=== PATIENT | male | born 1930 | race Caucasian/White ===

== ENCOUNTER 2016-09-24 11:53 | Inpatient (IN) | payer OTHER ==
--- NOTE | 2016-09-24 15:18 | PDOC ---
History of Present Illness - General History Source: Patient, Family, Old Records Exam Limitations: No Limitations - History of Present Illness Initial Comments: 09/24/16 15:47 The patient is a 86 year old male presenting with his family, with a significant past medical history of CHF, AFIB s/p cardiac stents (on coumadin), HTN, who presents to the emergency department with facial injuries, right pinky injury and right knee injury after a trip and fall earlier today. The patient was walking with his and aide on route to the hospital to check his INR levels, when he tripped over concrete. The fall was witnessed and he denies any headache or loss of consciousness. The patient is currently on Coumadin. His facial injuries include a nose abrasion and active bleeding from his mouth. He reports that mild pain from his right pinky. There is a laceration on the pinky with active bleeding. He also reports mild pain from his right knee, without radiation or modifying factors. He is able to bend his knee without any complications. The patient denies chest pain, shortness of breath, headache and dizziness. Denies fever, chills, nausea, vomit, diarrhea and constipation. Denies dysuria, frequency, urgency and hematuria. Allergies: None Past surgical history: Cardiac stents Social history: No alcohol, tobacco or drug use reported PMD - Dr. Brian Mooney - Inga Duarte - [phone] Won't be available from 6:15pm to 8:00pm most nights due to dinner time at intermediate. <Sergio Cavazos - Last Filed: 09/24/16 18:38> <Francisco Galvan - Last Filed: 09/26/16 10:18> - General Chief Complaint: Injury Stated Complaint: FALL/ LACERATED NOSE, MOUTH Time Seen by Provider: 09/24/16 15:17 Past History <Sergio Cavazos - Last Filed: 09/24/16 18:38> - Past Medical History Cardiac Disorders: Yes (A FIB) HTN: Yes - Surgical History Cardiac Surgery: Yes (STENTS) - Psycho/Social/Smoking Cessation Hx Suicidal Ideation: No Smoking History: Never smoked Have you smoked in the past 12 months: No Information on smoking cessation initiated: No Hx Alcohol Use: No Drug/Substance Use Hx: No Substance Use Type: None <Francisco Galvan - Last Filed: 09/26/16 10:18> - Past Medical History Allergies/Adverse Reactions: Allergies Allergy/AdvReac Type Severity Reaction Status Date / Time No Known Allergies Allergy Verified 09/24/16 12:05 Home Medications: Ambulatory Orders Atorvastatin Ca [Lipitor] 10 mg PO HS 09/24/16 Clopidogrel Bisulfate [Plavix -] 75 mg PO DAILY 09/24/16 Digoxin 125 mcg PO HS 09/24/16 Donepezil HCl [Aricept] 10 mg PO DAILY 09/24/16 Losartan Potassium 50 mg PO DAILY 09/24/16 Metoprolol Succinate [Toprol Xl] 50 mg PO BID 09/24/16 Sertraline HCl [Zoloft] 50 mg PO DAILY 09/24/16 Tamsulosin HCl [Flomax] 0.4 mg PO DAILY 09/24/16 Warfarin Na [Coumadin] 5 mg PO DAILY 09/24/16 Review of Systems - Review of Systems Able to Perform ROS?: Yes Comments:: 09/24/16 15:47 CONSTITUTIONAL: No reported: Fever, Chills, Diaphoresis, Generalized Weakness, Malaise, Loss of Appetite HEENT: Reported: Nose abrasion and upper lip abrasion with active blood oozing. No reported: Rhinorrhea, Nasal Congestion, Throat Pain, Throat Swelling, Difficulty Swallowing, Mouth Swelling, Ear Pain, Eye Pain, Visual Changes CARDIOVASCULAR: No reported: Chest Pain, Syncope, Palpitations, Irregular Heart Rate, Lightheadedness, Peripheral Edema RESPIRATORY: No reported: Cough, Shortness of Breath, SOB with Exertion, Orthopnea, Wheezing , Stridor, Hemoptysis GASTROINTESTINAL: No reported: Abdominal pain, Abdominal Distension, Nausea, Vomiting, Diarrhea, Constipation, Melena, Hematochezia GENITOURINARY: No reported: Dysuria, Frequency, Urgency, Hesitancy, Flank Pain, Genital Pain MUSCULOSKELETAL: No reported: Myalgia, Arthralgia, Joint Swelling, Back pain, Neck Pain EXTREMITIES: Reported: Right knee abrasions and left knee abrasion, right pinky laceration with active blood oozing. SKIN: No reported: Rash, Itching, Pallor HEMEATOLOGIC/IMMUNOLOGIC: No reported: Easy Bleeding, Easy Bruising, Lymphadenopathy, Frequent infections ENDOCRINE: No reported: Unexplained Weight Gain, Unexplained Weight Loss, Heat Intolerance , Cold Intolerance NEUROLOGIC: No reported: Headache, Focal Weakness, Paresthesias, Vertigo, Lightheadedness, Unsteady Gait, Seizure, Mental Status Changes, Incontinence PSYCHIATRIC: No reported: Anxiety, Depression <Sergio Cavazos - Last Filed: 09/24/16 18:38> *Physical Exam - Vital Signs Last Vital Signs Temp Pulse Resp BP Pulse Ox 98 F 72 18 121/91 98 09/24/16 12:00 09/24/16 12:00 09/24/16 12:00 09/24/16 12:00 09/24/16 12:00 - Physical Exam Comments: 09/24/16 15:48 GENERAL: The patient is awake, alert, and fully oriented, Nontoxic - in no acute distress. HEAD: Normocephalic, abrasion on bridge of nose, no creiptus, dried blood from nares w/o active bleeding, no focal scalp tenderness EYES: extraocular movements intact, sclera anicteric, conjunctiva clear. pupils 3mma nd reactie symmetrically. ENT: Normal voice, Moist mucous membranes,nongaping 1cm laceration on upper lip w/o active bleeding, no loose teeth,no tenderness in jaw. NECK: Normal range of motion, supple LUNGS: Breath sounds equal, clear to auscultation bilaterally. No wheezes, no rhonchi, no rales. HEART: Regular rate and rhythm, without murmur, rub or gallop. ABDOMEN: Soft, nontender, normoactive bowel sounds. No guarding, no rebound.No CVA tenderness EXTREMITIES: laceration on R pinky tip with oozing of blood, defomrity (chornic per patient) of R pinky, abrasions and mild tenderness on R proximal tibia, normal ROM of hip/knee/ankles w/o pain. BACK: No focal midline or parapsinal tenderness on back NEUROLOGICAL: No facial assymetry, Normal speech, moving all 4 extremities spontaneously and symmetrically. PSYCH: Normal mood, normal affect. SKIN: Warm, Dry, normal turgor, <Sergio Cavazos - Last Filed: 09/24/16 18:38> - Vital Signs Last Vital Signs Temp Pulse Resp BP Pulse Ox 98 F 72 18 121/91 98 09/24/16 12:00 09/24/16 12:00 09/24/16 12:00 09/24/16 12:00 09/24/16 12:00 - Physical Exam Comments: NEURO exam on presentation: Mental status: The patient is oriented x2 Cranial nerves: Cranial nerves II through XII are intact Motor: The upper extremities are 5 over 5 in all muscle groups. The lower extremities are 5 over 5 in all muscle groups. Negative pronator drift Sensation: Sensation is intact to light touch throughout. Gait: deferred <Francisco Galvan - Last Filed: 09/26/16 10:18> Procedures - Consent Consent obtained: Verbal - Laceration/Wound Repair Right 5th digit Wound Length: to 2.5 cm Wound Explored: clean Wound's Depth, Shape: superficial Irrigated w/ Saline: Yes Anesthesia: 1% Lidocaine Amount of Anesthetic (ccs): 1 Wound Debrided: minimal Wound Repaired With: Sutures Suture Size/Type: 4:0 Number of Sutures: 1 Sterile Dressing Applied: Yes <Francisco aGlvan - Last Filed: 09/26/16 10:18> Heart Score/ECG Review - ECG Impressions Comment:: 09/24/16 17:50 Twelve-lead EKG was performed and reviewed by me. Irregularly irregular Rate of 123 A. fib with RVR <Francisco Galvan - Last Filed: 09/26/16 10:18> ED Treatment Course - LABORATORY CBC & Chemistry Diagram: 09/24/16 16:28 09/24/16 16:28 <Sergio Cavazos - Last Filed: 09/24/16 18:38> - LABORATORY CBC & Chemistry Diagram: 09/26/16 05:20 09/26/16 05:20 <Francisco Galvan - Last Filed: 09/26/16 10:18> Medical Decision Making - Medical Decision Making 09/24/16 18:14 Dr. Brian Mooney was consulted regarding the patient at 5:58pm [phone] Dr. Sloan Dash was called regarding the patient at 5:55pm Dr. Dash was consulted regarding the patient at 6:14pm [phone] Dr. Ospina was consulted regarding the patient at 6:38pm. He agrees to admit the patient to the ICU. [phone] <Sergio Cavazos - Last Filed: 09/24/16 18:38> - Medical Decision Making 09/24/16 15:44 86y M hx of afib on coumadin presents s/p mechanical fall, witnessed by aide and . +multiple injuries/lacerations ncluding abrasion to nose/bridge, abrasion to upper lip w/o active bleeding, pain/chronic deformity of R pinky with laceration, abrasion to R knee proximal tib fib will obtain xrays to r/o fx ct head/facial bones to r/o bleed/fx uptdate tetanus will ck labs/inr A portion of this note was documented by scribe services under my direction. I have reviewed the details of the note, within reason, and agree with the documentation with the following case summary and management plan written by me 09/24/16 16:[address] shows multiple subdural hematomas INR stil pending - will start FFP/vitamin K depending on INR will admit to ICU for further monitoring. ct facial bones shows +nasal bone fracture 09/24/16 17:48 INR at 3.36 will give pt ffp and vitamin K will admit to ICU pts mental status unchanged 09/24/16 17:[address] moonye agreed with admission to icu will notify dr. turner and dr. dash Case discussed in detail with admitting physician including history, physical exam and ancillary studies. Admitting physician has assumed care for the patient, will follow all pending diagnostics and will complete the evaluation and treatment. 09/24/16 18:16 mental status unchanged case dw dr. dash agree with management, and reversal would give 1g keppra for seizure prophylaxis and 500bid CRITICAL CARE DOCUMENTATION: I spent ~35 minutes of Critical Care time, excluding separately billable procedures, involving high complexity decision making to assess, manipulate and support vital system function(s) to treat single or multiple vital organ system failure and/or to prevent further life threatening deterioration of the patient' s condition. <Francisco Galvan - Last Filed: 09/26/16 10:18> *DC/Admit/Observation/Transfer - Attestations Scribe Attestion: 09/24/16 15:48 Documentation prepared by Sergio Cavazos, acting as director medical for Francisco Galvan MD <Sergio Cavazos - Last Filed: 09/24/16 18:38> - Discharge Dispostion Admit: Yes <Francisco Galvan - Last Filed: 09/26/16 10:18> Diagnosis at time of Disposition: Subdural hematoma, Abrasions of multiple sites, Elevated INR Accidental fall Qualifiers: Encounter type: sequela Qualified Code(s): W19.XXXS - Unspecified fall, sequela Nasal bone fracture Qualifiers: Encounter type: initial encounter Fracture type: closed Qualified Code(s): S02.2XXA - Fracture of nasal bones, initial encounter for closed fracture Atrial fibrillation Qualifiers: Atrial fibrillation type: persistent Qualified Code(s): I48.1 - Persistent atrial fibrillation - Discharge Dispostion Condition at time of disposition: Critical - Referrals
[2016-09-24] MEDS ORDERED: DIPHTH,PERTUSS(ACELL),TET VAC 0.5 ML VIAL IM ONE (15:38)
[2016-09-24] MEDS ORDERED: ONDANSETRON 4 MG/2 ML VIAL IVPB ONE (15:48)
[2016-09-24] MEDS ORDERED: ONDANSETRON 4 MG/2 ML VIAL ONE (15:48)
[2016-09-24] MEDS ORDERED: ACETAMINOPHEN 325 MG TABLET (FP) ONE (15:49)
[2016-09-24] MEDS ORDERED: ACETAMINOPHEN 325 MG TABLET (FP) PO ONE (15:49)
[2016-09-24 16:45] LABS: BASOPHIL 0.3 % (0-2.0); EOSINOPHIL 0.2 % (0-4.5); MCH 30.1 pg (25.7-33.7); MCHC 32.5 g/dl (32.0-35.9); MEAN CELL VOLUME 92.5 fl (80-96); MEAN PLT VOLUME 10.6 fl (7.5-11.1); NEUTROPHILS 81.6 % (42.8-82.8); PLATELET COUNT 107 K/MM3 (134-434); RDW 14.1 % (11.9-15.9); WHITE BLOOD COUNT 10.4 K/mm3 (4.0-10.0)
[2016-09-24 16:59] LABS: INR 3.38 (0.82-1.09); PROTHROMBIN TIME (PATIENT) 38.1 SEC (9.98-11.88)
[2016-09-24 17:17] LABS: ALBUMIN 3.6 g/dl (3.4-5.0); ANION GAP 13 (8-16); CALCIUM 8.3 mg/dL (8.5-10.1); CO2 25 mmol/L (21-32); COCKROFT - GAULT 82.92; CREATININE 0.8 mg/dL (0.7-1.3); GLUCOSE,RANDOM 103 mg/dL (74-106); SGOT/AST 15 U/L (15-37); SGPT/ALT 19 U/L (12-78)
[2016-09-24 17:19] LABS: ALK PHOS 82 U/L (45-117); BILIRUBIN,TOTAL 1.3 mg/dL (0.2-1.0); TOT PROT 7.2 g/dl (6.4-8.2)
[2016-09-24] MEDS ORDERED: PHYTONADIONE 10 MG/1 ML AMP SQ ONE (17:46)
[2016-09-24] MEDS ORDERED: SODIUM CHLORIDE 500 ML IV STA (17:49)
[2016-09-24] MEDS ORDERED: levETIRAcetam 500 MG/5 ML INJECTION VIAL IVPB ONE (18:16)
[2016-09-24] MEDS ORDERED: PHYTONADIONE 10 MG/1 ML AMP ONE (18:17)
[2016-09-24] MEDS ORDERED: LABETALOL HCL 5 MG/1 ML (200MG/40ML VIAL) IVPB ONE (18:34)
[2016-09-24] MEDS ORDERED: LABETALOL HCL 5 MG/1 ML (100MG/20 ML VIAL) IVPUSH ONE (18:34)
[2016-09-24] MEDS: LABETALOL HCL 5 MG/1 ML (100MG/20 ML VIAL) IVPUSH ONE ×2 (20:20→20:43)
[2016-09-24] MEDS ORDERED: ENALAPRILAT DIHYDRATE 2.5 MG/2 ML VIAL IVPB ONE ×2 (20:35→20:43)
--- NOTE | 2016-09-24 20:57 | HP ---
Admitting History and Physical - Primary Care Physician PCP: Brian Mooney - Admission Chief Complaint: Fall. SDH. Supratherapeutic INR History of Present Illness: Pt. tripped ( on concrete), fell with face down, while walking with his ( towards laboratory, to have INR checked). Pt. came to ER were was found to have facial trauma, supratherapeutic INR, left SDH. Pt with Hx/o A Fib (on AC), CAD with cardiac stent, CHF, HTN. Information per ER attending and pt.'s ( I called her at home); pt.'s states that pt. took his AM meds. 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 Julio Cesar Fox). History Source: Family Member Limitations to Obtaining History: Dementia - Past Medical History Cardiovascular: Yes: CAD (with cardiac stent), CHF, HTN, Hyperlipdemia - Smoking History Smoking history: Never smoked Have you smoked in the past 12 months: No - Alcohol/Substance Use Hx Alcohol Use: No - Social History History of Recent Travel: No Home Medications - Allergies Allergies/Adverse Reactions: Allergies Allergy/AdvReac Type Severity Reaction Status Date / Time No Known Allergies Allergy Verified 09/24/16 12:05 - Home Medications Home Medications: Ambulatory Orders Atorvastatin Ca [Lipitor] 10 mg PO HS 09/24/16 Clopidogrel Bisulfate [Plavix -] 75 mg PO DAILY 09/24/16 Digoxin 125 mcg PO HS 09/24/16 Donepezil HCl [Aricept] 10 mg PO DAILY 09/24/16 Losartan Potassium 50 mg PO DAILY 09/24/16 Metoprolol Succinate [Toprol Xl] 50 mg PO BID 09/24/16 Sertraline HCl [Zoloft] 50 mg PO DAILY 09/24/16 Tamsulosin HCl [Flomax] 0.4 mg PO DAILY 09/24/16 Warfarin Na [Coumadin] 5 mg PO DAILY 09/24/16 Family Disease History - Family Disease History Family History: Unable to Obtain Review of Systems Findings/Remarks: limited - Review of Systems Constitutional: denies: Chills, Fever Eyes: denies: Blurred Vision, Double Vision HENT: reports: Other (no facial pain). denies: Difficult Swallowing, Ear Discharge, Ear Pain, Nasal Congestion, Throat Pain Neck: denies: Pain on Movement, Tenderness Cardiovascular: denies: Chest Pain, Edema, Palpitations Respiratory: denies: Cough, SOB, Wheezing Gastrointestinal: denies: Abdominal Pain, Diarrhea, Nausea Genitourinary: denies: Burning, Discharge Musculoskeletal: denies: Back Pain, Joint Pain Integumentary: denies: Bruising Neurological: denies: Change in LOC, Confusion, Numbness Psychiatric: denies: Anxiety, Depression Physical Examination Vital Signs: Vital Signs Temperature 98 F 09/24/16 12:00 Pulse Rate 145 H 09/24/16 18:57 Respiratory Rate 22 09/24/16 18:57 Blood Pressure 173/103 09/24/16 18:57 O2 Sat by Pulse Oximetry (%) 95 09/24/16 18:57 Constitutional: Yes: Mild Distress (removing NC- O2 sat going down to mid 80's) Eyes: Yes: Conjunctiva Clear. No: EOM Intact (right side neglect) HENT: Yes: Epistaxis, Other (mid upper lip laceration and bleeding). No: Atraumatic Neck: Yes: Trachea Midline. No: Lymphadenopathy Cardiovascular: Yes: Tachycardia, S1, S2 Respiratory: Yes: Regular, Other (coarse at bases) Gastrointestinal: Yes: Normal Bowel Sounds, Soft. No: Tenderness Musculoskeletal: Yes: Back Pain, Other (knees abrassions. Right 5-th finger suture) Extremities: No: Cold, Cool, Cyanosis Edema: No Integumentary: Yes: Bruising Neurological: Yes: Alert, Oriented (person) Psychiatric: Yes: Agitated (trying to get out the bed; removing the NC) Imaging - Results Chest X-ray: Report Reviewed X-ray: Report Reviewed Cat Scan: Report Reviewed Problem List - Problems (1) Subdural hematoma Code(s): I62.00 - NONTRAUMATIC SUBDURAL HEMORRHAGE, UNSPECIFIED (2) Supratherapeutic INR Code(s): R79.1 - ABNORMAL COAGULATION PROFILE (3) Atrial fibrillation Assessment/Plan: with RVR. Code(s): I48.91 - UNSPECIFIED ATRIAL FIBRILLATION Qualifiers: Atrial fibrillation type: persistent Qualified Code(s): I48.1 - Persistent atrial fibrillation (4) Accidental fall Code(s): W19.XXXA - UNSPECIFIED FALL, INITIAL ENCOUNTER Qualifiers: Encounter type: sequela Qualified Code(s): W19.XXXS - Unspecified fall, sequela (5) Nasal bone fracture Code(s): S02.2XXA - FRACTURE OF NASAL BONES, INIT ENCNTR FOR CLOSED FRACTURE Qualifiers: Encounter type: initial encounter Fracture type: closed Qualified Code(s): S02.2XXA - Fracture of nasal bones, initial encounter for closed fracture (6) Uncontrolled hypertension Code(s): I10 - ESSENTIAL (PRIMARY) HYPERTENSION (7) Abrasions of multiple sites Code(s): T14.8 - OTHER INJURY OF UNSPECIFIED BODY REGION (8) Dementia Assessment/Plan: mild to moderate at baseline. Code(s): F03.90 - UNSPECIFIED DEMENTIA WITHOUT BEHAVIORAL DISTURBANCE Assessment/Plan Neuro Sx consult- case was d/w Dr. Ernst; Pt. is not a surgical candidate. Neuro Consult. Cardio consult. CCM consult Admit to ICU s/p vit K ( 5 mg SQ), and to receive FFP. To monitor INR in AM. Serial CE Pt with upper lip laceration, bleeding- to avoid PO Pt received 10 mg IVP Labetalol(X 2), 2.5 mg IVP enalapril with minimal improvement of blood pressure. To start Cardizem IV drip and titrate for BP and HR control. Pt. with mild agitation, removing NC continuosly- O2 sat dropping to mid 80's; to apply hand restrains. Pt. is trying to get out of bed frequently, bed and head position set to prevent it but favors aspiration; to apply vest and reposition HOB to 35-45 degrees to prevent aspiration. 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 AM labs. Critical time spent in managing pt's condition: over 85 minutes
[2016-09-24] MEDS ORDERED: DIGOXIN 0.5 MG/2 ML AMPUL ONE (21:22)
[2016-09-24] MEDS: DIGOXIN 0.5 MG/2 ML AMPUL IVPB SCH ×2 (21:41→21:42)
[2016-09-24] MEDS: DILTIAZEM INJECTION 125 MG in DEXTROSE 5%-WATER - 100 ML IVPB SCH (21:58)
--- NOTE | 2016-09-24 23:23 | CONSULT ---
Consult Consult Specialty:: Pulmonary Critical Care Reason for Consultation:: Subdural hematoma s/p Witnessed Fall - History of Present Illness Chief Complaint: Subdural Hematoma s/p Witnessed Fall History of Present Illness: This is an 86 year old male with a past medical history significant for CHF, AFIB on coumadin, cardiac stents on Plavix,and HTN and dementia who presented to the ED today accompanied by his family and skilled nursing professional s/p witnessed mechanical fall. The patient was walking with his and aide en route to the hospital to check his INR, when he tripped and fell over concrete. He denies any headache or loss of consciousness. His facial injuries include a nose abrasion and active bleeding from his mouth. He reports that mild pain from his right pinky. There is a laceration on the pinky with active bleeding. He also reports mild pain from his right knee, without radiation or modifying factors. He is able to bend his knee without any complications. Given mechanism of injury and age of patient, pt had a CT scan of the head which revealed acute subdural hemorrhage within the posterior fossa along the left tentorium, as well as within the left temporal and parietal regions with no mass effect. Facial CT revealed a slightly displaced fracture of the left nasal bone, with no other fracture or acute abnormality appreciated. Neurosurgery was consulted and pt deemed not a surgical candidate. INR was >3 and treated with vitamin K and FFP. Pt also noted to be tachycardic and hypertensive and subsequently placed on cardizem drip for rate control. Given acute subdural hematoma, elevated INR and fall in an elderly pt decision made to transfer pt to ICU for further neuro monitoring and medical care. - Past Medical History Cardio/Vascular: Yes: CAD (with cardiac stent), CHF, HTN, Hyperlipdemia - Alcohol/Substance Use Hx Alcohol Use: No - Smoking History Smoking history: Never smoked Have you smoked in the past 12 months: No - Social History History of Recent Travel: No Home Medications - Allergies Allergies/Adverse Reactions: Allergies Allergy/AdvReac Type Severity Reaction Status Date / Time No Known Allergies Allergy Verified 09/24/16 12:05 - Home Medications Home Medications: Ambulatory Orders Atorvastatin Ca [Lipitor] 10 mg PO HS 09/24/16 Clopidogrel Bisulfate [Plavix -] 75 mg PO DAILY 09/24/16 Digoxin 125 mcg PO HS 09/24/16 Donepezil HCl [Aricept] 10 mg PO DAILY 09/24/16 Losartan Potassium 50 mg PO DAILY 09/24/16 Metoprolol Succinate [Toprol Xl] 50 mg PO BID 09/24/16 Sertraline HCl [Zoloft] 50 mg PO DAILY 09/24/16 Tamsulosin HCl [Flomax] 0.4 mg PO DAILY 09/24/16 Warfarin Na [Coumadin] 5 mg PO DAILY 09/24/16 Physical Exam Vital Signs: Vital Signs Temperature 97.9 F 09/24/16 21:51 Pulse Rate 145 H 09/24/16 18:57 Respiratory Rate 22 09/24/16 18:57 Blood Pressure 173/103 09/24/16 18:57 O2 Sat by Pulse Oximetry (%) 95 09/24/16 18:57 Constitutional: Yes: Well Nourished, No Distress, Calm Eyes: Yes: Conjunctiva Clear, PERRL HENT: Yes: Atraumatic, Normocephalic Neck: Yes: Supple, Trachea Midline Cardiovascular: Yes: Tachycardia, Pulse Irregular, S1, S2 Respiratory: Yes: On Venti-Mask, Rhonchi, Wheezes Gastrointestinal: Yes: Normal Bowel Sounds, Soft ...Rectal Exam: Yes: Deferred Renal/: Yes: Incontinence Edema: No Peripheral Pulses WNL: Yes (decreased to RLE, 2+ to remaining pulses) Integumentary: Yes: Skin Tear (B/L knees), Onychomycosis Neurological: Yes: Confusion, Pre-Existing Deficit, Other (AAOx1, name only, following commands, BEYER's equally, MS 5/5 throughout) Labs: CBCD WBC 10.4 K/mm3 (4.0-10.0) H D 09/24/16 16:28 RBC 4.38 M/mm3 (4.00-5.60) 09/24/16 16:28 Hgb 13.2 GM/dL (11.7-16.9) 09/24/16 16:28 Hct 40.6 % (35.4-49) 09/24/16 16:28 MCV 92.5 fl (80-96) 09/24/16 16:28 MCHC 32.5 g/dl (32.0-35.9) 09/24/16 16:28 RDW 14.1 % (11.9-15.9) 09/24/16 16:28 Plt Count 107 K/MM3 (134-434) L 09/24/16 16:28 MPV 10.6 fl (7.5-11.1) 09/24/16 16:28 CMP Sodium 141 mmol/L (136-145) 09/24/16 16:28 Potassium 4.2 mmol/L (3.5-5.1) 09/24/16 16:28 Chloride 103 mmol/L (98-107) 09/24/16 16:28 Carbon Dioxide 25 mmol/L (21-32) 09/24/16 16:28 Anion Gap 13 (8-16) 09/24/16 16:28 BUN 21 mg/dL (7-18) H 09/24/16 16:28 Creatinine 0.8 mg/dL (0.7-1.3) 09/24/16 16:28 Creat Clearance w eGFR > 60 (>60) 09/24/16 16:28 Calcium 8.3 mg/dL (8.5-10.1) L 09/24/16 16:28 Total Bilirubin 1.3 mg/dL (0.2-1.0) H D 09/24/16 16:28 AST 15 U/L (15-37) 09/24/16 16:28 ALT 19 U/L (12-78) 09/24/16 16:28 Alkaline Phosphatase 82 U/L (45-117) 09/24/16 16:28 Total Protein 7.2 g/dl (6.4-8.2) 09/24/16 16:28 Albumin 3.6 g/dl (3.4-5.0) 09/24/16 16:28 Imaging - Results Cat Scan: Report Reviewed Problem List - Problems (1) Abrasions of multiple sites Code(s): T14.8 - OTHER INJURY OF UNSPECIFIED BODY REGION (2) Atrial fibrillation Code(s): I48.91 - UNSPECIFIED ATRIAL FIBRILLATION Qualifiers: Atrial fibrillation type: persistent Qualified Code(s): I48.1 - Persistent atrial fibrillation (3) Dementia Code(s): F03.90 - UNSPECIFIED DEMENTIA WITHOUT BEHAVIORAL DISTURBANCE (4) Elevated INR Code(s): R79.1 - ABNORMAL COAGULATION PROFILE (5) Nasal bone fracture Code(s): S02.2XXA - FRACTURE OF NASAL BONES, INIT ENCNTR FOR CLOSED FRACTURE Qualifiers: Encounter type: initial encounter Fracture type: closed Qualified Code(s): S02.2XXA - Fracture of nasal bones, initial encounter for closed fracture (6) Subdural hematoma Code(s): I62.00 - NONTRAUMATIC SUBDURAL HEMORRHAGE, UNSPECIFIED (7) Altered mental status Code(s): R41.82 - ALTERED MENTAL STATUS, UNSPECIFIED Qualifiers: Altered mental status type: disorientation Qualified Code(s): R41.0 - Disorientation, unspecified Assessment/Plan A: This is an 86 year old male with a past medical history significant for CHF, AFIB on coumadin, cardiac stents on Plavix,and HTN and dementia who presented to the ED today s/p witnessed fall after tripping on sidewalk with subsequent work-up revealing acute subdural hematoma but not a surgical candidate. Pt admitted to ICU for further medical care. P: -Neuro checks q2hrs -Restraints prn -Reorient patient as needed for confusion -f/u with Neurology in AM -cont keppra 500mg IV q12hrs for seizure prophylaxis -consider repeat head CT in 24 hours -Cardizem gtt for rate control with goal HR<100 -dig level in am -Repeat coags once FFP given -Chest pt with coughing and deep breathing exercises -haldol prn given hx of dementia -face tent with 40% FIO2 as pt with broken left nasal bone and mouth breathing -Wean FIO2 as needed for goal SPO2 >94% -SCD's for dvt prophylaxis Thank you for this interesting consult. Pt is critically ill. CCT 45 mins not including procedures.
[2016-09-24 23:29] VITALS: BMI 28.0
[2016-09-25 00:50] LABS: MCH 30.3 pg (25.7-33.7); MCHC 32.8 g/dl (32.0-35.9); MEAN CELL VOLUME 92.6 fl (80-96); MEAN PLT VOLUME 11.4 fl (7.5-11.1); PLATELET COUNT 110 K/MM3 (134-434); RDW 13.9 % (11.9-15.9); WHITE BLOOD COUNT 10.4 K/mm3 (4.0-10.0)
[2016-09-25 01:03] LABS: INR 2.1 (0.82-1.09); PROTHROMBIN TIME (PATIENT) 23.5 SEC (9.98-11.88)
[2016-09-25 01:15] LABS: TROPONIN I 0.02 ng/ml (0.00-0.05)
[2016-09-25] MEDS ORDERED: hydrALAZINE HCL 20 MG/ML VIAL IVPUSH ONE (06:17)
[2016-09-25 06:48] LABS: ALLENS TEST POSITIVE; ART PUNCT SITE LEFT RADIAL; ARTERIAL BLOOD GAS BASE EXCESS 0.5 meq/l (-2-2); ARTERIAL BLOOD GAS HCO3 25.5 meq/L (22-26); ARTERIAL BLOOD GAS pH 7.37 (7.35-7.45); LPM/O2% 50%; PT. ON O2? YES; TYPE OF O2 FACE TENT
[2016-09-25 06:49] LABS: ARTERIAL BLOOD GAS PO2 63.5 mmHg (68-100)
[2016-09-25 06:52] LABS: ALBUMIN 4.1 g/dl (3.4-5.0); ALK PHOS 88 U/L (45-117); ANION GAP 10 (8-16); BILIRUBIN,TOTAL 2.4 mg/dL (0.2-1.0); CALCIUM 8.4 mg/dL (8.5-10.1); CO2 28 mmol/L (21-32); COCKROFT - GAULT 92.33; CREATININE 0.7 mg/dL (0.7-1.3); GLUCOSE,RANDOM 194 mg/dL (74-106); SGOT/AST 17 U/L (15-37); SGPT/ALT 21 U/L (12-78); TOT PROT 7.9 g/dl (6.4-8.2)
[2016-09-25] MEDS: ALBUTEROL SO4 2.5/IPRATROPIUM 0.5 INH SOL 3 ML VIAL.NEB. NEB SCH ×3 (06:52→18:00)
[2016-09-25 06:55] LABS: INR 2.06 (0.82-1.09)
--- NOTE | 2016-09-25 07:24 | PN ---
Physical Exam: SUBJECTIVE: Patient seen and examined sitting in bed with face tent. occasional termors in upper and lower extremities lasting few seconds at a time. OBJECTIVE: Vital Signs Period Temp Pulse Resp BP Sys/Obrien Pulse Ox Last 24 Hr 97.1 F-98 F 89-145 18-27 144-176/56-121 95-98 GENERAL: The patient is lethargic, easily arousable to verbal and noxious stimuli, difficult to maintain alertness. HEAD: Normal with no signs of trauma. EYES: pinpoint pupils sluggish to light, extraocular movements intact, sclera anicteric, conjunctiva clear. No ptosis. ENT: Ears normal, nares with dried blood, ecchymosis and abrasion over nose; covered with CDI guaze, oropharynx with dried blood and thick light brown secretions. swelling of upper lip. no active bleeding. NECK: Trachea midline, thick neck LUNGS: Breath sounds scattered rhonchi and diffuse coarse breath sounds b/l HEART: afib, S1, S2 without murmur, rub or gallop. ABDOMEN: Soft, nontender, nondistended, normoactive bowel sounds, no guarding, no rebound. EXTREMITIES: 2+ pulses, warm, well-perfused, no edema. abrasion below right knee, swelling on medial left knee. NEUROLOGICAL: hyprerefleix at brachoradialis and knee jerk b/l. resting tremors. lethargic. responds to verbal stimuli, able to say hello but not squeeze hand or commands Laboratory Results - last 24 hr 09/25/16 09/25/16 09/25/16 00:30 00:30 00:30 WBC 10.4 H RBC 3.92 L Hgb 11.9 Hct 36.3 MCV 92.6 MCHC 32.8 RDW 13.9 Plt Count 110 L MPV 11.4 H INR 2.10 H D Puncture Site ABG pH ABG pCO2 at Pt Temp ABG pO2 at Pt Temp ABG HCO3 ABG O2 Sat (Measured) ABG O2 Content ABG Base Excess Prosper Test O2 Delivery Device Oxygen Flow Rate PEEP Sodium Potassium Chloride Carbon Dioxide Anion Gap BUN Creatinine Creat Clearance w eGFR Random Glucose Calcium Total Bilirubin AST ALT Alkaline Phosphatase Creatine Kinase 77 Troponin I 0.02 Total Protein Albumin 09/25/16 09/25/16 09/25/16 05:15 05:15 06:36 WBC RBC Hgb Hct MCV MCHC RDW Plt Count MPV INR 2.06 H Puncture Site Left radial ABG pH 7.37 ABG pCO2 at Pt Temp 45.3 H ABG pO2 at Pt Temp 63.5 L ABG HCO3 25.5 ABG O2 Sat (Measured) 91.0 ABG O2 Content 15.4 ABG Base Excess 0.5 Prosper Test Positive O2 Delivery Device Face tent Oxygen Flow Rate 50% PEEP 0.0 Sodium 136 Potassium 3.4 L Chloride 98 Carbon Dioxide 28 Anion Gap 10 BUN 18 Creatinine 0.7 Creat Clearance w eGFR > 60 Random Glucose 194 H D Calcium 8.4 L Total Bilirubin 2.4 H D AST 17 ALT 21 Alkaline Phosphatase 88 Creatine Kinase Troponin I Total Protein 7.9 Albumin 4.1 Active Medications Generic Name Dose Route Start Last Admin Trade Name Freq PRN Reason Stop Dose Admin Albuterol/Ipratropium 1 amp 09/25/16 07:00 09/25/16 06:52 Duoneb - NEB 1 amp QIDR [facility] Administration Bacitracin 1 applic 09/24/16 23:15 09/25/16 00:00 Bacitracin - TP 1 applic BID CESAR Administration Digoxin 0.125 mg 09/24/16 21:30 09/24/16 21:42 Lanoxin Injection - IVPB Not Given HS CESAR Diltiazem HCl 125 mg/ Dextrose 125 mls @ 5 mls/hr 09/24/16 21:45 09/25/16 06:41 IVPB 7.5 mg/hr TITR [facility] Titration Protocol 5 MG/HR ASSESSMENT/PLAN: 86 yr old man with dementia, afib on plavix and warfarin, HTN, CAD s/p stents, CHF, parkinson's disorder presents s/p mechanical fall found to have subarachnoid and subdural hemorrhage. Neurologic Repeat Head CT shows progression of hemorrhage, plan to repeat head in the morning sedated with propofol and fentanyl consult: Dr. Ventura Pulmonary Pt intubated today to protect airway possible infiltrate developing in right lung, likely caused by aspiration Hemotalogical reverse antiplatet and anticoagulation due to active bleed - transfuse ffp and monodonor platelets - Vitamin K administered - repeat coags consult: Dr. Melgar Cardiovascular - rate controlled afib maintain SBP <130, low to prevent worsening of hemorrhage - labetalol 10mg [id number] for 3 doses, if sustained SBP consider nicardipine drip - amiodarone dc'ed this morning due to episodes of bradycardia - hold warfarin and plavix consult: Dr. Pierce Infectious disease Cxy with pathchy infiltrates in right lung, suspicious for aspiration pna tx with levaquin fever this evening to 100.7 - blood cx sent to r/o systemic bactermia - IVPB tylenol 1gm q6h for fevers Gastrointestinal - OG tube in place for medications - prophylaxis with zantac daily DVT scd's given acute bleed Diet: NPO Visit type - Emergency Visit Emergency Visit: No - New Patient This patient is new to me today: Yes Date on this admission: 09/25/16 - Critical Care Critical Care patient: Yes Total Critical Care Time (in minutes): 35 Critical Care Statement: The care of this patient involved high complexity decision making to prevent further life threatening deterioration of the patient 's condition and/or to evalute & treat vital organ system(s) failure or risk of failure.
--- NOTE | 2016-09-25 08:12 | PN ---
Progress Note (short form) - Note Progress Note: NEUROSURGERY CONSULT DICTATED Chart reviewed CT reviewed Care d/w Dr Galvan (ED) yesterday Reportedly less awakeful and purposeful with movement this am; did not receive sedation H/o AFIB, CHF, cardiac stents (on coumadin), HTN, who presents to [facility] emergency department yesterday with facial injuries, right hand/t knee injury after a mechanical trip and fall. Pt denies any headache or loss of consciousness. He reports mild pain from his pinky and right knee. PE: 97.1, 171/87 HEENT- nasal blood; FM on; Neck-supple; Cor- Irreg; Lungs- occ rhonchi, decreased BS in general; Abs- obese, benign; Ext- R knee abrasion Drowsy, arousable, does not follow command "hello" with prompting repeatedly CN- pupils 3-2.5 sluggish B; grossly intact; Motor- at least antigravity strength B UE/LE 3; + spontaneous movement; Sensation- difficult to assess; DTR - hyperreflexic B LE > UE; toes downgoing B INR 3.[address]: cerebral atrophy, L hemipsheric acute on chronic SDH with minimal mass effect; no shift L hemispheric SDH- no neurosurgical intervention indicated nor recommended Keppra x1 week for sz prophylaxis Coumadin partially reversed per ED with FFP and vit K Ideally should be off AC for one month before restarting; unfortunately increased thromboembolic risks now that he is off plavix and coumadin Head CT this AM to ascertains stability of SDH
[2016-09-25] MEDS ORDERED: KCL 10 MEQ IVPB 100 ML IVPB SCH (08:15)
--- NOTE | 2016-09-25 09:21 | PN ---
Progress Note, Physician History of Present Illness: Pt. was seen and examined in ICU. Lethargic ( opens his eyes for couple of seconds, doesn't follows commands), no sedative was given. Pt. had second Head CT done. - Current Medication List Current Medications: Active Medications Albuterol/Ipratropium (Duoneb -) 1 amp NEB QIDR [facility] Last Admin: 09/25/16 06:52 Dose: 1 amp Bacitracin (Bacitracin -) 1 applic TP BID [facility] Last Admin: 09/25/16 00:00 Dose: 1 applic Digoxin (Lanoxin Injection -) 0.125 mg IVPB HS [facility] Last Admin: 09/24/16 21:42 Dose: Not Given Diltiazem HCl 125 mg/ Dextrose 125 mls @ 5 mls/hr IVPB TITR [facility]; 5 MG/HR PRN Reason: Protocol Last Titration: 09/25/16 06:41 Dose: 7.5 mg/hr Levetiracetam (Keppra Injection -) 500 mg IVPB BID [facility] - Objective Vital Signs: Vital Signs Temperature 97.1 F L 09/25/16 06:00 Pulse Rate 88 09/25/16 08:00 Respiratory Rate 28 H 09/25/16 08:00 Blood Pressure 132/62 09/25/16 08:00 O2 Sat by Pulse Oximetry (%) 96 09/25/16 08:00 Constitutional: Yes: No Distress, Calm Cardiovascular: Yes: Regular Rate and Rhythm, S1, S2 Respiratory: Yes: Regular, Rales (bilaterally, in lower lung sauer) Gastrointestinal: Yes: Normal Bowel Sounds, Soft Edema: No Neurological: Yes: Lethargy Labs: CBC, BMP 09/25/16 00:30 09/25/16 05:15 INR, PTT INR 2.06 (0.82-1.09) H 09/25/16 05:15 Problem List - Problems (1) Subdural hematoma Code(s): I62.00 - NONTRAUMATIC SUBDURAL HEMORRHAGE, UNSPECIFIED (2) Supratherapeutic INR Code(s): R79.1 - ABNORMAL COAGULATION PROFILE (3) Atrial fibrillation Assessment/Plan: with RVR- controlled with IV cardizem Code(s): I48.91 - UNSPECIFIED ATRIAL FIBRILLATION Qualifiers: Atrial fibrillation type: persistent Qualified Code(s): I48.1 - Persistent atrial fibrillation (4) Accidental fall Code(s): W19.XXXA - UNSPECIFIED FALL, INITIAL ENCOUNTER Qualifiers: Encounter type: sequela Qualified Code(s): W19.XXXS - Unspecified fall, sequela (5) Nasal bone fracture Code(s): S02.2XXA - FRACTURE OF NASAL BONES, INIT ENCNTR FOR CLOSED FRACTURE Qualifiers: Encounter type: initial encounter Fracture type: closed Qualified Code(s): S02.2XXA - Fracture of nasal bones, initial encounter for closed fracture (6) Uncontrolled hypertension Code(s): I10 - ESSENTIAL (PRIMARY) HYPERTENSION (7) Abrasions of multiple sites Code(s): T14.8 - OTHER INJURY OF UNSPECIFIED BODY REGION (8) Dementia Assessment/Plan: mild to moderate at baseline. Code(s): F03.90 - UNSPECIFIED DEMENTIA WITHOUT BEHAVIORAL DISTURBANCE (9) Leukocytosis Assessment/Plan: Send UA, UCX Could be reactive Code(s): D72.829 - ELEVATED WHITE BLOOD CELL COUNT, UNSPECIFIED (10) Hypokalemia Assessment/Plan: replete K, check Mg Code(s): E87.6 - HYPOKALEMIA (11) Thrombocytopenia Assessment/Plan: stable might need transfusion Code(s): D69.6 - THROMBOCYTOPENIA, UNSPECIFIED Assessment/Plan Neuro Sx consult appreciated- case was d/w Dr. Ernst; Pt. is not a surgical candidate. Neuro Consult appreciated, Dr. Ventura at bedside, second head CT scan was reviewed ( increase in SDH, possible SAH present); to reverse AC, start IV steroids, repeat Head CT scan in early afternoon. Cardio consult. CCM consult Admitted to ICU. Hematology consult. s/p vit K ( 5 mg SQ), and to receive FFP. vit K (5 mg SQ) and and FFP ordered again. NPO except med- if tolerates HOB to 35-45 degrees to prevent aspiration. ENT consult. Case was discussed with pt's ER nurse. AM labs. Case was d/w pt.'s ; she is aware of worsening bleeding, risks, treatments, poor prognosis; all questions were answered. She wants pt full code, intubate as needed. Time spent in managing pt's condition: over 75 minutes
--- NOTE | 2016-09-25 09:33 | CONS ---
DATE OF CONSULTATION: 09/25/2016 CHIEF COMPLAINT: Left hemispheric subdural hematoma. REQUESTING PHYSICIAN: Dr. Galvan and Dr. Brian Mooney HISTORY OF PRESENT ILLNESS: The patient is an 86-year-old male with history of chronic atrial fibrillation on anticoagulation, coronary artery disease status post stent, CHF, hypertension, who suffered a mechanical fall yesterday while walking to have his blood checked. He fell on the concrete sidewalk by report. He denies loss of consciousness. The history was obtained previously from a family member. The patient does have a history of dementia by report. There were no witnessed seizure activities. The patient was found to be intermittently hypertensive, however, as well as appearing to have sustained some superficial soft tissue injury to the nose, right hand, and right knee. There were no other new complaints. PAST MEDICAL HISTORY: Significant for a coronary artery disease, stent placement, CHF, hypertension, hypercholesterolemia, dementia. MEDICATIONS: Included Lipitor, Plavix, Digoxin, Aricept, losartan, metoprolol, Coumadin, Flomax, and Zoloft. ALLERGIES: There are no known drug allergies. FAMILY HISTORY: Noncontributory. SOCIAL HISTORY: He is retired. He does not smoke or drink. He lives at home with the family. REVIEW OF SYSTEMS: Otherwise negative for other major cardiovascular, pulmonary , gastrointestinal, genitourinary, endocrinologic, neurologic, or psychologic problems except for the above. PHYSICAL EXAMINATION: Vital signs: Temperature is 97.1, blood pressure is 173/87 with pulse rate of 89, O2 saturation is 98% on face mask 50%. HEENT: Examination shows him to have some blood in the nares bilaterally. There is no clear airway obstruction. Neck: Supple with no carotid bruit. Coronary: Examination demonstrates an irregular rhythm. Lungs: Decreased breath sounds bilaterally. There are occasional bilateral rhonchi. Abdomen: Obese, but benign. Extremities: No obvious signs of fracture. There is osteoarthritis throughout. There is some abrasion over the right knee as well as some soft tissue injury as noted. Neurologic: He is drowsy, but arousable. He repeats hello without prompting, but does not say much of anything else. Cranial nerve examination shows pupils reactive from 3 to 2.5 mm bilaterally, but sluggish. Cranial nerve examination is otherwise intact. Motor examination shows at least antigravity strength of bilateral upper and lower extremities. Sensory examination is difficult to assess. Deep tendon reflexes are hyporeflexic throughout. His toes are downgoing. Gait could not be tested for safety reasons. LABORATORY EXAMINATION: Shows white blood cell count to be 10,400, hemoglobin is 11.9, hematocrit is 36.3, platelet count is 110,000. INR was 3.38, which after vitamin K and FFP was 2.06 this morning. Serum sodium is 136, potassium 3.4, BUN 18, creatinine 0.7, GFR is greater than 60, random glucose 194, calcium 8.4. Chest x-ray was just done. Head CT done yesterday approximately 3:30 p.m. showed a bilateral cerebral atrophy. There is left hemispheric subdural fluid collection acute on chronic. This also extends into the left tentorium. There is no significant mass effect or midline shift. There is no fracture. IMPRESSION: 1. Acute on chronic left hemispheric subdural fluid collection with no significant mass effect or shift, status post mechanical fall. 2. History of hypertension, atrial fibrillation on chronic anticoagulation, coronary artery disease status post stent placement, and congestive heart failure. 3. Rule out primary pneumonic process versus exacerbation of heart failure. 4. Dementia. RECOMMENDATIONS: The patient presents with traumatic fall yesterday. He had reported suffered a nasal fracture in addition to left-sided hemispheric subdural hematoma. His anticoagulation was reversed in the emergency room by a combination of vitamin K and FFP by report. INR this morning was 2.06. A repeat head CT scan without contrast is recommended this morning to evaluate the size of subdural hematoma. Given his history of treatment with antiplatelet agent as well as Coumadin, he is at increased risk for hemorrhagic adverse events in general. Unfortunately, now that he is off his anticoagulation for his atrial fibrillation, he is more likely to develop thromboembolic event such as stroke. Keppra at loading dose was given, and he should be maintained 250 mg from 500 mg b.i.d. maintenance doses for at least a week for seizure prophylaxis. The patients treatment was discussed with the medical treatment team in the intensive care unit. WASHINGTON LONGO M.D. [id number] MTDD
--- NOTE | 2016-09-25 09:51 | CONSULT ---
Consult - text type - Consultation Consultation Note: NEUROLOGY CONSULTATION is greatly appreciated: Case reviewed and discussed with Dr. Mooney and resident staff. This 86yo RH man lives with his . PMH sig for HTN, Chol, ASHD, S/P Stents, A Fib and dementia. On atorvastatin, clopidegrel, digoxin, losartan, metoprolol, sertraline, tamsulosin and coumadin. Tripped and fell yesterday with facial and knee trauma. + nasal fracture, pinky dislocation. WBC= 10 K. INR was 3.38 on admission. INR= 2.[address] of head (reviewed): Diffuse atrophy. Small Left convexity subdural hematoma ( acute), small left tentorial and infratemporal subarachnoid blood. EXAM: Nasal packing. Neck ROM OK without tenderness. Left knee swollen. ecchymotic. NEURO: Lethargic but arousable. Denies headache but is confused. + Glabella, snout. [id number], Full roving EOM's. Full sauer to threat. No facial asymmetry. Moving all fours well. Right foot rests slightly everted. Course, rhythmic, rest tremors. + cogwheel. Right Babinski. Withdraws all fours to pinch. Repeat CT of head (930 hrs), reviewed: Increased Left convexity subdural with loss of gyral, sulcal pattern and small midline (L>R) shift. Increased blood (SDH vs SAH) along tentorium. IMP: Head trauma with Left convexity SDH and traumatic SAH OMS/ Parkinson's disease. SUGGEST: Recall Dr. Ernst Re: new CT findings. Give decadron 4 mg IVPB q 6 hrs. First dose stat. Agree with levetiracetam 500 mg q12 hrs. Heme consultation. Continue correction of anticoagulation status with vit K, FFP, etc. Repeat INR. Repeat CT of head this afternoon. Thank you very much, Adarsh Ventura MD
[2016-09-25] MEDS ORDERED: PHYTONADIONE 10 MG/1 ML AMP SQ ONE (10:02)
[2016-09-25] MEDS: levETIRAcetam 500 MG/5 ML INJECTION VIAL IVPB SCH ×2 (10:04→21:36)
[2016-09-25] MEDS: DEXAMETHASONE SOD PHOSPHATE 4 MG/1 ML VIAL IVPUSH SCH ×3 (10:05→21:31)
--- NOTE | 2016-09-25 10:06 | EKG ---
Test Reason : Blood Pressure : / mmHG Vent. Rate : 123 BPM Atrial Rate : 122 BPM P-R Int : 000 ms QRS Dur : 090 ms QT Int : 282 ms P-R-T Axes : 000 088 020 degrees QTc Int : 403 ms ATRIAL FIBRILLATION WITH RAPID VENTRICULAR RESPONSE ANTERIOR INFARCT (CITED ON OR BEFORE 21-SEP-2015) ABNORMAL ECG WHEN COMPARED WITH ECG OF 21-SEP-2015 11:18, QUESTIONABLE CHANGE IN QRS AXIS T WAVE AMPLITUDE HAS INCREASED IN LATERAL LEADS Confirmed by TERRENCE JIMENEZ, IAM ([id number]) on 09/25/2016 10:05:49 AM Referred By: Confirmed By:IAM OCAMPO MD
[2016-09-25] MEDS ORDERED: DESMOPRESSIN ACETATE 4 MCG/ML AMP IVPB ONE (10:47)
[2016-09-25] MEDS ORDERED: PROPOFOL 200 MG/20 ML VIAL IVPUSH ONE (11:16)
[2016-09-25] MEDS ORDERED: FENTANYL INJECTION 500 MCG in DEXTROSE 5%-WATER - 90 ML IJ SCH (11:30)
[2016-09-25] MEDS ORDERED: LIDOCAINE 0.4%/D5W IVPB 250ML BAG IVPB ONE (11:34)
[2016-09-25] MEDS ORDERED: LIDOCAINE HCL 2% 100 MG/5 ML DISP.SYRIN ONE (11:35)
--- NOTE | 2016-09-25 11:48 | PN ---
Progress Note (short form) - Note Progress Note: NEUROSURGERY Repeat CT reviewed Care d/w Fideliajones Reportedly less awakeful and purposeful with movement this am; did not receive sedation PE: AF, 130/63 HEENT- nasal blood; FM on; Neck-supple; Cor- Irreg; Lungs- occ rhonchi, decreased BS in general; Abs- obese, benign; Ext- R knee abrasion Drowsy, not following command CN- pupils 3-2.5mm sluggish B; Motor- at least 2-3 B UE/LE but less than earlier ; ; Sensation- difficult to assess; DTR- hyperreflexic B LE > UE; toes downgoing INR 3.38 to 2.06: being transfused FFP and platelet Head CT: cerebral atrophy, L hemispheric acute on chronic SDH with minimal mass effect; no shift F/U CT: Acute L hemispheric SDH with mass effect and mild shift, more tentorial SDH and subtemporal SDH L hemispheric SDH- neurosurgical intervention not recommended Keppra x1 week for sz prophylaxis Surgery can only reasonably address the more lateral portion of SDH Risks are significantly higher in this elderly patients previously on coumadin and plaxiv - bleeding, re-hemorrhage, infection, stroke, sz, coma, Pt has significant medical co-morbidities, which in combination with his age and anesthetic risks, will likely prevent a decent outcome Pros and cons discussed Prognosis is poor regardless which way one proceeds Concensus with /Dr Mooney is not to aggressively pursue surgical intervention at this time
--- NOTE | 2016-09-25 11:57 | PROC ---
Intubation - Intubation Reason for Intubation: Respiratory Failure, Airway Protection Time of Intubation: 11:55 Intubation Method: orotracheal Blade used: Glidescope (4 blade) Tube Size (cm): 8.0 Tube position @ lip (cm): 23 Tube position confirmed by: Direct visualization, CO2 detector, Breath sounds Breath Sounds after Intubation: equal Post Intubation Xray: Yes
[2016-09-25] MEDS ORDERED: PROPOFOL 100 ML ONE ×2 (12:10→19:49)
[2016-09-25] MEDS: PROPOFOL 100 ML IVPB SCH (12:19)
--- NOTE | 2016-09-25 12:43 | PN ---
Teaching Attending Note Name of Resident: Jesse Hamm ATTENDING PHYSICIAN STATEMENT I saw and evaluated the patient. I reviewed the resident's note and discussed the case with the resident. I agree with the resident's findings and plan as documented. SUBJECTIVE: Pt seen and examined in the ICU. Intubated earlier for airway protection and respiratory failure. Thick yellow secretions in ETT after intubation. CT head this AM with worsening subdural and intracranial bleed. OBJECTIVE: Last Vital Signs Temp Pulse Resp BP Pulse Ox 97.4 F L 52 L 20 130/63 100 09/25/16 10:00 09/25/16 12:38 09/25/16 12:38 09/25/16 10:00 09/25/16 12:38 Intake & Output 09/22/16 09/23/16 09/24/16 09/25/16 23:59 23:59 23:59 23:59 Intake Total 60 Output Total 50 300 Balance -50 -240 Weight 190 lb Gen: lethargic, tachypneic prior to intubation Heart: RRR Lung: bilateral rhonchi Abd: soft, nontender Ext: no edema CBC, BMP 09/25/16 00:30 09/25/16 05:15 Active Medications Albuterol/Ipratropium (Duoneb -) 1 amp NEB QIDR [facility] Last Admin: 09/25/16 06:52 Dose: 1 amp Bacitracin (Bacitracin -) 1 applic TP BID [facility] Last Admin: 09/25/16 00:00 Dose: 1 applic Dexamethasone Sodium Phosphate (Decadron Injection -) 4 mg IVPUSH Q6H-IV [facility] Last Admin: 09/25/16 10:05 Dose: 4 mg Digoxin (Lanoxin Injection -) 0.125 mg IVPB HS [facility] Last Admin: 09/24/16 21:42 Dose: Not Given Diltiazem HCl 125 mg/ Dextrose 125 mls @ 5 mls/hr IVPB TITR [facility]; 5 MG/HR PRN Reason: Protocol Last Titration: 09/25/16 06:41 Dose: 7.5 mg/hr Potassium Chloride (Potassium Chloride 10 Meq Premix Ivpb -) 100 mls @ 100 mls/ hr IVPB Q60M [facility] Stop: 09/25/16 12:59 Propofol (Diprivan -) 100 mls @ 2.585 mls/hr IVPB TITR [facility]; 5 MCG/KG/MIN PRN Reason: Protocol Last Admin: 09/25/16 12:19 Dose: 2.585 mls/hr Fentanyl 500 mcg/ Sodium (Chloride) 110 mls @ 5.5 mls/hr IJ TITR [facility] PRN Reason: 25 MCG/HR Levetiracetam (Keppra Injection -) 500 mg IVPB BID [facility] Last Admin: 09/25/16 10:04 Dose: 500 mg Lidocaine HCl/Dextrose (Lidocaine 0.4%/D5w Ivpb) 100 mg IVPB ONCE ONE Stop: 09/25/16 11:35 ASSESSMENT AND PLAN: Acute Hypoxic Respiratory Failure s/p Fall Traumatic Subdural Hematoma/Subarachnoid Hemorrhage Atrial Fibrillation on anticoagulation Dysfunctional Platelets from Plavix HTN Dementia Likely Aspiration Pneumonia - transfuse FFP, platelets - repeat CT head - monitor coags - neuro/neurosurgery input appreciated - empiric antiepileptics, steroids - hold rate controlling agents as pt bradycardic which may be from increased ICP - replete lytes - hyperventilation with mechanical ventilation - DVT/GI prophylaxis - poor overall prognosis - will need to discuss goals of care and advanced directives with family - ICU monitoring critical care time spent in reviewing chart, evaluating patient and formulating plan 45 min
[2016-09-25] MEDS ORDERED: LIDOCAINE HCL 2% 100 MG/5 ML DISP.SYRIN IVPUSH ONE (12:44)
[2016-09-25] MEDS: KCL 10 MEQ IVPB 100 ML IVPB SCH ×2 (12:59→14:00)
[2016-09-25] MEDS: FENTANYL INJECTION 500 MCG in SODIUM CHLORIDE 100 ML IJ SCH (13:01)
[2016-09-25] MEDS: BACITRACIN 30 GM TUBE TOPICAL OINTMENT TP SCH ×3 (13:02→21:31)
--- NOTE | 2016-09-25 13:31 | CONSULT ---
Consult - text type - Consultation Consultation Note: Pt. tripped ( on concrete), fell with face down, while walking with his ( towards laboratory, to have INR checked). Pt. came to ER were was found to have facial trauma, supratherapeutic INR, left SDH. Pt with Hx/o A Fib (on AC), CAD with cardiac stent, CHF, HTN. History Source: Family Member Limitations to Obtaining History: Dementia - Past Medical History Cardiovascular: Yes: CAD (with cardiac stent), CHF, HTN, Hyperlipdemia - Smoking History Smoking history: Never smoked - Allergies Allergies/Adverse Reactions: Allergies Allergy/AdvReac Type Severity Reaction Status Date / Time No Known Allergies Allergy Verified 09/24/16 12:05 - Home Medications Home Medications: Ambulatory Orders Atorvastatin Ca [Lipitor] 10 mg PO HS 09/24/16 Clopidogrel Bisulfate [Plavix -] 75 mg PO DAILY 09/24/16 Digoxin 125 mcg PO HS 09/24/16 Donepezil HCl [Aricept] 10 mg PO DAILY 09/24/16 Losartan Potassium 50 mg PO DAILY 09/24/16 Metoprolol Succinate [Toprol Xl] 50 mg PO BID 09/24/16 Sertraline HCl [Zoloft] 50 mg PO DAILY 09/24/16 Tamsulosin HCl [Flomax] 0.4 mg PO DAILY 09/24/16 Warfarin Na [Coumadin] 5 mg PO DAILY 09/24/16 Family Disease History - Family Disease History Family History: Unable to Obtain Physical Examination Vital Signs: Last Vital Signs Temp Pulse Resp BP Pulse Ox 99.6 F 88 20 141/78 100 09/25/16 14:00 09/25/16 14:00 09/25/16 15:07 09/25/16 14:00 09/25/16 12:38 Intubates/sedated Cor: RSR, No murmurs, No gallops Lungs: CTA ( ant.) Abd: Soft, Normal bowel sounds, Ext:No significant edema Abnormal Lab Results 09/24/16 09/24/16 09/25/16 15:50 16:28 00:30 WBC 10.4 H RBC 3.92 L Plt Count 110 L MPV 11.4 H INR 3.38 H ABG pCO2 at Pt Temp ABG pO2 at Pt Temp ABG HCO3 ABG O2 Content ABG Base Excess Potassium BUN 21 H Random Glucose Calcium 8.3 L Total Bilirubin 1.3 H D 09/25/16 09/25/16 09/25/16 00:30 05:15 05:15 WBC RBC Plt Count MPV INR 2.10 H D 2.06 H ABG pCO2 at Pt Temp ABG pO2 at Pt Temp ABG HCO3 ABG O2 Content ABG Base Excess Potassium 3.4 L BUN Random Glucose 194 H D Calcium 8.4 L Total Bilirubin 2.4 H D 09/25/16 09/25/16 09/25/16 06:36 14:00 15:45 WBC RBC Plt Count MPV INR 1.53 H ABG pCO2 at Pt Temp 45.3 H ABG pO2 at Pt Temp 63.5 L ABG HCO3 27.3 H ABG O2 Content 14.1 L ABG Base Excess 3.5 H Potassium BUN Random Glucose Calcium Total Bilirubin Problem List - Problems (1) Subdural hematoma Code(s): I62.00 - NONTRAUMATIC SUBDURAL HEMORRHAGE, UNSPECIFIED (2) Supratherapeutic INR Code(s): R79.1 - ABNORMAL COAGULATION PROFILE (3) Atrial fibrillation Assessment/Plan: with RVR. Code(s): I48.91 - UNSPECIFIED ATRIAL FIBRILLATION Qualifiers: Atrial fibrillation type: persistent Qualified Code(s): I48.1 - Persistent atrial fibrillation (4) Accidental fall Code(s): W19.XXXA - UNSPECIFIED FALL, INITIAL ENCOUNTER Qualifiers: Encounter type: sequela Qualified Code(s): W19.XXXS - Unspecified fall, sequela (5) Nasal bone fracture Code(s): S02.2XXA - FRACTURE OF NASAL BONES, INIT ENCNTR FOR CLOSED FRACTURE Qualifiers: Encounter type: initial encounter Fracture type: closed Qualified Code(s): S02.2XXA - Fracture of nasal bones, initial encounter for closed fracture (6) Uncontrolled hypertension Code(s): I10 - ESSENTIAL (PRIMARY) HYPERTENSION (7) Abrasions of multiple sites Code(s): T14.8 - OTHER INJURY OF UNSPECIFIED BODY REGION (8) Dementia Assessment/Plan: mild to moderate at baseline. Code(s): F03.90 - UNSPECIFIED DEMENTIA WITHOUT BEHAVIORAL DISTURBANCE Assessment/Plan 86 y/o patient with h/o Afib, CAd, s/p stents,CHF, HTN, hyperlipidemia, dementia , s/p fall with subdural hematoma, on plavix/coumadin B/L subdural hematonma Lt.< rt. with midline shift s/p 5 units FFP s/p vit. k 5mg Sc x 2 doses transfusing 2 units monodonor platelets will repeatPT/IN/CBC repeat head CT may needs further platelet transfusion based on clinical course
--- NOTE | 2016-09-25 15:20 | CON.CARD ---
Consult Consult Specialty:: cardiology Referred by:: Jesica Reason for Consultation:: afib - History of Present Illness Chief Complaint: s/p fall with subdural bleed History of Present Illness: This is an 86 year old male with a pmhx of htn, afib on coumadin, CAD s/p stents at [facility] in 2010, hld, and chronic systolic CHF with LVEF 30% in 2014 who presented to ER after a mechanical fall. As per the patients , patient was walking to check his INR when tripped over cement flower bed and fell face first onto the concrete. Denied any chest pain, dyspnea, or palpitations. No loss of consciousness. Suffered facial injuries and bleeding so went to ER. CT scan of the head demonstrated an acute subdural hemorrhage and left nasal bone displaced fracture. Neurosurgery evaluated paitnet and deemed not a surgical candidate. INR was in the 3s and s/p vitamin K and FFP. Initially started on diltiazem drip for htn and tachycardia and subsequently stopped for bradycardia. Patient was admitted to ICU and subsequently intubated for airway protection. - History Source History Provided By: Family Member, Medical Record Limitations to Obtaining History: Intubated - Past Medical History Cardio/Vascular: Yes: CAD (with cardiac stent), CHF, HTN, Hyperlipdemia - Alcohol/Substance Use Hx Alcohol Use: No - Smoking History Smoking history: Never smoked Have you smoked in the past 12 months: No - Social History History of Recent Travel: No Home Medications - Allergies Allergies/Adverse Reactions: Allergies Allergy/AdvReac Type Severity Reaction Status Date / Time No Known Allergies Allergy Verified 09/24/16 12:05 - Home Medications Home Medications: Ambulatory Orders Atorvastatin Ca [Lipitor] 10 mg PO HS 09/24/16 Clopidogrel Bisulfate [Plavix -] 75 mg PO DAILY 09/24/16 Digoxin 125 mcg PO HS 09/24/16 Donepezil HCl [Aricept] 10 mg PO DAILY 09/24/16 Losartan Potassium 50 mg PO DAILY 09/24/16 Metoprolol Succinate [Toprol Xl] 50 mg PO BID 09/24/16 Sertraline HCl [Zoloft] 50 mg PO DAILY 09/24/16 Tamsulosin HCl [Flomax] 0.4 mg PO DAILY 09/24/16 Warfarin Na [Coumadin] 5 mg PO DAILY 09/24/16 Vital Signs: Vital Signs Temperature 97.4 F L 09/25/16 10:00 Pulse Rate 52 L 09/25/16 12:38 Respiratory Rate 20 09/25/16 15:07 Blood Pressure 130/63 09/25/16 10:00 O2 Sat by Pulse Oximetry (%) 100 09/25/16 12:38 Neck: Yes: Supple Respiratory: Yes: Mechanically Ventilated Gastrointestinal: Yes: Normal Bowel Sounds, Soft Cardiovascular: Yes: Pulse Irregular JVD: No Heart Sounds: Yes: S1, S2 Edema: No - Other Data Labs, Other Data: CBC, BMP 09/25/16 00:30 09/25/16 05:15 INR, PTT INR 2.06 (0.82-1.09) H 09/25/16 05:15 Troponin, BNP 09/25/16 00:30 Troponin I 0.02 Troponin, BNP 09/25/16 00:30 Troponin I 0.02 Imaging - Results Chest X-ray: Report Reviewed EKG: Image Reviewed Problem List - Problems (1) Atrial fibrillation Code(s): I48.91 - UNSPECIFIED ATRIAL FIBRILLATION Qualifiers: Atrial fibrillation type: persistent Qualified Code(s): I48.1 - Persistent atrial fibrillation (2) Subdural hematoma Code(s): I62.00 - NONTRAUMATIC SUBDURAL HEMORRHAGE, UNSPECIFIED Assessment/Plan This is an 86 year old male with a pmhx of htn, afib on coumadin, CAD s/p stents at [facility] in 2010, hld, and chronic systolic CHF with LVEF 30% in 2014 who presented to ER after a mechanical fall. As per the patients , patient was walking to check his INR when tripped over cement flower bed and fell face first onto the concrete. Denied any chest pain, dyspnea, or palpitations. No loss of consciousness. Suffered facial injuries and bleeding so went to ER. CT scan of the head demonstrated an acute subdural hemorrhage and left nasal bone displaced fracture. Neurosurgery evaluated paitne t and deemed not a surgical candidate. INR was in the 3s and s/p vitamin K and FFP. Initially started on diltiazem drip for htn and tachycardia and subsequently stopped for bradycardia. Patient was admitted to ICU and subsequently intubated for airway protection. -Coumadin and antiplatelets on hold insetting of acute subdural hemorrhage. Coumain reversed with vitamin K -HR well controlled at azucena time 70s-80s on monitor on no av bogdan blocking agents. Developed bradycardia on diltiazem drip possible due to increased intracranial pressure. Would continue to hold and can restart at later time if needed. -Management of subdural hemorrhage as per ICU team and neurosurgical team.
[2016-09-25 15:34] LABS: INR 1.53 (0.82-1.09)
[2016-09-25 15:44] LABS: ARTERIAL BLD GAS O2 SATURATION 97.4 % (90-98.9); ARTERIAL BLOOD GAS BASE EXCESS 3.5 meq/l (-2-2); ARTERIAL BLOOD GAS HCO3 27.3 meq/L (22-26); ARTERIAL BLOOD GAS PO2 85.4 mmHg (68-100); ARTERIAL BLOOD GAS pH 7.45 (7.35-7.45)
[2016-09-25 15:47] LABS: ALLENS TEST POSITIVE; ART PUNCT SITE LEFT RADIAL; LPM/O2% 60%; MECH. VENT. ESPRIT; PT. ON O2? YES; TYPE OF O2 OT; VENT RATE 20; VT/PRESS 450
[2016-09-25] MEDS: LEVOFLOXACIN 500 MG IVPB 100 ML IVPB SCH (16:03)
[2016-09-25] MEDS ORDERED: ACETAMINOPHEN 1000 MG/100 ML VIAL (NON FORMULARY) IVPB PRN (18:55)
[2016-09-25] MEDS ORDERED: LABETALOL HCL 5 MG/1 ML (100MG/20 ML VIAL) IVPUSH PRN (19:24)
[2016-09-25 19:46] LABS: EOSINOPHIL 0.1 % (0-4.5); MCH 30.5 pg (25.7-33.7); MCHC 33.5 g/dl (32.0-35.9); MEAN CELL VOLUME 91.2 fl (80-96); MEAN PLT VOLUME 10.4 fl (7.5-11.1); NEUTROPHILS 92.7 % (42.8-82.8); PLATELET COUNT 150 K/MM3 (134-434); RDW 14.2 % (11.9-15.9); WHITE BLOOD COUNT 14.6 K/mm3 (4.0-10.0)
[2016-09-25 19:58] LABS: INR 1.59 (0.82-1.09); PROTHROMBIN TIME (PATIENT) 17.7 SEC (9.98-11.88)
[2016-09-25] MEDS ORDERED: MIDAZOLAM 100 MG in SODIUM CHLORIDE 100 ML IVPB SCH (20:45)
[2016-09-25] MEDS: CHLORHEXIDINE GLUCONATE 0.12% 15ML CUP MM SCH (21:22)
[2016-09-25] MEDS: DIGOXIN 0.5 MG/2 ML AMPUL IVPB SCH (21:23)
[2016-09-25] MEDS: CHLORHEXIDINE GLUCONATE 4% CLEANSER FOR DECOLONIZATION TP SCH (21:28)
[2016-09-25] MEDS: MUPIROCIN 2% TOPICAL OINTMENT FOR DECOLONIZATION NS SCH (21:28)
[2016-09-25] MEDS ORDERED: LABETALOL HCL 5 MG/1 ML (100MG/20 ML VIAL) IVPUSH ONE (21:34)
[2016-09-25] MEDS: DILTIAZEM INJECTION 125 MG in DEXTROSE 5%-WATER - 100 ML IVPB SCH (22:10)
[2016-09-25] MEDS: NICARDIPINE 25 MG in DEXTROSE 5%-WATER - 240 ML IVPB SCH (22:56)
[2016-09-26] MEDS: DEXAMETHASONE SOD PHOSPHATE 4 MG/1 ML VIAL IVPUSH SCH ×4 (03:49→21:00)
[2016-09-26] MEDS: ALBUTEROL SO4 2.5/IPRATROPIUM 0.5 INH SOL 3 ML VIAL.NEB. NEB SCH ×4 (06:00→17:45)
[2016-09-26 06:13] LABS: MCH 30.1 pg (25.7-33.7); MCHC 33.1 g/dl (32.0-35.9); MEAN CELL VOLUME 90.8 fl (80-96); MEAN PLT VOLUME 9.6 fl (7.5-11.1); PLATELET COUNT 169 K/MM3 (134-434); WHITE BLOOD COUNT 14.9 K/mm3 (4.0-10.0)
[2016-09-26 06:28] LABS: INR 1.54 (0.82-1.09); PROTHROMBIN TIME (PATIENT) 17.1 SEC (9.98-11.88)
[2016-09-26 06:43] LABS: ALBUMIN 3.5 g/dl (3.4-5.0); ANION GAP 13 (8-16); CALCIUM 8.6 mg/dL (8.5-10.1); CO2 28 mmol/L (21-32); GLUCOSE,RANDOM 150 mg/dL (74-106)
[2016-09-26 06:48] LABS: ALK PHOS 84 U/L (45-117); BILIRUBIN,TOTAL 2.9 mg/dL (0.2-1.0); COCKROFT - GAULT 88.18; CREATININE 0.8 mg/dL (0.7-1.3); SGOT/AST 21 U/L (15-37); SGPT/ALT 23 U/L (12-78); TOT PROT 7.3 g/dl (6.4-8.2)
--- NOTE | 2016-09-26 09:10 | PN ---
Progress Note (short form) - Note Progress Note: NEUROSURGERY Intubated and somewhat sedated PE: Tmax 99.6, AF, VS In Afib HEENT- nasal blood; FM on; Neck-supple; Cor- Irreg; Lungs- occ rhonchi, decreased BS in general; Abs- obese, benign; Ext- R knee abrasion Drowsy, not following command CN- pupils 2mm sluggish B; Motor- at least 3 B UE/LE; mostly withdrawing to pain ; Sensation- difficult to assess; DTR- hyperreflexic B LE > UE WBC 14.9; Hgb 9.7; INR 1.54; platelet 169k (after transfusions) F/U CT: Acute L hemispheric SDH with mass effect and mild midline shift, more tentorial SDH and subtemporal SDH L hemispheric SDH, mostly medial tentorial and subtemporal, with mild mass effet and shift - neurosurgical intervention not recommended UNfotunately increased thromboembolic risks now that plavix and coumadin both had to be held Keppra x1 week for sz prophylaxis Medical/expectant management Prognosis is poor
--- NOTE | 2016-09-26 09:11 | PN ---
Physical Exam: SUBJECTIVE: Patient seen and examined overnight events: pt's blood pressure was elevated requiring labetalol pushes with subsequent cardene drip initiated. pt intubated and sedated. discussed with son at bedside the need for intubation, intiation of tube feeds and progression of hemorrhage. OBJECTIVE: Vital Signs Period Temp Pulse Resp BP Sys/Obrien Pulse Ox Last 24 Hr 97.4 F-100.9 F 50-120 19-26 130-182/63-97 100-100 EYES: pinpoint pupils sluggish to light, sclera anicteric, conjunctiva clear. No ptosis. ENT: Ears normal, nares with dried blood, ecchymosis and abrasion over nose; covered with CDI guaze, oropharynx with dried blood and thick light brown secretions. swelling of upper lip. no active bleeding. NECK: Trachea midline, thick neck LUNGS: Breath sounds scattered rhonchi and diffuse coarse breath sounds b/l HEART: afib, S1, S2 without murmur, rub or gallop. ABDOMEN: Soft, nondistended, normoactive bowel sounds EXTREMITIES: 2+ pulses, warm, well-perfused, no edema. abrasion below right knee with dried blood, no discharge, swelling on medial left knee. Laboratory Results - last 24 hr 09/25/16 09/25/16 09/25/16 11:43 14:00 15:45 WBC RBC Hgb Hct MCV MCHC RDW Plt Count MPV Neutrophils % Lymphocytes % Monocytes % Eosinophils % Basophils % Plt Clumps, Citrate INR 1.53 H PTT (Actin FS) Puncture Site Left radial ABG pH 7.45 ABG pCO2 at Pt Temp 40.0 ABG pO2 at Pt Temp 85.4 D ABG HCO3 27.3 H ABG O2 Sat (Measured) 97.4 ABG O2 Content 14.1 L ABG Base Excess 3.5 H Prosper Test Positive O2 Delivery Device Ot Oxygen Flow Rate 60% Vent Mode Ac Vent Rate 20 Mechanical Rate Esprit PEEP 5.0 Pressure Support Vent 450 Sodium Potassium Chloride Carbon Dioxide Anion Gap BUN Creatinine Creat Clearance w eGFR Random Glucose Calcium Magnesium Total Bilirubin AST ALT Alkaline Phosphatase Total Protein Albumin Blood Type A POSITIVE Antibody Screen Negative 09/25/16 09/25/16 09/26/16 18:55 18:55 05:20 WBC 14.6 H D 14.9 H RBC 3.42 L 3.22 L Hgb 10.4 L D 9.7 L Hct 31.1 L 29.2 L MCV 91.2 90.8 MCHC 33.5 33.1 RDW 14.2 14.0 Plt Count 150 D 169 MPV 10.4 9.6 Neutrophils % 92.7 H Lymphocytes % 2.5 L D Monocytes % 4.7 Eosinophils % 0.1 Basophils % 0.0 Plt Clumps, Citrate INR 1.59 H PTT (Actin FS) 30.0 Puncture Site ABG pH ABG pCO2 at Pt Temp ABG pO2 at Pt Temp ABG HCO3 ABG O2 Sat (Measured) ABG O2 Content ABG Base Excess Prosper Test O2 Delivery Device Oxygen Flow Rate Vent Mode Vent Rate Mechanical Rate PEEP Pressure Support Vent Sodium Potassium Chloride Carbon Dioxide Anion Gap BUN Creatinine Creat Clearance w eGFR Random Glucose Calcium Magnesium Total Bilirubin AST ALT Alkaline Phosphatase Total Protein Albumin Blood Type Antibody Screen 09/26/16 09/26/16 09/26/16 05:20 05:20 05:20 WBC RBC Hgb Hct MCV MCHC RDW Plt Count MPV Neutrophils % Lymphocytes % Monocytes % Eosinophils % Basophils % Plt Clumps, Citrate INR 1.54 H PTT (Actin FS) Puncture Site ABG pH ABG pCO2 at Pt Temp ABG pO2 at Pt Temp ABG HCO3 ABG O2 Sat (Measured) ABG O2 Content ABG Base Excess Prosper Test O2 Delivery Device Oxygen Flow Rate Vent Mode Vent Rate Mechanical Rate PEEP Pressure Support Vent Sodium 141 Potassium 3.5 Chloride 100 Carbon Dioxide 28 Anion Gap 13 BUN 18 Creatinine 0.8 Creat Clearance w eGFR > 60 Random Glucose 150 H D Calcium 8.6 Magnesium 2.2 Total Bilirubin 2.9 H D AST 21 D ALT 23 Alkaline Phosphatase 84 Total Protein 7.3 Albumin 3.5 Blood Type Antibody Screen 09/26/16 05:20 WBC RBC Hgb Hct MCV MCHC RDW Plt Count MPV Neutrophils % Lymphocytes % Monocytes % Eosinophils % Basophils % Plt Clumps, Citrate 112.0 L INR PTT (Actin FS) Puncture Site ABG pH ABG pCO2 at Pt Temp ABG pO2 at Pt Temp ABG HCO3 ABG O2 Sat (Measured) ABG O2 Content ABG Base Excess Prosper Test O2 Delivery Device Oxygen Flow Rate Vent Mode Vent Rate Mechanical Rate PEEP Pressure Support Vent Sodium Potassium Chloride Carbon Dioxide Anion Gap BUN Creatinine Creat Clearance w eGFR Random Glucose Calcium Magnesium Total Bilirubin AST ALT Alkaline Phosphatase Total Protein Albumin Blood Type Antibody Screen Active Medications Generic Name Dose Route Start Last Admin Trade Name Freq PRN Reason Stop Dose Admin Acetaminophen 1,000 mg 09/25/16 18:55 Ofirmev Injection - IVPB 09/26/16 12:56 Q6H PRN FEVER OR PAIN Albuterol/Ipratropium 1 amp 09/25/16 07:00 09/26/16 06:00 Duoneb - NEB 1 amp QIDR DAKOTA Administration Bacitracin 1 applic 09/24/16 23:15 09/25/16 21:31 Bacitracin - TP 1 applic BID DAKOTA Administration Chlorhexidine Gluconate 1 applic 09/25/16 22:00 09/25/16 21:28 Hibiclens For Decolonization - TP 1 applic HS DAKOTA Administration Chlorhexidine Gluconate 15 ml 09/25/16 22:00 09/25/16 21:22 Peridex - MM 15 ml BID DAKOTA Administration Dexamethasone Sodium Phosphate 4 mg 09/25/16 09:45 09/26/16 03:49 Decadron Injection - IVPUSH 4 mg Q6H-IV DAK[place] Administration Digoxin 0.125 mg 09/24/16 21:30 09/25/16 21:23 Lanoxin Injection - IVPB 0.125 mg HS DAKOTA Administration Diltiazem HCl 125 mg/ Dextrose 125 mls @ 5 mls/hr 09/24/16 21:45 09/25/16 22:10 IVPB Not Given TITR DAKOTA Protocol 5 MG/HR Propofol 100 mls @ 2.585 mls/hr 09/25/16 11:30 09/25/16 14:05 Diprivan - IVPB 20 mcg/kg/min TITR DAKOTA Titration Protocol 5 MCG/KG/MIN Fentanyl 500 mcg/ Sodium 110 mls @ 5.5 mls/hr 09/25/16 12:17 09/25/16 14:00 Chloride IJ 35 mcg/hr TITR DAKOTA Titration 25 MCG/HR Levofloxacin 100 mls @ 100 mls/hr 09/25/16 13:01 09/25/16 16:03 Levaquin 500 Mg Premixed Ivpb - IVPB 100 mls/hr DAILY DAK[place] Administration Nicardipine HCl 25 mg/ 250 mls @ 25 mls/hr 09/25/16 22:30 09/25/16 22:56 Dextrose IVPB 25 mls/hr TITR DAKOTA Administration Protocol 2.5 MG/HR Levetiracetam 500 mg 09/25/16 10:00 09/25/16 21:36 Keppra Injection - IVPB 500 mg BID [place] Administration Mupirocin 1 applic 09/25/16 22:00 09/25/16 21:28 Bactroban Ointment (For Decolonization) - NS 09/30/16 21:59 1 applic BID [facility] Administration ASSESSMENT/PLAN: 86 yr old man with dementia, afib on plavix and warfarin, HTN, CAD s/p stents, CHF, parkinson's disorder presents s/p mechanical fall found to have subarachnoid and subdural hemorrhage. - evaluated by ENT for left nasal fracture; no surgical intervention at this time. apply bacitracin ointment to dorsal abrasion Neurologic Repeat Head CT shows midline shift, stable hemorrhage keppra 500mg BID IVPB for seizure prophylaxis decadron 4mg IVPush q6h-IV dakota sedated with propofol and fentanyl with sedation holiday this afternoon as per son, patient's baseline is oriented x3 with good recall of old memories, typically has unsteady gait requiring 1 person assist(he refused to use a walker /cane) with several near falls. consult: Dr. Ventura Pulmonary duonebs QIDR [facility] 1 amp levaquin daily 500mg IVPB (start 09/25) - day 2 Hemotalogical reverse antiplatet and anticoagulation due to active bleed - transfuse ffp and monodonor platelets - s/p 9 FFP and 5 units of platelets - Vitamin K administered - repeat coags consult: Dr. Melgar Cardiovascular - afib, tachycardic today with HTN - metoprolol tartrate 50mg BID NGT added for rate control, labetalol 10mg pushes as needed and consider cardene drip for persistent HTN SBP>160 and tachycardia >120bpm - digoxin .125 mg po HS - hold warfarin and plavix consult: Dr. Pierce Infectious disease leucocytosis improving , cause is possibly reactive or possible infectious process in lungs. continue to trend Cxy with pathchy infiltrates in right lung, suspicious for aspiration pna tx with levaquin - blood cx sent to r/o systemic bactermia - IVPB tylenol 1gm q6h for fevers Gastrointestinal - OG tube in place for medications - prophylaxis with zantac daily - Jevity feeds volume based for ideal body weight: 1,200ml flomax 0.4mg po daily NGT [place] cath in place to monitor urine output Renal poor urine output, dose of lasix 40mg IV to prevent fluid overload DVT scd's given acute bleed Diet: Jevity via NGT Visit type - Emergency Visit Emergency Visit: No - New Patient This patient is new to me today: No - Critical Care Critical Care patient: Yes Total Critical Care Time (in minutes): 40 Critical Care Statement: The care of this patient involved high complexity decision making to prevent further life threatening deterioration of the patient 's condition and/or to evalute & treat vital organ system(s) failure or risk of failure.
[2016-09-26] MEDS: LEVOFLOXACIN 500 MG IVPB 100 ML IVPB SCH (09:21)
[2016-09-26] MEDS: levETIRAcetam 500 MG/5 ML INJECTION VIAL IVPB SCH ×2 (09:21→22:06)
[2016-09-26] MEDS: CHLORHEXIDINE GLUCONATE 0.12% 15ML CUP MM SCH ×2 (09:21→22:07)
[2016-09-26] MEDS: MUPIROCIN 2% TOPICAL OINTMENT FOR DECOLONIZATION NS SCH ×2 (09:22→22:05)
[2016-09-26] MEDS: BACITRACIN 30 GM TUBE TOPICAL OINTMENT TP SCH ×2 (09:23→22:05)
--- NOTE | 2016-09-26 10:08 | PN ---
Progress Note, Physician History of Present Illness: Pt. was seen and examined in ICU. Pt is intubated, sedated. - Current Medication List Current Medications: Active Medications Acetaminophen (Ofirmev Injection -) 1,000 mg IVPB Q6H PRN PRN Reason: FEVER OR PAIN Stop: 09/26/16 12:56 Albuterol/Ipratropium (Duoneb -) 1 amp NEB QIDR CESAR Last Admin: 09/26/16 06:00 Dose: 1 amp Bacitracin (Bacitracin -) 1 applic TP BID CESAR Last Admin: 09/26/16 09:23 Dose: 1 applic Chlorhexidine Gluconate (Hibiclens For Decolonization -) 1 applic TP HS [facility] Last Admin: 09/25/16 21:28 Dose: 1 applic Chlorhexidine Gluconate (Peridex -) 15 ml MM BID [facility] Last Admin: 09/26/16 09:21 Dose: 15 ml Dexamethasone Sodium Phosphate (Decadron Injection -) 4 mg IVPUSH Q6H-IV CESAR Last Admin: 09/26/16 09:21 Dose: 4 mg Digoxin (Lanoxin Injection -) 0.125 mg IVPB HS [facility] Last Admin: 09/25/16 21:23 Dose: 0.125 mg Diltiazem HCl 125 mg/ Dextrose 125 mls @ 5 mls/hr IVPB TITR CESAR; 5 MG/HR PRN Reason: Protocol Last Admin: 09/25/16 22:10 Dose: Not Given Propofol (Diprivan -) 100 mls @ 2.585 mls/hr IVPB TITR CESAR; 5 MCG/KG/MIN PRN Reason: Protocol Last Titration: 09/25/16 14:05 Dose: 20 mcg/kg/min Fentanyl 500 mcg/ Sodium (Chloride) 110 mls @ 5.5 mls/hr IJ TITR CESAR PRN Reason: 25 MCG/HR Last Titration: 09/25/16 14:00 Dose: 35 mcg/hr Levofloxacin (Levaquin 500 Mg Premixed Ivpb -) 100 mls @ 100 mls/hr IVPB DAILY [facility] Last Admin: 09/26/16 09:21 Dose: 100 mls/hr Nicardipine HCl 25 mg/ (Dextrose) 250 mls @ 25 mls/hr IVPB TITR CESAR; 2.5 MG/HR PRN Reason: Protocol Last Admin: 09/25/16 22:56 Dose: 25 mls/hr Levetiracetam (Keppra Injection -) 500 mg IVPB BID [facility] Last Admin: 09/26/16 09:21 Dose: 500 mg Mupirocin (Bactroban Ointment (For Decolonization) -) 1 applic NS BID [facility] Stop: 09/30/16 21:59 Last Admin: 09/26/16 09:22 Dose: 1 applic - Objective Vital Signs: Vital Signs Temperature 97.5 F L 09/26/16 06:00 Pulse Rate 112 H 09/26/16 08:00 Respiratory Rate 20 09/26/16 08:00 Blood Pressure 163/87 09/26/16 08:00 O2 Sat by Pulse Oximetry (%) 100 09/25/16 21:12 Constitutional: Yes: No Distress, Calm Cardiovascular: Yes: Tachycardia, S1, S2 Respiratory: Yes: Regular, Rales Gastrointestinal: Yes: Normal Bowel Sounds, Soft Edema: No Labs: CBC, BMP 09/26/16 05:20 09/26/16 05:20 INR, PTT INR 1.54 (0.82-1.09) H 09/26/16 05:20 - ....Imaging Chest X-ray: Report Reviewed Cat Scan: Report Reviewed Problem List - Problems (1) Subdural hematoma Assessment/Plan: progression during the first 24 hours, now stable Code(s): I62.00 - NONTRAUMATIC SUBDURAL HEMORRHAGE, UNSPECIFIED (2) Supratherapeutic INR Code(s): R79.1 - ABNORMAL COAGULATION PROFILE (3) Atrial fibrillation Assessment/Plan: with RVR. Code(s): I48.91 - UNSPECIFIED ATRIAL FIBRILLATION Qualifiers: Atrial fibrillation type: persistent Qualified Code(s): I48.1 - Persistent atrial fibrillation (4) Accidental fall Code(s): W19.XXXA - UNSPECIFIED FALL, INITIAL ENCOUNTER Qualifiers: Encounter type: sequela Qualified Code(s): W19.XXXS - Unspecified fall, sequela (5) Nasal bone fracture Code(s): S02.2XXA - FRACTURE OF NASAL BONES, INIT ENCNTR FOR CLOSED FRACTURE Qualifiers: Encounter type: initial encounter Fracture type: closed Qualified Code(s): S02.2XXA - Fracture of nasal bones, initial encounter for closed fracture (6) Uncontrolled hypertension Code(s): I10 - ESSENTIAL (PRIMARY) HYPERTENSION (7) Abrasions of multiple sites Code(s): T14.8 - OTHER INJURY OF UNSPECIFIED BODY REGION (8) Dementia Assessment/Plan: mild to moderate at baseline. Code(s): F03.90 - UNSPECIFIED DEMENTIA WITHOUT BEHAVIORAL DISTURBANCE (9) Leukocytosis Assessment/Plan: secondary to PNA Code(s): D72.829 - ELEVATED WHITE BLOOD CELL COUNT, UNSPECIFIED (10) Hypokalemia Assessment/Plan: Corrected; to monitor electrolytes Code(s): E87.6 - HYPOKALEMIA (11) Thrombocytopenia Assessment/Plan: s/p Plts [place] Code(s): D69.6 - THROMBOCYTOPENIA, UNSPECIFIED (12) Pneumonia Code(s): J18.9 - PNEUMONIA, UNSPECIFIED ORGANISM (13) Respiratory failure Assessment/Plan: s/p intubation Code(s): J96.90 - RESPIRATORY FAILURE, UNSP, UNSP W HYPOXIA OR HYPERCAPNIA Assessment/Plan Neuro Sx consult appreciated- case was d/w Dr. Ernst; Pt. is not a surgical candidate. Neuro Consult appreciated. Cardio consult appreciated. CCM consult appreciated. Heme consult appreciated- case was d/w Dr. Melgar Admitted to ICU. s/p vit K, s/p FFP, s/p Platelets Tx. To monitor INR. Pt. is off Cardizem drip, his BP and HR are high; to start BB, digoxin via TF; to monitor BP and HR Case was discussed with pt's ER nurse. AM labs. Time spent in managing pt's condition: over 40 minutes
[2016-09-26] MEDS ORDERED: METOPROLOL SUCCINATE 50 MG TAB.SR.24H (FP) PO SCH (11:00)
[2016-09-26] MEDS: TAMSULOSIN HCL 0.4 MG CAP.ER.24H (FP) PO SCH (11:46)
[2016-09-26 11:51] LABS: ARTERIAL BLOOD GAS BASE EXCESS 5.3 meq/l (-2-2); ARTERIAL BLOOD GAS HCO3 29.3 meq/L (22-26); ARTERIAL BLOOD GAS pH 7.45 (7.35-7.45)
[2016-09-26 11:59] LABS: ALLENS TEST POSITIVE; ART PUNCT SITE RIGHT RADIAL; LPM/O2% 60%; MECH. VENT. ESPRIT; PT. ON O2? YES; TYPE OF O2 MEC.VENT
[2016-09-26 12:00] LABS: ARTERIAL BLOOD GAS PO2 61.7 mmHg (68-100); VENT RATE 20; VT/PRESS 450
--- NOTE | 2016-09-26 12:39 | CON.ENT ---
Consult Consult Specialty:: ENT Referred by:: Dr Mooney Reason for Consultation:: Facial trauma with nasal bone fracture - History of Present Illness Chief Complaint: Nasal trauma History of Present Illness: Pt fell and hit head/face while walking, suffered minimally displaced left nasal bone fracture as well as a SDH. Pt on anticoag for Afib - History Source History Provided By: Medical Record Limitations to Obtaining History: Intubated - Past Medical History Cardio/Vascular: Yes: CAD (with cardiac stent), CHF, HTN, Hyperlipdemia - Alcohol/Substance Use Hx Alcohol Use: No - Smoking History Smoking history: Never smoked Have you smoked in the past 12 months: No - Social History History of Recent Travel: No Home Medications - Allergies Allergies/Adverse Reactions: Allergies Allergy/AdvReac Type Severity Reaction Status Date / Time No Known Allergies Allergy Verified 09/24/16 12:05 - Home Medications Home Medications: Ambulatory Orders Atorvastatin Ca [Lipitor] 10 mg PO HS 09/24/16 Clopidogrel Bisulfate [Plavix -] 75 mg PO DAILY 09/24/16 Digoxin 125 mcg PO HS 09/24/16 Donepezil HCl [Aricept] 10 mg PO DAILY 09/24/16 Losartan Potassium 50 mg PO DAILY 09/24/16 Metoprolol Succinate [Toprol Xl] 50 mg PO BID 09/24/16 Sertraline HCl [Zoloft] 50 mg PO DAILY 09/24/16 Tamsulosin HCl [Flomax] 0.4 mg PO DAILY 09/24/16 Warfarin Na [Coumadin] 5 mg PO DAILY 09/24/16 Review of Systems - Review of Systems HENT: reports: Other (Facial trauma) Physical Exam-ENT Vital Signs: Vital Signs Temperature 98.4 F 09/26/16 10:00 Pulse Rate 110 H 09/26/16 11:55 Respiratory Rate 20 09/26/16 12:23 Blood Pressure 146/79 09/26/16 11:55 O2 Sat by Pulse Oximetry (%) 100 09/25/16 21:12 Constitutional: Yes: Other (Sedated and intubated) Face: Yes: Other (facial edema) Nose: Yes: Other (Dorsal ecchymosis and edema with small abrasion, no gross displacment of bones noted) Nasal Passage: Yes: Other (crusting anteriorly, no septal hematoma) Oral/Pharynx: Yes: Other (intubated) Outer Ear: Yes: WNL Ear Canal: Yes: Cerumen Neck: Yes: Supple Imaging - Results Cat Scan: Report Reviewed, Image Reviewed (left nasal fx, minimal displacement) Problem List - Problems (1) Nasal bone fracture Assessment/Plan: Minimally displaced left nasal fracture s/p fall- no septal hematoma. No intevention at this time. Apply bacitracin ointment to dorsal abrasion Code(s): S02.2XXA - FRACTURE OF NASAL BONES, INIT ENCNTR FOR CLOSED FRACTURE Qualifiers: Encounter type: initial encounter Fracture type: closed Qualified Code(s): S02.2XXA - Fracture of nasal bones, initial encounter for closed fracture
[2016-09-26] MEDS ORDERED: FUROSEMIDE 40 MG/4 ML INJECTABLE VIAL IVPB ONE (13:00)
[2016-09-26] MEDS ORDERED: RANITIDINE HCL 150 MG/10 ML UNIT-DOSE CUP PO ONE (13:00)
[2016-09-26] MEDS: FENTANYL INJECTION 500 MCG in SODIUM CHLORIDE 100 ML IJ SCH (13:12)
[2016-09-26] MEDS ORDERED: PHYTONADIONE 10 MG/1 ML AMP SQ ONE (13:30)
--- NOTE | 2016-09-26 13:45 | PN ---
Progress Note, Physician Chief Complaint: Intubated and sedated Tele: Afib around 100-110s History of Present Illness: This is an 86 year old male with a pmhx of htn, afib on coumadin, CAD s/p stents at [facility] in 2010, hld, and chronic systolic CHF with LVEF 30% in 2014 who presented to ER after a mechanical fall. As per the patients , patient was walking to check his INR when tripped over cement flower bed and fell face first onto the concrete. Denied any chest pain, dyspnea, or palpitations. No loss of consciousness. Suffered facial injuries and bleeding so went to ER. CT scan of the head demonstrated an acute subdural hemorrhage and left nasal bone displaced fracture. Neurosurgery evaluated liudmila t and deemed not a surgical candidate. INR was in the 3s and s/p vitamin K and FFP. Initially started on diltiazem drip for htn and tachycardia and subsequently stopped for bradycardia. Patient was admitted to ICU and subsequently intubated for airway protection. - Current Medication List Current Medications: Active Medications Albuterol/Ipratropium (Duoneb -) 1 amp NEB QIDR [facility] Last Admin: 09/26/16 06:00 Dose: 1 amp Atorvastatin Calcium (Lipitor -) 10 mg PO HS [facility] Bacitracin (Bacitracin -) 1 applic TP BID [facility] Last Admin: 09/26/16 09:23 Dose: 1 applic Chlorhexidine Gluconate (Hibiclens For Decolonization -) 1 applic TP HS [facility] Last Admin: 09/25/16 21:28 Dose: 1 applic Chlorhexidine Gluconate (Peridex -) 15 ml MM BID [facility] Last Admin: 09/26/16 09:21 Dose: 15 ml Dexamethasone Sodium Phosphate (Decadron Injection -) 4 mg IVPUSH Q6H-IV [facility] [place] Last Admin: 09/26/16 09:21 Dose: 4 mg Digoxin (Lanoxin Injection -) 0.125 mg IVPB HS [facility] [place] Last Admin: 09/25/16 21:23 Dose: 0.125 mg Digoxin (Lanoxin -) 0.125 mg PO HS [facility] [place] Diltiazem HCl 125 mg/ Dextrose 125 mls @ 5 mls/hr IVPB TITR CESAR; 5 MG/HR PRN Reason: Protocol Last Admin: 09/25/16 22:10 Dose: Not Given Propofol (Diprivan -) 100 mls @ 2.585 mls/hr IVPB TITR CESAR; 5 MCG/KG/MIN PRN Reason: Protocol Last Titration: 09/25/16 14:05 Dose: 20 mcg/kg/min Fentanyl 500 mcg/ Sodium (Chloride) 110 mls @ 5.5 mls/hr IJ TITR CESAR PRN Reason: 25 MCG/HR Last Admin: 09/26/16 13:12 Dose: 7.7 mls/hr Levofloxacin (Levaquin 500 Mg Premixed Ivpb -) 100 mls @ 100 mls/hr IVPB DAILY [facility] [place] Last Admin: 09/26/16 09:21 Dose: 100 mls/hr Nicardipine HCl 25 mg/ (Dextrose) 250 mls @ 25 mls/hr IVPB TITR CESAR; 2.5 MG/HR PRN Reason: Protocol Last Admin: 09/25/16 22:56 Dose: 25 mls/hr Levetiracetam (Keppra Injection -) 500 mg IVPB BID [facility] [place] Last Admin: 09/26/16 09:21 Dose: 500 mg Metoprolol Succinate (Toprol Xl -) 50 mg PO BID [facility] [place] Last Admin: 09/26/16 11:46 Dose: 50 mg Mupirocin (Bactroban Ointment (For Decolonization) -) 1 applic NS BID [facility] [place] Stop: 09/30/16 21:59 Last Admin: 09/26/16 09:22 Dose: 1 applic Tamsulosin HCl (Flomax -) 0.4 mg PO DAILY@0830 [facility] Last Admin: 09/26/16 11:46 Dose: 0.4 mg - Objective Vital Signs: Vital Signs Temperature 98.4 F 09/26/16 10:00 Pulse Rate 110 H 09/26/16 11:55 Respiratory Rate 20 09/26/16 12:23 Blood Pressure 146/79 09/26/16 11:55 O2 Sat by Pulse Oximetry (%) 100 09/25/16 21:12 Cardiovascular: Yes: Tachycardia, Pulse Irregular, S1, S2 Respiratory: Yes: Mechanically Ventilated Gastrointestinal: Yes: Normal Bowel Sounds, Soft Edema: No Labs: CBC, BMP 09/26/16 05:20 09/26/16 05:20 INR, PTT INR 1.54 (0.82-1.09) H 09/26/16 05:20 Problem List - Problems (1) Atrial fibrillation Code(s): I48.91 - UNSPECIFIED ATRIAL FIBRILLATION Qualifiers: Atrial fibrillation type: persistent Qualified Code(s): I48.1 - Persistent atrial fibrillation (2) Subdural hematoma Code(s): I62.00 - NONTRAUMATIC SUBDURAL HEMORRHAGE, UNSPECIFIED Assessment/Plan This is an 86 year old male with a pmhx of htn, afib on coumadin, CAD s/p stents at [facility] in 2010, hld, and chronic systolic CHF with LVEF 30% in 2015 who presented to ER after a mechanical fall found [address] subdural hemorrhage on coumadin and intubated for airway protection. -Coumadin and antiplatelets on hold insetting of acute subdural hemorrhage. -HR's 100-110s with elevated bp's. Can start beta mirza metoprolol for better HR control unless neuro prefers blood pressure at this level (mildly elevated). -Management of subdural hemorrhage as per ICU team and neurosurgical team.
[2016-09-26] MEDS: PROPOFOL 100 ML IVPB SCH ×2 (14:12→22:08)
--- NOTE | 2016-09-26 14:39 | PN ---
Teaching Attending Note Name of Resident: Jesse Hamm ATTENDING PHYSICIAN STATEMENT I saw and evaluated the patient. I reviewed the resident's note and discussed the case with the resident. I agree with the resident's findings and plan as documented. SUBJECTIVE: Pt seen and examined in the ICU. Remains intubated, sedated. Repeat CT head today. OBJECTIVE: Last Vital Signs Temp Pulse Resp BP Pulse Ox 98.4 F 110 H 20 146/79 97 09/26/16 10:00 09/26/16 11:55 09/26/16 12:23 09/26/16 11:55 09/26/16 10:30 Intake & Output 09/23/16 09/24/16 09/25/16 09/26/16 23:59 23:59 23:59 23:59 Intake Total 1990 1366 Output Total 50 300 500 Balance -50 1691 866 Weight 190 lb 207 lb 6 oz Gen: intubated, sedated Heart: tachycardic, irregular Lung: scattered rhonchi Abd: soft, nontender Ext: no edema CBC, BMP 09/26/16 05:20 09/26/16 05:20 Active Medications Albuterol/Ipratropium (Duoneb -) 1 amp NEB QIDR [facility] Last Admin: 09/26/16 06:00 Dose: 1 amp Atorvastatin Calcium (Lipitor -) 10 mg PO HS [facility] Bacitracin (Bacitracin -) 1 applic TP BID [facility] Last Admin: 09/26/16 09:23 Dose: 1 applic Chlorhexidine Gluconate (Hibiclens For Decolonization -) 1 applic TP HS [facility] Last Admin: 09/25/16 21:28 Dose: 1 applic Chlorhexidine Gluconate (Peridex -) 15 ml MM BID [facility] Last Admin: 09/26/16 09:21 Dose: 15 ml Dexamethasone Sodium Phosphate (Decadron Injection -) 4 mg IVPUSH Q6H-IV [facility] Last Admin: 09/26/16 14:11 Dose: 4 mg Digoxin (Lanoxin Injection -) 0.125 mg IVPB HS [facility] Last Admin: 09/25/16 21:23 Dose: 0.125 mg Digoxin (Lanoxin -) 0.125 mg PO HS [facility] Diltiazem HCl 125 mg/ Dextrose 125 mls @ 5 mls/hr IVPB TITR CESAR; 5 MG/HR PRN Reason: Protocol Last Admin: 09/25/16 22:10 Dose: Not Given Propofol (Diprivan -) 100 mls @ 2.585 mls/hr IVPB TITR CESAR; 5 MCG/KG/MIN PRN Reason: Protocol Last Admin: 09/26/16 14:12 Dose: 10.342 mls/hr Fentanyl 500 mcg/ Sodium (Chloride) 110 mls @ 5.5 mls/hr IJ TITR CESAR PRN Reason: 25 MCG/HR Last Admin: 09/26/16 13:12 Dose: 7.7 mls/hr Levofloxacin (Levaquin 500 Mg Premixed Ivpb -) 100 mls @ 100 mls/hr IVPB DAILY [facility] Last Admin: 09/26/16 09:21 Dose: 100 mls/hr Nicardipine HCl 25 mg/ (Dextrose) 250 mls @ 25 mls/hr IVPB TITR CESAR; 2.5 MG/HR PRN Reason: Protocol Last Admin: 09/25/16 22:56 Dose: 25 mls/hr Levetiracetam (Keppra Injection -) 500 mg IVPB BID [facility] Last Admin: 09/26/16 09:21 Dose: 500 mg Metoprolol Succinate (Toprol Xl -) 50 mg PO BID [facility] Last Admin: 09/26/16 11:46 Dose: 50 mg Mupirocin (Bactroban Ointment (For Decolonization) -) 1 applic NS BID [facility] Stop: 09/30/16 21:59 Last Admin: 09/26/16 09:22 Dose: 1 applic Tamsulosin HCl (Flomax -) 0.4 mg PO DAILY@0830 [facility] Last Admin: 09/26/16 11:46 Dose: 0.4 mg ASSESSMENT AND PLAN: Acute Hypoxic Respiratory Failure s/p Fall Traumatic Subdural Hematoma/Subarachnoid Hemorrhage Atrial Fibrillation on anticoagulation Dysfunctional Platelets from Plavix HTN Dementia Likely Aspiration Pneumonia - transfuse FFP, platelets - repeat CT head today - monitor coags - neuro/neurosurgery input appreciated - empiric antiepileptics, steroids - lasix today - replete lytes - continue antibiotics - f/u cultures - hyperventilation with mechanical ventilation - DVT/GI prophylaxis - poor overall prognosis - will need to discuss goals of care and advanced directives with family - ICU monitoring critical care time spent in reviewing chart, evaluating patient and formulating plan 38 min
[2016-09-26] MEDS ORDERED: LABETALOL HCL 5 MG/1 ML (100MG/20 ML VIAL) IVPUSH ONE (16:15)
[2016-09-26 20:05] LABS: BASOPHIL 0.1 % (0-2.0); MCH 30.7 pg (25.7-33.7); MCHC 33.5 g/dl (32.0-35.9); MEAN CELL VOLUME 91.6 fl (80-96); MEAN PLT VOLUME 9.3 fl (7.5-11.1); PLATELET COUNT 196 K/MM3 (134-434); WHITE BLOOD COUNT 13.9 K/mm3 (4.0-10.0)
[2016-09-26 20:36] LABS: INR 1.45 (0.82-1.09); PROTHROMBIN TIME (PATIENT) 16.1 SEC (9.98-11.88)
[2016-09-26] MEDS ORDERED: PROPOFOL 100 ML ONE (21:25)
[2016-09-26] MEDS ORDERED: dilTIAZem HCL 125 MG/25 ML - 5 ML VIAL ONE (21:59)
[2016-09-26] MEDS ORDERED: METOPROLOL TARTRATE 50 MG TABLET (FP) NGT SCH (22:00)
[2016-09-26] MEDS: ATORVASTATIN CA 10 MG TABLET (FP) PO SCH (22:06)
[2016-09-26] MEDS: CHLORHEXIDINE GLUCONATE 4% CLEANSER FOR DECOLONIZATION TP SCH (22:06)
[2016-09-26] MEDS: DIGOXIN 0.125 MG TABLET (FP) PO SCH (22:06)
[2016-09-26] MEDS: NICARDIPINE 25 MG in DEXTROSE 5%-WATER - 240 ML IVPB SCH (22:30)
--- NOTE | 2016-09-26 22:40 | PN ---
Progress Note (short form) - Note Progress Note: Parient seen and examined vitals/labs/meds reviewed head CT stable received total of 8 u FFP/4 u platelets will give additional 1 unit ffp/1 u monodonor plts additional vit. K 5mg repeat labs in pm
[2016-09-27] MEDS: ALBUTEROL SO4 2.5/IPRATROPIUM 0.5 INH SOL 3 ML VIAL.NEB. NEB SCH ×5 (00:01→23:05)
[2016-09-27] MEDS: DILTIAZEM INJECTION 125 MG in DEXTROSE 5%-WATER - 100 ML IVPB SCH ×2 (00:37→21:45)
[2016-09-27] MEDS: DEXAMETHASONE SOD PHOSPHATE 4 MG/1 ML VIAL IVPUSH SCH ×4 (03:41→21:45)
[2016-09-27 06:14] LABS: BASOPHIL 0.1 % (0-2.0); MCH 30.6 pg (25.7-33.7); MCHC 33.6 g/dl (32.0-35.9); MEAN PLT VOLUME 9.5 fl (7.5-11.1); NEUTROPHILS 92.2 % (42.8-82.8); PLATELET COUNT 190 K/MM3 (134-434); RDW 13.7 % (11.9-15.9); WHITE BLOOD COUNT 12.9 K/mm3 (4.0-10.0)
[2016-09-27 06:31] LABS: INR 1.5 (0.82-1.09); PROTHROMBIN TIME (PATIENT) 16.6 SEC (9.98-11.88)
[2016-09-27 06:59] LABS: ALBUMIN 3.1 g/dl (3.4-5.0); ANION GAP 11 (8-16); CALCIUM 8.3 mg/dL (8.5-10.1); CO2 31 mmol/L (21-32); GLUCOSE,RANDOM 184 mg/dL (74-106); MAGNESIUM 2.2 mg/dL (1.8-2.4)
[2016-09-27 07:03] LABS: ALK PHOS 81 U/L (45-117); BILIRUBIN,TOTAL 2.5 mg/dL (0.2-1.0); COCKROFT - GAULT 89.51; CREATININE 0.8 mg/dL (0.7-1.3); PHOSPHOROUS 1.5 mg/dL (2.5-4.9); SGOT/AST 29 U/L (15-37); SGPT/ALT 32 U/L (12-78); TOT PROT 6.8 g/dl (6.4-8.2)
[2016-09-27 07:46] LABS: ARTERIAL BLD GAS O2 SATURATION 99.6 % (90-98.9); ARTERIAL BLOOD GAS HCO3 30.7 meq/L (22-26)
[2016-09-27 07:47] LABS: ALLENS TEST POSITIVE; ART PUNCT SITE RIGHT RADIAL; LPM/O2% 60%; MECH. VENT. ESPRIT; PT. ON O2? YES; TYPE OF O2 MEC.BVENT; VENT RATE 20; VT/PRESS 450
[2016-09-27 07:48] LABS: ARTERIAL BLOOD GAS pH 7.55 (7.35-7.45)
--- NOTE | 2016-09-27 08:37 | PN ---
Progress Note, Physician Chief Complaint: intubated and sedated Tele: afib with VR 110-130 History of Present Illness: This is an 86 year old male with a pmhx of htn, afib on coumadin, CAD s/p stents at [facility] in 2010, hld, and chronic systolic CHF with LVEF 30% in 2014 who presented to ER after a mechanical fall found to have subdural hemorrhage on coumadin and intubated for airway protection. - Current Medication List Current Medications: Active Medications Albuterol/Ipratropium (Duoneb -) 1 amp NEB QIDR [facility] Last Admin: 09/27/16 05:49 Dose: 1 amp Atorvastatin Calcium (Lipitor -) 10 mg PO HS [facility] Last Admin: 09/26/16 22:06 Dose: 10 mg Bacitracin (Bacitracin -) 1 applic TP BID [facility] Last Admin: 09/26/16 22:05 Dose: 1 applic Chlorhexidine Gluconate (Hibiclens For Decolonization -) 1 applic TP HS [facility] Last Admin: 09/26/16 22:06 Dose: 1 applic Chlorhexidine Gluconate (Peridex -) 15 ml MM BID [facility] Last Admin: 09/26/16 22:07 Dose: 15 ml Dexamethasone Sodium Phosphate (Decadron Injection -) 4 mg IVPUSH Q6H-IV [facility] Last Admin: 09/27/16 03:41 Dose: 4 mg Digoxin (Lanoxin -) 0.125 mg PO HS [facility] Last Admin: 09/26/16 22:06 Dose: 0.125 mg Diltiazem HCl 125 mg/ Dextrose 125 mls @ 5 mls/hr IVPB TITR CESAR; 5 MG/HR PRN Reason: Protocol Last Admin: 09/27/16 00:37 Dose: Not Given Propofol (Diprivan -) 100 mls @ 2.585 mls/hr IVPB TITR CESAR; 5 MCG/KG/MIN PRN Reason: Protocol Last Admin: 09/26/16 22:08 Dose: 5.171 mls/hr Fentanyl 500 mcg/ Sodium (Chloride) 110 mls @ 5.5 mls/hr IJ TITR CESAR PRN Reason: 25 MCG/HR Last Admin: 09/26/16 13:12 Dose: 7.7 mls/hr Levofloxacin (Levaquin 500 Mg Premixed Ivpb -) 100 mls @ 100 mls/hr IVPB DAILY [facility] Last Admin: 09/26/16 09:21 Dose: 100 mls/hr Nicardipine HCl 25 mg/ (Dextrose) 250 mls @ 25 mls/hr IVPB TITR CESAR; 2.5 MG/HR PRN Reason: Protocol Last Admin: 09/26/16 22:30 Dose: 12.5 mls/hr Potassium Chloride (Potassium Chloride 10 Meq Premix Ivpb -) 100 mls @ 100 mls/ hr IVPB Q60M [facility] Stop: 09/27/16 10:59 Levetiracetam (Keppra Injection -) 500 mg IVPB BID [facility] Last Admin: 09/26/16 22:06 Dose: 500 mg Metoprolol Tartrate (Lopressor -) 50 mg NGT BID [facility] Last Admin: 09/26/16 22:07 Dose: 50 mg Mupirocin (Bactroban Ointment (For Decolonization) -) 1 applic NS BID [facility] Stop: 09/30/16 21:59 Last Admin: 09/26/16 22:05 Dose: 1 applic Potassium Chloride (Potassium Chloride Oral Liquid) 40 meq PO ONCE ONE Stop: 09/27/16 09:01 Ranitidine HCl (Zantac Oral Solution -) 150 mg PO DAILY [facility] Tamsulosin HCl (Flomax -) 0.4 mg PO DAILY@0830 [facility] Last Admin: 09/26/16 11:46 Dose: 0.4 mg - Objective Vital Signs: Vital Signs Temperature 99.8 F H 09/27/16 06:00 Pulse Rate 114 H 09/27/16 06:00 Respiratory Rate 22 09/27/16 06:13 Blood Pressure 138/68 09/27/16 06:00 O2 Sat by Pulse Oximetry (%) 97 09/26/16 20:00 Neck: Yes: WNL Cardiovascular: Yes: Tachycardia, Pulse Irregular, S1, S2 Respiratory: Yes: Mechanically Ventilated Gastrointestinal: Yes: Normal Bowel Sounds, Soft Edema: No Labs: CBC, BMP 09/27/16 05:20 09/27/16 05:20 INR, PTT INR 1.50 (0.82-1.09) H 09/27/16 05:20 Problem List - Problems (1) Atrial fibrillation Code(s): I48.91 - UNSPECIFIED ATRIAL FIBRILLATION Qualifiers: Atrial fibrillation type: persistent Qualified Code(s): I48.1 - Persistent atrial fibrillation (2) Subdural hematoma Code(s): I62.00 - NONTRAUMATIC SUBDURAL HEMORRHAGE, UNSPECIFIED Assessment/Plan This is an 86 year old male with a pmhx of htn, afib on coumadin, CAD s/p stents at [facility] in 2010, hld, and chronic systolic CHF with LVEF 30% in 2015 who presented to ER after a mechanical fall found [address] subdural hemorrhage on coumadin and intubated for airway protection. -Coumadin and antiplatelets on hold insetting of acute subdural hemorrhage. -HR's 110s-130 with elevated bp's. On metoprolol 50mg q12. Can uptitrate to 75mg q12 as long as blood pressure does not drop. No chf on exam -Management of subdural hemorrhage as per ICU team and neurosurgical team.
[2016-09-27] MEDS: POTASSIUM CHLORIDE ORAL LIQUID 20 MEQ/15 ML PO ONE ×2 (08:38→09:49)
[2016-09-27] MEDS: KCL 10 MEQ IVPB 100 ML IVPB SCH ×3 (08:38→11:20)
--- NOTE | 2016-09-27 09:03 | PN ---
Progress Note, Physician History of Present Illness: Pt. was seen and examined in ICU. Pt is intubated, sedated. - Current Medication List Current Medications: Active Medications Albuterol/Ipratropium (Duoneb -) 1 amp NEB QIDR [facility] Last Admin: 09/27/16 05:49 Dose: 1 amp Atorvastatin Calcium (Lipitor -) 10 mg PO HS [facility] Last Admin: 09/26/16 22:06 Dose: 10 mg Bacitracin (Bacitracin -) 1 applic TP BID [facility] Last Admin: 09/26/16 22:05 Dose: 1 applic Chlorhexidine Gluconate (Hibiclens For Decolonization -) 1 applic TP HS [facility] Last Admin: 09/26/16 22:06 Dose: 1 applic Chlorhexidine Gluconate (Peridex -) 15 ml MM BID [facility] Last Admin: 09/26/16 22:07 Dose: 15 ml Dexamethasone Sodium Phosphate (Decadron Injection -) 4 mg IVPUSH Q6H-IV [facility] Last Admin: 09/27/16 08:38 Dose: 4 mg Digoxin (Lanoxin -) 0.[address] [facility] Last Admin: 09/26/16 22:06 Dose: 0.125 mg Diltiazem HCl 125 mg/ Dextrose 125 mls @ 5 mls/hr IVPB TITR CESAR; 5 MG/HR PRN Reason: Protocol Last Admin: 09/27/16 00:37 Dose: Not Given Propofol (Diprivan -) 100 mls @ 2.585 mls/hr IVPB TITR CESAR; 5 MCG/KG/MIN PRN Reason: Protocol Last Admin: 09/26/16 22:08 Dose: 5.171 mls/hr Fentanyl 500 mcg/ Sodium (Chloride) 110 mls @ 5.5 mls/hr IJ TITR CESAR PRN Reason: 25 MCG/HR Last Admin: 09/26/16 13:12 Dose: 7.7 mls/hr Levofloxacin (Levaquin 500 Mg Premixed Ivpb -) 100 mls @ 100 mls/hr IVPB DAILY [facility] Last Admin: 09/26/16 09:21 Dose: 100 mls/hr Nicardipine HCl 25 mg/ (Dextrose) 250 mls @ 25 mls/hr IVPB TITR CESAR; 2.5 MG/HR PRN Reason: Protocol Last Admin: 09/26/16 22:30 Dose: 12.5 mls/hr Potassium Chloride (Potassium Chloride 10 Meq Premix Ivpb -) 100 mls @ 100 mls/ hr IVPB Q60M [facility] Stop: 09/27/16 10:59 Last Admin: 09/27/16 08:38 Dose: 100 mls/hr Levetiracetam (Keppra Injection -) 500 mg IVPB BID [facility] Last Admin: 09/26/16 22:06 Dose: 500 mg Metoprolol Tartrate (Lopressor -) 75 mg NGT BID [facility] Mupirocin (Bactroban Ointment (For Decolonization) -) 1 applic NS BID [facility] Stop: 09/30/16 21:59 Last Admin: 09/26/16 22:05 Dose: 1 applic Ranitidine HCl (Zantac Oral Solution -) 150 mg PO DAILY [facility] Tamsulosin HCl (Flomax -) 0.4 mg PO DAILY@0830 [facility] Last Admin: 09/26/16 11:46 Dose: 0.4 mg - Objective Vital Signs: Vital Signs Temperature 99.8 F H 09/27/16 06:00 Pulse Rate 114 H 09/27/16 06:00 Respiratory Rate 22 09/27/16 06:13 Blood Pressure 138/68 09/27/16 06:00 O2 Sat by Pulse Oximetry (%) 97 09/26/16 20:00 Constitutional: Yes: No Distress, Calm Cardiovascular: Yes: Tachycardia, Pulse Irregular, S1, S2 Respiratory: Yes: Regular, Other (coarse BS) Gastrointestinal: Yes: Normal Bowel Sounds, Soft. No: Tenderness Edema: No Neurological: Yes: Other (sedated) Labs: CBC, BMP 09/27/16 05:20 09/27/16 05:20 INR, PTT INR 1.50 (0.82-1.09) H 09/27/16 05:20 - ....Imaging Chest X-ray: Image Reviewed Problem List - Problems (1) Subdural hematoma Assessment/Plan: Progression during the first 24 hours, now stable To f/u with head CT scan Code(s): I62.00 - NONTRAUMATIC SUBDURAL HEMORRHAGE, UNSPECIFIED (2) Supratherapeutic INR Code(s): R79.1 - ABNORMAL COAGULATION PROFILE (3) Atrial fibrillation Assessment/Plan: with RVR. Code(s): I48.91 - UNSPECIFIED ATRIAL FIBRILLATION Qualifiers: Atrial fibrillation type: persistent Qualified Code(s): I48.1 - Persistent atrial fibrillation (4) Accidental fall Code(s): W19.XXXA - UNSPECIFIED FALL, INITIAL ENCOUNTER Qualifiers: Encounter type: sequela Qualified Code(s): W19.XXXS - Unspecified fall, sequela (5) Nasal bone fracture Code(s): S02.2XXA - FRACTURE OF NASAL BONES, INIT ENCNTR FOR CLOSED FRACTURE Qualifiers: Encounter type: initial encounter Fracture type: closed Qualified Code(s): S02.2XXA - Fracture of nasal bones, initial encounter for closed fracture (6) Uncontrolled hypertension Code(s): I10 - ESSENTIAL (PRIMARY) HYPERTENSION (7) Abrasions of multiple sites Code(s): T14.8 - OTHER INJURY OF UNSPECIFIED BODY REGION (8) Dementia Assessment/Plan: mild to moderate at baseline. Code(s): F03.90 - UNSPECIFIED DEMENTIA WITHOUT BEHAVIORAL DISTURBANCE (9) Leukocytosis Assessment/Plan: secondary to PNA Code(s): D72.829 - ELEVATED WHITE BLOOD CELL COUNT, UNSPECIFIED (10) Hypokalemia Assessment/Plan: To replete; to monitor electrolytes Code(s): E87.6 - HYPOKALEMIA (11) Thrombocytopenia Assessment/Plan: s/p Plts [place] Code(s): D69.6 - THROMBOCYTOPENIA, UNSPECIFIED (12) Pneumonia Code(s): J18.9 - PNEUMONIA, UNSPECIFIED ORGANISM (13) Respiratory failure Assessment/Plan: s/p intubation Code(s): J96.90 - RESPIRATORY FAILURE, UNSP, UNSP W HYPOXIA OR HYPERCAPNIA (14) Hypophosphatemia Assessment/Plan: to replete Code(s): E83.39 - OTHER DISORDERS OF PHOSPHORUS METABOLISM Assessment/Plan Neuro Sx consult appreciated- case was d/w Dr. Ernst; Pt. is not a surgical candidate. Neuro Consult appreciated. Cardio consult appreciated. CCM consult appreciated. Heme consult appreciated Admitted to ICU. Pt. is on IV abtx. s/p vit K, s/p FFP, s/p Platelets Tx. To monitor INR. Pt. BP and HR are high; to increase BB; cont. digoxin via TF; to monitor BP and HR Case was discussed with pt's ER nurse, ICU team. BMP and Mg this afternoon. AM labs. Time spent in managing pt's condition: over 45 minutes Prognosis: reserved
[2016-09-27] MEDS: RANITIDINE HCL 150 MG/10 ML UNIT-DOSE CUP PO SCH (09:49)
[2016-09-27] MEDS: CHLORHEXIDINE GLUCONATE 0.12% 15ML CUP MM SCH ×2 (09:49→21:47)
[2016-09-27] MEDS: TAMSULOSIN HCL 0.4 MG CAP.ER.24H (FP) PO SCH (09:50)
[2016-09-27] MEDS: LEVOFLOXACIN 500 MG IVPB 100 ML IVPB SCH (09:50)
[2016-09-27] MEDS: levETIRAcetam 500 MG/5 ML INJECTION VIAL IVPB SCH ×2 (09:50→21:46)
[2016-09-27] MEDS: METOPROLOL TARTRATE 50 MG TABLET (FP) NGT SCH ×3 (09:53→21:47)
[2016-09-27] MEDS ORDERED: POTASSIUM PHOSPHATE 40 MM in DEXTROSE 5%-WATER - 500 ML IVPB ONE (10:30)
[2016-09-27] MEDS: BACITRACIN 30 GM TUBE TOPICAL OINTMENT TP SCH ×2 (11:21→21:45)
[2016-09-27] MEDS: MUPIROCIN 2% TOPICAL OINTMENT FOR DECOLONIZATION NS SCH ×2 (11:21→21:46)
[2016-09-27] MEDS ORDERED: PHYTONADIONE 10 MG/1 ML AMP SQ ONE ×2 (12:24→13:30)
--- NOTE | 2016-09-27 12:27 | PN ---
Teaching Attending Note Name of Resident: Jesse Hamm ATTENDING PHYSICIAN STATEMENT I saw and evaluated the patient. I reviewed the resident's note and discussed the case with the resident. I agree with the resident's findings and plan as documented. SUBJECTIVE: Patient seen and examined in the ICU. Remains intubated, poorly responsive. AC Mode of vent. No pressors. For repeat CT head today. OBJECTIVE: Intake & Output 09/24/16 09/25/16 09/26/16 09/27/16 23:59 23:59 23:59 23:59 Intake Total 1990 2362 1022.4 Output Total 50 300 500 300 Balance -50 1691 1862 722.4 Weight 190 lb 207 lb 6 oz 210 lb 8 oz Last Vital Signs Temp Pulse Resp BP Pulse Ox 99.7 F H 127 H 22 159/86 97 09/27/16 10:00 09/27/16 10:00 09/27/16 11:24 09/27/16 10:00 09/27/16 10:00 Active Medications Albuterol/Ipratropium (Duoneb -) 1 amp NEB QIDR [facility] Last Admin: 09/27/16 05:49 Dose: 1 amp Atorvastatin Calcium (Lipitor -) 10 mg PO [facility] Last Admin: 09/26/16 22:06 Dose: 10 mg Bacitracin (Bacitracin -) 1 applic TP BID [facility] Last Admin: 09/27/16 11:21 Dose: 1 applic Chlorhexidine Gluconate (Hibiclens For Decolonization -) 1 applic TP [facility] Last Admin: 09/26/16 22:06 Dose: 1 applic Chlorhexidine Gluconate (Peridex -) 15 ml MM BID [facility] Last Admin: 09/27/16 09:49 Dose: 15 ml Dexamethasone Sodium Phosphate (Decadron Injection -) 4 mg IVPUSH Q6H-IV [facility] Last Admin: 09/27/16 08:38 Dose: 4 mg Digoxin (Lanoxin -) 0.125 mg PO [facility] Last Admin: 09/26/16 22:06 Dose: 0.125 mg Diltiazem HCl 125 mg/ Dextrose 125 mls @ 5 mls/hr IVPB TITR [facility]; 5 MG/HR PRN Reason: Protocol Last Admin: 09/27/16 00:37 Dose: Not Given Propofol (Diprivan -) 100 mls @ 2.585 mls/hr IVPB TITR [facility]; 5 MCG/KG/MIN PRN Reason: Protocol Last Admin: 09/26/16 22:08 Dose: 5.171 mls/hr Fentanyl 500 mcg/ Sodium (Chloride) 110 mls @ 5.5 mls/hr IJ TITR [facility] PRN Reason: 25 MCG/HR Last Admin: 09/26/16 13:12 Dose: 7.7 mls/hr Levofloxacin (Levaquin 500 Mg Premixed Ivpb -) 100 mls @ 100 mls/hr IVPB DAILY [facility] Last Admin: 09/27/16 09:50 Dose: 100 mls/hr Nicardipine HCl 25 mg/ (Dextrose) 250 mls @ 25 mls/hr IVPB TITR [facility]; 2.5 MG/HR PRN Reason: Protocol Last Admin: 09/26/16 22:30 Dose: 12.5 mls/hr Potassium Phosphate 40 mm/ (Dextrose) 513.3333 mls @ 64.16 mls/hr IVPB ONCE ONE PRN Reason: 40 MM/8 HR Stop: 09/27/16 18:30 Last Admin: 09/27/16 11:19 Dose: 64.16 mls/hr Levetiracetam (Keppra Injection -) 500 mg IVPB BID [facility] Last Admin: 09/27/16 09:50 Dose: 500 mg Metoprolol Tartrate (Lopressor -) 75 mg NGT BID [facility] Last Admin: 09/27/16 11:20 Dose: Not Given Mupirocin (Bactroban Ointment (For Decolonization) -) 1 applic NS BID [facility] Stop: 09/30/16 21:59 Last Admin: 09/27/16 11:21 Dose: 1 applic Phytonadione (Aqua Mephyton Injection -) 5 mg SQ ONCE ONE Stop: 09/27/16 12:25 Ranitidine HCl (Zantac Oral Solution -) 150 mg PO DAILY [facility] Last Admin: 09/27/16 09:49 Dose: 150 mg Tamsulosin HCl (Flomax -) 0.4 mg PO DAILY@0830 [facility] Last Admin: 09/27/16 09:50 Dose: 0.4 mg Gen: intubated, poorly responsive Heart: tachycardic, irregular Lung: scattered rhonchi Abd: soft, nontender Ext: no edema Laboratory Results - last 24 hr 09/26/16 09/26/16 09/27/16 19:00 19:00 05:20 WBC 13.9 H 12.9 H RBC 3.38 L 3.45 L Hgb 10.4 L 10.6 L Hct 30.9 L 31.4 L MCV 91.6 91.0 MCHC 33.5 33.6 RDW 14.0 13.7 Plt Count 196 190 MPV 9.3 9.5 Neutrophils % 93.0 H 92.2 H Lymphocytes % 1.6 L D 2.7 L D Monocytes % 5.3 5.0 Eosinophils % 0.0 D 0.0 Basophils % 0.1 D 0.1 INR 1.45 H Puncture Site ABG pH ABG pCO2 at Pt Temp ABG pO2 at Pt Temp ABG HCO3 ABG O2 Sat (Measured) ABG O2 Content ABG Base Excess Prosper Test O2 Delivery Device Oxygen Flow Rate Vent Mode Vent Rate Mechanical Rate PEEP Pressure Support Vent Sodium Potassium Chloride Carbon Dioxide Anion Gap BUN Creatinine Creat Clearance w eGFR Random Glucose Calcium Phosphorus Magnesium Total Bilirubin AST ALT Alkaline Phosphatase Total Protein Albumin 09/27/16 09/27/16 09/27/16 05:20 05:20 07:30 WBC RBC Hgb Hct MCV MCHC RDW Plt Count MPV Neutrophils % Lymphocytes % Monocytes % Eosinophils % Basophils % INR 1.50 H Puncture Site Right radial ABG pH 7.55 H ABG pCO2 at Pt Temp 34.8 L ABG pO2 at Pt Temp 126.0 H D ABG HCO3 30.7 H ABG O2 Sat (Measured) 99.6 H* ABG O2 Content 14.1 L ABG Base Excess 8.0 H Prosper Test Positive O2 Delivery Device Mec.bvent Oxygen Flow Rate 60% Vent Mode A/c Vent Rate 20 Mechanical Rate Esprit PEEP 5.0 Pressure Support Vent 450 Sodium 138 Potassium 2.9 L* Chloride 96 L Carbon Dioxide 31 Anion Gap 11 BUN 27 H D Creatinine 0.8 Creat Clearance w eGFR > 60 Random Glucose 184 H D Calcium 8.3 L Phosphorus 1.5 L Magnesium 2.2 Total Bilirubin 2.5 H AST 29 D ALT 32 D Alkaline Phosphatase 81 Total Protein 6.8 Albumin 3.1 L ASSESSMENT AND PLAN: Acute Hypoxic Respiratory Failure s/p Fall Traumatic Subdural Hematoma/Subarachnoid Hemorrhage Atrial Fibrillation on anticoagulation Dysfunctional Platelets from Plavix HTN Dementia Likely Aspiration Pneumonia - Vitamin K - repeat CT head today - monitor coags - neuro/neurosurgery has evaluated the patient - empiric antiepileptics, steroids - replete lytes - D/C ABX - DVT/GI prophylaxis - poor overall prognosis - will need to discuss goals of care and advanced directives with family Dr Mena critical care time spent in reviewing chart, evaluating patient and formulating plan 40 min
[2016-09-27] MEDS: FENTANYL INJECTION 500 MCG in SODIUM CHLORIDE 100 ML IJ SCH ×2 (12:50→21:49)
[2016-09-27 14:21] LABS: CALCIUM 8.7 mg/dL (8.5-10.1); COCKROFT - GAULT 102.3; CREATININE 0.7 mg/dL (0.7-1.3); MAGNESIUM 2.4 mg/dL (1.8-2.4)
--- NOTE | 2016-09-27 15:01 | PN ---
Progress Note (short form) - Note Progress Note: Parient seen and examined Intubated/sedated Last Vital Signs Temp Pulse Resp BP Pulse Ox 99.7 F H 129 H 20 148/89 97 09/27/16 14:00 09/27/16 14:00 09/27/16 14:30 09/27/16 14:00 09/27/16 10:00 Cor: RSR, No murmurs, No gallops Lungs: Clear to P&A Abd: Soft, Normal bowel sounds, No organomegaly Ext:No significant edema Abnormal Lab Results 09/26/16 09/26/16 09/27/16 19:00 19:00 05:20 WBC 13.9 H 12.9 H RBC 3.38 L 3.45 L Hgb 10.4 L 10.6 L Hct 30.9 L 31.4 L Neutrophils % 93.0 H 92.2 H Lymphocytes % 1.6 L D 2.7 L D INR 1.45 H ABG pH ABG pCO2 at Pt Temp ABG pO2 at Pt Temp ABG HCO3 ABG O2 Sat (Measured) ABG O2 Content ABG Base Excess Potassium Chloride BUN Random Glucose Calcium Phosphorus Total Bilirubin Albumin 09/27/16 09/27/16 09/27/16 05:20 05:20 07:30 WBC RBC Hgb Hct Neutrophils % Lymphocytes % INR 1.50 H ABG pH 7.55 H ABG pCO2 at Pt Temp 34.8 L ABG pO2 at Pt Temp 126.0 H D ABG HCO3 30.7 H ABG O2 Sat (Measured) 99.6 H* ABG O2 Content 14.1 L ABG Base Excess 8.0 H Potassium 2.9 L* Chloride 96 L BUN 27 H D Random Glucose 184 H D Calcium 8.3 L Phosphorus 1.5 L Total Bilirubin 2.5 H Albumin 3.1 L 09/27/16 13:50 WBC RBC Hgb Hct Neutrophils % Lymphocytes % INR ABG pH ABG pCO2 at Pt Temp ABG pO2 at Pt Temp ABG HCO3 ABG O2 Sat (Measured) ABG O2 Content ABG Base Excess Potassium Chloride 96 L BUN 34 H D Random Glucose 194 H Calcium Phosphorus Total Bilirubin Albumin Home Medication List Medication Instructions Recorded Confirmed Type Atorvastatin Ca [Lipitor] 10 mg PO HS 09/24/16 09/24/16 History Clopidogrel Bisulfate [Plavix -] 75 mg PO DAILY 09/24/16 09/24/16 History Digoxin 125 mcg PO HS 09/24/16 09/24/16 History Donepezil HCl [Aricept] 10 mg PO DAILY 09/24/16 09/24/16 History Losartan Potassium 50 mg PO DAILY 09/24/16 09/24/16 History Metoprolol Succinate [Toprol Xl] 50 mg PO BID 09/24/16 09/24/16 History Sertraline HCl [Zoloft] 50 mg PO DAILY 09/24/16 09/24/16 History Tamsulosin HCl [Flomax] 0.4 mg PO DAILY 09/24/16 09/24/16 History Warfarin Na [Coumadin] 5 mg PO DAILY 09/24/16 09/24/16 History Active Medications Generic Name Dose Route Start Last Admin Trade Name Freq PRN Reason Stop Dose Admin Albuterol/Ipratropium 1 amp 09/25/16 07:00 09/27/16 11:15 Duoneb - NEB 1 amp QIDR [facility] Administration Atorvastatin Calcium 10 mg 09/26/16 22:00 09/26/16 22:06 Lipitor - PO 10 mg HS [facility] Administration Bacitracin 1 applic 09/24/16 23:15 09/27/16 11:21 Bacitracin - TP 1 applic BID [facility] Administration Chlorhexidine Gluconate 1 applic 09/25/16 22:00 09/26/16 22:06 Hibiclens For Decolonization - TP 1 applic HS [facility] Administration Chlorhexidine Gluconate 15 ml 09/25/16 22:00 09/27/16 09:49 Peridex - MM 15 ml BID [facility] Administration Dexamethasone Sodium Phosphate 4 mg 09/25/16 09:45 09/27/16 08:38 Decadron Injection - IVPUSH 4 mg Q6H-IV [facility] Administration Digoxin 0.125 mg 09/26/16 22:00 09/26/16 22:06 Lanoxin - PO 0.125 mg HS [facility] Administration Diltiazem HCl 125 mg/ Dextrose 125 mls @ 5 mls/hr 09/24/16 21:45 09/27/16 00:37 IVPB Not Given TITR [facility] Protocol 5 MG/HR Propofol 100 mls @ 2.585 mls/hr 09/25/16 11:30 09/26/16 22:08 Diprivan - IVPB 5.171 mls/hr TITR [facility] Administration Protocol 5 MCG/KG/MIN Fentanyl 500 mcg/ Sodium 110 mls @ 5.5 mls/hr 09/25/16 12:17 09/27/16 12:50 Chloride IJ 7.7 mls/hr TITR [facility] Administration 25 MCG/HR Nicardipine HCl 25 mg/ 250 mls @ 25 mls/hr 09/25/16 22:30 09/26/16 22:30 Dextrose IVPB 12.5 mls/hr TITR [facility] Administration Protocol 2.5 MG/HR Potassium Phosphate 40 mm/ 513.3333 mls @ 64.16 mls/hr 09/27/16 10:30 09/27/16 11:19 Dextrose IVPB 09/27/16 18:30 64.16 mls/hr ONCE ONE Administration 40 MM/8 HR Levetiracetam 500 mg 09/25/16 10:00 09/27/16 09:50 Keppra Injection - IVPB 500 mg BID [facility] Administration Metoprolol Tartrate 75 mg 09/27/16 09:00 09/27/16 11:20 Lopressor - NGT Not Given BID [facility] Mupirocin 1 applic 09/25/16 22:00 09/27/16 11:21 Bactroban Ointment (For Decolonization) - NS 09/30/16 21:59 1 applic BID [facility] Administration Ranitidine HCl 150 mg 09/27/16 10:00 09/27/16 09:49 Zantac Oral Solution - PO 150 mg DAILY [facility] Administration Tamsulosin HCl 0.4 mg 09/26/16 11:00 09/27/16 09:50 Flomax - PO 0.4 mg DAILY@0830 [facility] Administration A/P 86 y/o patient with dementia, b/l acute subdural hematoma head CT stable SDH with minimally increased SAH s/p FFP/platelets INR --1.5 --suspect ongoing coagulopathy fron infection/drug interactions transfuse 2 units FFP Last irvin of plavix --09/24 continue supportive care guarded prognosis
--- NOTE | 2016-09-27 15:45 | PN ---
Physical Exam: SUBJECTIVE: Patient seen and examined. intubated, nonresponsive to verbal or noxious stimuli OBJECTIVE: Vital Signs Period Temp Pulse Resp BP Sys/Obrien Pulse Ox Last 24 Hr 98.9 F-99.8 F 114-130 18-22 138-166/56-100 95-97 EYES: pinpoint pupils sluggish to light, sclera anicteric, conjunctiva clear. No ptosis. ENT: Ears normal, ecchymosis and abrasion over nose; covered with CDI guaze, oropharynx with ET and OG tube NECK: Trachea midline, thick neck LUNGS: Breath sounds scattered rhonchi and diffuse coarse breath sounds b/l with anterior auscultation HEART: afib, S1, S2 without murmur, rub or gallop. ABDOMEN: Soft, nondistended, normoactive bowel sounds EXTREMITIES: 2+ pulses, warm, well-perfused, no edema. abrasion below right knee with dried blood, no discharge, swelling on medial left knee with yellow discoloration Laboratory Results - last 24 hr 09/26/16 09/26/16 09/27/16 19:00 19:00 05:20 WBC 13.9 H 12.9 H RBC 3.38 L 3.45 L Hgb 10.4 L 10.6 L Hct 30.9 L 31.4 L MCV 91.6 91.0 MCHC 33.5 33.6 RDW 14.0 13.7 Plt Count 196 190 MPV 9.3 9.5 Neutrophils % 93.0 H 92.2 H Lymphocytes % 1.6 L D 2.7 L D Monocytes % 5.3 5.0 Eosinophils % 0.0 D 0.0 Basophils % 0.1 D 0.1 INR 1.45 H Puncture Site ABG pH ABG pCO2 at Pt Temp ABG pO2 at Pt Temp ABG HCO3 ABG O2 Sat (Measured) ABG O2 Content ABG Base Excess Prosper Test O2 Delivery Device Oxygen Flow Rate Vent Mode Vent Rate Mechanical Rate PEEP Pressure Support Vent Sodium Potassium Chloride Carbon Dioxide Anion Gap BUN Creatinine Creat Clearance w eGFR Random Glucose Calcium Phosphorus Magnesium Total Bilirubin AST ALT Alkaline Phosphatase Total Protein Albumin 09/27/16 09/27/16 09/27/16 05:20 05:20 07:30 WBC RBC Hgb Hct MCV MCHC RDW Plt Count MPV Neutrophils % Lymphocytes % Monocytes % Eosinophils % Basophils % INR 1.50 H Puncture Site Right radial ABG pH 7.55 H ABG pCO2 at Pt Temp 34.8 L ABG pO2 at Pt Temp 126.0 H D ABG HCO3 30.7 H ABG O2 Sat (Measured) 99.6 H* ABG O2 Content 14.1 L ABG Base Excess 8.0 H Prosper Test Positive O2 Delivery Device Mec.bvent Oxygen Flow Rate 60% Vent Mode A/c Vent Rate 20 Mechanical Rate Esprit PEEP 5.0 Pressure Support Vent 450 Sodium 138 Potassium 2.9 L* Chloride 96 L Carbon Dioxide 31 Anion Gap 11 BUN 27 H D Creatinine 0.8 Creat Clearance w eGFR > 60 Random Glucose 184 H D Calcium 8.3 L Phosphorus 1.5 L Magnesium 2.2 Total Bilirubin 2.5 H AST 29 D ALT 32 D Alkaline Phosphatase 81 Total Protein 6.8 Albumin 3.1 L 09/27/16 13:50 WBC RBC Hgb Hct MCV MCHC RDW Plt Count MPV Neutrophils % Lymphocytes % Monocytes % Eosinophils % Basophils % INR Puncture Site ABG pH ABG pCO2 at Pt Temp ABG pO2 at Pt Temp ABG HCO3 ABG O2 Sat (Measured) ABG O2 Content ABG Base Excess Prosper Test O2 Delivery Device Oxygen Flow Rate Vent Mode Vent Rate Mechanical Rate PEEP Pressure Support Vent Sodium 139 Potassium 3.5 D Chloride 96 L Carbon Dioxide 31 Anion Gap 12 BUN 34 H D Creatinine 0.7 Creat Clearance w eGFR Random Glucose 194 H Calcium 8.7 Phosphorus Magnesium 2.4 Total Bilirubin AST ALT Alkaline Phosphatase Total Protein Albumin Active Medications Generic Name Dose Route Start Last Admin Trade Name Freq PRN Reason Stop Dose Admin Albuterol/Ipratropium 1 amp 09/25/16 07:00 09/27/16 11:15 Duoneb - NEB 1 amp QIDR [place] Administration Atorvastatin Calcium 10 mg 09/26/16 22:00 09/26/16 22:06 Lipitor - PO 10 mg HS [place] Administration Bacitracin 1 applic 09/24/16 23:15 09/27/16 11:21 Bacitracin - TP 1 applic BID [place] Administration Chlorhexidine Gluconate 1 applic 09/25/16 22:00 09/26/16 22:06 Hibiclens For Decolonization - TP 1 applic HS [place] Administration Chlorhexidine Gluconate 15 ml 09/25/16 22:00 09/27/16 09:49 Peridex - MM 15 ml BID [place] Administration Dexamethasone Sodium Phosphate 4 mg 09/25/16 09:45 09/27/16 15:43 Decadron Injection - IVPUSH 4 mg Q6H-IV [place] Administration Digoxin 0.125 mg 09/26/16 22:00 09/26/16 22:06 Lanoxin - PO 0.125 mg HS [place] Administration Diltiazem HCl 125 mg/ Dextrose 125 mls @ 5 mls/hr 09/24/16 21:45 09/27/16 00:37 IVPB Not Given TITR [place] Protocol 5 MG/HR Propofol 100 mls @ 2.585 mls/hr 09/25/16 11:30 09/26/16 22:08 Diprivan - IVPB 5.171 mls/hr TITR [place] Administration Protocol 5 MCG/KG/MIN Fentanyl 500 mcg/ Sodium 110 mls @ 5.5 mls/hr 09/25/16 12:17 09/27/16 12:50 Chloride IJ 7.7 mls/hr TITR [place] Administration 25 MCG/HR Nicardipine HCl 25 mg/ 250 mls @ 25 mls/hr 09/25/16 22:30 09/26/16 22:30 Dextrose IVPB 12.5 mls/hr TITR [place] Administration Protocol 2.5 MG/HR Potassium Phosphate 40 mm/ 513.3333 mls @ 64.16 mls/hr 09/27/16 10:30 09/27/16 11:19 Dextrose IVPB 09/27/16 18:30 64.16 mls/hr ONCE ONE Administration 40 MM/8 HR Levetiracetam 500 mg 09/25/16 10:00 09/27/16 09:50 Keppra Injection - IVPB 500 mg BID [place] Administration Metoprolol Tartrate 75 mg 09/27/16 09:00 09/27/16 11:20 Lopressor - NGT Not Given BID [place] Mupirocin 1 applic 09/25/16 22:00 09/27/16 11:21 Bactroban Ointment (For Decolonization) - NS 09/30/16 21:59 1 applic BID [place] Administration Ranitidine HCl 150 mg 09/27/16 10:00 09/27/16 09:49 Zantac Oral Solution - PO 150 mg DAILY [place] Administration Tamsulosin HCl 0.4 mg 09/26/16 11:00 09/27/16 09:50 Flomax - PO 0.4 mg DAILY@0830 [facility] Administration ASSESSMENT/PLAN: 86 yr old man with dementia, afib on plavix and warfarin, HTN, CAD s/p stents, CHF, parkinson's disorder presents s/p mechanical fall found to have subarachnoid and subdural hemorrhage. Neurologic Repeat Head CT shows midline shift 7mm to the right, with minimally increased bleeding keppra 500mg BID IVPB for seizure prophylaxis decadron 4mg IVPush q6h-IV [place] sedated with propofol and fentanyl with sedation holiday as per son, patient's baseline is oriented x3 with good recall of old memories, typically has unsteady gait requiring 1 person assist(he refused to use a walker /cane) with several near falls. consult: Dr. Ventura Pulmonary duonebs QIDR [facility] 1 amp levaquin daily 500mg IVPB (start 09/25) - dc'd today completed 3 days., cxry consistent with pulmonary edema, no progression of infiltrates. concern there may also be interaction between residual warfarin and levaquin that may be preventing correction of INR mechanically ventilated, Fio2 60% Hemotalogical reverse antiplatet and anticoagulation due to active bleed - transfuse ffp and monodonor platelets additional 2 ffp today due to minimal right posterior frontal and parietal subarachnoid hemorrhage that has minially increased since the prior exam. - repeat coags consult: Dr. Melgar Cardiovascular - afib, tachycardic with HTN - metoprolol tartrate 75mg BID NGT for rate control - consider labetalol 10mg pushes as needed and consider cardene drip for persistent HTN SBP>160 and tachycardia >120bpm - digoxin .125 mg po HS - hold warfarin and plavix in setting of acute he consult: Dr. Pierce Infectious disease leucocytosis improving , cause is possibly reactive or possible infectious process in lungs. continue to trend Cxy with pathchy infiltrates in right lung, suspicious for aspiration pna tx with levaquin - blood cx sent to r/o systemic bactermia - IVPB tylenol 1gm q6h for fevers Gastrointestinal - OG tube in place for medications and feeds - prophylaxis with zantac daily - Jevity feeds volume based for ideal body weight: 1,200ml flomax 0.4mg po daily NGT [place] cath in place to monitor urine output Renal improved urine output replete electrolytes goal K>4, Mag >2 DVT scd's given acute bleed Diet: Jevity via NGT Visit type - Emergency Visit Emergency Visit: No - New Patient This patient is new to me today: No - Critical Care Critical Care patient: Yes Total Critical Care Time (in minutes): 39 Critical Care Statement: The care of this patient involved high complexity decision making to prevent further life threatening deterioration of the patient 's condition and/or to evalute & treat vital organ system(s) failure or risk of failure.
--- NOTE | 2016-09-27 17:41 | PN ---
Progress Note (short form) - Note Progress Note: NEUROSURGERY Intubated and somewhat sedated PE: Tmax 99.6, AF, 140/80 HEENT- NC/AT; Neck-supple; Cor- Irreg; Lungs- some congestion, decreased BS; Abd - obese, benign; Ext- no sign of DVT Not following command CN- pupils 3mm sluggish B; Motor- minimally withdrawing to pain; Sensation- difficult to assess; DTR- hyperreflexic B LE > UE F/U CT 5-19: Acute L hemispheric SDH with mass effect and mild midline shift, mostly tentorial SDH and subtemporal SDH, some SAH, minimal IVH posteriorly Unfortunately increased thromboembolic risks now that plavix and coumadin both had to be held Keppra x1 week for sz prophylaxis Medical/expectant management Prognosis is poor
[2016-09-27] MEDS ORDERED: ACETAMINOPHEN 1000 MG/100 ML VIAL (NON FORMULARY) IVPB PRN (19:57)
[2016-09-27] MEDS: PROPOFOL 100 ML IVPB SCH (21:44)
[2016-09-27] MEDS: DIGOXIN 0.125 MG TABLET (FP) PO SCH (21:46)
[2016-09-27] MEDS: CHLORHEXIDINE GLUCONATE 4% CLEANSER FOR DECOLONIZATION TP SCH (21:46)
[2016-09-27] MEDS: NICARDIPINE 25 MG in DEXTROSE 5%-WATER - 240 ML IVPB SCH (21:47)
[2016-09-27] MEDS: ATORVASTATIN CA 10 MG TABLET (FP) PO SCH (21:47)
[2016-09-28] MEDS: DEXAMETHASONE SOD PHOSPHATE 4 MG/1 ML VIAL IVPUSH SCH ×4 (03:00→20:13)
[2016-09-28] MEDS ORDERED: METOPROLOL TARTRATE 5 MG/5 ML VIAL IVPUSH ONE (05:52)
[2016-09-28] MEDS ORDERED: METOPROLOL TARTRATE 5 MG/5 ML VIAL ONE (06:06)
[2016-09-28 06:15] LABS: BASOPHIL 0.1 % (0-2.0); MCH 31.2 pg (25.7-33.7); MCHC 34.3 g/dl (32.0-35.9); MEAN CELL VOLUME 90.9 fl (80-96); MEAN PLT VOLUME 9.3 fl (7.5-11.1); NEUTROPHILS 91.9 % (42.8-82.8); PLATELET COUNT 255 K/MM3 (134-434); RDW 13.9 % (11.9-15.9); WHITE BLOOD COUNT 13.1 K/mm3 (4.0-10.0)
[2016-09-28 06:33] LABS: INR 1.32 (0.82-1.09); PROTHROMBIN TIME (PATIENT) 14.6 SEC (9.98-11.88)
[2016-09-28 06:35] LABS: ALBUMIN 3.4 g/dl (3.4-5.0); ANION GAP 14 (8-16); BILIRUBIN,TOTAL 3.1 mg/dL (0.2-1.0); CALCIUM 8.6 mg/dL (8.5-10.1); CO2 30 mmol/L (21-32); COCKROFT - GAULT 89.51; CREATININE 0.8 mg/dL (0.7-1.3); GLUCOSE,RANDOM 182 mg/dL (74-106); MAGNESIUM 2.1 mg/dL (1.8-2.4); PHOSPHOROUS 3.5 mg/dL (2.5-4.9); SGOT/AST 83 U/L (15-37); SGPT/ALT 136 U/L (12-78); TOT PROT 7.3 g/dl (6.4-8.2)
[2016-09-28 06:36] LABS: ALK PHOS 98 U/L (45-117)
[2016-09-28] MEDS: ALBUTEROL SO4 2.5/IPRATROPIUM 0.5 INH SOL 3 ML VIAL.NEB. NEB SCH ×4 (06:40→23:30)
[2016-09-28 07:52] LABS: ALLENS TEST POSITIVE; ART PUNCT SITE RIGHT RADIAL; ARTERIAL BLD GAS O2 SATURATION 96.2 % (90-98.9); ARTERIAL BLOOD GAS HCO3 29.9 meq/L (22-26); ARTERIAL BLOOD GAS PO2 76.5 mmHg (68-100); LPM/O2% 60%; PT. ON O2? YES; TYPE OF O2 VENT
[2016-09-28 07:53] LABS: ARTERIAL BLOOD GAS pH 7.53 (7.35-7.45); MECH. VENT. YES; VENT RATE 20; VT/PRESS 450
--- NOTE | 2016-09-28 08:33 | PN ---
Progress Note (short form) - Note Progress Note: SUBJECTIVE: s/p CT head with progression of subdural afib tachy OBJECTIVE: Vital Signs Temp 99.2 F 09/28/16 06:00 Pulse 132 H 09/28/16 06:00 Resp 26 H 09/28/16 06:42 BP 131/58 09/28/16 06:00 Pulse Ox 100 09/27/16 20:00 Intake & Output 09/27/16 09/27/16 09/28/16 11:59 23:59 11:59 Intake Total 1022.4 2880 1224 Output Total 300 1300 400 Balance 722.4 1580 824 Weight 95.481 kg 94.982 kg Intake: IV 302.4 270 384 Cardizem Injection - 125 300 mg In D5w - 100 ml @ 5 MG /HR 5 mls/hr IVPB TITR [facility] Rx#:[id number] Diprivan - 100 ml @ 5 MCG 68.4 50 /KG/MIN 2.585 mls/hr IVPB TITR [facility] Rx#:[id number] Cardene - 25 mg In D5w - 150 150 240 ml @ 2.5 MG/HR 25 mls /hr IVPB TITR [facility] Rx#: [id number] fentanyl 84 70 84 IVPB 700 Tube Feeding 480 480 600 Fresh Frozen Plasma 600 Platelets 490 Tube Irrigant 240 340 240 Output: Urine 300 1300 400 External Catheter 300 1300 400 Other: Voiding Method Indwelling Catheter # Unmeasured Voids Void 5 4 Weight Measurement Method Built in [facility] Built in [facility] Gen: intubated, poorly responsive Heart: tachycardic, irregular Lung: scattered rhonchi, bronchial bs Abd: soft, nontender Ext: no edema Neuro: withdrawals to noxious stimuli, opens eyes but does not track or follow, Corneal intact CBC, BMP 09/28/16 05:15 09/28/16 05:15 ASSESSMENT AND PLAN: Acute Hypoxic Respiratory Failure s/p Fall Traumatic Subdural Hematoma/Subarachnoid Hemorrhage Atrial Fibrillation on anticoagulation Dysfunctional Platelets from Plavix HTN Dementia Likely Aspiration Pneumonia - full vent support, not candidate for weaning - monitor coags, keep corrected - neuro/neurosurgery has evaluated the patient , no surgical intervention - empiric antiepileptics, steroids - replete lytes - uptitrate BB, dig as per cards. - D/C ABX - DVT/GI prophylaxis - poor overall prognosis - will need to discuss goals of care and advanced directives/trach with family Pedro Diallo ACNP [phone]
[2016-09-28] MEDS: METOPROLOL TARTRATE 5 MG/5 ML VIAL IVPUSH PRN (08:38)
--- NOTE | 2016-09-28 09:37 | PN ---
Progress Note (short form) - Note Progress Note: NEUROSURGERY Intubated and somewhat sedated PE: Tmax 100.3, VSS HEENT- NC/AT; Neck-supple; Cor- Irreg; Lungs- some congestion, decreased BS; Abd - obese, benign; Ext- no sign of DVT More awake; following command gripping with R hand CN- pupils 3mm sluggish B; Motor- minimally withdrawing to pain; Sensation- difficult to assess; DTR- hyperreflexic B LE > UE F/U CT 5-19: Acute L hemispheric SDH with mass effect and mild midline shift, mostly tentorial SDH and subtemporal SDH, some SAH, minimal IVH posteriorly INR 1.34, received 2 U FFP Stable Head CT appearance with large L tentorial/falcine SDH Unfortunately increased thromboembolic risks now that plavix and coumadin both had to be held Keppra x1 week for sz prophylaxis Medical/expectant management D/w ICU team
[2016-09-28] MEDS: TAMSULOSIN HCL 0.4 MG CAP.ER.24H (FP) PO SCH (09:45)
[2016-09-28] MEDS: levETIRAcetam 500 MG/5 ML INJECTION VIAL IVPB SCH ×2 (10:48→21:30)
[2016-09-28] MEDS: RANITIDINE HCL 150 MG/10 ML UNIT-DOSE CUP PO SCH (10:52)
[2016-09-28] MEDS: METOPROLOL TARTRATE 50 MG TABLET (FP) NGT SCH ×3 (10:52→21:30)
[2016-09-28] MEDS: CHLORHEXIDINE GLUCONATE 0.12% 15ML CUP MM SCH ×2 (10:52→21:30)
[2016-09-28] MEDS: BACITRACIN 30 GM TUBE TOPICAL OINTMENT TP SCH ×2 (10:57→21:39)
[2016-09-28] MEDS: MUPIROCIN 2% TOPICAL OINTMENT FOR DECOLONIZATION NS SCH ×2 (10:57→21:29)
--- NOTE | 2016-09-28 11:15 | PN ---
Progress Note, Physician History of Present Illness: Pt. was seen and examined in ICU. Pt is intubated, sedated. Pt.' son at bedside. - Current Medication List Current Medications: Active Medications Acetaminophen (Ofirmev Injection -) 1,000 mg IVPB Q6H PRN PRN Reason: FEVER OR PAIN Stop: 09/28/16 13:58 Last Admin: 09/27/16 19:30 Dose: 1,000 mg Albuterol/Ipratropium (Duoneb -) 1 amp NEB QIDR [facility] Last Admin: 09/28/16 06:40 Dose: 1 amp Atorvastatin Calcium (Lipitor -) 10 mg PO HS [facility] Last Admin: 09/27/16 21:47 Dose: 10 mg Bacitracin (Bacitracin -) 1 applic TP BID [facility] Last Admin: 09/28/16 10:57 Dose: 1 applic Chlorhexidine Gluconate (Hibiclens For Decolonization -) 1 applic TP HS [facility] Last Admin: 09/27/16 21:46 Dose: 1 applic Chlorhexidine Gluconate (Peridex -) 15 ml MM BID [facility] Last Admin: 09/28/16 10:52 Dose: 15 ml Dexamethasone Sodium Phosphate (Decadron Injection -) 4 mg IVPUSH Q6H-IV [facility] Last Admin: 09/28/16 10:47 Dose: 4 mg Digoxin (Lanoxin -) 0.125 mg PO HS [facility] Last Admin: 09/27/16 21:46 Dose: 0.125 mg Diltiazem HCl 125 mg/ Dextrose 125 mls @ 5 mls/hr IVPB TITR [facility]; 5 MG/HR PRN Reason: Protocol Last Admin: 09/27/16 21:45 Dose: Not Given Fentanyl 500 mcg/ Sodium (Chloride) 110 mls @ 5.5 mls/hr IJ TITR [facility] PRN Reason: 25 MCG/HR Last Admin: 09/27/16 21:49 Dose: 7.7 mls/hr Nicardipine HCl 25 mg/ (Dextrose) 250 mls @ 25 mls/hr IVPB TITR [facility]; 2.5 MG/HR PRN Reason: Protocol Last Titration: 09/28/16 08:02 Dose: 2 mg/hr Levetiracetam (Keppra Injection -) 500 mg IVPB BID [facility] Last Admin: 09/28/16 10:48 Dose: 500 mg Metoprolol Tartrate (Lopressor Injection -) 5 mg IVPUSH Q4H PRN PRN Reason: HYPERTENSION Last Admin: 09/28/16 08:38 Dose: 5 mg Metoprolol Tartrate (Lopressor -) 75 mg NGT TID [facility] Mupirocin (Bactroban Ointment (For Decolonization) -) 1 applic NS BID [facility] Stop: 09/30/16 21:59 Last Admin: 09/28/16 10:57 Dose: 1 applic Ranitidine HCl (Zantac Oral Solution -) 150 mg PO DAILY [facility] Last Admin: 09/28/16 10:52 Dose: 150 mg Tamsulosin HCl (Flomax -) 0.4 mg PO DAILY@0830 [facility] Last Admin: 09/28/16 09:45 Dose: 0.4 mg - Objective Vital Signs: Vital Signs Temperature 99.2 F 09/28/16 06:00 Pulse Rate 148 H 09/28/16 09:00 Respiratory Rate 20 09/28/16 09:00 Blood Pressure 133/64 09/28/16 09:00 O2 Sat by Pulse Oximetry (%) 100 09/27/16 20:00 Constitutional: Yes: No Distress, Calm Cardiovascular: Yes: Regular Rate and Rhythm, S1, S2 Respiratory: Yes: Regular, Other (coarse BS throughout the lung sauer) Gastrointestinal: Yes: Normal Bowel Sounds, Soft Edema: No Labs: CBC, BMP 09/28/16 05:15 09/28/16 05:15 INR, PTT INR 1.32 (0.82-1.09) H 09/28/16 05:15 Problem List - Problems (1) Subdural hematoma Assessment/Plan: Progression during the first 24 hours, now stable. To f/u Neuro and NeuroSx regarding timing of next Head CT scan Code(s): I62.00 - NONTRAUMATIC SUBDURAL HEMORRHAGE, UNSPECIFIED (2) Supratherapeutic INR Code(s): R79.1 - ABNORMAL COAGULATION PROFILE (3) Atrial fibrillation Assessment/Plan: with RVR- better now. Code(s): I48.91 - UNSPECIFIED ATRIAL FIBRILLATION Qualifiers: Atrial fibrillation type: persistent Qualified Code(s): I48.1 - Persistent atrial fibrillation (4) Accidental fall Code(s): W19.XXXA - UNSPECIFIED FALL, INITIAL ENCOUNTER Qualifiers: Encounter type: sequela Qualified Code(s): W19.XXXS - Unspecified fall, sequela (5) Nasal bone fracture Assessment/Plan: seen by ENT- medical management Code(s): S02.2XXA - FRACTURE OF NASAL BONES, INIT ENCNTR FOR CLOSED FRACTURE Qualifiers: Encounter type: initial encounter Fracture type: closed Qualified Code(s): S02.2XXA - Fracture of nasal bones, initial encounter for closed fracture (6) Uncontrolled hypertension Code(s): I10 - ESSENTIAL (PRIMARY) HYPERTENSION (7) Abrasions of multiple sites Code(s): T14.8 - OTHER INJURY OF UNSPECIFIED BODY REGION (8) Dementia Assessment/Plan: mild to moderate at baseline. Code(s): F03.90 - UNSPECIFIED DEMENTIA WITHOUT BEHAVIORAL DISTURBANCE (9) Leukocytosis Assessment/Plan: secondary to PNA, steroids Code(s): D72.829 - ELEVATED WHITE BLOOD CELL COUNT, UNSPECIFIED (10) Hypokalemia Assessment/Plan: To replete; to monitor electrolytes Code(s): E87.6 - HYPOKALEMIA (11) Thrombocytopenia Assessment/Plan: s/p Plts Tx Code(s): D69.6 - THROMBOCYTOPENIA, UNSPECIFIED (12) Pneumonia Code(s): J18.9 - PNEUMONIA, UNSPECIFIED ORGANISM (13) Respiratory failure Assessment/Plan: s/p intubation Code(s): J96.90 - RESPIRATORY FAILURE, UNSP, UNSP W HYPOXIA OR HYPERCAPNIA (14) Hypophosphatemia Assessment/Plan: Corrected. Code(s): E83.39 - OTHER DISORDERS OF PHOSPHORUS METABOLISM Assessment/Plan Neuro Sx consult appreciated (case was d/w Dr. Ernst; Pt. is not a surgical candidate). Neuro Consult appreciated- to request reevaluation. Cardio consult appreciated. CCM consult appreciated. Heme consult appreciated- case was reviewed with Dr. Melgar Admitted to ICU; case was d/w ICU LEGAL MANAGER Pt. is of abtx- per ICU team. s/p vit K, s/p FFP, s/p Platelets Tx. To monitor INR- improved. Pt. BP and HR are high; to increase BB; cont. digoxin via TF; to monitor BP and HR Case was discussed with pt's ER nurse, ICU team. To send sputum CX AM labs. Pt.'s son is at bed side, case was reviewed; all questions were answered Time spent in managing pt's condition: over 50 minutes Prognosis: reserved
[2016-09-28] MEDS ORDERED: POTASSIUM CHLORIDE ORAL LIQUID 20 MEQ/15 ML NGT ONE (11:16)
--- NOTE | 2016-09-28 11:57 | PN ---
Progress Note (short form) - Note Progress Note: Parient seen and examined Intubated waking up Last Vital Signs Temp Pulse Resp BP Pulse Ox 99.2 F 140 H 23 133/64 100 09/28/16 06:00 09/28/16 10:15 09/28/16 10:15 09/28/16 09:00 09/28/16 10:15 Cor: RSR, No murmurs, No gallops Lungs: Clear to P&A Abd: Soft, Normal bowel sounds, No organomegaly Ext:No significant edema Abnormal Lab Results 09/27/16 09/28/16 09/28/16 13:50 05:15 05:15 WBC 13.1 H RBC 3.43 L Hgb 10.7 L Hct 31.2 L Neutrophils % 91.9 H Lymphocytes % 2.7 L INR ABG pH ABG HCO3 ABG O2 Content ABG Base Excess Potassium 3.4 L Chloride 96 L 92 L BUN 34 H D 40 H Random Glucose 194 H 182 H Total Bilirubin 3.1 H D AST 83 H D ALT 136 H D 09/28/16 09/28/16 05:15 07:30 WBC RBC Hgb Hct Neutrophils % Lymphocytes % INR 1.32 H ABG pH 7.53 H ABG HCO3 29.9 H ABG O2 Content 14.6 L ABG Base Excess 7.0 H Potassium Chloride BUN Random Glucose Total Bilirubin AST ALT Active Medications Generic Name Dose Route Start Last Admin Trade Name Freq PRN Reason Stop Dose Admin Acetaminophen 1,000 mg 09/27/16 19:57 09/27/16 19:30 Ofirmev Injection - IVPB 09/28/16 13:58 1,000 mg Q6H PRN Administration FEVER OR PAIN Albuterol/Ipratropium 1 amp 09/25/16 07:00 09/28/16 11:34 Duoneb - NEB 1 amp QIDR [facility] Administration Atorvastatin Calcium 10 mg 09/26/16 22:00 09/27/16 21:47 Lipitor - PO 10 mg HS [facility] Administration Bacitracin 1 applic 09/24/16 23:15 09/28/16 10:57 Bacitracin - TP 1 applic BID [facility] Administration Chlorhexidine Gluconate 1 applic 09/25/16 22:00 09/27/16 21:46 Hibiclens For Decolonization - TP 1 applic HS [facility] Administration Chlorhexidine Gluconate 15 ml 09/25/16 22:00 09/28/16 10:52 Peridex - MM 15 ml BID [facility] Administration Dexamethasone Sodium Phosphate 4 mg 09/25/16 09:45 09/28/16 10:47 Decadron Injection - IVPUSH 4 mg Q6H-IV [facility] Administration Digoxin 0.125 mg 09/26/16 22:00 09/27/16 21:46 Lanoxin - PO 0.125 mg HS [facility] Administration Diltiazem HCl 125 mg/ Dextrose 125 mls @ 5 mls/hr 09/24/16 21:45 09/27/16 21:45 IVPB Not Given TITR [facility] Protocol 5 MG/HR Fentanyl 500 mcg/ Sodium 110 mls @ 5.5 mls/hr 09/25/16 12:17 09/27/16 21:49 Chloride IJ 7.7 mls/hr TITR [facility] Administration 25 MCG/HR Nicardipine HCl 25 mg/ 250 mls @ 25 mls/hr 09/25/16 22:30 09/28/16 08:02 Dextrose IVPB 2 mg/hr TITR [facility] Titration Protocol 2.5 MG/HR Levetiracetam 500 mg 09/25/16 10:00 09/28/16 10:48 Keppra Injection - IVPB 500 mg BID [facility] Administration Metoprolol Tartrate 5 mg 09/28/16 08:35 09/28/16 08:38 Lopressor Injection - IVPUSH 5 mg Q4H PRN Administration HYPERTENSION Metoprolol Tartrate 75 mg 09/28/16 14:00 Lopressor - NGT TID [facility] Mupirocin 1 applic 09/25/16 22:00 09/28/16 10:57 Bactroban Ointment (For Decolonization) - NS 09/30/16 21:59 1 applic BID [facility] Administration Ranitidine HCl 150 mg 09/27/16 10:00 09/28/16 10:52 Zantac Oral Solution - PO 150 mg DAILY [facility] Administration Tamsulosin HCl 0.4 mg 09/26/16 11:00 09/28/16 09:45 Flomax - PO 0.4 mg DAILY@0830 [facility] Administration A/P 86 y/o patient with dementia, b/l acute subdural hematoma head CT stable SDH with minimally increased SAH s/p FFP/platelets INR --1.3 --holding off FFP Last irvin of plavix --09/24--expect it to be off by 09/29 continue supportive care discussed with PMD and neurology low grade fevers--per icu team
[2016-09-28] MEDS: FENTANYL INJECTION 500 MCG in SODIUM CHLORIDE 100 ML IJ SCH (12:25)
--- NOTE | 2016-09-28 12:31 | PN ---
Progress Note (short form) - Note Progress Note: Neurology 86yo RH man, with HTN, Chol, ASHD, S/P Stents, A Fib and dementia. Seen by Dr. Ventura as initial consult on 09/25/[address] Ernst, [facility] , deemed no surgical intervention for small Left convexity subdural hematoma ( acute), small left tentorial and infratemporal subarachnoid blood. Repeat CT's have shown very small changes and slight interval development but have been relatively the same size. He remains intubated, not sedated, starting to wake up , remains on vent but overbreathing. Spoke to son at bedside and answered his questions. Patient has been getting ongoing plt transfusions due to CT showing blood. Active Medications Acetaminophen (Ofirmev Injection -) 1,000 mg IVPB Q6H PRN PRN Reason: FEVER OR PAIN Stop: 09/28/16 13:58 Last Admin: 09/27/16 19:30 Dose: 1,000 mg Albuterol/Ipratropium (Duoneb -) 1 amp NEB QIDR [facility] Last Admin: 09/28/16 11:34 Dose: 1 amp Atorvastatin Calcium (Lipitor -) 10 mg PO HS [facility] Last Admin: 09/27/16 21:47 Dose: 10 mg Bacitracin (Bacitracin -) 1 applic TP BID [facility] Last Admin: 09/28/16 10:57 Dose: 1 applic Chlorhexidine Gluconate (Hibiclens For Decolonization -) 1 applic TP HS [facility] Last Admin: 09/27/16 21:46 Dose: 1 applic Chlorhexidine Gluconate (Peridex -) 15 ml MM BID [facility] Last Admin: 09/28/16 10:52 Dose: 15 ml Dexamethasone Sodium Phosphate (Decadron Injection -) 4 mg IVPUSH Q6H-IV [facility] Last Admin: 09/28/16 10:47 Dose: 4 mg Digoxin (Lanoxin -) 0.125 mg PO HS [facility] Last Admin: 09/27/16 21:46 Dose: 0.125 mg Diltiazem HCl 125 mg/ Dextrose 125 mls @ 5 mls/hr IVPB TITR [facility]; 5 MG/HR PRN Reason: Protocol Last Admin: 09/27/16 21:45 Dose: Not Given Fentanyl 500 mcg/ Sodium (Chloride) 110 mls @ 5.5 mls/hr IJ TITR [facility] PRN Reason: 25 MCG/HR Last Admin: 09/27/16 21:49 Dose: 7.7 mls/hr Nicardipine HCl 25 mg/ (Dextrose) 250 mls @ 25 mls/hr IVPB TITR [facility]; 2.5 MG/HR PRN Reason: Protocol Last Titration: 09/28/16 08:02 Dose: 2 mg/hr Levetiracetam (Keppra Injection -) 500 mg IVPB BID [facility] Last Admin: 09/28/16 10:48 Dose: 500 mg Metoprolol Tartrate (Lopressor Injection -) 5 mg IVPUSH Q4H PRN PRN Reason: HYPERTENSION Last Admin: 09/28/16 08:38 Dose: 5 mg Metoprolol Tartrate (Lopressor -) 75 mg NGT TID [facility] Mupirocin (Bactroban Ointment (For Decolonization) -) 1 applic NS BID [facility] Stop: 09/30/16 21:59 Last Admin: 09/28/16 10:57 Dose: 1 applic Ranitidine HCl (Zantac Oral Solution -) 150 mg PO DAILY [facility] Last Admin: 09/28/16 10:52 Dose: 150 mg Tamsulosin HCl (Flomax -) 0.4 mg PO DAILY@0830 [facility] Last Admin: 09/28/16 09:45 Dose: 0.4 mg Last Vital Signs Temp Pulse Resp BP Pulse Ox 99.2 F 140 H 26 H 133/64 100 09/28/16 06:00 09/28/16 10:15 09/28/16 12:25 09/28/16 09:00 09/28/16 10:15 Intubated but not sedated RRR Decrease breath sounds Abdomen soft Lethargic but arousable. Denies headache but is confused, PERRLA, Full roving EOM's. Full sauer to threat. No facial asymmetry. Course, rhythmic, rest tremors. + cogwheel. Right Babinski. CBCD WBC 13.1 K/mm3 (4.0-10.0) H 09/28/16 05:15 RBC 3.43 M/mm3 (4.00-5.60) L 09/28/16 05:15 Hgb 10.7 GM/dL (11.7-16.9) L 09/28/16 05:15 Hct 31.2 % (35.4-49) L 09/28/16 05:15 MCV 90.9 fl (80-96) 09/28/16 05:15 MCHC 34.3 g/dl (32.0-35.9) 09/28/16 05:15 RDW 13.9 % (11.9-15.9) 09/28/16 05:15 Plt Count 255 K/MM3 (134-434) D 09/28/16 05:15 MPV 9.3 fl (7.5-11.1) 09/28/16 05:15 CMP Sodium 136 mmol/L (136-145) 09/28/16 05:15 Potassium 3.4 mmol/L (3.5-5.1) L 09/28/16 05:15 Chloride 92 mmol/L (98-107) L 09/28/16 05:15 Carbon Dioxide 30 mmol/L (21-32) 09/28/16 05:15 Anion Gap 14 (8-16) 09/28/16 05:15 BUN 40 mg/dL (7-18) H 09/28/16 05:15 Creatinine 0.8 mg/dL (0.7-1.3) 09/28/16 05:15 Creat Clearance w eGFR > 60 (>60) 09/28/16 05:15 Calcium 8.6 mg/dL (8.5-10.1) 09/28/16 05:15 Total Bilirubin 3.1 mg/dL (0.2-1.0) H D 09/28/16 05:15 AST 83 U/L (15-37) H D 09/28/16 05:15 ALT 136 U/L (12-78) H D 09/28/16 05:15 Alkaline Phosphatase 98 U/L (45-117) D 09/28/16 05:15 Total Protein 7.3 g/dl (6.4-8.2) 09/28/16 05:15 Albumin 3.4 g/dl (3.4-5.0) 09/28/16 05:15 86yo RH man, with HTN, Chol, ASHD, S/P Stents, A Fib and dementia. Seen by Dr. Ventura as initial consult on 09/25/[address] Ernst, [facility] , deemed no surgical intervention for small Left convexity subdural hematoma ( acute), small left tentorial and infratemporal subarachnoid blood. Repeat CT's have shown very small changes and slight interval development but have been relatively the same size. He remains intubated, not sedated, starting to wake up , remains on vent but overbreathing. Spoke to son at bedside and answered his questions. Patient has been getting ongoing plt transfusions due to CT showing blood. Continue Keppra for seizure prevention Heme following, would not transfuse based on CT's Transfuse as needed based on lab results Decadron couse to be completed today Extubate as able Monitor airway Will not repeat CT head as exam stable Appear to be waking up now that sedation has been off 24 hrs (was on propofol)
--- NOTE | 2016-09-28 12:31 | PN ---
Progress Note, Physician Chief Complaint: intubated History of Present Illness: This is an 86 year old male with a pmhx of htn, afib on coumadin, CAD s/p stents at [facility] in 2010, hld, and chronic systolic CHF with LVEF 30% in 2015 who presented to ER after a mechanical fall found [address] subdural hemorrhage on coumadin and intubated for airway protection. - Current Medication List Current Medications: Active Medications Acetaminophen (Ofirmev Injection -) 1,000 mg IVPB Q6H PRN PRN Reason: FEVER OR PAIN Stop: 09/28/16 13:58 Last Admin: 09/27/16 19:30 Dose: 1,000 mg Albuterol/Ipratropium (Duoneb -) 1 amp NEB QIDR [facility] Last Admin: 09/28/16 11:34 Dose: 1 amp Atorvastatin Calcium (Lipitor -) 10 mg PO HS [facility] Last Admin: 09/27/16 21:47 Dose: 10 mg Bacitracin (Bacitracin -) 1 applic TP BID [facility] Last Admin: 09/28/16 10:57 Dose: 1 applic Chlorhexidine Gluconate (Hibiclens For Decolonization -) 1 applic TP HS [facility] Last Admin: 09/27/16 21:46 Dose: 1 applic Chlorhexidine Gluconate (Peridex -) 15 ml MM BID [facility] Last Admin: 09/28/16 10:52 Dose: 15 ml Dexamethasone Sodium Phosphate (Decadron Injection -) 4 mg IVPUSH Q6H-IV [facility] Last Admin: 09/28/16 10:47 Dose: 4 mg Digoxin (Lanoxin -) 0.125 mg PO HS [facility] Last Admin: 09/27/16 21:46 Dose: 0.125 mg Diltiazem HCl 125 mg/ Dextrose 125 mls @ 5 mls/hr IVPB TITR [facility]; 5 MG/HR PRN Reason: Protocol Last Admin: 09/27/16 21:45 Dose: Not Given Fentanyl 500 mcg/ Sodium (Chloride) 110 mls @ 5.5 mls/hr IJ TITR [facility] PRN Reason: 25 MCG/HR Last Admin: 09/27/16 21:49 Dose: 7.7 mls/hr Nicardipine HCl 25 mg/ (Dextrose) 250 mls @ 25 mls/hr IVPB TITR [facility]; 2.5 MG/HR PRN Reason: Protocol Last Titration: 09/28/16 08:02 Dose: 2 mg/hr Levetiracetam (Keppra Injection -) 500 mg IVPB BID [facility] Last Admin: 09/28/16 10:48 Dose: 500 mg Metoprolol Tartrate (Lopressor Injection -) 5 mg IVPUSH Q4H PRN PRN Reason: HYPERTENSION Last Admin: 09/28/16 08:38 Dose: 5 mg Metoprolol Tartrate (Lopressor -) 75 mg NGT TID [facility] Mupirocin (Bactroban Ointment (For Decolonization) -) 1 applic NS BID [facility] Stop: 09/30/16 21:59 Last Admin: 09/28/16 10:57 Dose: 1 applic Ranitidine HCl (Zantac Oral Solution -) 150 mg PO DAILY [facility] Last Admin: 09/28/16 10:52 Dose: 150 mg Tamsulosin HCl (Flomax -) 0.4 mg PO DAILY@0830 [facility] Last Admin: 09/28/16 09:45 Dose: 0.4 mg - Objective Vital Signs: Vital Signs Temperature 99.2 F 09/28/16 06:00 Pulse Rate 140 H 09/28/16 10:15 Respiratory Rate 26 H 09/28/16 12:25 Blood Pressure 133/64 09/28/16 09:00 O2 Sat by Pulse Oximetry (%) 100 09/28/16 10:15 Neck: Yes: Supple Cardiovascular: Yes: Tachycardia, Pulse Irregular, S1, S2 Respiratory: Yes: Mechanically Ventilated Gastrointestinal: Yes: Normal Bowel Sounds, Soft Edema: No Labs: CBC, BMP 09/28/16 05:15 09/28/16 05:15 INR, PTT INR 1.32 (0.82-1.09) H 09/28/16 05:15 - ....Imaging Chest X-ray: Report Reviewed Problem List - Problems (1) Atrial fibrillation Code(s): I48.91 - UNSPECIFIED ATRIAL FIBRILLATION Qualifiers: Qualified Code(s): I48.1 - Persistent atrial fibrillation (2) Subdural hematoma Code(s): I62.00 - NONTRAUMATIC SUBDURAL HEMORRHAGE, UNSPECIFIED Assessment/Plan This is an 86 year old male with a pmhx of htn, afib on coumadin, CAD s/p stents at [facility] in 2011, hld, and chronic systolic CHF with LVEF 30% in 2015 who presented to ER after a mechanical fall found [address] subdural hemorrhage on coumadin and intubated for airway protection. -Coumadin and antiplatelets on hold insetting of acute subdural hemorrhage. -metoprolol uptitrated to 75mg. On digoxin now as well. Avoid hypotension as uptitrating meds. -Management of subdural hemorrhage as per ICU team and neurosurgical team.
[2016-09-28] MEDS: NICARDIPINE 25 MG in DEXTROSE 5%-WATER - 240 ML IVPB SCH (21:30)
[2016-09-28] MEDS: CHLORHEXIDINE GLUCONATE 4% CLEANSER FOR DECOLONIZATION TP SCH (21:30)
[2016-09-28] MEDS: ATORVASTATIN CA 10 MG TABLET (FP) PO SCH (21:30)
[2016-09-28] MEDS: DIGOXIN 0.125 MG TABLET (FP) PO SCH (21:30)
[2016-09-28] MEDS: DILTIAZEM INJECTION 125 MG in DEXTROSE 5%-WATER - 100 ML IVPB SCH (21:40)
[2016-09-29] MEDS: METOPROLOL TARTRATE 5 MG/5 ML VIAL IVPUSH PRN ×3 (02:43→19:00)
[2016-09-29] MEDS: DEXAMETHASONE SOD PHOSPHATE 4 MG/1 ML VIAL IVPUSH SCH ×4 (02:43→21:16)
[2016-09-29 05:36] LABS: MCH 30.6 pg (25.7-33.7); MCHC 33.6 g/dl (32.0-35.9); MEAN CELL VOLUME 91.1 fl (80-96); MEAN PLT VOLUME 9.4 fl (7.5-11.1); NEUTROPHILS 92.6 % (42.8-82.8); PLATELET COUNT 224 K/MM3 (134-434); WHITE BLOOD COUNT 9.4 K/mm3 (4.0-10.0)
[2016-09-29] MEDS: METOPROLOL TARTRATE 50 MG TABLET (FP) NGT SCH ×3 (05:47→21:17)
[2016-09-29 06:04] LABS: ALBUMIN 2.9 g/dl (3.4-5.0); ANION GAP 14 (8-16); BILIRUBIN,TOTAL 2.8 mg/dL (0.2-1.0); CALCIUM 8.1 mg/dL (8.5-10.1); CO2 28 mmol/L (21-32); COCKROFT - GAULT 86.56; CREATININE 0.8 mg/dL (0.7-1.3); GLUCOSE,RANDOM 267 mg/dL (74-106); MAGNESIUM 2.3 mg/dL (1.8-2.4); PHOSPHOROUS 2.8 mg/dL (2.5-4.9); SGOT/AST 100 U/L (15-37); SGPT/ALT 211 U/L (12-78); TOT PROT 6.7 g/dl (6.4-8.2)
[2016-09-29 06:05] LABS: ALK PHOS 92 U/L (45-117)
[2016-09-29] MEDS: ALBUTEROL SO4 2.5/IPRATROPIUM 0.5 INH SOL 3 ML VIAL.NEB. NEB SCH ×3 (06:35→23:27)
[2016-09-29] MEDS: NICARDIPINE 25 MG in DEXTROSE 5%-WATER - 240 ML IVPB SCH (08:00)
[2016-09-29] MEDS: levETIRAcetam 500 MG/5 ML INJECTION VIAL IVPB SCH ×2 (09:30→21:16)
[2016-09-29] MEDS: RANITIDINE HCL 150 MG/10 ML UNIT-DOSE CUP PO SCH (09:33)
[2016-09-29] MEDS: TAMSULOSIN HCL 0.4 MG CAP.ER.24H (FP) PO SCH (09:33)
[2016-09-29] MEDS: MUPIROCIN 2% TOPICAL OINTMENT FOR DECOLONIZATION NS SCH ×2 (09:34→21:17)
[2016-09-29] MEDS: CHLORHEXIDINE GLUCONATE 0.12% 15ML CUP MM SCH ×2 (09:34→21:28)
[2016-09-29] MEDS: BACITRACIN 30 GM TUBE TOPICAL OINTMENT TP SCH ×2 (09:34→21:18)
--- NOTE | 2016-09-29 10:06 | PN ---
Progress Note (short form) - Note Progress Note: NEUROSURGERY Intubated and somewhat sedated PE: Tmax 99.9, VSS HEENT- NC/AT; Neck-supple; Cor- Irreg; Lungs- some congestion, decreased BS; Abd - obese, benign; Ext- no sign of DVT Drowsy; following command gripping with R hand after prompting CN- pupils 4mm sluggish B; Motor- withdrawing/localizing to pain; Sensation- difficult to assess; DTR- hyperreflexic B LE > UE WBC 9.4, Hgb 11.2 F/U CT -19: Acute L hemispheric SDH with mass effect and mild midline shift, mostly tentorial SDH and subtemporal SDH, some SAH, minimal IVH posteriorly CXR- cardiomegaly; LLL atelectasis Stable Head CT appearance with large L tentorial/falcine SDH Unfortunately increased thromboembolic risks now that pt is off plavix and coumadin in face of acute SDH Keppra x1 week total for sz prophylaxis Medical/expectant management Wean vent if possible
--- NOTE | 2016-09-29 10:43 | PN ---
Progress Note (short form) - Note Progress Note: Progress Note (short form) - Note Progress Note: SUBJECTIVE: -Off Dilt drip and Nicardipine -Unresponsive, but on Fentanyl drip OBJECTIVE: Current Medications Albuterol/Ipratropium (Duoneb -) 1 amp NEB QIDR [facility] Last Admin: 09/29/16 06:35 Dose: 1 amp Atorvastatin Calcium (Lipitor -) 10 mg PO [facility] Last Admin: 09/28/16 21:30 Dose: 10 mg Bacitracin (Bacitracin -) 1 applic TP BID [facility] Last Admin: 09/29/16 09:34 Dose: 1 applic Chlorhexidine Gluconate (Hibiclens For Decolonization -) 1 applic TP [facility] Last Admin: 09/28/16 21:30 Dose: 1 applic Chlorhexidine Gluconate (Peridex -) 15 ml MM BID [facility] Last Admin: 09/29/16 09:34 Dose: 15 ml Dexamethasone Sodium Phosphate (Decadron Injection -) 4 mg IVPUSH Q6H-IV [facility] Last Admin: 09/29/16 09:31 Dose: 4 mg Digoxin (Lanoxin -) 0.125 mg PO [facility] Last Admin: 09/28/16 21:30 Dose: 0.125 mg Propofol (Diprivan -) 100 mls @ 2.77 mls/hr IVPUSH TITR [facility]; 5 MCG/KG/MIN PRN Reason: Protocol Levetiracetam (Keppra Injection -) 500 mg IVPB BID [facility] Last Admin: 09/29/16 09:30 Dose: 500 mg Metoprolol Tartrate (Lopressor Injection -) 5 mg IVPUSH Q4H PRN PRN Reason: HYPERTENSION Last Admin: 09/29/16 09:35 Dose: 5 mg Metoprolol Tartrate (Lopressor -) 100 mg NGT TID [facility] Mupirocin (Bactroban Ointment (For Decolonization) -) 1 applic NS BID [facility] Stop: 09/30/16 21:59 Last Admin: 09/29/16 09:34 Dose: 1 applic Ranitidine HCl (Zantac Oral Solution -) 150 mg PO DAILY [facility] Last Admin: 09/29/16 09:33 Dose: 150 mg Tamsulosin HCl (Flomax -) 0.4 mg PO DAILY@0830 [facility] Last Admin: 09/29/16 09:33 Dose: 0.4 mg Vital Signs Temp 99.7 F H 09/29/16 10:00 Pulse 143 H 09/29/16 10:00 Resp 25 H 09/29/16 10:00 BP 137/90 09/29/16 10:00 Pulse Ox 100 09/29/16 09:00 Intake & Output 09/28/16 09/29/16 09/29/16 18:59 06:59 18:59 Intake Total 290 2210 220 Output Total 650 1000 300 Balance -360 1210 -80 Weight 92.334 kg Intake: IV 147 fentanyl 147 IVPB 230 383 160 Tube Feeding 60 1200 60 Tube Irrigant 480 Output: Urine 650 1000 300 Void 650 1000 300 Other: Voiding Method External Catheter External Catheter External Catheter Weight Measurement Method Built in [facility] Gen: intubated, poorly responsive Heart: tachycardic, irregular Lung: scattered rhonchi, bronchial bs Abd: soft, nontender Ext: no edema Neuro: withdrawals to noxious stimuli, opens eyes but does not track or follow, Corneal intact CBC, BMP 09/29/16 05:10 09/29/16 05:10 ASSESSMENT AND PLAN: Acute Hypoxic Respiratory Failure s/p Fall Traumatic Subdural Hematoma/Subarachnoid Hemorrhage Atrial Fibrillation on anticoagulation Dysfunctional Platelets from Plavix HTN Dementia Likely Aspiration Pneumonia - full vent support, daily SBT - Stop Fentanyl to assess mental status, use Propofol if neded - Increase Metop for rate control - monitor coags, keep corrected - neuro/neurosurgery has evaluated the patient , no surgical intervention - empiric antiepileptics, steroids - replete lytes - uptitrate BB, dig as per cards. - D/C ABX - DVT/GI prophylaxis - poor overall prognosis - will need to discuss goals of care and advanced directives/trach with family Ron Carrillo Pulm/Critical Care [facility] [id number]
[2016-09-29] MEDS: PROPOFOL 100 ML IVPUSH SCH (11:30)
--- NOTE | 2016-09-29 11:52 | PN ---
Progress Note, Physician History of Present Illness: Pt. was seen and examined in ICU. Pt. is intubated, back on Propofol. Pt was seen in AM; pt.'s nurse at bedside. - Current Medication List Current Medications: Active Medications Albuterol/Ipratropium (Duoneb -) 1 amp NEB QIDR [facility] Last Admin: 09/29/16 06:35 Dose: 1 amp Atorvastatin Calcium (Lipitor -) 10 mg PO HS [facility] Last Admin: 09/28/16 21:30 Dose: 10 mg Bacitracin (Bacitracin -) 1 applic TP BID [facility] Last Admin: 09/29/16 09:34 Dose: 1 applic Chlorhexidine Gluconate (Hibiclens For Decolonization -) 1 applic TP HS [facility] Last Admin: 09/28/16 21:30 Dose: 1 applic Chlorhexidine Gluconate (Peridex -) 15 ml MM BID [facility] Last Admin: 09/29/16 09:34 Dose: 15 ml Dexamethasone Sodium Phosphate (Decadron Injection -) 4 mg IVPUSH Q6H-IV [facility] Last Admin: 09/29/16 09:31 Dose: 4 mg Digoxin (Lanoxin -) 0.125 mg PO [facility] Last Admin: 09/28/16 21:30 Dose: 0.125 mg Propofol (Diprivan -) 100 mls @ 2.77 mls/hr IVPUSH TITR [facility]; 5 MCG/KG/MIN PRN Reason: Protocol Levetiracetam (Keppra Injection -) 500 mg IVPB BID [facility] Last Admin: 09/29/16 09:30 Dose: 500 mg Metoprolol Tartrate (Lopressor Injection -) 5 mg IVPUSH Q4H PRN PRN Reason: HYPERTENSION Last Admin: 09/29/16 09:35 Dose: 5 mg Metoprolol Tartrate (Lopressor -) 100 mg NGT TID [facility] Mupirocin (Bactroban Ointment (For Decolonization) -) 1 applic NS BID [facility] Stop: 09/30/16 21:59 Last Admin: 09/29/16 09:34 Dose: 1 applic Ranitidine HCl (Zantac Oral Solution -) 150 mg PO DAILY [facility] Last Admin: 09/29/16 09:33 Dose: 150 mg Tamsulosin HCl (Flomax -) 0.4 mg PO DAILY@0830 [facility] Last Admin: 09/29/16 09:33 Dose: 0.4 mg - Objective Vital Signs: Vital Signs Temperature 99.7 F H 09/29/16 10:00 Pulse Rate 140 H 09/29/16 10:49 Respiratory Rate 23 09/29/16 10:49 Blood Pressure 137/90 09/29/16 10:00 O2 Sat by Pulse Oximetry (%) 100 09/29/16 10:49 Constitutional: Yes: No Distress, Calm Cardiovascular: Yes: Tachycardia, S1, S2 Respiratory: Yes: Regular, Other (coarse BS bilat.) Gastrointestinal: Yes: Normal Bowel Sounds, Soft Edema: No Labs: CBC, BMP 09/29/16 05:10 09/29/16 05:10 INR, PTT INR 1.32 (0.82-1.09) H 09/28/16 05:15 - ....Imaging Chest X-ray: Report Reviewed Problem List - Problems (1) Subdural hematoma Assessment/Plan: progression during the first 24 hours (with midline shift), now stable. Steroids IV. Code(s): I62.00 - NONTRAUMATIC SUBDURAL HEMORRHAGE, UNSPECIFIED (2) Supratherapeutic INR Code(s): R79.1 - ABNORMAL COAGULATION PROFILE (3) Atrial fibrillation Assessment/Plan: with RVR; to increase BB Code(s): I48.91 - UNSPECIFIED ATRIAL FIBRILLATION Qualifiers: Atrial fibrillation type: persistent Qualified Code(s): I48.1 - Persistent atrial fibrillation (4) Accidental fall Code(s): W19.XXXA - UNSPECIFIED FALL, INITIAL ENCOUNTER Qualifiers: Encounter type: sequela Qualified Code(s): W19.XXXS - Unspecified fall, sequela (5) Nasal bone fracture Assessment/Plan: seen by ENT- medical management Code(s): S02.2XXA - FRACTURE OF NASAL BONES, INIT ENCNTR FOR CLOSED FRACTURE Qualifiers: Encounter type: initial encounter Fracture type: closed Qualified Code(s): S02.2XXA - Fracture of nasal bones, initial encounter for closed fracture (6) Uncontrolled hypertension Code(s): I10 - ESSENTIAL (PRIMARY) HYPERTENSION (7) Abrasions of multiple sites Code(s): T14.8 - OTHER INJURY OF UNSPECIFIED BODY REGION (8) Dementia Assessment/Plan: mild to moderate at baseline. Code(s): F03.90 - UNSPECIFIED DEMENTIA WITHOUT BEHAVIORAL DISTURBANCE (9) Leukocytosis Assessment/Plan: resolved Code(s): D72.829 - ELEVATED WHITE BLOOD CELL COUNT, UNSPECIFIED (10) Hypokalemia Code(s): E87.6 - HYPOKALEMIA (11) Thrombocytopenia Assessment/Plan: s/p Plts Tx Code(s): D69.6 - THROMBOCYTOPENIA, UNSPECIFIED (12) Pneumonia Assessment/Plan: improvement of CXR, improvement of WBC, afebrile; off abtx Code(s): J18.9 - PNEUMONIA, UNSPECIFIED ORGANISM (13) Respiratory failure Assessment/Plan: s/p intubation Code(s): J96.90 - RESPIRATORY FAILURE, UNSP, UNSP W HYPOXIA OR HYPERCAPNIA (14) Hypophosphatemia Code(s): E83.39 - OTHER DISORDERS OF PHOSPHORUS METABOLISM Assessment/Plan Neuro Sx consult appreciate Neuro Consult appreciated Cardio consult appreciated. CCM consult appreciated Admitted to ICU, intubated. Hematology consult appreciated. s/p vit K, FFP, Plts Tx. ENT consultappreciated. Case was discussed with pt's ER nurse. AM labs. Prognosis: reserved Time spent in managing pt's condition: over 40 minutes
[2016-09-29] MEDS: ACETAMINOPHEN 650 MG/20.3 ML ORAL SOLUTION (CUPS) PO PRN (13:00)
[2016-09-29] MEDS ORDERED: ACETAMINOPHEN 325 MG TABLET (FP) ONE (13:05)
--- NOTE | 2016-09-29 13:40 | PN ---
Progress Note, Physician Chief Complaint: intubated Afib with VR 130-140s History of Present Illness: This is an 86 year old male with a pmhx of htn, afib on coumadin, CAD s/p stents at [facility] in 2010, hld, and chronic systolic CHF with LVEF 30% in 2014 who presented to ER after a mechanical fall found [address] subdural hemorrhage on coumadin and intubated for airway protection. - Current Medication List Current Medications: Active Medications Albuterol/Ipratropium (Duoneb -) 1 amp NEB QIDR [facility] Last Admin: 09/29/16 12:00 Dose: 1 amp Atorvastatin Calcium (Lipitor -) 10 mg PO [facility] Last Admin: 09/28/16 21:30 Dose: 10 mg Bacitracin (Bacitracin -) 1 applic TP BID [facility] Last Admin: 09/29/16 09:34 Dose: 1 applic Chlorhexidine Gluconate (Hibiclens For Decolonization -) 1 applic TP [facility] Last Admin: 09/28/16 21:30 Dose: 1 applic Chlorhexidine Gluconate (Peridex -) 15 ml MM BID [facility] Last Admin: 09/29/16 09:34 Dose: 15 ml Dexamethasone Sodium Phosphate (Decadron Injection -) 4 mg IVPUSH Q6H-IV [facility] Last Admin: 09/29/16 09:31 Dose: 4 mg Digoxin (Lanoxin -) 0.125 mg PO HS [facility] Last Admin: 09/28/16 21:30 Dose: 0.125 mg Propofol (Diprivan -) 100 mls @ 2.77 mls/hr IVPUSH TITR [facility]; 5 MCG/KG/MIN PRN Reason: Protocol Last Admin: 09/29/16 11:30 Dose: 2.77 mls/hr Levetiracetam (Keppra Injection -) 500 mg IVPB BID [facility] Last Admin: 09/29/16 09:30 Dose: 500 mg Metoprolol Tartrate (Lopressor Injection -) 5 mg IVPUSH Q4H PRN PRN Reason: HYPERTENSION Last Admin: 09/29/16 09:35 Dose: 5 mg Metoprolol Tartrate (Lopressor -) 100 mg NGT TID [facility] Last Admin: 09/29/16 13:00 Dose: 100 mg Mupirocin (Bactroban Ointment (For Decolonization) -) 1 applic NS BID [facility] Stop: 09/30/16 21:59 Last Admin: 09/29/16 09:34 Dose: 1 applic Ranitidine HCl (Zantac Oral Solution -) 150 mg PO DAILY [facility] Last Admin: 09/29/16 09:33 Dose: 150 mg Tamsulosin HCl (Flomax -) 0.4 mg PO DAILY@0830 [facility] Last Admin: 09/29/16 09:33 Dose: 0.4 mg - Objective Vital Signs: Vital Signs Temperature 99.9 F H 09/29/16 12:00 Pulse Rate 147 H 09/29/16 12:00 Respiratory Rate 24 09/29/16 12:00 Blood Pressure 153/97 09/29/16 12:00 O2 Sat by Pulse Oximetry (%) 100 09/29/16 10:49 Cardiovascular: Yes: Tachycardia, Pulse Irregular, S1, S2 Respiratory: Yes: Mechanically Ventilated Gastrointestinal: Yes: Soft Edema: No Labs: CBC, BMP 09/29/16 05:10 09/29/16 05:10 INR, PTT INR 1.32 (0.82-1.09) H 09/28/16 05:15 - ....Imaging Chest X-ray: Report Reviewed Problem List - Problems (1) Atrial fibrillation Code(s): I48.91 - UNSPECIFIED ATRIAL FIBRILLATION Qualifiers: Qualified Code(s): I48.1 - Persistent atrial fibrillation (2) Subdural hematoma Code(s): I62.00 - NONTRAUMATIC SUBDURAL HEMORRHAGE, UNSPECIFIED Assessment/Plan This is an 86 year old male with a pmhx of htn, afib on coumadin, CAD s/p stents at [facility] in 2010, hld, and chronic systolic CHF with LVEF 30% in 2015 who presented to ER after a mechanical fall found [address] subdural hemorrhage on coumadin and intubated for airway protection. -Coumadin and antiplatelets on hold insetting of acute subdural hemorrhage. -Afib with ventricular rates still elevated. Metoprolol increased to 100mg q8 today. Continue digoxin. Will continue to uptitrate metoprolol. Avoid hypotension as uptitrating meds. -Management of subdural hemorrhage as per ICU team and neurosurgical team. Monitor lytes and keep K greater than 4
[2016-09-29] MEDS: ATORVASTATIN CA 10 MG TABLET (FP) PO SCH (21:16)
[2016-09-29] MEDS: DIGOXIN 0.125 MG TABLET (FP) PO SCH (21:17)
[2016-09-29] MEDS: CHLORHEXIDINE GLUCONATE 4% CLEANSER FOR DECOLONIZATION TP SCH (21:18)
--- NOTE | 2016-09-29 22:36 | PN ---
Progress Note (short form) - Note Progress Note: Parient seen and examined Intubated sedated Last Vital Signs Temp Pulse Resp BP Pulse Ox 100.3 F H 138 H 20 141/91 100 09/29/16 22:00 09/29/16 22:00 09/29/16 22:00 09/29/16 22:00 09/29/16 19:39 Cor: RSR, No murmurs, No gallops Lungs: Clear to P&A Abd: Soft, Normal bowel sounds, No organomegaly Ext:No significant edema Abnormal Lab Results 09/29/16 09/29/16 05:10 05:10 RBC 3.64 L Hgb 11.2 L Hct 33.2 L Neutrophils % 92.6 H Lymphocytes % 1.8 L D Chloride 95 L BUN 48 H Random Glucose 267 H D Calcium 8.1 L Total Bilirubin 2.8 H AST 100 H D ALT 211 H D Albumin 2.9 L Active Medications Generic Name Dose Route Start Last Admin Trade Name Freq PRN Reason Stop Dose Admin Acetaminophen 650 mg 09/29/16 14:27 09/29/16 13:00 Tylenol Oral Solution - PO 650 mg Q4H PRN Administration FEVER OR PAIN Albuterol/Ipratropium 1 amp 09/25/16 07:00 09/29/16 12:00 Duoneb - NEB 1 amp QIDR [facility] Administration Atorvastatin Calcium 10 mg 09/26/16 22:00 09/29/16 21:16 Lipitor - PO 10 mg HS [facility] Administration Bacitracin 1 applic 09/24/16 23:15 09/29/16 21:18 Bacitracin - TP 1 applic BID [facility] Administration Chlorhexidine Gluconate 1 applic 09/25/16 22:00 09/29/16 21:18 Hibiclens For Decolonization - TP 1 applic HS [facility] Administration Chlorhexidine Gluconate 15 ml 09/25/16 22:00 09/29/16 21:28 Peridex - MM 15 ml BID [facility] Administration Dexamethasone Sodium Phosphate 4 mg 09/25/16 09:45 09/29/16 21:16 Decadron Injection - IVPUSH 4 mg Q6H-IV [facility] Administration Digoxin 0.125 mg 09/26/16 22:00 09/29/16 21:17 Lanoxin - PO 0.125 mg HS [facility] Administration Propofol 100 mls @ 2.77 mls/hr 09/29/16 10:45 09/29/16 13:00 Diprivan - IVPUSH 10 mcg/kg/min TITR [facility] Titration Protocol 5 MCG/KG/MIN Levetiracetam 500 mg 09/25/16 10:00 09/29/16 21:16 Keppra Injection - IVPB 500 mg BID [facility] Administration Metoprolol Tartrate 5 mg 09/28/16 08:35 09/29/16 09:35 Lopressor Injection - IVPUSH 5 mg Q4H PRN Administration HYPERTENSION Metoprolol Tartrate 100 mg 09/29/16 10:38 09/29/16 21:17 Lopressor - NGT 100 mg TID [facility] Administration Mupirocin 1 applic 09/25/16 22:00 09/29/16 21:17 Bactroban Ointment (For Decolonization) - NS 09/30/16 21:59 1 applic BID [facility] Administration Ranitidine HCl 150 mg 09/27/16 10:00 09/29/16 09:33 Zantac Oral Solution - PO 150 mg DAILY [facility] Administration Tamsulosin HCl 0.4 mg 09/26/16 11:00 09/29/16 09:33 Flomax - PO 0.4 mg DAILY@0830 [facility] Administration A/P 86 y/o patient with dementia, b/l acute subdural hematoma head CT stable SDH with minimally increased SAH s/p FFP/platelets INR --1.3 --holding off FFP Last irvin of plavix --09/24--expect it to be off continue supportive care low grade fevers--per icu team
[2016-09-30] MEDS: METOPROLOL TARTRATE 5 MG/5 ML VIAL IVPUSH PRN (00:21)
[2016-09-30] MEDS ORDERED: dilTIAZem HCL 125 MG/25 ML - 25 ML VIAL ONE (00:40)
[2016-09-30] MEDS ORDERED: AMIODARONE HCL INJECTION 150 MG in DEXTROSE 5%-WATER - 97 ML IVPB ONE (01:02)
[2016-09-30] MEDS ORDERED: AMIODARONE HCL 150 MG/3 ML VIAL IVPUSH ONE (01:02)
[2016-09-30] MEDS ORDERED: AMIODARONE HCL INJECTION 450 MG in DEXTROSE 5%-WATER - 250 ML IVPB SCH (01:30)
[2016-09-30] MEDS: AMIODARONE HCL INJECTION 450 MG in DEXTROSE 5%-WATER - 241 ML IVPB SCH ×2 (01:46→11:29)
[2016-09-30] MEDS: DEXAMETHASONE SOD PHOSPHATE 4 MG/1 ML VIAL IVPUSH SCH ×4 (02:18→19:16)
[2016-09-30] MEDS: METOPROLOL TARTRATE 50 MG TABLET (FP) NGT SCH ×3 (02:40→14:06)
[2016-09-30 06:23] LABS: BASOPHIL 0.1 % (0-2.0); MCH 30.5 pg (25.7-33.7); MCHC 33.1 g/dl (32.0-35.9); MEAN CELL VOLUME 92.3 fl (80-96); MEAN PLT VOLUME 9.9 fl (7.5-11.1); NEUTROPHILS 92.1 % (42.8-82.8); PLATELET COUNT 205 K/MM3 (134-434); RDW 13.9 % (11.9-15.9); WHITE BLOOD COUNT 12.1 K/mm3 (4.0-10.0)
[2016-09-30 06:38] LABS: INR 1.33 (0.82-1.09); PROTHROMBIN TIME (PATIENT) 14.7 SEC (9.98-11.88)
[2016-09-30 06:41] LABS: ACTIVATED PTT 23.4 SECONDS (26.9-34.4)
[2016-09-30] MEDS: ALBUTEROL SO4 2.5/IPRATROPIUM 0.5 INH SOL 3 ML VIAL.NEB. NEB SCH ×2 (06:41→11:05)
[2016-09-30 06:48] LABS: ALBUMIN 2.7 g/dl (3.4-5.0); ANION GAP 11 (8-16); BILIRUBIN,TOTAL 2.6 mg/dL (0.2-1.0); CALCIUM 8.1 mg/dL (8.5-10.1); CO2 32 mmol/L (21-32); COCKROFT - GAULT 76.92; CREATININE 0.9 mg/dL (0.7-1.3); GLUCOSE,RANDOM 285 mg/dL (74-106); MAGNESIUM 2.6 mg/dL (1.8-2.4); SGOT/AST 91 U/L (15-37); SGPT/ALT 255 U/L (12-78)
[2016-09-30 06:50] LABS: ALK PHOS 98 U/L (45-117); PHOSPHOROUS 2.8 mg/dL (2.5-4.9); TOT PROT 6.7 g/dl (6.4-8.2)
[2016-09-30 09:39] LABS: ARTERIAL BLD GAS O2 SATURATION 99.8 % (90-98.9); ARTERIAL BLOOD GAS BASE EXCESS 6.9 meq/l (-2-2); ARTERIAL BLOOD GAS HCO3 28.9 meq/L (22-26); ARTERIAL BLOOD GAS pH 7.57 (7.35-7.45)
[2016-09-30 09:40] LABS: ALLENS TEST POSITIVE; ART PUNCT SITE RIGHT RADIAL; LPM/O2% 50; MECH. VENT. YES; PT. ON O2? YES; TYPE OF O2 VENT; VENT RATE 20; VT/PRESS 450
[2016-09-30] MEDS: RANITIDINE HCL 150 MG/10 ML UNIT-DOSE CUP PO SCH (09:41)
[2016-09-30] MEDS: CHLORHEXIDINE GLUCONATE 0.12% 15ML CUP MM SCH ×2 (09:41→21:01)
[2016-09-30] MEDS: TAMSULOSIN HCL 0.4 MG CAP.ER.24H (FP) PO SCH (09:41)
[2016-09-30] MEDS: MUPIROCIN 2% TOPICAL OINTMENT FOR DECOLONIZATION NS SCH (09:43)
[2016-09-30] MEDS: levETIRAcetam 500 MG/5 ML INJECTION VIAL IVPB SCH ×2 (09:44→21:00)
[2016-09-30] MEDS: BACITRACIN 30 GM TUBE TOPICAL OINTMENT TP SCH ×2 (09:44→21:00)
--- NOTE | 2016-09-30 09:47 | PN ---
Progress Note (short form) - Note Progress Note: NEUROSURGERY Intubated and somewhat sedated PE: 98.6, VSS HEENT- NC/AT; Neck-supple; Cor- Irreg; Lungs- coarse BS B; Abd- obese, benign; Ext- no sign of DVT Drowsy; not following command CN- pupils 3mm sluggish B; Motor- withdrawing/localizing to pain; Sensation- difficult to assess; DTR- hyperreflexic B LE > UE F/U CT 5-19: Acute L hemispheric SDH with mass effect and mild midline shift, mostly tentorial SDH and subtemporal SDH, some SAH, minimal IVH posteriorly Stable Head CT appearance with large L tentorial/falcine SDH Unfortunately increased thromboembolic risks now that pt is off plavix and coumadin in face of acute SDH On decadron, consider weaning Medical/expectant management Wean vent if possible
--- NOTE | 2016-09-30 11:23 | PN ---
Physical Exam: SUBJECTIVE: Patient seen and examined. spontaneously blinks, is not following commands. OBJECTIVE: Vital Signs Period Temp Pulse Resp BP Sys/Obrien Pulse Ox Last 24 Hr 98.6 F-100.3 F 115-158 18-26 113-164/71-110 99-100 EYES: sluggish perrla, sclera anicteric, conjunctiva clear. No ptosis. ENT: Ears normal, ecchymosis over nose, oropharynx with ET and OG tube, dry mucous membranes. left nostril with dried blood. NECK: Trachea midline, thick neck LUNGS: Breath sounds scattered rhonchi and diffuse coarse breath sounds b/l with anterior auscultation HEART: afib, S1, S2 without murmur, rub or gallop. ABDOMEN: Soft, nondistended, normoactive bowel sounds EXTREMITIES: 2+ radial and DP pulses, warm, well-perfused, no edema. abrasion below right knee with dried blood, no discharge, swelling on medial left knee with yellow discoloration. right pinky with suturing in place and dark tip. Laboratory Results - last 24 hr 09/30/16 09/30/16 09/30/16 05:30 05:30 05:30 WBC 12.1 H RBC 3.93 L Hgb 12.0 Hct 36.2 MCV 92.3 MCHC 33.1 RDW 13.9 Plt Count 205 MPV 9.9 Neutrophils % 92.1 H Lymphocytes % 3.0 L D Monocytes % 4.8 Eosinophils % 0.0 Basophils % 0.1 D INR 1.33 H PTT (Actin FS) 23.4 L Puncture Site ABG pH ABG pCO2 at Pt Temp ABG pO2 at Pt Temp ABG HCO3 ABG O2 Sat (Measured) ABG O2 Content ABG Base Excess Prosper Test O2 Delivery Device Oxygen Flow Rate Vent Mode Vent Rate Mechanical Rate PEEP Pressure Support Vent Sodium 139 Potassium 3.6 Chloride 96 L Carbon Dioxide 32 Anion Gap 11 BUN 49 H Creatinine 0.9 Creat Clearance w eGFR > 60 Random Glucose 285 H Calcium 8.1 L Phosphorus 2.8 Magnesium 2.6 H Total Bilirubin 2.6 H AST 91 H ALT 255 H D Alkaline Phosphatase 98 Total Protein 6.7 Albumin 2.7 L 09/30/16 09:20 WBC RBC Hgb Hct MCV MCHC RDW Plt Count MPV Neutrophils % Lymphocytes % Monocytes % Eosinophils % Basophils % INR PTT (Actin FS) Puncture Site Right radial ABG pH 7.57 H ABG pCO2 at Pt Temp 31.4 L ABG pO2 at Pt Temp 178.0 H* D ABG HCO3 28.9 H ABG O2 Sat (Measured) 99.8 H* ABG O2 Content 16.2 ABG Base Excess 6.9 H Prosper Test Positive O2 Delivery Device Vent Oxygen Flow Rate 50 Vent Mode A/c Vent Rate 20 Mechanical Rate Yes PEEP 5.0 Pressure Support Vent 450 Sodium Potassium Chloride Carbon Dioxide Anion Gap BUN Creatinine Creat Clearance w eGFR Random Glucose Calcium Phosphorus Magnesium Total Bilirubin AST ALT Alkaline Phosphatase Total Protein Albumin Active Medications Generic Name Dose Route Start Last Admin Trade Name Freq PRN Reason Stop Dose Admin Acetaminophen 650 mg 09/29/16 14:27 09/29/16 13:00 Tylenol Oral Solution - PO 650 mg Q4H PRN Administration FEVER OR PAIN Albuterol/Ipratropium 1 amp 09/25/16 07:00 09/30/16 06:41 Duoneb - NEB 1 amp QIDR [facility] Administration Atorvastatin Calcium 10 mg 09/26/16 22:00 09/29/16 21:16 Lipitor - PO 10 mg HS [facility] Administration Bacitracin 1 applic 09/24/16 23:15 09/30/16 09:44 Bacitracin - TP 1 applic BID [facility] Administration Chlorhexidine Gluconate 1 applic 09/25/16 22:00 09/29/16 21:18 Hibiclens For Decolonization - TP 1 applic HS [facility] Administration Chlorhexidine Gluconate 15 ml 09/25/16 22:00 09/30/16 09:41 Peridex - MM 15 ml BID [facility] Administration Dexamethasone Sodium Phosphate 4 mg 09/25/16 09:45 09/30/16 09:41 Decadron Injection - IVPUSH 4 mg Q6H-IV [facility] Administration Digoxin 0.125 mg 09/26/16 22:00 09/29/16 21:17 Lanoxin - PO 0.125 mg HS [facility] Administration Propofol 100 mls @ 2.77 mls/hr 09/29/16 10:45 09/29/16 13:00 Diprivan - IVPUSH 10 mcg/kg/min TITR [facility] Titration Protocol 5 MCG/KG/MIN Amiodarone HCl 450 mg/ 250 mls @ 33.33 mls/hr 09/30/16 01:30 09/30/16 01:46 Dextrose IVPB 33.33 mls/hr TITR [facility] Administration Protocol 1 MG/MIN Levetiracetam 500 mg 09/25/16 10:00 09/30/16 09:44 Keppra Injection - IVPB 500 mg BID [place] Administration Metoprolol Tartrate 5 mg 09/28/16 08:35 09/30/16 00:21 Lopressor Injection - IVPUSH 5 mg Q4H PRN Administration HYPERTENSION Metoprolol Tartrate 100 mg 09/30/16 03:00 09/30/16 06:24 Lopressor - NGT Not Given Q6HPO [facility] Mupirocin 1 applic 09/25/16 22:00 09/30/16 09:43 Bactroban Ointment (For Decolonization) - NS 09/30/16 21:59 1 applic BID [facility] Administration Ranitidine HCl 150 mg 09/27/16 10:00 09/30/16 09:41 Zantac Oral Solution - PO 150 mg DAILY [place] Administration Tamsulosin HCl 0.4 mg 09/26/16 11:00 09/30/16 09:41 Flomax - PO 0.4 mg DAILY@0830 [place] Administration ASSESSMENT/PLAN: 86 yr old man with dementia, afib on plavix and warfarin, HTN, CAD s/p stents, CHF, parkinson's disorder presents s/p mechanical fall found to have subarachnoid and subdural hemorrhage. Neurologic keppra 500mg BID IVPB for seizure prophylaxis decadron 4mg IVPush q8h-IV [place] - tapered off from q6 off sedation he does not follow commands, does not track or make eye contact, with tremors, appears agitated off sedation consult: Dr. Ventura Pulmonary mechanically ventilated, Fio2 40% titrate fio2 to maintain sat >90% Hemotalogical s/p ffp and platelts - repeat coags consult: Dr. Melgar Cardiovascular - afib, tachycardic with HTN - metoprolol tartrate 100mg BID NGT for rate control - NGT amiodarone 200mg BID - digoxin .125 mg po HS - hold warfarin and plavix in setting of acute hemorrhage consult: Dr. Pierce/Dr. Fox Infectious disease leucocytosis improving, continue to trend - IVPB tylenol 1gm q6h for fevers Gastrointestinal - OG tube in place for medications and feeds - prophylaxis with zantac daily - Jevity feeds volume based for ideal body weight: 1,200ml flomax 0.4mg po daily NGT [place] cath in place to monitor urine output Renal improved urine output replete electrolytes goal K>4, Mag >2 DVT scd's given acute bleed Diet: Jevity via NGT Visit type - Emergency Visit Emergency Visit: No - New Patient This patient is new to me today: No - Critical Care Critical Care patient: Yes Total Critical Care Time (in minutes): 38 Critical Care Statement: The care of this patient involved high complexity decision making to prevent further life threatening deterioration of the patient 's condition and/or to evalute & treat vital organ system(s) failure or risk of failure.
[2016-09-30] MEDS: PROPOFOL 100 ML IVPUSH SCH (11:36)
--- NOTE | 2016-09-30 14:51 | PN ---
Teaching Attending Note Name of Resident: Jesse Hamm ATTENDING PHYSICIAN STATEMENT I saw and evaluated the patient. I reviewed the resident's note and discussed the case with the resident. I agree with the resident's findings and plan as documented. SUBJECTIVE: Patient seen and examined in the ICU. Remains intubated and poorly responsive. AC Mode of vent. No pressors. OBJECTIVE: Intake & Output 09/27/16 09/28/16 09/29/16 09/30/16 23:59 23:59 23:59 23:59 Intake Total 3902.4 3199 1926 1173.7 Output Total 1600 1550 1400 200 Balance 2302.4 1649 526 973.7 Weight 210 lb 8 oz 209 lb 6.4 oz 203 lb 9 oz 203 lb 8 oz Last Vital Signs Temp Pulse Resp BP Pulse Ox 98.6 F 139 H 24 154/93 100 09/30/16 06:00 09/30/16 12:00 09/30/16 14:04 09/30/16 12:00 09/30/16 10:12 Active Medications Acetaminophen (Tylenol Oral Solution -) 650 mg PO Q4H PRN PRN Reason: FEVER OR PAIN Last Admin: 09/29/16 13:00 Dose: 650 mg Amiodarone HCl (Cordarone -) 200 mg PO BID [facility] Atorvastatin Calcium (Lipitor -) 10 mg PO HS [facility] Last Admin: 09/29/16 21:16 Dose: 10 mg Bacitracin (Bacitracin -) 1 applic TP BID [facility] Last Admin: 09/30/16 09:44 Dose: 1 applic Chlorhexidine Gluconate (Hibiclens For Decolonization -) 1 applic TP HS [facility] Last Admin: 09/29/16 21:18 Dose: 1 applic Chlorhexidine Gluconate (Peridex -) 15 ml MM BID [facility] Last Admin: 09/30/16 09:41 Dose: 15 ml Dexamethasone Sodium Phosphate (Decadron Injection -) 4 mg IVPUSH Q8H-IV [facility] Digoxin (Lanoxin -) 0.125 mg PO HS [facility] Last Admin: 09/29/16 21:17 Dose: 0.125 mg Propofol (Diprivan -) 100 mls @ 2.77 mls/hr IVPUSH TITR [facility]; 5 MCG/KG/MIN PRN Reason: Protocol Last Admin: 09/30/16 11:36 Dose: 5.54 mls/hr Levetiracetam (Keppra Injection -) 500 mg IVPB BID [facility] Last Admin: 09/30/16 09:44 Dose: 500 mg Metoprolol Tartrate (Lopressor Injection -) 5 mg IVPUSH Q4H PRN PRN Reason: HYPERTENSION Last Admin: 09/30/16 00:21 Dose: 5 mg Metoprolol Tartrate (Lopressor -) 100 mg NGT Q6HPO [facility] Last Admin: 09/30/16 14:06 Dose: 100 mg Mupirocin (Bactroban Ointment (For Decolonization) -) 1 applic NS BID [facility] Stop: 09/30/16 21:59 Last Admin: 09/30/16 09:43 Dose: 1 applic Ranitidine HCl (Zantac Oral Solution -) 150 mg PO DAILY [facility] Last Admin: 09/30/16 09:41 Dose: 150 mg Tamsulosin HCl (Flomax -) 0.4 mg PO DAILY@0830 [facility] Last Admin: 09/30/16 09:41 Dose: 0.4 mg Gen: intubated, poorly responsive Heart: tachycardic, irregular Lung: scattered rhonchi Abd: soft, nontender Ext: no edema Laboratory Results - last 24 hr 09/30/16 09/30/16 09/30/16 05:30 05:30 05:30 WBC 12.1 H RBC 3.93 L Hgb 12.0 Hct 36.2 MCV 92.3 MCHC 33.1 RDW 13.9 Plt Count 205 MPV 9.9 Neutrophils % 92.1 H Lymphocytes % 3.0 L D Monocytes % 4.8 Eosinophils % 0.0 Basophils % 0.1 D INR 1.33 H PTT (Actin FS) 23.4 L Puncture Site ABG pH ABG pCO2 at Pt Temp ABG pO2 at Pt Temp ABG HCO3 ABG O2 Sat (Measured) ABG O2 Content ABG Base Excess Prosper Test O2 Delivery Device Oxygen Flow Rate Vent Mode Vent Rate Mechanical Rate PEEP Pressure Support Vent Sodium 139 Potassium 3.6 Chloride 96 L Carbon Dioxide 32 Anion Gap 11 BUN 49 H Creatinine 0.9 Creat Clearance w eGFR > 60 Random Glucose 285 H Calcium 8.1 L Phosphorus 2.8 Magnesium 2.6 H Total Bilirubin 2.6 H AST 91 H ALT 255 H D Alkaline Phosphatase 98 Total Protein 6.7 Albumin 2.7 L 09/30/16 09:20 WBC RBC Hgb Hct MCV MCHC RDW Plt Count MPV Neutrophils % Lymphocytes % Monocytes % Eosinophils % Basophils % INR PTT (Actin FS) Puncture Site Right radial ABG pH 7.57 H ABG pCO2 at Pt Temp 31.4 L ABG pO2 at Pt Temp 178.0 H* D ABG HCO3 28.9 H ABG O2 Sat (Measured) 99.8 H* ABG O2 Content 16.2 ABG Base Excess 6.9 H Prosper Test Positive O2 Delivery Device Vent Oxygen Flow Rate 50 Vent Mode A/c Vent Rate 20 Mechanical Rate Yes PEEP 5.0 Pressure Support Vent 450 Sodium Potassium Chloride Carbon Dioxide Anion Gap BUN Creatinine Creat Clearance w eGFR Random Glucose Calcium Phosphorus Magnesium Total Bilirubin AST ALT Alkaline Phosphatase Total Protein Albumin ASSESSMENT AND PLAN: Acute Hypoxic Respiratory Failure s/p Fall Traumatic Subdural Hematoma/Subarachnoid Hemorrhage Atrial Fibrillation on anticoagulation Dysfunctional Platelets from Plavix HTN Dementia Likely Aspiration Pneumonia - empiric antiepileptics - Wean decadron - Monitor off ABX - DVT/GI prophylaxis - Overall prognosis appears - will need to discuss goals of care and advanced directives with family Dr Mena critical care time spent in reviewing chart, evaluating patient and formulating plan 40 min
--- NOTE | 2016-09-30 15:12 | PN ---
Progress Note, Physician Chief Complaint: intubated. sedated. tele af rvr. History of Present Illness: This is an 86 year old male with a pmhx of htn, afib on coumadin, CAD s/p stents at [facility] in 2010, hld, and chronic systolic CHF with LVEF 30% in 2014 who presented to ER after a mechanical fall found [address] subdural hemorrhage on coumadin and intubated for airway protection. - Current Medication List Current Medications: Active Medications Acetaminophen (Tylenol Oral Solution -) 650 mg PO Q4H PRN PRN Reason: FEVER OR PAIN Last Admin: 09/29/16 13:00 Dose: 650 mg Amiodarone HCl (Cordarone -) 200 mg PO BID [facility] Atorvastatin Calcium (Lipitor -) 10 mg PO HS [facility] Last Admin: 09/29/16 21:16 Dose: 10 mg Bacitracin (Bacitracin -) 1 applic TP BID [facility] Last Admin: 09/30/16 09:44 Dose: 1 applic Chlorhexidine Gluconate (Hibiclens For Decolonization -) 1 applic TP HS [facility] Last Admin: 09/29/16 21:18 Dose: 1 applic Chlorhexidine Gluconate (Peridex -) 15 ml MM BID [facility] Last Admin: 09/30/16 09:41 Dose: 15 ml Dexamethasone Sodium Phosphate (Decadron Injection -) 4 mg IVPUSH Q8H-IV [facility] Digoxin (Lanoxin -) 0.125 mg PO HS [facility] Last Admin: 09/29/16 21:17 Dose: 0.125 mg Propofol (Diprivan -) 100 mls @ 2.77 mls/hr IVPUSH TITR [facility]; 5 MCG/KG/MIN PRN Reason: Protocol Last Admin: 09/30/16 11:36 Dose: 5.54 mls/hr Levetiracetam (Keppra Injection -) 500 mg IVPB BID [facility] Last Admin: 09/30/16 09:44 Dose: 500 mg Metoprolol Tartrate (Lopressor Injection -) 5 mg IVPUSH Q4H PRN PRN Reason: HYPERTENSION Last Admin: 09/30/16 00:21 Dose: 5 mg Metoprolol Tartrate (Lopressor -) 100 mg NGT Q6HPO [facility] Last Admin: 09/30/16 14:06 Dose: 100 mg Mupirocin (Bactroban Ointment (For Decolonization) -) 1 applic NS BID [facility] Stop: 09/30/16 21:59 Last Admin: 09/30/16 09:43 Dose: 1 applic Ranitidine HCl (Zantac Oral Solution -) 150 mg PO DAILY [facility] Last Admin: 09/30/16 09:41 Dose: 150 mg Tamsulosin HCl (Flomax -) 0.4 mg PO DAILY@0830 [facility] Last Admin: 09/30/16 09:41 Dose: 0.4 mg - Objective Vital Signs: Vital Signs Temperature 98.6 F 09/30/16 06:00 Pulse Rate 139 H 09/30/16 12:00 Respiratory Rate 24 09/30/16 14:04 Blood Pressure 154/93 09/30/16 12:00 O2 Sat by Pulse Oximetry (%) 100 09/30/16 10:12 Constitutional: Yes: Well Nourished Eyes: Yes: Conjunctiva Clear Neck: Yes: Supple, Trachea Midline Cardiovascular: Yes: Tachycardia, Pulse Irregular Respiratory: Yes: Mechanically Ventilated Gastrointestinal: Yes: Normal Bowel Sounds, Soft Extremities: Yes: WNL Edema: No Peripheral Pulses WNL: Yes Labs: CBC, BMP 09/30/16 05:30 09/30/16 05:30 INR, PTT INR 1.33 (0.82-1.09) H 09/30/16 05:30 Problem List - Problems (1) Atrial fibrillation Assessment/Plan: continue to hold all antiplatelet and AC medications. Prognosis is very poor. There are no cardiac contraindications to surgery for tracheostomy and PEG/ Gtube if needed. continue Digoxin PO. Stop amiodarone Titrate metoprolol as tolerated by bp and HR. RVR in atrial fibrillation is not the overall determinant of his prognosis. I have discussed this with his . Code(s): I48.91 - UNSPECIFIED ATRIAL FIBRILLATION Qualifiers: Atrial fibrillation type: persistent Qualified Code(s): I48.1 - Persistent atrial fibrillation
--- NOTE | 2016-09-30 18:52 | PN ---
Progress Note, Physician History of Present Illness: Pt. was seen and examined in ICU. Pt. is intubated, back on Propofol. - Current Medication List Current Medications: Active Medications Acetaminophen (Tylenol Oral Solution -) 650 mg PO Q4H PRN PRN Reason: FEVER OR PAIN Last Admin: 09/29/16 13:00 Dose: 650 mg Amiodarone HCl (Cordarone -) 200 mg PO BID [facility] Atorvastatin Calcium (Lipitor -) 10 mg PO HS [facility] Last Admin: 09/29/16 21:16 Dose: 10 mg Bacitracin (Bacitracin -) 1 applic TP BID [facility] Last Admin: 09/30/16 09:44 Dose: 1 applic Chlorhexidine Gluconate (Hibiclens For Decolonization -) 1 applic TP HS [facility] Last Admin: 09/29/16 21:18 Dose: 1 applic Chlorhexidine Gluconate (Peridex -) 15 ml MM BID [facility] Last Admin: 09/30/16 09:41 Dose: 15 ml Dexamethasone Sodium Phosphate (Decadron Injection -) 4 mg IVPUSH Q8H-IV [facility] Digoxin (Lanoxin -) 0.125 mg PO HS [facility] Last Admin: 09/29/16 21:17 Dose: 0.125 mg Propofol (Diprivan -) 100 mls @ 2.77 mls/hr IVPUSH TITR [facility]; 5 MCG/KG/MIN PRN Reason: Protocol Last Admin: 09/30/16 11:36 Dose: 5.54 mls/hr Levetiracetam (Keppra Injection -) 500 mg IVPB BID [facility] Last Admin: 09/30/16 09:44 Dose: 500 mg Metoprolol Tartrate (Lopressor Injection -) 5 mg IVPUSH Q4H PRN PRN Reason: HYPERTENSION Last Admin: 09/30/16 00:21 Dose: 5 mg Metoprolol Tartrate (Lopressor -) 100 mg NGT Q6HPO [facility] Last Admin: 09/30/16 14:06 Dose: 100 mg Mupirocin (Bactroban Ointment (For Decolonization) -) 1 applic NS BID [facility] Stop: 09/30/16 21:59 Last Admin: 09/30/16 09:43 Dose: 1 applic Ranitidine HCl (Zantac Oral Solution -) 150 mg PO DAILY [facility] Last Admin: 05/22/17 09:41 Dose: 150 mg Tamsulosin HCl (Flomax -) 0.4 mg PO DAILY@0830 [facility] Last Admin: 09/30/16 09:41 Dose: 0.4 mg - Objective Vital Signs: Vital Signs Temperature 100 F H 09/30/16 14:00 Pulse Rate 113 H 09/30/16 18:00 Respiratory Rate 21 09/30/16 18:00 Blood Pressure 162/95 09/30/16 18:00 O2 Sat by Pulse Oximetry (%) 100 09/30/16 10:12 Constitutional: Yes: No Distress, Calm Respiratory: Yes: Regular, Other (coarse BS at bases) Gastrointestinal: Yes: Normal Bowel Sounds, Soft Edema: No Labs: CBC, BMP 09/30/16 05:30 09/30/16 05:30 INR, PTT INR 1.33 (0.82-1.09) H 09/30/16 05:30 Problem List - Problems (1) Subdural hematoma Assessment/Plan: progression during the first 24 hours (with midline shift), now stable. Steroids IV. Code(s): I62.00 - NONTRAUMATIC SUBDURAL HEMORRHAGE, UNSPECIFIED (2) Supratherapeutic INR Code(s): R79.1 - ABNORMAL COAGULATION PROFILE (3) Atrial fibrillation Assessment/Plan: with RVR; to increase BB Code(s): I48.91 - UNSPECIFIED ATRIAL FIBRILLATION Qualifiers: Atrial fibrillation type: persistent Qualified Code(s): I48.1 - Persistent atrial fibrillation (4) Accidental fall Code(s): W19.XXXA - UNSPECIFIED FALL, INITIAL ENCOUNTER Qualifiers: Encounter type: sequela Qualified Code(s): W19.XXXS - Unspecified fall, sequela (5) Nasal bone fracture Assessment/Plan: seen by ENT- medical management Code(s): S02.2XXA - FRACTURE OF NASAL BONES, INIT ENCNTR FOR CLOSED FRACTURE Qualifiers: Encounter type: initial encounter Fracture type: closed Qualified Code(s): S02.2XXA - Fracture of nasal bones, initial encounter for closed fracture (6) Uncontrolled hypertension Code(s): I10 - ESSENTIAL (PRIMARY) HYPERTENSION (7) Abrasions of multiple sites Code(s): T14.8 - OTHER INJURY OF UNSPECIFIED BODY REGION (8) Dementia Assessment/Plan: mild to moderate at baseline. Code(s): F03.90 - UNSPECIFIED DEMENTIA WITHOUT BEHAVIORAL DISTURBANCE (9) Leukocytosis Assessment/Plan: To monitor; on Steroids Code(s): D72.829 - ELEVATED WHITE BLOOD CELL COUNT, UNSPECIFIED (10) Hypokalemia Assessment/Plan: replete K, check Mg Code(s): E87.6 - HYPOKALEMIA (11) Thrombocytopenia Assessment/Plan: s/p Plts Tx Code(s): D69.6 - THROMBOCYTOPENIA, UNSPECIFIED (12) Pneumonia Assessment/Plan: improvement of CXR, improvement of WBC, afebrile; off abtx Code(s): J18.9 - PNEUMONIA, UNSPECIFIED ORGANISM (13) Respiratory failure Assessment/Plan: s/p intubation Code(s): J96.90 - RESPIRATORY FAILURE, UNSP, UNSP W HYPOXIA OR HYPERCAPNIA (14) Hypophosphatemia Assessment/Plan: [id number] Code(s): E83.39 - OTHER DISORDERS OF PHOSPHORUS METABOLISM Assessment/Plan Neuro Sx consult appreciate Neuro Consult appreciated Cardio consult appreciated. CCM consult appreciated Admitted to ICU, intubated. Hematology consult appreciated. s/p vit K, FFP, Plts Tx. ENT consult appreciated. Case was discussed with pt's ICU nurse. AM labs. Prognosis: reserved I called pt.s' , not available. Time spent in managing pt's condition: over 40 minutes
[2016-09-30] MEDS: ATORVASTATIN CA 10 MG TABLET (FP) PO SCH (21:00)
[2016-09-30] MEDS: CHLORHEXIDINE GLUCONATE 4% CLEANSER FOR DECOLONIZATION TP SCH (21:00)
[2016-09-30] MEDS: DIGOXIN 0.125 MG TABLET (FP) PO SCH (21:01)
[2016-09-30] MEDS: AMIODARONE HCL 200 MG TABLET (FP) PO SCH (21:59)
--- NOTE | 2016-09-30 22:42 | PN ---
Progress Note (short form) - Note Progress Note: Parient seen and examined Intubated sedated Last Vital Signs Temp Pulse Resp BP Pulse Ox 99.5 F 104 H 20 150/96 99 09/30/16 22:00 09/30/16 22:00 09/30/16 22:00 09/30/16 22:00 09/30/16 20:01 Cor: RSR, No murmurs, No gallops Lungs: Clear to P&A Abd: Soft, Normal bowel sounds, No organomegaly Ext:No significant edema Abnormal Lab Results 09/30/16 09/30/16 09/30/16 05:30 05:30 05:30 WBC 12.1 H RBC 3.93 L Neutrophils % 92.1 H Lymphocytes % 3.0 L D INR 1.33 H PTT (Actin FS) 23.4 L ABG pH ABG pCO2 at Pt Temp ABG pO2 at Pt Temp ABG HCO3 ABG O2 Sat (Measured) ABG Base Excess Chloride 96 L BUN 49 H Random Glucose 285 H Calcium 8.1 L Magnesium 2.6 H Total Bilirubin 2.6 H AST 91 H ALT 255 H D Albumin 2.7 L 09/30/16 09:20 WBC RBC Neutrophils % Lymphocytes % INR PTT (Actin FS) ABG pH 7.57 H ABG pCO2 at Pt Temp 31.4 L ABG pO2 at Pt Temp 178.0 H* D ABG HCO3 28.9 H ABG O2 Sat (Measured) 99.8 H* ABG Base Excess 6.9 H Chloride BUN Random Glucose Calcium Magnesium Total Bilirubin AST ALT Albumin Active Medications Generic Name Dose Route Start Last Admin Trade Name Freq PRN Reason Stop Dose Admin Acetaminophen 650 mg 09/29/16 14:27 09/29/16 13:00 Tylenol Oral Solution - PO 650 mg Q4H PRN Administration FEVER OR PAIN Amiodarone HCl 200 mg 09/30/16 22:00 09/30/16 21:59 Cordarone - PO 200 mg BID [facility] Administration Atorvastatin Calcium 10 mg 09/26/16 22:00 09/30/16 21:00 Lipitor - PO 10 mg HS [facility] Administration Bacitracin 1 applic 09/24/16 23:15 09/30/16 21:00 Bacitracin - TP 1 applic BID [facility] Administration Chlorhexidine Gluconate 1 applic 09/25/16 22:00 09/30/16 21:00 Hibiclens For Decolonization - TP 1 applic HS [facility] Administration Chlorhexidine Gluconate 15 ml 09/25/16 22:00 09/30/16 21:01 Peridex - MM 15 ml BID [facility] Administration Dexamethasone Sodium Phosphate 4 mg 09/30/16 18:00 09/30/16 19:16 Decadron Injection - IVPUSH 4 mg Q8H-IV [facility] Administration Digoxin 0.125 mg 09/26/16 22:00 09/30/16 21:01 Lanoxin - PO 0.125 mg HS [facility] Administration Propofol 100 mls @ 2.77 mls/hr 09/29/16 10:45 09/30/16 11:36 Diprivan - IVPUSH 5.54 mls/hr TITR [facility] Administration Protocol 5 MCG/KG/MIN Levetiracetam 500 mg 09/25/16 10:00 09/30/16 21:00 Keppra Injection - IVPB 500 mg BID [facility] Administration Metoprolol Tartrate 5 mg 09/28/16 08:35 09/30/16 00:21 Lopressor Injection - IVPUSH 5 mg Q4H PRN Administration HYPERTENSION Metoprolol Tartrate 100 mg 09/30/16 03:00 09/30/16 14:06 Lopressor - NGT 100 mg Q6HPO [facility] Administration Ranitidine HCl 150 mg 09/27/16 10:00 09/30/16 09:41 Zantac Oral Solution - PO 150 mg DAILY [facility] Administration Tamsulosin HCl 0.4 mg 09/26/16 11:00 09/30/16 09:41 Flomax - PO 0.4 mg DAILY@0830 [facility] Administration A/P 86 y/o patient with dementia, b/l acute subdural hematoma head CT stable SDH with minimally increased SAH s/p FFP/platelets INR --1.3 --holding off FFP Last irvin of plavix --09/24--expect it to be off pmgping discussions regarding gals of care
[2016-10-01] MEDS: METOPROLOL TARTRATE 50 MG TABLET (FP) NGT SCH ×5 (01:00→17:29)
[2016-10-01] MEDS: DEXAMETHASONE SOD PHOSPHATE 4 MG/1 ML VIAL IVPUSH SCH ×3 (02:47→17:28)
[2016-10-01 05:59] LABS: BASOPHIL 0.2 % (0-2.0); MCH 30.3 pg (25.7-33.7); MEAN CELL VOLUME 91.7 fl (80-96); MEAN PLT VOLUME 9.7 fl (7.5-11.1); NEUTROPHILS 89.7 % (42.8-82.8); PLATELET COUNT 158 K/MM3 (134-434); RDW 13.9 % (11.9-15.9)
--- NOTE | 2016-10-01 07:54 | PN ---
Physical Exam: SUBJECTIVE: Patient seen and examined. off sedation he opens his eyes to commands, does not lens grinder and polisher on left hand, or move left LE. OBJECTIVE: Vital Signs Period Temp Pulse Resp BP Sys/Obrien Pulse Ox Last 24 Hr 98.7 F-100 F 104-139 20-25 130-166/84-99 99-100 EYES: sluggish perrla, sclera anicteric, conjunctiva clear. No ptosis. ENT: oropharynx with ET and OG tube, dry mucous membranes. left nostril with dried blood. NECK: Trachea midline, thick neck LUNGS: tachypneac, Breath sounds scattered rhonchi and diffuse coarse breath sounds b/l with anterior auscultation HEART: afib, S1, S2 without murmur, rub or gallop. ABDOMEN: Soft, nondistended, normoactive bowel sounds EXTREMITIES: 2+ radial and DP pulses, warm, well-perfused, no edema. abrasion below right knee with dried blood, no discharge, swelling on medial left knee with yellow discoloration. right pinky with suturing in place and dark tip. Neuro: 4/5 strength on right hand lens grinder and polisher, wiggles toes on RLE, no hand lens grinder and polisher on left, flaccid LUE/LLE. Laboratory Results - last 24 hr 09/30/16 10/01/16 09:20 05:20 WBC 13.0 H RBC 3.78 L Hgb 11.4 L Hct 34.7 L MCV 91.7 MCHC 33.0 RDW 13.9 Plt Count 158 D MPV 9.7 Neutrophils % 89.7 H Lymphocytes % 2.1 L D Monocytes % 8.0 Eosinophils % 0.0 Basophils % 0.2 Puncture Site Right radial ABG pH 7.57 H ABG pCO2 at Pt Temp 31.4 L ABG pO2 at Pt Temp 178.0 H* D ABG HCO3 28.9 H ABG O2 Sat (Measured) 99.8 H* ABG O2 Content 16.2 ABG Base Excess 6.9 H Prosper Test Positive O2 Delivery Device Vent Oxygen Flow Rate 50 Vent Mode A/c Vent Rate 20 Mechanical Rate Yes PEEP 5.0 Pressure Support Vent 450 Active Medications Generic Name Dose Route Start Last Admin Trade Name Freq PRN Reason Stop Dose Admin Acetaminophen 650 mg 09/29/16 14:27 09/29/16 13:00 Tylenol Oral Solution - PO 650 mg Q4H PRN Administration FEVER OR PAIN Amiodarone HCl 200 mg 09/30/16 22:00 09/30/16 21:59 Cordarone - PO 200 mg BID [facility] Administration Atorvastatin Calcium 10 mg 09/26/16 22:00 09/30/16 21:00 Lipitor - PO 10 mg HS [facility] Administration Bacitracin 1 applic 09/24/16 23:15 09/30/16 21:00 Bacitracin - TP 1 applic BID [facility] Administration Chlorhexidine Gluconate 1 applic 09/25/16 22:00 09/30/16 21:00 Hibiclens For Decolonization - TP 1 applic HS [facility] Administration Chlorhexidine Gluconate 15 ml 09/25/16 22:00 09/30/16 21:01 Peridex - MM 15 ml BID [facility] Administration Dexamethasone Sodium Phosphate 4 mg 09/30/16 18:00 10/01/16 02:47 Decadron Injection - IVPUSH 4 mg Q8H-IV [facility] Administration Digoxin 0.125 mg 09/26/16 22:00 09/30/16 21:01 Lanoxin - PO 0.125 mg HS [facility] Administration Propofol 100 mls @ 2.77 mls/hr 09/29/16 10:45 09/30/16 11:36 Diprivan - IVPUSH 5.54 mls/hr TITR [facility] Administration Protocol 5 MCG/KG/MIN Levetiracetam 500 mg 09/25/16 10:00 09/30/16 21:00 Keppra Injection - IVPB 500 mg BID [facility] Administration Metoprolol Tartrate 5 mg 09/28/16 08:35 09/30/16 00:21 Lopressor Injection - IVPUSH 5 mg Q4H PRN Administration HYPERTENSION Metoprolol Tartrate 100 mg 09/30/16 03:00 10/01/16 06:01 Lopressor - NGT 100 mg Q6HPO [facility] Administration Ranitidine HCl 150 mg 09/27/16 10:00 09/30/16 09:41 Zantac Oral Solution - PO 150 mg DAILY [facility] Administration Tamsulosin HCl 0.4 mg 09/26/16 11:00 09/30/16 09:41 Flomax - PO 0.4 mg DAILY@0830 [facility] Administration ASSESSMENT/PLAN: 86 yr old man with dementia, afib on plavix and warfarin, HTN, CAD s/p stents, CHF, parkinson's disorder presents s/p mechanical fall found to have subarachnoid and subdural hemorrhage. Neurologic keppra 500mg BID IVPB for seizure prophylaxis decadron 4mg IVPush q8h-IV [facility] - plan to taper to q12 tomorrow follows simple commands off sedation, however does not move left side consult: Dr. Ventura Pulmonary mechanically ventilated, Fio2 40%, will need to discuss trach with . titrate fio2 to maintain sat >90% Hemotalogical - repeat coags consult: Dr. Melgar Cardiovascular - afib, tachycardic with HTN - metoprolol tartrate 100mg BID NGT for rate control, can titrate up as needed. - digoxin .125 mg po HS - hold warfarin and plavix in setting of acute hemorrhage consult: Dr. Pierce/Dr. Fox Infectious disease leucocytosis uptrending, continue to trend. monitor for fevers. observe off abx for now. - IVPB tylenol 1gm q6h for fevers Gastrointestinal - OG tube in place for medications and feeds - prophylaxis with zantac daily - Jevity feeds volume based for ideal body weight: 1,200ml - transminitis trending down, possibly due to feeds flomax 0.4mg po daily NGT [place] cath in place to monitor urine output Renal Uop: 800cc/24hr replete electrolytes goal K>4, Mag >2 DVT scd's given acute bleed Diet: Jevity via NGT Visit type - Emergency Visit Emergency Visit: No - New Patient This patient is new to me today: No - Critical Care Critical Care patient: Yes Total Critical Care Time (in minutes): 40 Critical Care Statement: The care of this patient involved high complexity decision making to prevent further life threatening deterioration of the patient 's condition and/or to evalute & treat vital organ system(s) failure or risk of failure.
--- NOTE | 2016-10-01 08:03 | PN ---
Progress Note (short form) - Note Progress Note: NEUROSURGERY Intubated and sedated PE: Tmax 99.5, VSS HEENT- NC/AT; Neck-supple; Cor- Irreg; Lungs- coarse BS B; Abd- obese, benign; Ext- no sign of DVT Drowsy; open eyes; not following command CN- pupils 3mm sluggish B; Motor- withdrawing/localizing to pain; Sensation- difficult to assess; DTR- hyperreflexic B LE > UE WBC 13, Hgb 11.[address] appearance with large L medial tentorial/falcine/subtemporal SDH Neurosurgical intervention not recommended Medical/expectant management
[2016-10-01 09:06] LABS: ALBUMIN 2.4 g/dl (3.4-5.0); ALK PHOS 77 U/L (45-117); ANION GAP 11 (8-16); BILIRUBIN,TOTAL 2.2 mg/dL (0.2-1.0); CALCIUM 7.9 mg/dL (8.5-10.1); CO2 29 mmol/L (21-32); COCKROFT - GAULT 86.8; CREATININE 0.8 mg/dL (0.7-1.3); GLUCOSE,RANDOM 240 mg/dL (74-106); MAGNESIUM 2.5 mg/dL (1.8-2.4); PHOSPHOROUS 3.5 mg/dL (2.5-4.9); SGOT/AST 44 U/L (15-37); SGPT/ALT 183 U/L (12-78); TOT PROT 5.8 g/dl (6.4-8.2)
--- NOTE | 2016-10-01 09:55 | PN ---
Progress Note, Physician History of Present Illness: Pt. was seen and examined in ICU. Pt. is intubated, off sedation this AM. - Current Medication List Current Medications: Active Medications Acetaminophen (Tylenol Oral Solution -) 650 mg PO Q4H PRN PRN Reason: FEVER OR PAIN Last Admin: 09/29/16 13:00 Dose: 650 mg Amiodarone HCl (Cordarone -) 200 mg PO BID [facility] Last Admin: 09/30/16 21:59 Dose: 200 mg Atorvastatin Calcium (Lipitor -) 10 mg PO HS [facility] Last Admin: 09/30/16 21:00 Dose: 10 mg Bacitracin (Bacitracin -) 1 applic TP BID [facility] Last Admin: 09/30/16 21:00 Dose: 1 applic Chlorhexidine Gluconate (Hibiclens For Decolonization -) 1 applic TP HS [facility] Last Admin: 09/30/16 21:00 Dose: 1 applic Chlorhexidine Gluconate (Peridex -) 15 ml MM BID [facility] Last Admin: 09/30/16 21:01 Dose: 15 ml Dexamethasone Sodium Phosphate (Decadron Injection -) 4 mg IVPUSH Q8H-IV [facility] Last Admin: 10/01/16 02:47 Dose: 4 mg Digoxin (Lanoxin -) 0.125 mg PO HS [facility] Last Admin: 09/30/16 21:01 Dose: 0.125 mg Propofol (Diprivan -) 100 mls @ 2.77 mls/hr IVPUSH TITR [facility]; 5 MCG/KG/MIN PRN Reason: Protocol Last Admin: 09/30/16 11:36 Dose: 5.54 mls/hr Levetiracetam (Keppra Injection -) 500 mg IVPB BID [facility] Last Admin: 09/30/16 21:00 Dose: 500 mg Metoprolol Tartrate (Lopressor Injection -) 5 mg IVPUSH Q4H PRN PRN Reason: HYPERTENSION Last Admin: 09/30/16 00:21 Dose: 5 mg Metoprolol Tartrate (Lopressor -) 100 mg NGT Q6HPO [facility] Last Admin: 10/01/16 06:01 Dose: 100 mg Ranitidine HCl (Zantac Oral Solution -) 150 mg PO DAILY [facility] Last Admin: 09/30/16 09:41 Dose: 150 mg Tamsulosin HCl (Flomax -) 0.4 mg PO DAILY@0830 [facility] Last Admin: 09/30/16 09:41 Dose: 0.4 mg - Objective Vital Signs: Vital Signs Temperature 99 F 10/01/16 08:49 Pulse Rate 110 H 10/01/16 08:00 Respiratory Rate 20 10/01/16 08:44 Blood Pressure 131/30 10/01/16 08:00 O2 Sat by Pulse Oximetry (%) 96 10/01/16 08:44 Constitutional: Yes: No Distress, Calm Cardiovascular: Yes: Tachycardia, S1, S2 Respiratory: Yes: Regular, Other (coarse bilat.) Gastrointestinal: Yes: Normal Bowel Sounds, Soft. No: Distention Edema: No Neurological: Yes: Other (off sedation, pupils slugish, follows simple commands , moves all extremities) Labs: CBC, BMP 10/01/16 05:20 10/01/16 05:20 INR, PTT INR 1.33 (0.82-1.09) H 09/30/16 05:30 Problem List - Problems (1) Subdural hematoma Assessment/Plan: progression during the first 24 hours (with midline shift), now stable. Steroids IV. Code(s): I62.00 - NONTRAUMATIC SUBDURAL HEMORRHAGE, UNSPECIFIED (2) Supratherapeutic INR Code(s): R79.1 - ABNORMAL COAGULATION PROFILE (3) Atrial fibrillation Assessment/Plan: with RVR; BB was increased. Better HR. Code(s): I48.91 - UNSPECIFIED ATRIAL FIBRILLATION Qualifiers: Atrial fibrillation type: persistent Qualified Code(s): I48.1 - Persistent atrial fibrillation (4) Accidental fall Code(s): W19.XXXA - UNSPECIFIED FALL, INITIAL ENCOUNTER Qualifiers: Encounter type: sequela Qualified Code(s): W19.XXXS - Unspecified fall, sequela (5) Nasal bone fracture Assessment/Plan: seen by ENT- medical management Code(s): S02.2XXA - FRACTURE OF NASAL BONES, INIT ENCNTR FOR CLOSED FRACTURE Qualifiers: Encounter type: initial encounter Fracture type: closed Qualified Code(s): S02.2XXA - Fracture of nasal bones, initial encounter for closed fracture (6) Uncontrolled hypertension Code(s): I10 - ESSENTIAL (PRIMARY) HYPERTENSION (7) Abrasions of multiple sites Code(s): T14.8 - OTHER INJURY OF UNSPECIFIED BODY REGION (8) Dementia Assessment/Plan: mild to moderate at baseline. Code(s): F03.90 - UNSPECIFIED DEMENTIA WITHOUT BEHAVIORAL DISTURBANCE (9) Leukocytosis Assessment/Plan: To monitor; on Steroids Code(s): D72.829 - ELEVATED WHITE BLOOD CELL COUNT, UNSPECIFIED (10) Hypokalemia Assessment/Plan: corrected Code(s): E87.6 - HYPOKALEMIA (11) Thrombocytopenia Assessment/Plan: s/p Plts Tx Code(s): D69.6 - THROMBOCYTOPENIA, UNSPECIFIED (12) Pneumonia Assessment/Plan: improvement of CXR, improvement of WBC, afebrile; off abtx Code(s): J18.9 - PNEUMONIA, UNSPECIFIED ORGANISM (13) Respiratory failure Assessment/Plan: s/p intubation Code(s): J96.90 - RESPIRATORY FAILURE, UNSP, UNSP W HYPOXIA OR HYPERCAPNIA (14) Hypophosphatemia Assessment/Plan: Corrected Code(s): E83.39 - OTHER DISORDERS OF PHOSPHORUS METABOLISM Assessment/Plan Neuro Sx consult appreciate Neuro Consult appreciated Cardio consult appreciated. CCM consult appreciated Admitted to ICU, intubated. Hematology consult appreciated. s/p vit K, FFP, Plts Tx. ENT consult appreciated. Case was discussed with pt's ICU nurse. Extubation trial per ICU team. AM labs. Prognosis: reserved I called pt.s' , case was reviewed, all questions were answered. Time spent in managing pt's condition: over 45 minutes.
[2016-10-01] MEDS: levETIRAcetam 500 MG/5 ML INJECTION VIAL IVPB SCH ×2 (10:18→21:40)
[2016-10-01] MEDS: AMIODARONE HCL 200 MG TABLET (FP) PO SCH (10:18)
[2016-10-01] MEDS: TAMSULOSIN HCL 0.4 MG CAP.ER.24H (FP) PO SCH (10:18)
[2016-10-01] MEDS: BACITRACIN 30 GM TUBE TOPICAL OINTMENT TP SCH ×2 (10:19→21:40)
[2016-10-01] MEDS: RANITIDINE HCL 150 MG/10 ML UNIT-DOSE CUP PO SCH (10:20)
--- NOTE | 2016-10-01 14:49 | PN ---
Progress Note, Physician Chief Complaint: intubated. sedated. tele af controlled VR. History of Present Illness: This is an 86 year old male with a pmhx of htn, afib on coumadin, CAD s/p stents at [facility] in 2010, hld, and chronic systolic CHF with LVEF 30% in 2014 who presented to ER after a mechanical fall found to have subdural hemorrhage on coumadin and intubated for airway protection. Sedation lightened this morning, was more alert but not following commands. - Current Medication List Current Medications: Active Medications Acetaminophen (Tylenol Oral Solution -) 650 mg PO Q4H PRN PRN Reason: FEVER OR PAIN Last Admin: 09/29/16 13:00 Dose: 650 mg Amiodarone HCl (Cordarone -) 200 mg PO BID [facility] Last Admin: 10/01/16 10:18 Dose: 200 mg Atorvastatin Calcium (Lipitor -) 10 mg PO HS [facility] Last Admin: 09/30/16 21:00 Dose: 10 mg Bacitracin (Bacitracin -) 1 applic TP BID [facility] Last Admin: 10/01/16 10:19 Dose: 1 applic Chlorhexidine Gluconate (Hibiclens For Decolonization -) 1 applic TP HS [facility] Last Admin: 09/30/16 21:00 Dose: 1 applic Chlorhexidine Gluconate (Peridex -) 15 ml MM BID [facility] Last Admin: 09/30/16 21:01 Dose: 15 ml Dexamethasone Sodium Phosphate (Decadron Injection -) 4 mg IVPUSH Q8H-IV [facility] Last Admin: 10/01/16 10:19 Dose: 4 mg Digoxin (Lanoxin -) 0.125 mg PO [facility] Last Admin: 09/30/16 21:01 Dose: 0.125 mg Propofol (Diprivan -) 100 mls @ 2.77 mls/hr IVPUSH TITR [facility]; 5 MCG/KG/MIN PRN Reason: Protocol Last Admin: 09/30/16 11:36 Dose: 5.54 mls/hr Levetiracetam (Keppra Injection -) 500 mg IVPB BID [facility] Last Admin: 10/01/16 10:18 Dose: 500 mg Metoprolol Tartrate (Lopressor Injection -) 5 mg IVPUSH Q4H PRN PRN Reason: HYPERTENSION Last Admin: 09/30/16 00:21 Dose: 5 mg Metoprolol Tartrate (Lopressor -) 100 mg NGT Q6HPO [facility] Last Admin: 10/01/16 06:01 Dose: 100 mg Ranitidine HCl (Zantac Oral Solution -) 150 mg PO DAILY [facility] Last Admin: 10/01/16 10:20 Dose: 150 mg Tamsulosin HCl (Flomax -) 0.4 mg PO DAILY@0830 [facility] Last Admin: 10/01/16 10:18 Dose: 0.4 mg - Objective Vital Signs: Vital Signs Temperature 99.5 F 10/01/16 14:00 Pulse Rate 97 H 10/01/16 14:00 Respiratory Rate 20 10/01/16 14:00 Blood Pressure 134/91 10/01/16 14:00 O2 Sat by Pulse Oximetry (%) 99 10/01/16 10:05 Constitutional: Yes: Well Nourished, No Distress Eyes: Yes: Conjunctiva Clear, EOM Intact HENT: Yes: Normocephalic, Other (lip laceration) Neck: Yes: Supple, Trachea Midline Cardiovascular: Yes: Tachycardia, Pulse Irregular Respiratory: Yes: CTA Bilaterally Gastrointestinal: Yes: Normal Bowel Sounds ...Rectal Exam: Yes: Erythema Edema: Yes Edema: LLE: 1+, RLE: 1+ Labs: CBC, BMP 10/01/16 05:20 10/01/16 05:20 INR, PTT INR 1.33 (0.82-1.09) H 09/30/16 05:30 Problem List - Problems (1) Atrial fibrillation Assessment/Plan: continue to hold all antiplatelet and AC medications. Prognosis is very poor. There are no cardiac contraindications to surgery for tracheostomy and PEG/ Gtube if needed. continue Digoxin PO. Stop amiodarone Titrate metoprolol as tolerated by bp and HR. RVR in atrial fibrillation is not the overall determinant of his prognosis. I have discussed this with his . He may need tracheostomy and PEG. There are no cardiac contraindications to the procedure. Code(s): I48.91 - UNSPECIFIED ATRIAL FIBRILLATION Qualifiers: Atrial fibrillation type: persistent Qualified Code(s): I48.1 - Persistent atrial fibrillation
[2016-10-01] MEDS: CHLORHEXIDINE GLUCONATE 0.12% 15ML CUP MM SCH ×2 (15:28→21:41)
[2016-10-01] MEDS: PROPOFOL 100 ML IVPUSH SCH (15:28)
--- NOTE | 2016-10-01 16:15 | PN ---
Teaching Attending Note Name of Resident: Jesse Hamm ATTENDING PHYSICIAN STATEMENT I saw and evaluated the patient. I reviewed the resident's note and discussed the case with the resident. I agree with the resident's findings and plan as documented. SUBJECTIVE: Patient seen and examined in the ICU. Remains intubated. Opens eyes to voice commands. Intermittently following some simple commands. AC Mode of vent. No pressors. OBJECTIVE: Intake & Output 09/28/16 09/29/16 09/30/16 10/01/16 23:59 23:59 23:59 23:59 Intake Total 3199 1926 1341.7 1161 Output Total 1550 1400 800 800 Balance 1649 526 541.7 361 Weight 209 lb 6.4 oz 203 lb 9 oz 203 lb 8 oz 204 lb 2 oz Last Vital Signs Temp Pulse Resp BP Pulse Ox 99.5 F 97 H 21 134/91 99 10/01/16 14:00 10/01/16 14:00 10/01/16 14:20 10/01/16 14:00 10/01/16 10:05 Active Medications Acetaminophen (Tylenol Oral Solution -) 650 mg PO Q4H PRN PRN Reason: FEVER OR PAIN Last Admin: 09/29/16 13:00 Dose: 650 mg Amiodarone HCl (Cordarone -) 200 mg PO BID [facility] Last Admin: 10/01/16 10:18 Dose: 200 mg Atorvastatin Calcium (Lipitor -) 10 mg PO [facility] Last Admin: 09/30/16 21:00 Dose: 10 mg Bacitracin (Bacitracin -) 1 applic TP BID [facility] Last Admin: 10/01/16 10:19 Dose: 1 applic Chlorhexidine Gluconate (Hibiclens For Decolonization -) 1 applic TP [facility] Last Admin: 09/30/16 21:00 Dose: 1 applic Chlorhexidine Gluconate (Peridex -) 15 ml MM BID [facility] Last Admin: 10/01/16 15:28 Dose: 15 ml Dexamethasone Sodium Phosphate (Decadron Injection -) 4 mg IVPUSH Q8H-IV [facility] Last Admin: 10/01/16 10:19 Dose: 4 mg Digoxin (Lanoxin -) 0.125 mg PO [facility] Last Admin: 09/30/16 21:01 Dose: 0.125 mg Propofol (Diprivan -) 100 mls @ 2.77 mls/hr IVPUSH TITR [facility]; 5 MCG/KG/MIN PRN Reason: Protocol Last Admin: 10/01/16 15:28 Dose: 5.54 mls/hr Levetiracetam (Keppra Injection -) 500 mg IVPB BID [facility] Last Admin: 10/01/16 10:18 Dose: 500 mg Metoprolol Tartrate (Lopressor Injection -) 5 mg IVPUSH Q4H PRN PRN Reason: HYPERTENSION Last Admin: 09/30/16 00:21 Dose: 5 mg Metoprolol Tartrate (Lopressor -) 100 mg NGT Q6HPO [facility] Last Admin: 10/01/16 15:28 Dose: 100 mg Ranitidine HCl (Zantac Oral Solution -) 150 mg PO DAILY [facility] Last Admin: 10/01/16 10:20 Dose: 150 mg Tamsulosin HCl (Flomax -) 0.4 mg PO DAILY@0830 [facility] Last Admin: 10/01/16 10:18 Dose: 0.4 mg Gen: intubated, Awakens to voice Heart: tachycardic, irregular Lung: scattered rhonchi Abd: soft, nontender Ext: (+) edema Laboratory Results - last 24 hr 10/01/16 10/01/16 05:20 05:20 WBC 13.0 H RBC 3.78 L Hgb 11.4 L Hct 34.7 L MCV 91.7 MCHC 33.0 RDW 13.9 Plt Count 158 D MPV 9.7 Neutrophils % 89.7 H Lymphocytes % 2.1 L D Monocytes % 8.0 Eosinophils % 0.0 Basophils % 0.2 Sodium 140 Potassium 3.6 Chloride 100 Carbon Dioxide 29 Anion Gap 11 BUN 50 H Creatinine 0.8 Creat Clearance w eGFR > 60 Random Glucose 240 H Calcium 7.9 L Phosphorus 3.5 D Magnesium 2.5 H Total Bilirubin 2.2 H AST 44 H D ALT 183 H D Alkaline Phosphatase 77 D Total Protein 5.8 L Albumin 2.4 L ASSESSMENT AND PLAN: Acute Hypoxic Respiratory Failure s/p Fall Traumatic Subdural Hematoma/Subarachnoid Hemorrhage Atrial Fibrillation on anticoagulation Dysfunctional Platelets from Plavix HTN Dementia Likely Aspiration Pneumonia - empiric antiepileptics - Wean decadron - Monitor off ABX - DVT/GI prophylaxis - Overall prognosis appears - Will likely need Trach and PEG Dr Mena critical care time spent in reviewing chart, evaluating patient and formulating plan 40 min
--- NOTE | 2016-10-01 18:32 | PN ---
Progress Note (short form) - Note Progress Note: Patient seen and examined Remains intubated On NG feedings Last Vital Signs Temp Pulse Resp BP Pulse Ox 99.5 F 97 H 21 134/91 99 10/01/16 14:00 10/01/16 14:00 10/01/16 16:20 10/01/16 14:00 10/01/16 10:05 Intubated Cor - atrial fib Lungs: decreased breath sounds Abd: Soft, Normal bowel sounds, No organomegaly Ext:No significant edema, SCD Skin: No rashes, Integument intact CBC, BMP 10/01/16 05:20 10/01/16 05:20 Current Medications Generic Name Dose Route Start Last Admin Trade Name Freq PRN Reason Stop Dose Admin Acetaminophen 650 mg 09/29/16 14:27 09/29/16 13:00 Tylenol Oral Solution - PO 650 mg Q4H PRN Administration FEVER OR PAIN Amiodarone HCl 200 mg 09/30/16 22:00 10/01/16 10:18 Cordarone - PO 200 mg BID [facility] Administration Atorvastatin Calcium 10 mg 09/26/16 22:00 09/30/16 21:00 Lipitor - PO 10 mg HS [facility] Administration Bacitracin 1 applic 09/24/16 23:15 10/01/16 10:19 Bacitracin - TP 1 applic BID [facility] Administration Chlorhexidine Gluconate 1 applic 09/25/16 22:00 09/30/16 21:00 Hibiclens For Decolonization - TP 1 applic HS [facility] Administration Chlorhexidine Gluconate 15 ml 09/25/16 22:00 10/01/16 15:28 Peridex - MM 15 ml BID [facility] Administration Dexamethasone Sodium Phosphate 4 mg 09/30/16 18:00 10/01/16 17:28 Decadron Injection - IVPUSH 4 mg Q8H-IV [facility] Administration Digoxin 0.125 mg 09/26/16 22:00 09/30/16 21:01 Lanoxin - PO 0.125 mg HS [facility] Administration Propofol 100 mls @ 2.77 mls/hr 09/29/16 10:45 10/01/16 15:28 Diprivan - IVPUSH 5.54 mls/hr TITR [facility] Administration Protocol 5 MCG/KG/MIN Levetiracetam 500 mg 09/25/16 10:00 10/01/16 10:18 Keppra Injection - IVPB 500 mg BID [facility] Administration Metoprolol Tartrate 5 mg 09/28/16 08:35 09/30/16 00:21 Lopressor Injection - IVPUSH 5 mg Q4H PRN Administration HYPERTENSION Metoprolol Tartrate 100 mg 09/30/16 03:00 10/01/16 17:29 Lopressor - NGT 100 mg Q6HPO [facility] Administration Ranitidine HCl 150 mg 09/27/16 10:00 10/01/16 10:20 Zantac Oral Solution - PO 150 mg DAILY [facility] Administration Tamsulosin HCl 0.4 mg 09/26/16 11:00 10/01/16 10:18 Flomax - PO 0.4 mg DAILY@0830 [facility] Administration Impression: SDH/SAH Ventilatory support Atrial fib Continuing off a/c in view of [employer] bleed Spoke at length with son and d-i-law.
[2016-10-01] MEDS: CHLORHEXIDINE GLUCONATE 4% CLEANSER FOR DECOLONIZATION TP SCH (21:40)
[2016-10-01] MEDS: METOPROLOL TARTRATE 5 MG/5 ML VIAL IVPUSH PRN (21:41)
[2016-10-01] MEDS: ATORVASTATIN CA 10 MG TABLET (FP) PO SCH (21:41)
[2016-10-01] MEDS: DIGOXIN 0.125 MG TABLET (FP) PO SCH (21:41)
[2016-10-01] MEDS: ACETAMINOPHEN 650 MG/20.3 ML ORAL SOLUTION (CUPS) PO PRN (21:42)
[2016-10-02] MEDS: DEXAMETHASONE SOD PHOSPHATE 4 MG/1 ML VIAL IVPUSH SCH ×3 (01:09→21:20)
[2016-10-02 05:49] LABS: BASOPHIL 0.1 % (0-2.0); MCH 30.8 pg (25.7-33.7); MCHC 33.5 g/dl (32.0-35.9); MEAN CELL VOLUME 92.2 fl (80-96); MEAN PLT VOLUME 9.9 fl (7.5-11.1); NEUTROPHILS 89.2 % (42.8-82.8); PLATELET COUNT 146 K/MM3 (134-434); RDW 13.9 % (11.9-15.9); WHITE BLOOD COUNT 12.4 K/mm3 (4.0-10.0)
[2016-10-02 06:12] LABS: ALBUMIN 2.3 g/dl (3.4-5.0); ALK PHOS 77 U/L (45-117); ANION GAP 7 (8-16); BILIRUBIN,TOTAL 2.1 mg/dL (0.2-1.0); CALCIUM 7.5 mg/dL (8.5-10.1); CO2 32 mmol/L (21-32); COCKROFT - GAULT 88; CREATININE 0.8 mg/dL (0.7-1.3); GLUCOSE,RANDOM 263 mg/dL (74-106); MAGNESIUM 2.6 mg/dL (1.8-2.4); PHOSPHOROUS 4.1 mg/dL (2.5-4.9); SGOT/AST 41 U/L (15-37); SGPT/ALT 164 U/L (12-78); TOT PROT 5.7 g/dl (6.4-8.2)
[2016-10-02] MEDS: METOPROLOL TARTRATE 50 MG TABLET (FP) NGT SCH ×4 (07:09→17:33)
--- NOTE | 2016-10-02 08:58 | PN ---
Physical Exam: SUBJECTIVE: Patient seen and examined off sedation since this morning. calm, comfortable, makes eye contact, tracks. lethargic but easily arousable OBJECTIVE: Vital Signs Period Temp Pulse Resp BP Sys/Obrien Pulse Ox Last 24 Hr 99 F-99.9 F 92-106 17-24 98-162/68-98 99-100 EYES: perrla, sclera anicteric, conjunctiva clear. No ptosis. ENT: oropharynx with ET and OG tube, dry mucous membranes. left nostril with dried blood. NECK: Trachea midline, thick neck LUNGS: Breath sounds scattered rhonchi and diffuse coarse breath sounds b/l with anterior auscultation HEART: afib, S1, S2 without murmur, rub or gallop. ABDOMEN: Soft, nondistended, normoactive bowel sounds EXTREMITIES: 2+ radial and DP pulses b/l, warm, well-perfused, no edema. abrasion below right knee with dried blood, no discharge, swelling on medial left knee with yellow discoloration. right pinky with suturing in place and dark tip. 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 Laboratory Results - last 24 hr 10/01/16 10/02/16 10/02/16 05:20 05:05 05:05 WBC 12.4 H RBC 3.78 L Hgb 11.7 Hct 34.9 L MCV 92.2 MCHC 33.5 RDW 13.9 Plt Count 146 MPV 9.9 Neutrophils % 89.2 H Lymphocytes % 2.0 L Monocytes % 8.7 Eosinophils % 0.0 Basophils % 0.1 Sodium 140 140 Potassium 3.6 4.0 Chloride 100 101 Carbon Dioxide 29 32 Anion Gap 11 7 L BUN 50 H 56 H Creatinine 0.8 0.8 Creat Clearance w eGFR > 60 > 60 Random Glucose 240 H 263 H Calcium 7.9 L 7.5 L Phosphorus 3.5 D 4.1 Magnesium 2.5 H 2.6 H Total Bilirubin 2.2 H 2.1 H AST 44 H D 41 H ALT 183 H D 164 H Alkaline Phosphatase 77 D 77 Total Protein 5.8 L 5.7 L Albumin 2.4 L 2.3 L Active Medications Generic Name Dose Route Start Last Admin Trade Name Freq PRN Reason Stop Dose Admin Acetaminophen 650 mg 09/29/16 14:27 10/01/16 21:42 Tylenol Oral Solution - PO 650 mg Q4H PRN Administration FEVER OR PAIN Atorvastatin Calcium 10 mg 09/26/16 22:00 10/01/16 21:41 Lipitor - PO 10 mg HS [facility] Administration Bacitracin 1 applic 09/24/16 23:15 10/01/16 21:40 Bacitracin - TP 1 applic BID [facility] Administration Chlorhexidine Gluconate 1 applic 09/25/16 22:00 10/01/16 21:40 Hibiclens For Decolonization - TP 1 applic HS [facility] Administration Chlorhexidine Gluconate 15 ml 09/25/16 22:00 10/01/16 21:41 Peridex - MM 15 ml BID [facility] Administration Dexamethasone Sodium Phosphate 4 mg 10/02/16 10:00 Decadron Injection - IVPUSH Q12H [facility] Digoxin 0.125 mg 09/26/16 22:00 10/01/16 21:41 Lanoxin - PO 0.125 mg HS [facility] Administration Propofol 100 mls @ 2.77 mls/hr 09/29/16 10:45 10/01/16 15:28 Diprivan - IVPUSH 5.54 mls/hr TITR [facility] Administration Protocol 5 MCG/KG/MIN Levetiracetam 500 mg 09/25/16 10:00 10/01/16 21:40 Keppra Injection - IVPB 500 mg BID [facility] Administration Metoprolol Tartrate 5 mg 09/28/16 08:35 10/01/16 21:41 Lopressor Injection - IVPUSH 5 mg Q4H PRN Administration HYPERTENSION Metoprolol Tartrate 100 mg 09/30/16 03:00 10/02/16 07:09 Lopressor - NGT 100 mg Q6HPO [facility] Administration Ranitidine HCl 150 mg 09/27/16 10:00 10/01/16 10:20 Zantac Oral Solution - PO 150 mg DAILY [facility] Administration Tamsulosin HCl 0.4 mg 09/26/16 11:00 10/01/16 10:18 Flomax - PO 0.4 mg DAILY@0830 [facility] Administration ASSESSMENT/PLAN: 86 yr old man with dementia, afib on plavix and warfarin, HTN, CAD s/p stents, CHF, parkinson's disorder presents s/p mechanical fall found to have subarachnoid and subdural hemorrhage. Neurologic keppra 500mg BID IVPB for seizure prophylaxis decadron 4mg push daily - course decadron 4mg ivpush q6hr 09/25- (6 days), q8hr 09/30-10/02 (3 days) follows simple commands off sedation, however does not move left side, remains lethargic, will observe off sedation as he is calm and cooperative consult: Dr. Ventura Pulmonary mechanically ventilated, Fio2 40%, will need to discuss trach with . titrate fio2 to maintain sat >90% - SBT today, tolerated well, RSBI <100, however lethargic, SBT again tomorrow Hemotalogical - repeat coags consult: Dr. Melgar Cardiovascular - afib, tachycardic with HTN - metoprolol tartrate 100mg BID NGT for rate control, can titrate up as needed. - digoxin .125 mg po HS - hold warfarin and plavix in setting of acute hemorrhage consult: Dr. Pierce/Dr. Fox Infectious disease leucocytosis downtrending, continue to trend. monitor for fevers. observe off abx for now. - tylenol 650mg q4h for fevers Gastrointestinal - OG tube in place for medications and feeds - prophylaxis with zantac daily - Jevity feeds volume based for ideal body weight: 1,200ml - transminitis trending down, possibly due to feeds flomax 0.4mg po daily NGT [place] cath in place to monitor urine output Renal Uop: 1100cc/24hr replete electrolytes goal K>4, Mag >2 DVT scd's given acute bleed Diet: Jevity via NGT Visit type - Emergency Visit Emergency Visit: No - New Patient This patient is new to me today: No - Critical Care Critical Care patient: Yes Total Critical Care Time (in minutes): 40 Critical Care Statement: The care of this patient involved high complexity decision making to prevent further life threatening deterioration of the patient 's condition and/or to evalute & treat vital organ system(s) failure or risk of failure.
[2016-10-02] MEDS: CHLORHEXIDINE GLUCONATE 0.12% 15ML CUP MM SCH ×2 (09:05→21:22)
[2016-10-02] MEDS: RANITIDINE HCL 150 MG/10 ML UNIT-DOSE CUP PO SCH (09:05)
[2016-10-02] MEDS: TAMSULOSIN HCL 0.4 MG CAP.ER.24H (FP) PO SCH (09:05)
[2016-10-02] MEDS: levETIRAcetam 500 MG/5 ML INJECTION VIAL IVPB SCH ×2 (09:06→21:21)
[2016-10-02] MEDS: BACITRACIN 30 GM TUBE TOPICAL OINTMENT TP SCH ×2 (09:07→21:20)
--- NOTE | 2016-10-02 11:44 | PN ---
Progress Note, Physician Chief Complaint: in ICU in bed intubated, on CPAP trial consults, meds, labs and tests reviewed pt opens eye; does not follow commands on peg feeds - Current Medication List Current Medications: Active Medications Acetaminophen (Tylenol Oral Solution -) 650 mg PO Q4H PRN PRN Reason: FEVER OR PAIN Last Admin: 10/01/16 21:42 Dose: 650 mg Atorvastatin Calcium (Lipitor -) 10 mg PO HS [facility] Last Admin: 10/01/16 21:41 Dose: 10 mg Bacitracin (Bacitracin -) 1 applic TP BID [facility] Last Admin: 10/02/16 09:07 Dose: 1 applic Chlorhexidine Gluconate (Hibiclens For Decolonization -) 1 applic TP HS [facility] Last Admin: 10/01/16 21:40 Dose: 1 applic Chlorhexidine Gluconate (Peridex -) 15 ml MM BID [facility] Last Admin: 10/02/16 09:05 Dose: 15 ml Dexamethasone Sodium Phosphate (Decadron Injection -) 4 mg IVPUSH Q12H [facility] Last Admin: 10/02/16 09:05 Dose: 4 mg Digoxin (Lanoxin -) 0.125 mg PO HS [facility] Last Admin: 10/01/16 21:41 Dose: 0.125 mg Propofol (Diprivan -) 100 mls @ 2.77 mls/hr IVPUSH TITR [facility]; 5 MCG/KG/MIN PRN Reason: Protocol Last Admin: 10/01/16 15:28 Dose: 5.54 mls/hr Levetiracetam (Keppra Injection -) 500 mg IVPB BID [facility] Last Admin: 10/02/16 09:06 Dose: 500 mg Metoprolol Tartrate (Lopressor Injection -) 5 mg IVPUSH Q4H PRN PRN Reason: HYPERTENSION Last Admin: 10/01/16 21:41 Dose: 5 mg Metoprolol Tartrate (Lopressor -) 100 mg NGT Q6HPO [facility] Last Admin: 10/02/16 07:09 Dose: 100 mg Ranitidine HCl (Zantac Oral Solution -) 150 mg PO DAILY [facility] Last Admin: 10/02/16 09:05 Dose: 150 mg Tamsulosin HCl (Flomax -) 0.4 mg PO DAILY@0830 [facility] Last Admin: 10/02/16 09:05 Dose: 0.4 mg - Objective Vital Signs: Vital Signs Temperature 99.4 F 10/02/16 10:00 Pulse Rate 105 H 10/02/16 10:00 Respiratory Rate 18 10/02/16 10:00 Blood Pressure 131/78 10/02/16 10:00 O2 Sat by Pulse Oximetry (%) 100 10/01/16 20:11 Constitutional: Yes: No Distress, Calm Eyes: Yes: Conjunctiva Clear HENT: Yes: Atraumatic Neck: Yes: Supple Cardiovascular: No: Regular Rate and Rhythm Respiratory: Yes: Diminished Gastrointestinal: Yes: Soft. No: Distention, Tenderness Genitourinary: No: Hematuria Musculoskeletal: No: Joint Stiffness, Joint Swelling Extremities: No: Cold, Cool, Cyanosis Edema: No Integumentary: No: Rash, Skin Tear, Venous Stasis Changes Neurological: Yes: Alert. No: Oriented Psychiatric: Yes: Alert. No: Oriented, Agitated Labs: CBC, BMP 10/02/16 05:05 10/02/16 05:05 INR, PTT INR 1.33 (0.82-1.09) H 09/30/16 05:30 - ....Imaging Other: Report Reviewed Assessment/Plan ASSESSMENT AND PLAN: Acute Hypoxic Respiratory Failure s/p Fall Traumatic Subdural Hematoma/Subarachnoid Hemorrhage Atrial Fibrillation on anticoagulation Dysfunctional Platelets from Plavix HTN Dementia Likely Aspiration Pneumonia - empiric antiepileptics, steroids - s/p antibiotics - minimize sedation to assess mental status - spontaneous breathing trials as tolerated - enteral feeds - DVT/GI prophylaxis - ICU monitoring - may need tracheostomy if unable to tolerate weaning prognosis guarded T time 40 min
[2016-10-02] MEDS: PROPOFOL 100 ML IVPUSH SCH (12:07)
--- NOTE | 2016-10-02 12:15 | PN ---
Teaching Attending Note Name of Resident: Jesse Hamm ATTENDING PHYSICIAN STATEMENT I saw and evaluated the patient. I reviewed the resident's note and discussed the case with the resident. I agree with the resident's findings and plan as documented. SUBJECTIVE: Pt seen and examined in the ICU. Remains intubated, arousable off sedation. Left arm flaccid. OBJECTIVE: Last Vital Signs Temp Pulse Resp BP Pulse Ox 99.4 F 105 H 18 131/78 100 10/02/16 10:00 10/02/16 10:00 10/02/16 10:00 10/02/16 10:00 10/01/16 20:11 Intake & Output 09/29/16 09/30/16 10/01/16 10/02/16 23:59 23:59 23:59 23:59 Intake Total 1926 1341.7 1161 166 Output Total 2868 827 7023 300 Balance 526 541.7 61 -134 Weight 203 lb 9 oz 203 lb 8 oz 204 lb 2 oz 207 lb 14.334 oz Gen: intubated, arousable Heart: RRR Lung: distant breath sounds Abd: soft, nontender Ext: trace edema CBC, BMP 10/02/16 05:05 10/02/16 05:05 Active Medications Acetaminophen (Tylenol Oral Solution -) 650 mg PO Q4H PRN PRN Reason: FEVER OR PAIN Last Admin: 10/01/16 21:42 Dose: 650 mg Atorvastatin Calcium (Lipitor -) 10 mg PO [facility] Last Admin: 10/01/16 21:41 Dose: 10 mg Bacitracin (Bacitracin -) 1 applic TP BID [facility] Last Admin: 10/02/16 09:07 Dose: 1 applic Chlorhexidine Gluconate (Hibiclens For Decolonization -) 1 applic TP [facility] Last Admin: 10/01/16 21:40 Dose: 1 applic Chlorhexidine Gluconate (Peridex -) 15 ml MM BID [facility] Last Admin: 10/02/16 09:05 Dose: 15 ml Dexamethasone Sodium Phosphate (Decadron Injection -) 4 mg IVPUSH Q12H [facility] Last Admin: 10/02/16 09:05 Dose: 4 mg Digoxin (Lanoxin -) 0.125 mg PO [facility] Last Admin: 10/01/16 21:41 Dose: 0.125 mg Propofol (Diprivan -) 100 mls @ 2.77 mls/hr IVPUSH TITR [facility]; 5 MCG/KG/MIN PRN Reason: Protocol Last Admin: 10/02/16 12:07 Dose: Not Given Levetiracetam (Keppra Injection -) 500 mg IVPB BID [facility] Last Admin: 10/02/16 09:06 Dose: 500 mg Metoprolol Tartrate (Lopressor Injection -) 5 mg IVPUSH Q4H PRN PRN Reason: HYPERTENSION Last Admin: 10/01/16 21:41 Dose: 5 mg Metoprolol Tartrate (Lopressor -) 100 mg NGT Q6HPO [facility] Last Admin: 10/02/16 12:10 Dose: 100 mg Ranitidine HCl (Zantac Oral Solution -) 150 mg PO DAILY [facility] Last Admin: 10/02/16 09:05 Dose: 150 mg Tamsulosin HCl (Flomax -) 0.4 mg PO DAILY@0830 [facility] Last Admin: 10/02/16 09:05 Dose: 0.4 mg ASSESSMENT AND PLAN: Acute Hypoxic Respiratory Failure s/p Fall Traumatic Subdural Hematoma/Subarachnoid Hemorrhage Atrial Fibrillation on anticoagulation Dysfunctional Platelets from Plavix HTN Dementia Likely Aspiration Pneumonia - empiric antiepileptics, steroids - s/p antibiotics - minimize sedation to assess mental status - spontaneous breathing trials as tolerated - enteral feeds - DVT/GI prophylaxis - ICU monitoring - may need tracheostomy if unable to tolerate weaning critical care time spent in reviewing chart, evaluating patient and formulating plan 38 min
--- NOTE | 2016-10-02 13:43 | PN ---
Progress Note, Physician Chief Complaint: Intubated. off sedation. arousable, does not move left arm. History of Present Illness: This is an 86 year old male with a pmhx of htn, afib on coumadin, CAD s/p stents at [facility] in 2010, hld, and chronic systolic CHF with LVEF 30% in 2014 who presented to ER after a mechanical fall found to have subdural hemorrhage on coumadin and intubated for airway protection. Sedation removed this morning, he is more alert, not moving left arm. He is following commands. - Current Medication List Current Medications: Active Medications Acetaminophen (Tylenol Oral Solution -) 650 mg PO Q4H PRN PRN Reason: FEVER OR PAIN Last Admin: 10/01/16 21:42 Dose: 650 mg Atorvastatin Calcium (Lipitor -) 10 mg PO [facility] Last Admin: 10/01/16 21:41 Dose: 10 mg Bacitracin (Bacitracin -) 1 applic TP BID [facility] Last Admin: 10/02/16 09:07 Dose: 1 applic Chlorhexidine Gluconate (Hibiclens For Decolonization -) 1 applic TP [facility] Last Admin: 10/01/16 21:40 Dose: 1 applic Chlorhexidine Gluconate (Peridex -) 15 ml MM BID [facility] Last Admin: 10/02/16 09:05 Dose: 15 ml Dexamethasone Sodium Phosphate (Decadron Injection -) 4 mg IVPUSH Q12H [facility] Last Admin: 10/02/16 09:05 Dose: 4 mg Digoxin (Lanoxin -) 0.125 mg PO [facility] Last Admin: 10/01/16 21:41 Dose: 0.125 mg Propofol (Diprivan -) 100 mls @ 2.77 mls/hr IVPUSH TITR [facility]; 5 MCG/KG/MIN PRN Reason: Protocol Last Admin: 10/02/16 12:07 Dose: Not Given Levetiracetam (Keppra Injection -) 500 mg IVPB BID [facility] Last Admin: 10/02/16 09:06 Dose: 500 mg Metoprolol Tartrate (Lopressor Injection -) 5 mg IVPUSH Q4H PRN PRN Reason: HYPERTENSION Last Admin: 10/01/16 21:41 Dose: 5 mg Metoprolol Tartrate (Lopressor -) 100 mg NGT Q6HPO [facility] Last Admin: 10/02/16 12:10 Dose: 100 mg Ranitidine HCl (Zantac Oral Solution -) 150 mg PO DAILY [facility] Last Admin: 10/02/16 09:05 Dose: 150 mg Tamsulosin HCl (Flomax -) 0.4 mg PO DAILY@0830 [facility] Last Admin: 10/02/16 09:05 Dose: 0.4 mg - Objective Vital Signs: Vital Signs Temperature 99.4 F 10/02/16 10:00 Pulse Rate 105 H 10/02/16 12:00 Respiratory Rate 18 10/02/16 12:00 Blood Pressure 148/92 10/02/16 12:00 O2 Sat by Pulse Oximetry (%) 100 10/01/16 20:11 Constitutional: Yes: No Distress, Calm Eyes: Yes: Conjunctiva Clear HENT: Yes: Normocephalic Neck: Yes: Supple, Trachea Midline Cardiovascular: Yes: Tachycardia, Pulse Irregular Respiratory: Yes: Mechanically Ventilated Gastrointestinal: Yes: Normal Bowel Sounds, Soft ...Rectal Exam: Yes: Erythema Edema: Yes Edema: LLE: 1+, RLE: 1+ Peripheral Pulses WNL: Yes Labs: CBC, BMP 10/02/16 05:05 10/02/16 05:05 INR, PTT INR 1.33 (0.82-1.09) H 09/30/16 05:30 Problem List - Problems (1) Atrial fibrillation Assessment/Plan: continue to hold all antiplatelet and AC medications. Prognosis is very poor. There are no cardiac contraindications to surgery for tracheostomy and PEG/ Gtube if needed. continue Digoxin PO. Stop amiodarone Titrate metoprolol as tolerated by bp and HR. RVR in atrial fibrillation is not the overall determinant of his prognosis. I have discussed this with his . Code(s): I48.91 - UNSPECIFIED ATRIAL FIBRILLATION Qualifiers: Atrial fibrillation type: persistent Qualified Code(s): I48.1 - Persistent atrial fibrillation
[2016-10-02] MEDS: CHLORHEXIDINE GLUCONATE 4% CLEANSER FOR DECOLONIZATION TP SCH (21:21)
[2016-10-02] MEDS: DIGOXIN 0.125 MG TABLET (FP) PO SCH (21:21)
[2016-10-02] MEDS: ATORVASTATIN CA 10 MG TABLET (FP) PO SCH (21:22)
[2016-10-03 06:15] LABS: BASOPHIL 0.1 % (0-2.0); MCH 30.4 pg (25.7-33.7); MCHC 33.1 g/dl (32.0-35.9); MEAN CELL VOLUME 91.8 fl (80-96); MEAN PLT VOLUME 10.7 fl (7.5-11.1); NEUTROPHILS 90.5 % (42.8-82.8); PLATELET COUNT 125 K/MM3 (134-434); RDW 14.1 % (11.9-15.9); WHITE BLOOD COUNT 16.6 K/mm3 (4.0-10.0)
[2016-10-03 06:29] LABS: ALBUMIN 2.4 g/dl (3.4-5.0); ALK PHOS 87 U/L (45-117); ANION GAP 8 (8-16); BILIRUBIN,TOTAL 2.4 mg/dL (0.2-1.0); CALCIUM 7.8 mg/dL (8.5-10.1); CO2 32 mmol/L (21-32); COCKROFT - GAULT 101; CREATININE 0.7 mg/dL (0.7-1.3); GLUCOSE,RANDOM 225 mg/dL (74-106); MAGNESIUM 2.6 mg/dL (1.8-2.4); PHOSPHOROUS 3.8 mg/dL (2.5-4.9); SGOT/AST 53 U/L (15-37); SGPT/ALT 175 U/L (12-78)
[2016-10-03 06:31] LABS: ALBUMIN 2.4 g/dl (3.4-5.0); BILIRUBIN,DIRECT 1.1 mg/dL (0.0-0.2)
[2016-10-03 06:33] LABS: BILIRUBIN,TOTAL 2.7 mg/dL (0.2-1.0); TOT PROT 5.8 g/dl (6.4-8.2)
[2016-10-03] MEDS: METOPROLOL TARTRATE 50 MG TABLET (FP) NGT SCH ×5 (07:20→23:45)
--- NOTE | 2016-10-03 07:21 | PN ---
Physical Exam: SUBJECTIVE: Patient seen and examined. off sedation, lethargic, easily arousable but does not remain alert. minimal flexion in left hand, otherwise LUE is flaccid. as per son at bedside this morning, of patient would not be available all day this morning. I left a message on home phone and cell this afternoon to obtain phone consent for trachostomy, however no return call. OBJECTIVE: Vital Signs Period Temp Pulse Resp BP Sys/Obrien Pulse Ox Last 24 Hr 99 F-99.5 F 81-105 16-24 107-166/65-101 97-100 EYES: perrla, sclera anicteric, conjunctiva clear. No ptosis. ENT: oropharynx with ET and OG tube, dry mucous membranes. left nostril with dried blood. NECK: Trachea midline, thick neck LUNGS: diffuse coarse breath sounds b/l with anterior auscultation HEART: afib, S1, S2 without murmur, rub or gallop. ABDOMEN: Soft, nondistended, normoactive bowel sounds EXTREMITIES: 2+ radial and DP pulses b/l, warm, well-perfused, trace edema. abrasion below right knee with dried blood, no discharge, swelling on medial left knee with yellow discoloration. right pinky with suturing in place- no surrounding erythema/discharge. 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 Laboratory Results - last 24 hr 10/03/16 10/03/16 10/03/16 05:20 05:20 05:20 WBC 16.6 H D RBC 4.02 Hgb 12.2 Hct 36.9 MCV 91.8 MCHC 33.1 RDW 14.1 Plt Count 125 L MPV 10.7 Neutrophils % 90.5 H Lymphocytes % 2.0 L Monocytes % 7.4 Eosinophils % 0.0 Basophils % 0.1 Sodium 143 Potassium 3.9 Chloride 103 Carbon Dioxide 32 Anion Gap 8 BUN 57 H Creatinine 0.7 Creat Clearance w eGFR > 60 Random Glucose 225 H Calcium 7.8 L Phosphorus 3.8 Magnesium 2.6 H Total Bilirubin 2.4 H 2.7 H Direct Bilirubin 1.1 H AST 53 H D 52 H ALT 175 H 176 H Alkaline Phosphatase 87 101 Total Protein 6.0 L 5.8 L Albumin 2.4 L 2.4 L Active Medications Generic Name Dose Route Start Last Admin Trade Name Freq PRN Reason Stop Dose Admin Acetaminophen 650 mg 09/29/16 14:27 10/01/16 21:42 Tylenol Oral Solution - PO 650 mg Q4H PRN Administration FEVER OR PAIN Atorvastatin Calcium 10 mg 09/26/16 22:00 10/02/16 21:22 Lipitor - PO 10 mg HS [facility] Administration Bacitracin 1 applic 09/24/16 23:15 10/02/16 21:20 Bacitracin - TP 1 applic BID [facility] Administration Chlorhexidine Gluconate 1 applic 09/25/16 22:00 10/02/16 21:21 Hibiclens For Decolonization - TP 1 applic HS [facility] Administration Chlorhexidine Gluconate 15 ml 09/25/16 22:00 10/02/16 21:22 Peridex - MM 15 ml BID [facility] Administration Dexamethasone Sodium Phosphate 4 mg 10/03/16 10:00 Decadron Injection - IVPUSH DAILY [facility] Digoxin 0.125 mg 09/26/16 22:00 10/02/16 21:21 Lanoxin - PO 0.125 mg HS [facility] Administration Propofol 100 mls @ 2.77 mls/hr 09/29/16 10:45 10/02/16 12:07 Diprivan - IVPUSH Not Given TITR [facility] Protocol 5 MCG/KG/MIN Levetiracetam 500 mg 09/25/16 10:00 10/02/16 21:21 Keppra Injection - IVPB 500 mg BID [facility] Administration Metoprolol Tartrate 5 mg 09/28/16 08:35 10/01/16 21:41 Lopressor Injection - IVPUSH 5 mg Q4H PRN Administration HYPERTENSION Metoprolol Tartrate 100 mg 09/30/16 03:00 10/03/16 07:20 Lopressor - NGT 100 mg Q6HPO [facility] Administration Ranitidine HCl 150 mg 09/27/16 10:00 10/02/16 09:05 Zantac Oral Solution - PO 150 mg DAILY [facility] Administration Tamsulosin HCl 0.4 mg 09/26/16 11:00 10/02/16 09:05 Flomax - PO 0.4 mg DAILY@0830 [facility] Administration ASSESSMENT/PLAN: 86 yr old man with dementia, afib on plavix and warfarin, HTN, CAD s/p stents, CHF, parkinson's disorder presents s/p mechanical fall found to have subarachnoid and subdural hemorrhage. Neurologic keppra 500mg BID IVPB for seizure prophylaxis decadron 4mg push d12hr - course decadron 4mg ivpush q6hr 09/25- (6 days), q8hr 09/30-10/01 (3 days), q12hr 10/02- follows simple commands off sedation, however remains lethargic, will observe off sedation as he is calm and cooperative consult: Dr. Ventura Pulmonary mechanically ventilated, Fio2 40%, will need to discuss trach with . will call back tomorrow morning to obtain consent titrate fio2 to maintain sat >90% - AC mode, pt remained lethargic today Hemotalogical - repeat coags consult: Dr. Melgar Cardiovascular - afib with HTN - metoprolol tartrate 100mg BID NGT for rate control, can titrate up as needed. - digoxin .125 mg po HS - hold warfarin and plavix in setting of acute hemorrhage consult: Dr. Pierce/Dr. Fox Infectious disease leucocytosis uptrending, possible effect from steriods, continue to trend. monitor for fevers. observe off abx for now. - tylenol 650mg NGT q4h for fevers Gastrointestinal - OG tube in place for medications and feeds, will likely require PEG when trach completed. - prophylaxis with zantac daily - Jevity feeds volume based for ideal body weight: 1,200ml - transminitis continues, u/s to r/o cholethiasis flomax 0.4mg po daily NGT [place] cath in place to monitor urine output Renal Uop: 1300cc/24hr replete electrolytes goal K>4, Mag >2 DVT scd's given acute bleed Diet: Jevity via NGT Visit type - Emergency Visit Emergency Visit: No - New Patient This patient is new to me today: No - Critical Care Critical Care patient: Yes Total Critical Care Time (in minutes): 41 Critical Care Statement: The care of this patient involved high complexity decision making to prevent further life threatening deterioration of the patient 's condition and/or to evalute & treat vital organ system(s) failure or risk of failure.
[2016-10-03] MEDS: TAMSULOSIN HCL 0.4 MG CAP.ER.24H (FP) PO SCH (08:40)
[2016-10-03] MEDS: RANITIDINE HCL 150 MG/10 ML UNIT-DOSE CUP PO SCH (09:32)
[2016-10-03] MEDS: CHLORHEXIDINE GLUCONATE 0.12% 15ML CUP MM SCH ×2 (09:32→23:45)
[2016-10-03] MEDS: levETIRAcetam 500 MG/5 ML INJECTION VIAL IVPB SCH ×2 (09:35→23:45)
[2016-10-03] MEDS: BACITRACIN 30 GM TUBE TOPICAL OINTMENT TP SCH ×2 (09:35→23:44)
[2016-10-03] MEDS ORDERED: DEXAMETHASONE SOD PHOSPHATE 4 MG/1 ML VIAL IVPUSH SCH (10:00)
--- NOTE | 2016-10-03 10:21 | PN ---
Progress Note, Physician History of Present Illness: Pt. was seen and examined in ICU. Pt. is intubated, off sedation. Pt opens eyes at verbal stimuli, follows simple commands. - Current Medication List Current Medications: Active Medications Acetaminophen (Tylenol Oral Solution -) 650 mg PO Q4H PRN PRN Reason: FEVER OR PAIN Last Admin: 10/01/16 21:42 Dose: 650 mg Atorvastatin Calcium (Lipitor -) 10 mg PO HS [facility] Last Admin: 10/02/16 21:22 Dose: 10 mg Bacitracin (Bacitracin -) 1 applic TP BID [facility] Last Admin: 10/03/16 09:35 Dose: 1 applic Chlorhexidine Gluconate (Hibiclens For Decolonization -) 1 applic TP HS [facility] Last Admin: 10/02/16 21:21 Dose: 1 applic Chlorhexidine Gluconate (Peridex -) 15 ml MM BID [facility] Last Admin: 10/03/16 09:32 Dose: 15 ml Dexamethasone Sodium Phosphate (Decadron Injection -) 4 mg IVPUSH DAILY [facility] Last Admin: 10/03/16 09:35 Dose: 4 mg Digoxin (Lanoxin -) 0.125 mg PO HS [facility] Last Admin: 10/02/16 21:21 Dose: 0.125 mg Propofol (Diprivan -) 100 mls @ 2.77 mls/hr IVPUSH TITR [facility]; 5 MCG/KG/MIN PRN Reason: Protocol Last Admin: 10/02/16 12:07 Dose: Not Given Levetiracetam (Keppra Injection -) 500 mg IVPB BID [facility] Last Admin: 10/03/16 09:35 Dose: 500 mg Metoprolol Tartrate (Lopressor Injection -) 5 mg IVPUSH Q4H PRN PRN Reason: HYPERTENSION Last Admin: 10/01/16 21:41 Dose: 5 mg Metoprolol Tartrate (Lopressor -) 100 mg NGT Q6HPO [facility] Last Admin: 10/03/16 07:20 Dose: 100 mg Ranitidine HCl (Zantac Oral Solution -) 150 mg PO DAILY [facility] Last Admin: 10/03/16 09:32 Dose: 150 mg Tamsulosin HCl (Flomax -) 0.4 mg PO DAILY@0830 [facility] Last Admin: 10/03/16 08:40 Dose: 0.4 mg - Objective Vital Signs: Vital Signs Temperature 99.1 F 10/03/16 09:39 Pulse Rate 101 H 10/03/16 09:59 Respiratory Rate 23 10/03/16 09:58 Blood Pressure 139/88 10/03/16 09:39 O2 Sat by Pulse Oximetry (%) 99 10/03/16 09:59 Constitutional: Yes: No Distress, Calm Cardiovascular: Yes: Pulse Irregular, S1, S2 Respiratory: Yes: Regular, CTA Bilaterally. No: Rales Gastrointestinal: Yes: Normal Bowel Sounds, Soft Edema: No Neurological: Yes: Other (Pt follows simple commands. Left leg without motor activity, left fingers with posible twiching when prompted) Labs: CBC, BMP 10/03/16 05:20 10/03/16 05:20 INR, PTT INR 1.33 (0.82-1.09) H 09/30/16 05:30 Problem List - Problems (1) Subdural hematoma Assessment/Plan: progression during the first 24 hours (with midline shift), now stable. Steroids IV. Code(s): I62.00 - NONTRAUMATIC SUBDURAL HEMORRHAGE, UNSPECIFIED (2) Supratherapeutic INR Code(s): R79.1 - ABNORMAL COAGULATION PROFILE (3) Atrial fibrillation Assessment/Plan: with RVR; BB was increased. HR is controlled Code(s): I48.91 - UNSPECIFIED ATRIAL FIBRILLATION Qualifiers: Atrial fibrillation type: persistent Qualified Code(s): I48.1 - Persistent atrial fibrillation (4) Accidental fall Code(s): W19.XXXA - UNSPECIFIED FALL, INITIAL ENCOUNTER Qualifiers: Encounter type: sequela Qualified Code(s): W19.XXXS - Unspecified fall, sequela (5) Nasal bone fracture Assessment/Plan: seen by ENT- medical management Code(s): S02.2XXA - FRACTURE OF NASAL BONES, INIT ENCNTR FOR CLOSED FRACTURE Qualifiers: Encounter type: initial encounter Fracture type: closed Qualified Code(s): S02.2XXA - Fracture of nasal bones, initial encounter for closed fracture (6) Uncontrolled hypertension Code(s): I10 - ESSENTIAL (PRIMARY) HYPERTENSION (7) Abrasions of multiple sites Code(s): T14.8 - OTHER INJURY OF UNSPECIFIED BODY REGION (8) Dementia Assessment/Plan: mild to moderate at baseline. Code(s): F03.90 - UNSPECIFIED DEMENTIA WITHOUT BEHAVIORAL DISTURBANCE (9) Leukocytosis Assessment/Plan: To monitor; on Steroids Code(s): D72.829 - ELEVATED WHITE BLOOD CELL COUNT, UNSPECIFIED (10) Hypokalemia Assessment/Plan: corrected Code(s): E87.6 - HYPOKALEMIA (11) Thrombocytopenia Code(s): D69.6 - THROMBOCYTOPENIA, UNSPECIFIED (12) Pneumonia Assessment/Plan: improvement of CXR, improvement of WBC, afebrile; off abtx Code(s): J18.9 - PNEUMONIA, UNSPECIFIED ORGANISM (13) Respiratory failure Code(s): J96.90 - RESPIRATORY FAILURE, UNSP, UNSP W HYPOXIA OR HYPERCAPNIA (14) Hypophosphatemia Code(s): E83.39 - OTHER DISORDERS OF PHOSPHORUS METABOLISM Assessment/Plan Neuro Sx consult appreciate Neuro Consult appreciated Cardio consult appreciated. CCM consult appreciated Admitted to ICU, intubated. Hematology consult appreciated. s/p vit K, FFP, Plts Tx. ENT consult appreciated. Case was discussed with pt's ICU nurse (Fay). CPAP trial per ICU team. AM labs. Prognosis: reserved Time spent in managing pt's condition: over 40 minutes.
[2016-10-03] MEDS: ACETAMINOPHEN 650 MG/20.3 ML ORAL SOLUTION (CUPS) PO PRN ×2 (10:42→23:44)
--- NOTE | 2016-10-03 15:15 | PN ---
Progress Note, Physician Chief Complaint: Intubated. off sedation. arousable. History of Present Illness: This is an 86 year old male with a pmhx of htn, afib on coumadin, CAD s/p stents at [facility] in 2010, hld, and chronic systolic CHF with LVEF 30% in 2014 who presented to ER after a mechanical fall found to have subdural hemorrhage on coumadin and intubated for airway protection. Sedation removed this morning, he is more alert, minimally moving left arm. He is following commands. - Current Medication List Current Medications: Active Medications Acetaminophen (Tylenol Oral Solution -) 650 mg PO Q4H PRN PRN Reason: FEVER OR PAIN Last Admin: 10/03/16 10:42 Dose: 650 mg Atorvastatin Calcium (Lipitor -) 10 mg PO HS [facility] Last Admin: 10/02/16 21:22 Dose: 10 mg Bacitracin (Bacitracin -) 1 applic TP BID [facility] Last Admin: 10/03/16 09:35 Dose: 1 applic Chlorhexidine Gluconate (Hibiclens For Decolonization -) 1 applic TP HS [facility] Last Admin: 10/02/16 21:21 Dose: 1 applic Chlorhexidine Gluconate (Peridex -) 15 ml MM BID [facility] Last Admin: 10/03/16 09:32 Dose: 15 ml Dexamethasone Sodium Phosphate (Decadron Injection -) 4 mg IVPUSH DAILY [facility] Last Admin: 10/03/16 09:35 Dose: 4 mg Digoxin (Lanoxin -) 0.125 mg PO HS [facility] Last Admin: 10/02/16 21:21 Dose: 0.125 mg Propofol (Diprivan -) 100 mls @ 2.77 mls/hr IVPUSH TITR [facility]; 5 MCG/KG/MIN PRN Reason: Protocol Last Admin: 10/02/16 12:07 Dose: Not Given Levetiracetam (Keppra Injection -) 500 mg IVPB BID [facility] Last Admin: 10/03/16 09:35 Dose: 500 mg Metoprolol Tartrate (Lopressor Injection -) 5 mg IVPUSH Q4H PRN PRN Reason: HYPERTENSION Last Admin: 10/01/16 21:41 Dose: 5 mg Metoprolol Tartrate (Lopressor -) 100 mg NGT Q6HPO [facility] Last Admin: 10/03/16 12:12 Dose: 100 mg Ranitidine HCl (Zantac Oral Solution -) 150 mg PO DAILY [facility] Last Admin: 10/03/16 09:32 Dose: 150 mg Tamsulosin HCl (Flomax -) 0.4 mg PO DAILY@0830 [facility] Last Admin: 10/03/16 08:40 Dose: 0.4 mg - Objective Vital Signs: Vital Signs Temperature 99 F 10/03/16 13:35 Pulse Rate 98 H 10/03/16 13:35 Respiratory Rate 22 10/03/16 13:35 Blood Pressure 142/79 10/03/16 13:35 O2 Sat by Pulse Oximetry (%) 97 10/03/16 12:33 Constitutional: Yes: No Distress, Calm HENT: Yes: Normocephalic Neck: Yes: Supple, Trachea Midline Cardiovascular: Yes: Pulse Irregular, S1, S2 Respiratory: Yes: Mechanically Ventilated Gastrointestinal: Yes: Normal Bowel Sounds, Soft Extremities: Yes: Erythema Edema: Yes Edema: LLE: 1+, RLE: 1+ Peripheral Pulses WNL: Yes Labs: CBC, BMP 10/03/16 05:20 10/03/16 05:20 INR, PTT INR 1.33 (0.82-1.09) H 09/30/16 05:30 Problem List - Problems (1) Atrial fibrillation Assessment/Plan: continue to hold all antiplatelet and AC medications. Prognosis is very poor. There are no cardiac contraindications to surgery for tracheostomy and PEG/ Gtube if needed. continue Digoxin PO. Titrate metoprolol as tolerated by bp and HR. RVR in atrial fibrillation is not the overall determinant of his prognosis. I have discussed this with his . Code(s): I48.91 - UNSPECIFIED ATRIAL FIBRILLATION Qualifiers: Atrial fibrillation type: persistent Qualified Code(s): I48.1 - Persistent atrial fibrillation
--- NOTE | 2016-10-03 15:18 | PN ---
Teaching Attending Note Name of Resident: Jesse Hamm ATTENDING PHYSICIAN STATEMENT I saw and evaluated the patient. I reviewed the resident's note and discussed the case with the resident. I agree with the resident's findings and plan as documented. SUBJECTIVE: Patient seen and examined in the ICU. Remains intubated. Opens eyes to voice commands. Able to follow commands. Some mild improvement in LUE motor function. Unable to move the left leg. AC Mode of vent. Nabil to only tolerate short weans. No pressors. OBJECTIVE: Intake & Output 09/30/16 10/01/16 10/02/16 10/03/16 23:59 23:59 23:59 23:59 Intake Total 1341.7 1161 901 840 Output Total 800 1100 1300 Balance 541.7 61 -399 840 Weight 203 lb 8 oz 204 lb 2 oz 207 lb 14.334 oz 201 lb 8.04 oz Last Vital Signs Temp Pulse Resp BP Pulse Ox 99 F 98 H 22 142/79 97 10/03/16 14:00 10/03/16 14:00 10/03/16 14:00 10/03/16 14:00 10/03/16 12:33 Active Medications Acetaminophen (Tylenol Oral Solution -) 650 mg PO Q4H PRN PRN Reason: FEVER OR PAIN Last Admin: 10/03/16 10:42 Dose: 650 mg Atorvastatin Calcium (Lipitor -) 10 mg PO HS [facility] Last Admin: 10/02/16 21:22 Dose: 10 mg Bacitracin (Bacitracin -) 1 applic TP BID [facility] Last Admin: 10/03/16 09:35 Dose: 1 applic Chlorhexidine Gluconate (Hibiclens For Decolonization -) 1 applic TP HS [facility] Last Admin: 10/02/16 21:21 Dose: 1 applic Chlorhexidine Gluconate (Peridex -) 15 ml MM BID [facility] Last Admin: 10/03/16 09:32 Dose: 15 ml Dexamethasone Sodium Phosphate (Decadron Injection -) 4 mg IVPUSH DAILY [facility] Last Admin: 10/03/16 09:35 Dose: 4 mg Digoxin (Lanoxin -) 0.125 mg PO [facility] Last Admin: 10/02/16 21:21 Dose: 0.125 mg Propofol (Diprivan -) 100 mls @ 2.77 mls/hr IVPUSH TITR [facility]; 5 MCG/KG/MIN PRN Reason: Protocol Last Admin: 10/02/16 12:07 Dose: Not Given Levetiracetam (Keppra Injection -) 500 mg IVPB BID [facility] Last Admin: 10/03/16 09:35 Dose: 500 mg Metoprolol Tartrate (Lopressor Injection -) 5 mg IVPUSH Q4H PRN PRN Reason: HYPERTENSION Last Admin: 10/01/16 21:41 Dose: 5 mg Metoprolol Tartrate (Lopressor -) 100 mg NGT Q6HPO [facility] Last Admin: 10/03/16 12:12 Dose: 100 mg Ranitidine HCl (Zantac Oral Solution -) 150 mg PO DAILY [facility] Last Admin: 10/03/16 09:32 Dose: 150 mg Tamsulosin HCl (Flomax -) 0.4 mg PO DAILY@0830 [facility] Last Admin: 10/03/16 08:40 Dose: 0.4 mg Gen: intubated, Awakens to voice Heart: tachycardic, irregular Lung: scattered rhonchi Abd: soft, nontender Ext: (+) edema Laboratory Results - last 24 hr 10/03/16 10/03/16 10/03/16 05:20 05:20 05:20 WBC 16.6 H D RBC 4.02 Hgb 12.2 Hct 36.9 MCV 91.8 MCHC 33.1 RDW 14.1 Plt Count 125 L MPV 10.7 Neutrophils % 90.5 H Lymphocytes % 2.0 L Monocytes % 7.4 Eosinophils % 0.0 Basophils % 0.1 Sodium 143 Potassium 3.9 Chloride 103 Carbon Dioxide 32 Anion Gap 8 BUN 57 H Creatinine 0.7 Creat Clearance w eGFR > 60 Random Glucose 225 H Calcium 7.8 L Phosphorus 3.8 Magnesium 2.6 H Total Bilirubin 2.4 H 2.7 H Direct Bilirubin 1.1 H AST 53 H D 52 H ALT 175 H 176 H Alkaline Phosphatase 87 101 Total Protein 6.0 L 5.8 L Albumin 2.4 L 2.4 L ASSESSMENT AND PLAN: Acute Hypoxic Respiratory Failure s/p Fall Traumatic Subdural Hematoma/Subarachnoid Hemorrhage Atrial Fibrillation on anticoagulation Dysfunctional Platelets from Plavix HTN Dementia Likely Aspiration Pneumonia Elevated LFTs -> etiology to be determined - Abdominal US - empiric antiepileptics - Wean decadron - Monitor off ABX -> low threshold to start if fever spike - DVT/GI prophylaxis - Follow AM WBC - Will likely need Trach and PEG Dr Mena critical care time spent in reviewing chart, evaluating patient and formulating plan 40 min
[2016-10-03] MEDS: PROPOFOL 100 ML IVPUSH SCH (23:44)
[2016-10-03] MEDS: CHLORHEXIDINE GLUCONATE 4% CLEANSER FOR DECOLONIZATION TP SCH (23:45)
[2016-10-03] MEDS: ATORVASTATIN CA 10 MG TABLET (FP) PO SCH (23:45)
[2016-10-03] MEDS: DIGOXIN 0.125 MG TABLET (FP) PO SCH (23:45)
[2016-10-03] MEDS: DEXAMETHASONE SOD PHOSPHATE 4 MG/1 ML VIAL IVPUSH SCH (23:45)
[2016-10-04] MEDS: DEXAMETHASONE SOD PHOSPHATE 4 MG/1 ML VIAL IVPUSH SCH ×2 (00:46→10:12)
[2016-10-04 06:43] LABS: BASOPHIL 0.1 % (0-2.0); MCH 30.8 pg (25.7-33.7); MCHC 33.4 g/dl (32.0-35.9); MEAN CELL VOLUME 92.3 fl (80-96); MEAN PLT VOLUME 10.7 fl (7.5-11.1); NEUTROPHILS 94.4 % (42.8-82.8); PLATELET COUNT 100 K/MM3 (134-434); RDW 13.7 % (11.9-15.9)
[2016-10-04 06:58] LABS: INR 1.33 (0.82-1.09); PROTHROMBIN TIME (PATIENT) 14.7 SEC (9.98-11.88)
[2016-10-04 07:02] LABS: ALBUMIN 2.3 g/dl (3.4-5.0); ALK PHOS 92 U/L (45-117); ANION GAP 8 (8-16); BILIRUBIN,TOTAL 2.6 mg/dL (0.2-1.0); CALCIUM 7.9 mg/dL (8.5-10.1); CO2 32 mmol/L (21-32); COCKROFT - GAULT 99; CREATININE 0.7 mg/dL (0.7-1.3); GLUCOSE,RANDOM 230 mg/dL (74-106); MAGNESIUM 2.7 mg/dL (1.8-2.4); PHOSPHOROUS 3.8 mg/dL (2.5-4.9); SGOT/AST 34 U/L (15-37); SGPT/ALT 136 U/L (12-78); TOT PROT 5.9 g/dl (6.4-8.2)
[2016-10-04] MEDS: METOPROLOL TARTRATE 50 MG TABLET (FP) NGT SCH ×4 (07:03→23:49)
[2016-10-04 08:24] LABS: ARTERIAL BLD GAS O2 SATURATION 95.9 % (90-98.9); ARTERIAL BLOOD GAS BASE EXCESS 6.9 meq/l (-2-2); ARTERIAL BLOOD GAS HCO3 30.8 meq/L (22-26); ARTERIAL BLOOD GAS PO2 78.9 mmHg (68-100)
[2016-10-04 08:26] LABS: ALLENS TEST POSITIVE; ART PUNCT SITE LEFT RADIAL; LPM/O2% 40%; MECH. VENT. YES; PT. ON O2? YES; TYPE OF O2 VENT; VENT RATE 16; VT/PRESS 450
[2016-10-04 08:27] LABS: ARTERIAL BLOOD GAS pH 7.48 (7.35-7.45)
--- NOTE | 2016-10-04 09:15 | PN ---
Physical Exam: SUBJECTIVE: Patient seen and examined lethargic in bed. intubated, off sedation. opens eyes to verbal and tactile stimuli, easily arousable but does not remain alert. OBJECTIVE: Vital Signs Period Temp Pulse Resp BP Sys/Obrien Pulse Ox Last 24 Hr 97.8 F-99.1 F 85-110 16-28 121-144/69-90 97-99 EYES: sluggish perrla, sclera anicteric, conjunctiva clear. ENT: oropharynx with ET and OG tube, dry mucous membranes. abrasion over nostril healing with minimal ecchymosis. viscous secretions. NECK: Trachea midline, thick neck LUNGS: diffuse coarse breath sounds b/l with anterior auscultation, quiet at bases HEART: afib, S1, S2 without murmur, rub or gallop. ABDOMEN: Soft, nondistended, normoactive bowel sounds EXTREMITIES: 2+ radial and DP pulses b/l, warm, well-perfused, trace edema. abrasion below right knee with dried blood, no discharge, swelling on medial left knee with yellow discoloration. right 5th digit with suturing in place- no surrounding erythema/discharge. 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 facial symmetry. Laboratory Results - last 24 hr 10/04/16 10/04/16 10/04/16 05:18 05:18 05:18 WBC 21.0 H RBC 3.90 L Hgb 12.0 Hct 36.0 MCV 92.3 MCHC 33.4 RDW 13.7 Plt Count 100 L MPV 10.7 Neutrophils % 94.4 H Lymphocytes % 1.8 L Monocytes % 3.7 L Eosinophils % 0.0 Basophils % 0.1 INR 1.33 H Puncture Site ABG pH ABG pCO2 at Pt Temp ABG pO2 at Pt Temp ABG HCO3 ABG O2 Sat (Measured) ABG O2 Content ABG Base Excess Prosper Test O2 Delivery Device Oxygen Flow Rate Vent Mode Vent Rate Mechanical Rate PEEP Pressure Support Vent Sodium 144 Potassium 4.0 Chloride 104 Carbon Dioxide 32 Anion Gap 8 BUN 57 H Creatinine 0.7 Creat Clearance w eGFR > 60 Random Glucose 230 H Calcium 7.9 L Phosphorus 3.8 Magnesium 2.7 H Total Bilirubin 2.6 H AST 34 D ALT 136 H D Alkaline Phosphatase 92 Total Protein 5.9 L Albumin 2.3 L 10/04/16 08:00 WBC RBC Hgb Hct MCV MCHC RDW Plt Count MPV Neutrophils % Lymphocytes % Monocytes % Eosinophils % Basophils % INR Puncture Site Left radial ABG pH 7.48 H ABG pCO2 at Pt Temp 42.0 D ABG pO2 at Pt Temp 78.9 D ABG HCO3 30.8 H ABG O2 Sat (Measured) 95.9 ABG O2 Content 15.9 ABG Base Excess 6.9 H Prosper Test Positive O2 Delivery Device Vent Oxygen Flow Rate 40% Vent Mode A/c Vent Rate 16 Mechanical Rate Yes PEEP 5.0 Pressure Support Vent 450 Sodium Potassium Chloride Carbon Dioxide Anion Gap BUN Creatinine Creat Clearance w eGFR Random Glucose Calcium Phosphorus Magnesium Total Bilirubin AST ALT Alkaline Phosphatase Total Protein Albumin Active Medications Generic Name Dose Route Start Last Admin Trade Name Freq PRN Reason Stop Dose Admin Acetaminophen 650 mg 09/29/16 14:27 10/03/16 23:44 Tylenol Oral Solution - PO 650 mg Q4H PRN Administration FEVER OR PAIN Atorvastatin Calcium 10 mg 09/26/16 22:00 10/03/16 23:45 Lipitor - PO 10 mg HS CESAR Administration Bacitracin 1 applic 09/24/16 23:15 10/03/16 23:44 Bacitracin - TP 1 applic BID CESAR Administration Chlorhexidine Gluconate 1 applic 09/25/16 22:00 10/03/16 23:45 Hibiclens For Decolonization - TP 1 applic HS CESAR Administration Chlorhexidine Gluconate 15 ml 09/25/16 22:00 10/03/16 23:45 Peridex - MM 15 ml BID CESAR Administration Dexamethasone Sodium Phosphate 4 mg 10/03/16 22:00 10/03/16 23:45 Decadron Injection - IVPUSH 4 mg BID CESAR Administration Digoxin 0.125 mg 09/26/16 22:00 10/03/16 23:45 Lanoxin - PO 0.125 mg HS CESAR Administration Propofol 100 mls @ 2.77 mls/hr 09/29/16 10:45 10/03/16 23:44 Diprivan - IVPUSH Not Given TITR CESAR Protocol 5 MCG/KG/MIN Levetiracetam 500 mg 09/25/16 10:00 10/03/16 23:45 Keppra Injection - IVPB 500 mg BID CESAR Administration Metoprolol Tartrate 5 mg 09/28/16 08:35 10/01/16 21:41 Lopressor Injection - IVPUSH 5 mg Q4H PRN Administration HYPERTENSION Metoprolol Tartrate 100 mg 09/30/16 03:00 10/04/16 07:03 Lopressor - NGT 100 mg Q6HPO CESAR Administration Ranitidine HCl 150 mg 09/27/16 10:00 10/03/16 09:32 Zantac Oral Solution - PO 150 mg DAILY CESAR Administration Tamsulosin HCl 0.4 mg 09/26/16 11:00 10/03/16 08:40 Flomax - PO 0.4 mg DAILY@0830 C[facility] Administration ASSESSMENT/PLAN: 86 yr old man with dementia, afib on plavix and warfarin, HTN, CAD s/p stents, CHF, parkinson's disorder presents s/p mechanical fall found to have subarachnoid and subdural hemorrhage. Neurologic keppra 500mg BID IVPB for seizure prophylaxis decadron 4mg push daily - course decadron 4mg ivpush q6hr 09/25- (6 days), q8hr 09/30-10/01 (3 days), q12hr 10/02- 10/04 (3 days), daily 10/05-10/07 follows simple commands, however remains lethargic, will observe off sedation consult: Dr. Ventura Pulmonary mechanically ventilated, Fio2 40%, titrate fio2 to maintain sat >90% - vcv mode,tolerated SBT, pt remains lethargic, plan for trach today Hemotalogical - repeat coags consult: Dr. Melgar Cardiovascular - afib with HTN - metoprolol tartrate 100mg BID NGT for rate control, can titrate up as needed. - digoxin .125 mg po HS - hold warfarin and plavix in setting of acute hemorrhage consult: Dr. Pierce/Dr. Fox Infectious disease leucocytosis uptrending, possible effect from steriods, continue to trend. monitor for fevers. observe off abx for now. - tylenol 650mg NGT q4h for fevers Gastrointestinal - OG tube in place for medications and feeds, will likely require PEG when trach completed. - prophylaxis with zantac daily - Jevity feeds volume based for ideal body weight: 1,200ml - transminitis continues -improving, continue to trend - no cholethiasis or pericholecystic fluid, mild gallbladder wall thickening flomax 0.4mg po daily NGT [place] cath in place to monitor urine output Renal Uop: 500cc/24hr replete electrolytes as needed goal K>4, Mag >2 DVT scd's given acute bleed Diet: Jevity via NGT Visit type - Emergency Visit Emergency Visit: No - New Patient This patient is new to me today: No - Critical Care Critical Care patient: Yes Total Critical Care Time (in minutes): 41 Critical Care Statement: The care of this patient involved high complexity decision making to prevent further life threatening deterioration of the patient 's condition and/or to evalute & treat vital organ system(s) failure or risk of failure.
--- NOTE | 2016-10-04 09:47 | PN ---
Progress Note, Physician History of Present Illness: Pt. was seen and examined in ICU. Pt. is intubated, off sedation. Pt opens eyes at verbal stimuli, follows simple commands. Per ICU team tolerating CPAP for short period of time - Current Medication List Current Medications: Active Medications Acetaminophen (Tylenol Oral Solution -) 650 mg PO Q4H PRN PRN Reason: FEVER OR PAIN Last Admin: 10/03/16 23:44 Dose: 650 mg Atorvastatin Calcium (Lipitor -) 10 mg PO [facility] Last Admin: 10/03/16 23:45 Dose: 10 mg Bacitracin (Bacitracin -) 1 applic TP BID [facility] Last Admin: 10/03/16 23:44 Dose: 1 applic Chlorhexidine Gluconate (Hibiclens For Decolonization -) 1 applic TP [facility] Last Admin: 10/03/16 23:45 Dose: 1 applic Chlorhexidine Gluconate (Peridex -) 15 ml MM BID [facility] Last Admin: 10/03/16 23:45 Dose: 15 ml Dexamethasone Sodium Phosphate (Decadron Injection -) 4 mg IVPUSH BID [facility] Last Admin: 10/03/16 23:45 Dose: 4 mg Digoxin (Lanoxin -) 0.125 mg PO HS [facility] Last Admin: 10/03/16 23:45 Dose: 0.125 mg Propofol (Diprivan -) 100 mls @ 2.77 mls/hr IVPUSH TITR [facility]ES[facility]; 5 MCG/KG/MIN PRN Reason: Protocol Last Admin: 10/03/16 23:44 Dose: Not Given Levetiracetam (Keppra Injection -) 500 mg IVPB BID [facility] Last Admin: 10/03/16 23:45 Dose: 500 mg Metoprolol Tartrate (Lopressor Injection -) 5 mg IVPUSH Q4H PRN PRN Reason: HYPERTENSION Last Admin: 10/01/16 21:41 Dose: 5 mg Metoprolol Tartrate (Lopressor -) 100 mg NGT Q6HPO [facility] Last Admin: 10/04/16 07:03 Dose: 100 mg Ranitidine HCl (Zantac Oral Solution -) 150 mg PO DAILY [facility] Last Admin: 10/03/16 09:32 Dose: 150 mg Tamsulosin HCl (Flomax -) 0.4 mg PO DAILY@0830 [facility] Last Admin: 10/03/16 08:40 Dose: 0.4 mg - Objective Vital Signs: Vital Signs Temperature 98 F 10/04/16 06:00 Pulse Rate 100 H 10/04/16 08:00 Respiratory Rate 24 10/04/16 09:00 Blood Pressure 141/76 10/04/16 08:00 O2 Sat by Pulse Oximetry (%) 98 10/03/16 21:00 Constitutional: Yes: No Distress, Calm Cardiovascular: Yes: Tachycardia, S1, S2 Respiratory: Yes: Regular, Other (coarse at bases) Gastrointestinal: Yes: Normal Bowel Sounds, Soft Edema: No Neurological: Yes: Other (Pt. is opening eyes for couple of seconds to verbal stimuli; left hemiparesis) Labs: CBC, BMP 10/04/16 05:18 10/04/16 05:18 INR, PTT INR 1.33 (0.82-1.09) H 10/04/16 05:18 Problem List - Problems (1) Subdural hematoma Assessment/Plan: progression during the first 24 hours (with midline shift), now stable. Steroids IV. Code(s): I62.00 - NONTRAUMATIC SUBDURAL HEMORRHAGE, UNSPECIFIED (2) Supratherapeutic INR Code(s): R79.1 - ABNORMAL COAGULATION PROFILE (3) Atrial fibrillation Assessment/Plan: with RVR; BB was increased. HR is better controlled Code(s): I48.91 - UNSPECIFIED ATRIAL FIBRILLATION Qualifiers: Atrial fibrillation type: persistent Qualified Code(s): I48.1 - Persistent atrial fibrillation (4) Accidental fall Code(s): W19.XXXA - UNSPECIFIED FALL, INITIAL ENCOUNTER Qualifiers: Encounter type: sequela Qualified Code(s): W19.XXXS - Unspecified fall, sequela (5) Nasal bone fracture Assessment/Plan: seen by ENT- medical management Code(s): S02.2XXA - FRACTURE OF NASAL BONES, INIT ENCNTR FOR CLOSED FRACTURE Qualifiers: Encounter type: initial encounter Fracture type: closed Qualified Code(s): S02.2XXA - Fracture of nasal bones, initial encounter for closed fracture (6) Uncontrolled hypertension Code(s): I10 - ESSENTIAL (PRIMARY) HYPERTENSION (7) Abrasions of multiple sites Code(s): T14.8 - OTHER INJURY OF UNSPECIFIED BODY REGION (8) Dementia Assessment/Plan: mild to moderate at baseline. Code(s): F03.90 - UNSPECIFIED DEMENTIA WITHOUT BEHAVIORAL DISTURBANCE (9) Leukocytosis Assessment/Plan: To monitor; on Steroids Code(s): D72.829 - ELEVATED WHITE BLOOD CELL COUNT, UNSPECIFIED (10) Hypokalemia Assessment/Plan: corrected Code(s): E87.6 - HYPOKALEMIA (11) Thrombocytopenia Assessment/Plan: s/p Plts Tx. Plts. are trending down; to monitor Code(s): D69.6 - THROMBOCYTOPENIA, UNSPECIFIED (12) Pneumonia Assessment/Plan: (improvement of CXR, improvement of WBC, afebrile) off abtx Code(s): J18.9 - PNEUMONIA, UNSPECIFIED ORGANISM (13) Respiratory failure Assessment/Plan: s/p intubation Code(s): J96.90 - RESPIRATORY FAILURE, UNSP, UNSP W HYPOXIA OR HYPERCAPNIA (14) Hypophosphatemia Assessment/Plan: Corrected Code(s): E83.39 - OTHER DISORDERS OF PHOSPHORUS METABOLISM Assessment/Plan Neuro Sx consult appreciate- medical management Neuro Consult appreciated Cardio consult appreciated. CCM consult appreciated. Admitted to ICU, intubated. Hematology consult appreciated. s/p vit K, FFP, Plts Tx. ENT consult appreciated. CPAP trial per ICU team. Case was discussed with pt's ICU nurse. I called pt.'s and we reviewed pt.'s condition and progress; I made her aware that pt. needs tracheostomy placement and like a PEG; all questions were answered; she is considering to give consent for tracheostomy but would like to discuss with ICU attending pt.'s prognosis; she would come to the hospital in AM. ICU team is aware. AM labs. Prognosis: reserved Time spent in managing pt's condition: over 45 minutes.
[2016-10-04] MEDS: TAMSULOSIN HCL 0.4 MG CAP.ER.24H (FP) PO SCH (10:08)
[2016-10-04] MEDS: RANITIDINE HCL 150 MG/10 ML UNIT-DOSE CUP PO SCH (10:11)
[2016-10-04] MEDS: levETIRAcetam 500 MG/5 ML INJECTION VIAL IVPB SCH ×2 (10:11→23:00)
[2016-10-04] MEDS: CHLORHEXIDINE GLUCONATE 0.12% 15ML CUP MM SCH ×2 (10:12→23:00)
[2016-10-04] MEDS: BACITRACIN 30 GM TUBE TOPICAL OINTMENT TP SCH ×2 (10:23→23:46)
--- NOTE | 2016-10-04 13:33 | PN ---
Teaching Attending Note Name of Resident: Jesse Hamm ATTENDING PHYSICIAN STATEMENT I saw and evaluated the patient. I reviewed the resident's note and discussed the case with the resident. I agree with the resident's findings and plan as documented. SUBJECTIVE: Patient seen and examined in the ICU. Remains intubated. Opens eyes to voice commands. Able to follow commands. 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 Unable to move the left leg. AC Mode of vent. Able to only tolerate short weans. No pressors. Intake & Output 10/01/16 10/02/16 10/03/16 10/04/16 23:59 23:59 23:59 23:59 Intake Total 7398 984 4850 490 Output Total 1100 1300 500 700 Balance 61 -399 1610 -210 Weight 204 lb 2 oz 207 lb 14.334 oz 201 lb 8.04 oz 204 lb 9.423 oz Last Vital Signs Temp Pulse Resp BP Pulse Ox 98 F 116 H 24 149/84 96 10/04/16 06:00 10/04/16 12:00 10/04/16 12:15 10/04/16 12:00 10/04/16 10:48 Active Medications Acetaminophen (Tylenol Oral Solution -) 650 mg PO Q4H PRN PRN Reason: FEVER OR PAIN Last Admin: 10/03/16 23:44 Dose: 650 mg Atorvastatin Calcium (Lipitor -) 10 mg PO [facility] Last Admin: 10/03/16 23:45 Dose: 10 mg Bacitracin (Bacitracin -) 1 applic TP BID [facility] Last Admin: 10/04/16 10:23 Dose: 1 applic Chlorhexidine Gluconate (Hibiclens For Decolonization -) 1 applic TP HS [facility] Last Admin: 10/03/16 23:45 Dose: 1 applic Chlorhexidine Gluconate (Peridex -) 15 ml MM BID [facility] Last Admin: 10/04/16 10:12 Dose: 15 ml Dexamethasone Sodium Phosphate (Decadron Injection -) 4 mg IVPUSH BID [facility] Last Admin: 10/04/16 10:12 Dose: 4 mg Digoxin (Lanoxin -) 0.125 mg PO [facility] Last Admin: 10/03/16 23:45 Dose: 0.125 mg Propofol (Diprivan -) 100 mls @ 2.77 mls/hr IVPUSH TITR [facility]; 5 MCG/KG/MIN PRN Reason: Protocol Last Admin: 10/03/16 23:44 Dose: Not Given Levetiracetam (Keppra Injection -) 500 mg IVPB BID [facility] Last Admin: 10/04/16 10:11 Dose: 500 mg Metoprolol Tartrate (Lopressor Injection -) 5 mg IVPUSH Q4H PRN PRN Reason: HYPERTENSION Last Admin: 10/01/16 21:41 Dose: 5 mg Metoprolol Tartrate (Lopressor -) 100 mg NGT Q6HPO [facility] Last Admin: 10/04/16 07:03 Dose: 100 mg Ranitidine HCl (Zantac Oral Solution -) 150 mg PO DAILY [facility] Last Admin: 10/04/16 10:11 Dose: 150 mg Tamsulosin HCl (Flomax -) 0.4 mg PO DAILY@0830 [facility] Last Admin: 10/04/16 10:08 Dose: 0.4 mg Gen: intubated, Awakens to voice Heart: tachycardic, irregular Lung: scattered rhonchi Abd: soft, nontender Ext: (+) edema Laboratory Results - last 24 hr 10/04/16 10/04/16 10/04/16 05:18 05:18 05:18 WBC 21.0 H RBC 3.90 L Hgb 12.0 Hct 36.0 MCV 92.3 MCHC 33.4 RDW 13.7 Plt Count 100 L MPV 10.7 Neutrophils % 94.4 H Lymphocytes % 1.8 L Monocytes % 3.7 L Eosinophils % 0.0 Basophils % 0.1 INR 1.33 H Puncture Site ABG pH ABG pCO2 at Pt Temp ABG pO2 at Pt Temp ABG HCO3 ABG O2 Sat (Measured) ABG O2 Content ABG Base Excess Prosper Test O2 Delivery Device Oxygen Flow Rate Vent Mode Vent Rate Mechanical Rate PEEP Pressure Support Vent Sodium 144 Potassium 4.0 Chloride 104 Carbon Dioxide 32 Anion Gap 8 BUN 57 H Creatinine 0.7 Creat Clearance w eGFR > 60 Random Glucose 230 H Calcium 7.9 L Phosphorus 3.8 Magnesium 2.7 H Total Bilirubin 2.6 H AST 34 D ALT 136 H D Alkaline Phosphatase 92 Total Protein 5.9 L Albumin 2.3 L 10/04/16 08:00 WBC RBC Hgb Hct MCV MCHC RDW Plt Count MPV Neutrophils % Lymphocytes % Monocytes % Eosinophils % Basophils % INR Puncture Site Left radial ABG pH 7.48 H ABG pCO2 at Pt Temp 42.0 D ABG pO2 at Pt Temp 78.9 D ABG HCO3 30.8 H ABG O2 Sat (Measured) 95.9 ABG O2 Content 15.9 ABG Base Excess 6.9 H Prosper Test Positive O2 Delivery Device Vent Oxygen Flow Rate 40% Vent Mode A/c Vent Rate 16 Mechanical Rate Yes PEEP 5.0 Pressure Support Vent 450 Sodium Potassium Chloride Carbon Dioxide Anion Gap BUN Creatinine Creat Clearance w eGFR Random Glucose Calcium Phosphorus Magnesium Total Bilirubin AST ALT Alkaline Phosphatase Total Protein Albumin ASSESSMENT AND PLAN: Acute Hypoxic Respiratory Failure s/p Fall Traumatic Subdural Hematoma/Subarachnoid Hemorrhage Atrial Fibrillation on anticoagulation Dysfunctional Platelets from Plavix HTN Dementia Likely Aspiration Pneumonia Elevated LFTs -> etiology to be determined - AEDs per Neuro - Wean decadron - Monitor off ABX -> low threshold to start if fever spike - DVT/GI prophylaxis - Long discussion with the patient's . Will need Trach and PEG. I explained all the risks and benefits and she is amenable to these interventions. Dr Mena Critical care time spent in reviewing chart, evaluating patient and formulating plan 40 min
[2016-10-04] MEDS ORDERED: ROCURONIUM BROMIDE 50 MG/5 ML VIAL IVPUSH ONE (13:38)
--- NOTE | 2016-10-04 14:16 | PN ---
Progress Note, Physician Chief Complaint: Intubated. off sedation. arousable. History of Present Illness: This is an 86 year old male with a pmhx of htn, afib on coumadin, CAD s/p stents at [facility] in 2010, hld, and chronic systolic CHF with LVEF 30% in 2014 who presented to ER after a mechanical fall found to have subdural hemorrhage on coumadin and intubated for airway protection. Sedation removed this morning, he is more alert, minimally moving left arm. He is following commands. Awaiting Tracheostomy today. Also needs PEG. - Current Medication List Current Medications: Active Medications Acetaminophen (Tylenol Oral Solution -) 650 mg PO Q4H PRN PRN Reason: FEVER OR PAIN Last Admin: 10/03/16 23:44 Dose: 650 mg Atorvastatin Calcium (Lipitor -) 10 mg PO [facility] Last Admin: 10/03/16 23:45 Dose: 10 mg Bacitracin (Bacitracin -) 1 applic TP BID [facility] Last Admin: 10/04/16 10:23 Dose: 1 applic Chlorhexidine Gluconate (Hibiclens For Decolonization -) 1 applic TP [facility] Last Admin: 10/03/16 23:45 Dose: 1 applic Chlorhexidine Gluconate (Peridex -) 15 ml MM BID [facility] Last Admin: 10/04/16 10:12 Dose: 15 ml Dexamethasone Sodium Phosphate (Decadron Injection -) 4 mg IVPUSH BID [facility] Last Admin: 10/04/16 10:12 Dose: 4 mg Digoxin (Lanoxin -) 0.125 mg PO [facility] Last Admin: 10/03/16 23:45 Dose: 0.125 mg Propofol (Diprivan -) 100 mls @ 2.77 mls/hr IVPUSH TITR [facility]; 5 MCG/KG/MIN PRN Reason: Protocol Last Admin: 10/03/16 23:44 Dose: Not Given Levetiracetam (Keppra Injection -) 500 mg IVPB BID [facility] Last Admin: 10/04/16 10:11 Dose: 500 mg Metoprolol Tartrate (Lopressor Injection -) 5 mg IVPUSH Q4H PRN PRN Reason: HYPERTENSION Last Admin: 10/01/16 21:41 Dose: 5 mg Metoprolol Tartrate (Lopressor -) 100 mg NGT Q6HPO [facility] Last Admin: 10/04/16 07:03 Dose: 100 mg Ranitidine HCl (Zantac Oral Solution -) 150 mg PO DAILY [facility] Last Admin: 10/04/16 10:11 Dose: 150 mg Rocuronium [place] (Zemuron -) 56 mg IVPUSH ONCE ONE Stop: 10/04/16 13:39 Tamsulosin HCl (Flomax -) 0.4 mg PO DAILY@0830 [facility] Last Admin: 10/04/16 10:08 Dose: 0.4 mg - Objective Vital Signs: Vital Signs Temperature 98 F 10/04/16 06:00 Pulse Rate 116 H 10/04/16 12:00 Respiratory Rate 22 10/04/16 14:00 Blood Pressure 149/84 10/04/16 12:00 O2 Sat by Pulse Oximetry (%) 96 10/04/16 10:48 Constitutional: Yes: No Distress, Calm Eyes: Yes: Conjunctiva Clear HENT: Yes: Normocephalic Neck: Yes: Supple, Trachea Midline Cardiovascular: Yes: Pulse Irregular, S1, S2 Respiratory: Yes: CTA Bilaterally Gastrointestinal: Yes: Normal Bowel Sounds, Soft Extremities: Yes: Erythema Edema: Yes Edema: LLE: Trace, RLE: Trace Peripheral Pulses WNL: Yes Labs: CBC, BMP 10/04/16 05:18 10/04/16 05:18 INR, PTT INR 1.33 (0.82-1.09) H 10/04/16 05:18 Problem List - Problems (1) Atrial fibrillation Assessment/Plan: continue to hold all antiplatelet and AC medications. Prognosis is very poor. There are no cardiac contraindications to surgery for tracheostomy and PEG/ Gtube if needed. continue Digoxin PO. Titrate metoprolol as tolerated by bp and HR. RVR in atrial fibrillation is not the overall determinant of his prognosis. I have discussed this with his . Code(s): I48.91 - UNSPECIFIED ATRIAL FIBRILLATION Qualifiers: Atrial fibrillation type: persistent Qualified Code(s): I48.1 - Persistent atrial fibrillation
[2016-10-04] MEDS ORDERED: PROPOFOL 20 ML ONE (15:50)
[2016-10-04] MEDS ORDERED: LIDOCAINE HCL 1%, 10 MG/ML (20ML VIAL) ONE (15:52)
[2016-10-04] MEDS ORDERED: MIDAZOLAM HCL 2 MG/2 ML SINGLE DOSE VIAL IVPUSH ONE (16:58)
[2016-10-04] MEDS ORDERED: MIDAZOLAM HCL 2 MG/2 ML SINGLE DOSE VIAL ONE (16:59)
[2016-10-04] MEDS ORDERED: BENZOIN/ALOE VERA/STORAX/TOLU 58 ML BOTTLE ONE (17:30)
--- NOTE | 2016-10-04 17:42 | PROC ---
Procedure Note Procedure: Procedure Note Under informed consent, a bilateral Fiberoptic bronchoscopy was performed prior to the placement of a Percutaneous Tracheostomy by CTS. The patient was prepped and draped. The FOB was inserted via the ETT. Upon entering, the airways revealed copious white/clear secretions which were suctioned. The cali was visualized and was sharp. Inspection bronchoscopy revealed diffuse copious but thin secretions which were suctioned. Next, a Percutaneous Tracheostomy was placed by CTS. After the trach was placed , the FOB was inserted via the Tracheostomy to visualize excellent placement and no active bleeding. Patients oxygen saturation and hemodynamics remained stable throughout the procedure. STAT CXR ordered. Dr Mena
[2016-10-04] MEDS: METOPROLOL TARTRATE 5 MG/5 ML VIAL IVPUSH PRN (17:45)
[2016-10-04] MEDS ORDERED: PROPOFOL 200 MG/20 ML VIAL IVPUSH ONE (17:49)
[2016-10-04] MEDS: PROPOFOL 100 ML IVPUSH SCH (19:33)
[2016-10-04] MEDS: ATORVASTATIN CA 10 MG TABLET (FP) PO SCH (23:00)
[2016-10-04] MEDS: DIGOXIN 0.125 MG TABLET (FP) PO SCH (23:00)
[2016-10-04] MEDS: CHLORHEXIDINE GLUCONATE 4% CLEANSER FOR DECOLONIZATION TP SCH (23:46)
[2016-10-05 06:34] LABS: BASOPHIL 0.1 % (0-2.0); MCH 30.8 pg (25.7-33.7); MCHC 33.3 g/dl (32.0-35.9); MEAN CELL VOLUME 92.7 fl (80-96); MEAN PLT VOLUME 10.8 fl (7.5-11.1); NEUTROPHILS 95.2 % (42.8-82.8); PLATELET COUNT 115 K/MM3 (134-434); RDW 14.3 % (11.9-15.9); WHITE BLOOD COUNT 13.5 K/mm3 (4.0-10.0)
[2016-10-05 06:44] LABS: INR 1.41 (0.82-1.09); PROTHROMBIN TIME (PATIENT) 15.6 SEC (9.98-11.88)
--- NOTE | 2016-10-05 06:54 | OP ---
- Note: Patient Name: Yemi Duarte MR#: [id number] Procedure Date: 10/04/16 Preoperative Diagnosis: Respiratory failure. Postoperative Diagnosis: same. Procedure: 1. Flexible Bronchoscopy (performed by Dr. Mena); 2. Percutaneous tracheostomy with #8 Shiley; Indication: Respiratory failure; Surgeon(s): Jose De Anda MD Cosurgeon: carlos Counseling Services Director Surgeon: Ganga Mena MD Anesthesia: General endotracheal; Findings: Abundant secretions. Specimens Sent: 1. na; Complications: none Drains / Tubes / Catheters: na Hardware / Implants: #8 Shiley Blood / Fluid Losses: minimal Post-Operative Condition: Stable. Indications: This patient is an 86 year-old male s/p intracranial hemorrhage with residual deficits and difficulty weaning from the ventilator. I was consulted by Dr. Mena to assist in placing a tracheostomy. We discussed the tracheostomy with the patients family. Risks, benefits, and alternatives of the procedure were explained. All questions were addressed and answered and his son agreed. Details of Procedure: The procedure was done at the bedside. We began with bronchoscopy to clear the airway for the procedure. After this, the neck was prepared and draped in standard fashion. We then made a transverse incision below the cricoid cartilage. We withdrew the endotracheal airway until we were at the level of the vocal cords. We inserted the needle from the percutaneous bronchoscopy kit under direct bronchoscopic vision identifying approximately the 2nd to 3rd ring. We then passed a wire under vision. We then dilated up and inserted the tracheostomy. We put the cuff up and connected the ventilator. We placed the bronchoscope through the tracheostomy and then above. There was no significant bleeding and placement was good.
[2016-10-05 07:08] LABS: BILIRUBIN,DIRECT 1.7 mg/dL (0.0-0.2); BILIRUBIN,TOTAL 3.5 mg/dL (0.2-1.0); CREATININE 0.7 mg/dL (0.7-1.3); TOT PROT 5.6 g/dl (6.4-8.2)
[2016-10-05] MEDS: METOPROLOL TARTRATE 50 MG TABLET (FP) NGT SCH ×3 (07:40→17:01)
[2016-10-05 07:53] LABS: ARTERIAL BLOOD GAS BASE EXCESS 7.3 meq/l (-2-2); ARTERIAL BLOOD GAS HCO3 30.8 meq/L (22-26)
[2016-10-05 07:57] LABS: ALLENS TEST POSITIVE; ART PUNCT SITE RIGHT RADIAL; LPM/O2% 100%; MECH. VENT. ESPRIT; PT. ON O2? YES; TYPE OF O2 MEC.VENT; VENT RATE 24; VT/PRESS 450
[2016-10-05] MEDS: TAMSULOSIN HCL 0.4 MG CAP.ER.24H (FP) PO SCH (08:22)
[2016-10-05] MEDS ORDERED: PT OWN MED DRAWER 7, Y5N ONE (08:47)
--- NOTE | 2016-10-05 08:53 | PN ---
Progress Note, Physician Chief Complaint: in ICU trached yesterday opens eye to voice; NGT in to decide about peg meds chart labs tests procedures and consults reviewed - Current Medication List Current Medications: Active Medications Acetaminophen (Tylenol Oral Solution -) 650 mg PO Q4H PRN PRN Reason: FEVER OR PAIN Last Admin: 10/03/16 23:44 Dose: 650 mg Atorvastatin Calcium (Lipitor -) 10 mg PO HS [facility] Last Admin: 10/04/16 23:00 Dose: 10 mg Bacitracin (Bacitracin -) 1 applic TP BID [facility] Last Admin: 10/04/16 23:46 Dose: 1 applic Chlorhexidine Gluconate (Hibiclens For Decolonization -) 1 applic TP HS [facility] Last Admin: 10/04/16 23:46 Dose: 1 applic Chlorhexidine Gluconate (Peridex -) 15 ml MM BID [facility] Last Admin: 10/04/16 23:00 Dose: 15 ml Dexamethasone Sodium Phosphate (Decadron Injection -) 4 mg IVPUSH DAILY [facility] Stop: 10/07/16 11:00 Digoxin (Lanoxin -) 0.125 mg PO HS [facility] Last Admin: 10/04/16 23:00 Dose: 0.125 mg Propofol (Diprivan -) 100 mls @ 2.77 mls/hr IVPUSH TITR CESAR; 5 MCG/KG/MIN PRN Reason: Protocol Last Admin: 10/04/16 19:33 Dose: Not Given Levetiracetam (Keppra Injection -) 500 mg IVPB BID [facility] Last Admin: 10/04/16 23:00 Dose: 500 mg Metoprolol Tartrate (Lopressor Injection -) 5 mg IVPUSH Q4H PRN PRN Reason: HYPERTENSION Last Admin: 10/04/16 17:45 Dose: 5 mg Metoprolol Tartrate (Lopressor -) 100 mg NGT Q6HPO [facility] Last Admin: 10/05/16 07:40 Dose: 100 mg Ranitidine HCl (Zantac Oral Solution -) 150 mg PO DAILY [facility] Last Admin: 10/04/16 10:11 Dose: 150 mg Tamsulosin HCl (Flomax -) 0.4 mg PO DAILY@0830 [facility] Last Admin: 10/05/16 08:22 Dose: 0.4 mg - Objective Vital Signs: Vital Signs Temperature 99.4 F 10/05/16 06:00 Pulse Rate 108 H 10/05/16 06:00 Respiratory Rate 24 10/05/16 06:30 Blood Pressure 119/86 10/05/16 06:00 O2 Sat by Pulse Oximetry (%) 100 10/04/16 19:54 Constitutional: Yes: No Distress, Calm Eyes: Yes: Conjunctiva Clear Cardiovascular: No: Regular Rate and Rhythm Respiratory: Yes: Diminished Gastrointestinal: Yes: Soft. No: Distention, Tenderness Genitourinary: No: Hematuria Musculoskeletal: No: Joint Stiffness, Joint Swelling Extremities: Yes: Other (bruises). No: Cold, Cool, Cyanosis Edema: No Integumentary: Yes: Bruising. No: Rash, Venous Stasis Changes Neurological: Yes: Alert Psychiatric: Yes: Alert. No: Agitated Labs: CBC, BMP 10/05/16 05:30 10/05/16 05:30 INR, PTT INR 1.41 (0.82-1.09) H 10/05/16 05:30 - ....Imaging Other: Report Reviewed Assessment/Plan ASSESSMENT AND PLAN: Acute Hypoxic Respiratory Failure s/p Fall Traumatic Subdural Hematoma/Subarachnoid Hemorrhage Atrial Fibrillation on anticoagulation Dysfunctional Platelets from Plavix HTN Dementia Likely Aspiration Pneumonia - empiric antiepileptics, steroids - s/p antibiotics - minimize sedation to assess mental status - spontaneous breathing trials as tolerated - enteral feeds - DVT/GI prophylaxis - ICU monitoring - s/p tracheostomy; to decide about PEG prognosis guarded T time 40 min
[2016-10-05] MEDS: DEXAMETHASONE SOD PHOSPHATE 4 MG/1 ML VIAL IVPUSH SCH (09:14)
[2016-10-05] MEDS: RANITIDINE HCL 150 MG/10 ML UNIT-DOSE CUP PO SCH (09:14)
[2016-10-05] MEDS: levETIRAcetam 500 MG/5 ML INJECTION VIAL IVPB SCH ×2 (09:14→21:02)
[2016-10-05] MEDS: CHLORHEXIDINE GLUCONATE 0.12% 15ML CUP MM SCH ×2 (09:15→21:04)
[2016-10-05] MEDS: BACITRACIN 30 GM TUBE TOPICAL OINTMENT TP SCH ×2 (09:16→21:03)
[2016-10-05 09:43] LABS: ACTIVATED PTT 25.6 SECONDS (26.9-34.4)
--- NOTE | 2016-10-05 10:03 | PN ---
Progress Note (short form) - Note Progress Note: Patient seen and examined in the ICU. S/P Perc Trach yesterday. Opens eyes to voice commands. Able to follow simple commands. 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 Unable to move the left leg. Intake & Output 10/02/16 10/03/16 10/04/16 10/05/16 23:59 23:59 23:59 23:59 Intake Total 901 2110 1040 840 Output Total 9808 322 2540 200 Balance -399 1610 -540 640 Weight 207 lb 14.334 oz 201 lb 8.04 oz 204 lb 9.423 oz 200 lb 13.458 oz Last Vital Signs Temp Pulse Resp BP Pulse Ox 99.4 F 94 H 23 163/88 100 10/05/16 06:00 10/05/16 08:00 10/05/16 09:15 10/05/16 08:00 10/04/16 19:54 Active Medications Acetaminophen (Tylenol Oral Solution -) 650 mg PO Q4H PRN PRN Reason: FEVER OR PAIN Last Admin: 10/03/16 23:44 Dose: 650 mg Atorvastatin Calcium (Lipitor -) [address] [facility] Last Admin: 10/04/16 23:00 Dose: 10 mg Bacitracin (Bacitracin -) 1 applic TP BID [facility] Last Admin: 10/05/16 09:16 Dose: 1 applic Chlorhexidine Gluconate (Hibiclens For Decolonization -) 1 applic TP HS [facility] Last Admin: 10/04/16 23:46 Dose: 1 applic Chlorhexidine Gluconate (Peridex -) 15 ml MM BID [facility] Last Admin: 10/05/16 09:15 Dose: 15 ml Dexamethasone Sodium Phosphate (Decadron Injection -) 4 mg IVPUSH DAILY [facility] Stop: 10/07/16 11:00 Last Admin: 10/05/16 09:14 Dose: 4 mg Digoxin (Lanoxin -) 0.[address] [facility] Last Admin: 10/04/16 23:00 Dose: 0.125 mg Propofol (Diprivan -) 100 mls @ 2.77 mls/hr IVPUSH TITR CESAR; 5 MCG/KG/MIN PRN Reason: Protocol Last Admin: 10/04/16 19:33 Dose: Not Given Levetiracetam (Keppra Injection -) 500 mg IVPB BID [facility] Last Admin: 10/05/16 09:14 Dose: 500 mg Metoprolol Tartrate (Lopressor Injection -) 5 mg IVPUSH Q4H PRN PRN Reason: HYPERTENSION Last Admin: 10/04/16 17:45 Dose: 5 mg Metoprolol Tartrate (Lopressor -) 100 mg NGT Q6HPO [facility] Last Admin: 10/05/16 07:40 Dose: 100 mg Ranitidine HCl (Zantac Oral Solution -) 150 mg PO DAILY [facility] Last Admin: 10/05/16 09:14 Dose: 150 mg Tamsulosin HCl (Flomax -) 0.4 mg PO DAILY@0830 [facility] Last Admin: 10/05/16 08:22 Dose: 0.4 mg Gen: Trached, Awakens to voice Heart: tachycardic, irregular Lung: scattered rhonchi Abd: soft, nontender Ext: (+) edema Laboratory Results - last 24 hr 10/05/16 10/05/16 10/05/16 05:30 05:30 05:30 WBC 13.5 H D RBC 3.48 L Hgb 10.7 L D Hct 32.3 L MCV 92.7 MCHC 33.3 RDW 14.3 Plt Count 115 L MPV 10.8 Neutrophils % 95.2 H Lymphocytes % 2.3 L D Monocytes % 2.4 L Eosinophils % 0.0 Basophils % 0.1 INR 1.41 H PTT (Actin FS) Fibrinogen Puncture Site ABG pH ABG pCO2 at Pt Temp ABG pO2 at Pt Temp ABG HCO3 ABG O2 Sat (Measured) ABG O2 Content ABG Base Excess Prosper Test O2 Delivery Device Oxygen Flow Rate Vent Mode Vent Rate Mechanical Rate PEEP Pressure Support Vent Sodium 146 H Potassium 4.3 Chloride 106 Carbon Dioxide 30 Anion Gap 10 BUN 55 H Creatinine 0.7 Random Glucose 267 H Calcium 8.0 L Total Bilirubin 3.5 H D Direct Bilirubin 1.7 H D AST 24 D ALT 91 H D Alkaline Phosphatase 87 Total Protein 5.6 L Albumin 2.0 L 10/05/16 10/05/16 05:30 07:45 WBC RBC Hgb Hct MCV MCHC RDW Plt Count MPV Neutrophils % Lymphocytes % Monocytes % Eosinophils % Basophils % INR PTT (Actin FS) 25.6 L Fibrinogen 604.0 H Puncture Site Right radial ABG pH 7.50 H ABG pCO2 at Pt Temp 39.8 ABG pO2 at Pt Temp 313.0 H* D ABG HCO3 30.8 H ABG O2 Sat (Measured) 100.0 H* ABG O2 Content 15.6 ABG Base Excess 7.3 H Prosper Test Positive O2 Delivery Device Mec.vent Oxygen Flow Rate 100% Vent Mode A/c Vent Rate 24 Mechanical Rate Esprit PEEP 5.0 Pressure Support Vent 450 Sodium Potassium Chloride Carbon Dioxide Anion Gap BUN Creatinine Random Glucose Calcium Total Bilirubin Direct Bilirubin AST ALT Alkaline Phosphatase Total Protein Albumin ASSESSMENT AND PLAN: Acute Hypoxic Respiratory Failure s/p Fall Traumatic Subdural Hematoma/Subarachnoid Hemorrhage Atrial Fibrillation on anticoagulation Dysfunctional Platelets from Plavix HTN Dementia Likely Aspiration Pneumonia Elevated LFTs -> etiology to be determined - AEDs per Neuro - Wean decadron - Monitor off ABX -> low threshold to start if fever spike - DVT/GI prophylaxis - Vent settings adjusted - Vent floor - Will need PEG Dr Mena Critical care time spent in reviewing chart, evaluating patient and formulating plan 35 min
--- NOTE | 2016-10-05 14:01 | PN ---
Progress Note, Physician Chief Complaint: Intubated. off sedation. arousable. s/p tracheostomy. History of Present Illness: This is an 86 year old male with a pmhx of htn, afib on coumadin, CAD s/p stents at [facility] in 2010, hld, and chronic systolic CHF with LVEF 30% in 2014 who presented to ER after a mechanical fall found to have subdural hemorrhage on coumadin and intubated for airway protection. Sedation removed this morning, he is more alert, minimally moving left arm. He is following commands. Underwent Tracheostomy 10/04/16. Also needs PEG. - Current Medication List Current Medications: Active Medications Acetaminophen (Tylenol Oral Solution -) 650 mg PO Q4H PRN PRN Reason: FEVER OR PAIN Last Admin: 10/03/16 23:44 Dose: 650 mg Atorvastatin Calcium (Lipitor -) 10 mg PO [facility] Last Admin: 10/04/16 23:00 Dose: 10 mg Bacitracin (Bacitracin -) 1 applic TP BID [facility] Last Admin: 10/05/16 09:16 Dose: 1 applic Chlorhexidine Gluconate (Hibiclens For Decolonization -) 1 applic TP HS [facility] Last Admin: 10/04/16 23:46 Dose: 1 applic Chlorhexidine Gluconate (Peridex -) 15 ml MM BID [facility] Last Admin: 10/05/16 09:15 Dose: 15 ml Dexamethasone Sodium Phosphate (Decadron Injection -) 4 mg IVPUSH DAILY [facility] Stop: 10/07/16 11:00 Last Admin: 10/05/16 09:14 Dose: 4 mg Digoxin (Lanoxin -) 0.125 mg PO [facility] Last Admin: 10/04/16 23:00 Dose: 0.125 mg Propofol (Diprivan -) 100 mls @ 2.77 mls/hr IVPUSH TITR [facility]ESAR; 5 MCG/KG/MIN PRN Reason: Protocol Last Admin: 10/04/16 19:33 Dose: Not Given Levetiracetam (Keppra Injection -) 500 mg IVPB BID [facility] Last Admin: 10/05/16 09:14 Dose: 500 mg Metoprolol Tartrate (Lopressor Injection -) 5 mg IVPUSH Q4H PRN PRN Reason: HYPERTENSION Last Admin: 10/04/16 17:45 Dose: 5 mg Metoprolol Tartrate (Lopressor -) 100 mg NGT Q6HPO [facility] Last Admin: 10/05/16 11:53 Dose: 100 mg Ranitidine HCl (Zantac Oral Solution -) 150 mg PO DAILY [facility] Last Admin: 10/05/16 09:14 Dose: 150 mg Tamsulosin HCl (Flomax -) 0.4 mg PO DAILY@0830 [facility] Last Admin: 10/05/16 08:22 Dose: 0.4 mg - Objective Vital Signs: Vital Signs Temperature 99.8 F H 10/05/16 10:00 Pulse Rate 109 H 10/05/16 12:00 Respiratory Rate 23 10/05/16 12:00 Blood Pressure 127/76 10/05/16 12:00 O2 Sat by Pulse Oximetry (%) 100 10/05/16 09:00 Constitutional: Yes: No Distress HENT: Yes: Normocephalic Neck: Yes: Supple, Trachea Midline Cardiovascular: Yes: Tachycardia, Pulse Irregular Respiratory: Yes: Mechanically Ventilated Gastrointestinal: Yes: Normal Bowel Sounds, Soft ...Rectal Exam: Yes: Erythema Edema: Yes Edema: LLE: 1+, RLE: 1+ Labs: CBC, BMP 10/05/16 05:30 10/05/16 05:30 INR, PTT INR 1.41 (0.82-1.09) H 10/05/16 05:30 Fibrinogen 604.0 mg/dL (238-498) H 10/05/16 05:30 Problem List - Problems (1) Atrial fibrillation Assessment/Plan: continue to hold all antiplatelet and AC medications. Prognosis is very poor. There are no cardiac contraindications to surgery for PEG/Gtube. continue Digoxin PO. Titrate metoprolol as tolerated by bp and HR. RVR in atrial fibrillation is not the overall determinant of his prognosis. I have discussed this with his . Code(s): I48.91 - UNSPECIFIED ATRIAL FIBRILLATION Qualifiers: Atrial fibrillation type: persistent Qualified Code(s): I48.1 - Persistent atrial fibrillation
[2016-10-05] MEDS: CHLORHEXIDINE GLUCONATE 4% CLEANSER FOR DECOLONIZATION TP SCH (21:02)
[2016-10-05] MEDS: DIGOXIN 0.125 MG TABLET (FP) PO SCH (21:02)
[2016-10-05] MEDS: ATORVASTATIN CA 10 MG TABLET (FP) PO SCH (21:02)
[2016-10-06] MEDS: METOPROLOL TARTRATE 50 MG TABLET (FP) NGT SCH ×4 (00:15→18:21)
[2016-10-06 06:16] LABS: EOSINOPHIL 0.1 % (0-4.5); MCH 30.2 pg (25.7-33.7); MCHC 32.5 g/dl (32.0-35.9); MEAN PLT VOLUME 10.8 fl (7.5-11.1); NEUTROPHILS 91.6 % (42.8-82.8); PLATELET COUNT 152 K/MM3 (134-434); RDW 14.2 % (11.9-15.9); WHITE BLOOD COUNT 15.7 K/mm3 (4.0-10.0)
[2016-10-06 06:26] LABS: INR 1.34 (0.82-1.09); PROTHROMBIN TIME (PATIENT) 14.8 SEC (9.98-11.88)
[2016-10-06 06:50] LABS: ALK PHOS 118 U/L (45-117); ANION GAP 10 (8-16); BILIRUBIN,DIRECT 1.7 mg/dL (0.0-0.2); CO2 30 mmol/L (21-32); COCKROFT - GAULT 115.38; CREATININE 0.6 mg/dL (0.7-1.3); GLUCOSE,RANDOM 217 mg/dL (74-106); SGOT/AST 58 U/L (15-37); SGPT/ALT 120 U/L (12-78); TOT PROT 5.5 g/dl (6.4-8.2)
[2016-10-06 07:10] LABS: ACTIVATED PTT 24.1 SECONDS (26.9-34.4)
[2016-10-06 07:43] LABS: ARTERIAL BLD GAS O2 SATURATION 99.7 % (90-98.9); ARTERIAL BLOOD GAS BASE EXCESS 7.1 meq/l (-2-2); ARTERIAL BLOOD GAS HCO3 30.5 meq/L (22-26)
[2016-10-06 07:52] LABS: ALLENS TEST POSITIVE; ART PUNCT SITE RIGHT RADIAL; ARTERIAL BLOOD GAS pH 7.49 (7.35-7.45); LPM/O2% 50%; MECH. VENT. ESPRIT; PT. ON O2? YES; TYPE OF O2 MEC.VENT; VENT RATE 14; VT/PRESS 450
[2016-10-06] MEDS: TAMSULOSIN HCL 0.4 MG CAP.ER.24H (FP) PO SCH (08:12)
[2016-10-06] MEDS: ACETAMINOPHEN 650 MG/20.3 ML ORAL SOLUTION (CUPS) PO PRN (08:12)
[2016-10-06] MEDS: levETIRAcetam 500 MG/5 ML INJECTION VIAL IVPB SCH ×2 (09:22→21:30)
[2016-10-06] MEDS: CHLORHEXIDINE GLUCONATE 0.12% 15ML CUP MM SCH ×2 (09:22→21:30)
[2016-10-06] MEDS: DEXAMETHASONE SOD PHOSPHATE 4 MG/1 ML VIAL IVPUSH SCH (09:22)
[2016-10-06] MEDS: BACITRACIN 30 GM TUBE TOPICAL OINTMENT TP SCH ×2 (09:22→21:30)
[2016-10-06] MEDS: RANITIDINE HCL 150 MG/10 ML UNIT-DOSE CUP PO SCH (09:22)
--- NOTE | 2016-10-06 10:22 | PN ---
Progress Note (short form) - Note Progress Note: Patient seen and examined in the ICU. Opens eyes to voice commands. Able to follow simple commands. No gross change in motor exam. CXR: No gross change Intake & Output 10/03/16 10/04/16 10/05/16 10/06/16 23:59 23:59 23:59 23:59 Intake Total 2110 1040 1550 890 Output Total 500 1580 600 Balance 1610 -540 950 890 Weight 201 lb 8.04 oz 204 lb 9.423 oz 200 lb 13.458 oz 203 lb 8 oz Last Vital Signs Temp Pulse Resp BP Pulse Ox 100.4 F H 115 H 21 128/71 100 10/06/16 08:00 10/06/16 10:00 10/06/16 10:03 10/06/16 10:00 10/06/16 08:00 Active Medications Acetaminophen (Tylenol Oral Solution -) 650 mg PO Q4H PRN PRN Reason: FEVER OR PAIN Last Admin: 10/06/16 08:12 Dose: 650 mg Atorvastatin Calcium (Lipitor -) 10 mg PO [facility] Last Admin: 10/05/16 21:02 Dose: 10 mg Bacitracin (Bacitracin -) 1 applic TP BID [facility] Last Admin: 10/06/16 09:22 Dose: 1 applic Chlorhexidine Gluconate (Hibiclens For Decolonization -) 1 applic TP [facility] Last Admin: 10/05/16 21:02 Dose: 1 applic Chlorhexidine Gluconate (Peridex -) 15 ml MM BID [facility] Last Admin: 10/06/16 09:22 Dose: 15 ml Dexamethasone Sodium Phosphate (Decadron Injection -) 4 mg IVPUSH DAILY [facility] Stop: 10/07/16 11:00 Last Admin: 10/06/16 09:22 Dose: 4 mg Digoxin (Lanoxin -) 0.125 mg PO [facility] Last Admin: 10/05/16 21:02 Dose: 0.125 mg Propofol (Diprivan -) 100 mls @ 2.77 mls/hr IVPUSH TITR [facility]ES[facility]; 5 MCG/KG/MIN PRN Reason: Protocol Last Admin: 10/04/16 19:33 Dose: Not Given Levetiracetam (Keppra Injection -) 500 mg IVPB BID [facility] Last Admin: 10/06/16 09:22 Dose: 500 mg Metoprolol Tartrate (Lopressor Injection -) 5 mg IVPUSH Q4H PRN PRN Reason: HYPERTENSION Last Admin: 10/04/16 17:45 Dose: 5 mg Metoprolol Tartrate (Lopressor -) 100 mg NGT Q6HPO [facility] Last Admin: 10/06/16 06:44 Dose: 100 mg Ranitidine HCl (Zantac Oral Solution -) 150 mg PO DAILY [facility] Last Admin: 10/06/16 09:22 Dose: 150 mg Tamsulosin HCl (Flomax -) 0.4 mg PO DAILY@0830 [facility] Last Admin: 10/06/16 08:12 Dose: 0.4 mg Gen: Trached, Awakens to voice Heart: tachycardic, irregular Lung: scattered rhonchi Abd: soft, nontender Ext: (+) edema Laboratory Results - last 24 hr 10/06/16 10/06/16 10/06/16 05:20 05:20 05:20 WBC 15.7 H RBC 3.50 L Hgb 10.6 L Hct 32.5 L MCV 93.0 MCHC 32.5 RDW 14.2 Plt Count 152 D MPV 10.8 Neutrophils % 91.6 H Lymphocytes % 2.6 L Monocytes % 5.7 D Eosinophils % 0.1 D Basophils % 0.0 INR 1.34 H PTT (Actin FS) Fibrinogen Puncture Site ABG pH ABG pCO2 at Pt Temp ABG pO2 at Pt Temp ABG HCO3 ABG O2 Sat (Measured) ABG O2 Content ABG Base Excess Prosper Test O2 Delivery Device Oxygen Flow Rate Vent Mode Vent Rate Mechanical Rate PEEP Pressure Support Vent Sodium 148 H Potassium 4.3 Chloride 108 H Carbon Dioxide 30 Anion Gap 10 BUN 53 H Creatinine 0.6 L Creat Clearance w eGFR > 60 Random Glucose 217 H Calcium 8.0 L Total Bilirubin 3.0 H Direct Bilirubin 1.7 H AST 58 H D ALT 120 H D Alkaline Phosphatase 118 H D Total Protein 5.5 L Albumin 2.0 L 10/06/16 10/06/16 05:20 07:35 WBC RBC Hgb Hct MCV MCHC RDW Plt Count MPV Neutrophils % Lymphocytes % Monocytes % Eosinophils % Basophils % INR PTT (Actin FS) 24.1 L Fibrinogen 592.0 H Puncture Site Right radial ABG pH 7.49 H ABG pCO2 at Pt Temp 40.8 ABG pO2 at Pt Temp 167.0 H* D ABG HCO3 30.5 H ABG O2 Sat (Measured) 99.7 H* ABG O2 Content 15.5 ABG Base Excess 7.1 H Prosper Test Positive O2 Delivery Device Mec.vent Oxygen Flow Rate 50% Vent Mode A/c Vent Rate 14 Mechanical Rate Esprit PEEP 5.0 Pressure Support Vent 450 Sodium Potassium Chloride Carbon Dioxide Anion Gap BUN Creatinine Creat Clearance w eGFR Random Glucose Calcium Total Bilirubin Direct Bilirubin AST ALT Alkaline Phosphatase Total Protein Albumin ASSESSMENT AND PLAN: Acute Hypoxic Respiratory Failure s/p Fall Traumatic Subdural Hematoma/Subarachnoid Hemorrhage Atrial Fibrillation on anticoagulation Dysfunctional Platelets from Plavix HTN Dementia Likely Aspiration Pneumonia Elevated LFTs -> etiology to be determined - AEDs per Neuro - Wean decadron - Monitor off ABX - DVT/GI prophylaxis - Vent settings adjusted - Will need PEG - Vent floor Dr Mena Critical care time spent in reviewing chart, evaluating patient and formulating plan 35 min
--- NOTE | 2016-10-06 12:42 | PN ---
Progress Note, Physician History of Present Illness: Pt. was seen and examined in ICU. Pt. is s/p tracheostomy -tolerating it well-, off sedation. - Current Medication List Current Medications: Active Medications Acetaminophen (Tylenol Oral Solution -) 650 mg PO Q4H PRN PRN Reason: FEVER OR PAIN Last Admin: 10/06/16 08:12 Dose: 650 mg Atorvastatin Calcium (Lipitor -) 10 mg PO HS [facility] Last Admin: 10/05/16 21:02 Dose: 10 mg Bacitracin (Bacitracin -) 1 applic TP BID [facility] Last Admin: 10/06/16 09:22 Dose: 1 applic Chlorhexidine Gluconate (Hibiclens For Decolonization -) 1 applic TP HS [facility] Last Admin: 10/05/16 21:02 Dose: 1 applic Chlorhexidine Gluconate (Peridex -) 15 ml MM BID [facility] Last Admin: 10/06/16 09:22 Dose: 15 ml Dexamethasone Sodium Phosphate (Decadron Injection -) 4 mg IVPUSH DAILY [facility] Stop: 10/07/16 11:00 Last Admin: 10/06/16 09:22 Dose: 4 mg Digoxin (Lanoxin -) 0.125 mg PO HS [facility] Last Admin: 10/05/16 21:02 Dose: 0.125 mg Propofol (Diprivan -) 100 mls @ 2.77 mls/hr IVPUSH TITR [facility]; 5 MCG/KG/MIN PRN Reason: Protocol Last Admin: 10/04/16 19:33 Dose: Not Given Levetiracetam (Keppra Injection -) 500 mg IVPB BID [facility] Last Admin: 10/06/16 09:22 Dose: 500 mg Metoprolol Tartrate (Lopressor Injection -) 5 mg IVPUSH Q4H PRN PRN Reason: HYPERTENSION Last Admin: 10/04/16 17:45 Dose: 5 mg Metoprolol Tartrate (Lopressor -) 100 mg NGT Q6HPO [facility] Last Admin: 10/06/16 06:44 Dose: 100 mg Ranitidine HCl (Zantac Oral Solution -) 150 mg PO DAILY [facility] Last Admin: 10/06/16 09:22 Dose: 150 mg Tamsulosin HCl (Flomax -) 0.4 mg PO DAILY@0830 [facility] Last Admin: 10/06/16 08:12 Dose: 0.4 mg - Objective Vital Signs: Vital Signs Temperature 100.4 F H 10/06/16 08:00 Pulse Rate 115 H 10/06/16 10:00 Respiratory Rate 21 10/06/16 10:03 Blood Pressure 128/71 10/06/16 10:00 O2 Sat by Pulse Oximetry (%) 100 10/06/16 08:00 Constitutional: Yes: No Distress, Calm Cardiovascular: Yes: Tachycardia, S1, S2 Respiratory: Yes: Regular, Other (coarse BS) Gastrointestinal: Yes: Normal Bowel Sounds, Soft. No: Tenderness Edema: No Neurological: Yes: Other (Pt is more alert, moving Right UE and LE and Left arm but not the left leg) Labs: CBC, BMP 10/06/16 05:20 10/06/16 05:20 INR, PTT INR 1.34 (0.82-1.09) H 10/06/16 05:20 Fibrinogen 592.0 mg/dL (238-498) H 10/06/16 05:20 Problem List - Problems (1) Subdural hematoma Assessment/Plan: progression during the first 24 hours (with midline shift), now stable. Steroids IV- consider marlene. Code(s): I62.00 - NONTRAUMATIC SUBDURAL HEMORRHAGE, UNSPECIFIED (2) Supratherapeutic INR Code(s): R79.1 - ABNORMAL COAGULATION PROFILE (3) Atrial fibrillation Assessment/Plan: with RVR; BB was increased. Better HR. Code(s): I48.91 - UNSPECIFIED ATRIAL FIBRILLATION Qualifiers: Atrial fibrillation type: persistent Qualified Code(s): I48.1 - Persistent atrial fibrillation (4) Accidental fall Code(s): W19.XXXA - UNSPECIFIED FALL, INITIAL ENCOUNTER Qualifiers: Encounter type: sequela Qualified Code(s): W19.XXXS - Unspecified fall, sequela (5) Nasal bone fracture Assessment/Plan: seen by ENT- medical management Code(s): S02.2XXA - FRACTURE OF NASAL BONES, INIT ENCNTR FOR CLOSED FRACTURE Qualifiers: Encounter type: initial encounter Fracture type: closed Qualified Code(s): S02.2XXA - Fracture of nasal bones, initial encounter for closed fracture (6) Uncontrolled hypertension Code(s): I10 - ESSENTIAL (PRIMARY) HYPERTENSION (7) Abrasions of multiple sites Code(s): T14.8 - OTHER INJURY OF UNSPECIFIED BODY REGION (8) Dementia Assessment/Plan: mild to moderate at baseline. Code(s): F03.90 - UNSPECIFIED DEMENTIA WITHOUT BEHAVIORAL DISTURBANCE (9) Leukocytosis Assessment/Plan: To monitor; on Steroids Code(s): D72.829 - ELEVATED WHITE BLOOD CELL COUNT, UNSPECIFIED (10) Hypokalemia Assessment/Plan: corrected Code(s): E87.6 - HYPOKALEMIA (11) Thrombocytopenia Assessment/Plan: s/p Plts Tx Code(s): D69.6 - THROMBOCYTOPENIA, UNSPECIFIED (12) Pneumonia Assessment/Plan: improvement of CXR, improvement of WBC, afebrile; off abtx Resolved Code(s): J18.9 - PNEUMONIA, UNSPECIFIED ORGANISM (13) Respiratory failure Assessment/Plan: s/p intubation Code(s): J96.90 - RESPIRATORY FAILURE, UNSP, UNSP W HYPOXIA OR HYPERCAPNIA (14) Hypophosphatemia Assessment/Plan: Corrected Code(s): E83.39 - OTHER DISORDERS OF PHOSPHORUS METABOLISM (15) Elevated LFTs Assessment/Plan: GI consult Code(s): R94.5 - ABNORMAL RESULTS OF LIVER FUNCTION STUDIES Assessment/Plan Neuro Sx consult appreciate Neuro Consult appreciated Cardio consult appreciated. CCM consult appreciated Admitted to ICU, intubated. Hematology consult appreciated. s/p vit K, FFP, Plts Tx. ENT consult appreciated. s/p Tracheostomy placement; Likely pt. needs PEG Case was discussed with pt's ICU nurse. AM labs. Prognosis: reserved I called pt.s' , left message. Time spent in managing pt's condition: over 35 minutes.
[2016-10-06] MEDS ORDERED: PT OWN MED DRAWER 7, Y5N ONE (12:57)
[2016-10-06] MEDS: PROPOFOL 100 ML IVPUSH SCH (13:27)
--- NOTE | 2016-10-06 16:10 | PN ---
Progress Note, Physician Chief Complaint: arousable. s/p tracheostomy. History of Present Illness: This is an 86 year old male with a pmhx of htn, afib on coumadin, CAD s/p stents at [facility] in 2010, hld, and chronic systolic CHF with LVEF 30% in 2014 who presented to ER after a mechanical fall found to have subdural hemorrhage on coumadin and intubated for airway protection. Sedation removed this morning, he is more alert, minimally moving left arm. He is following commands. Underwent Tracheostomy 10/04/16. Also needs PEG. - Current Medication List Current Medications: Active Medications Acetaminophen (Tylenol Oral Solution -) 650 mg PO Q4H PRN PRN Reason: FEVER OR PAIN Last Admin: 10/06/16 08:12 Dose: 650 mg Atorvastatin Calcium (Lipitor -) 10 mg PO [facility] Last Admin: 10/05/16 21:02 Dose: 10 mg Bacitracin (Bacitracin -) 1 applic TP BID [facility] Last Admin: 10/06/16 09:22 Dose: 1 applic Chlorhexidine Gluconate (Hibiclens For Decolonization -) 1 applic TP HS [facility] Last Admin: 10/05/16 21:02 Dose: 1 applic Chlorhexidine Gluconate (Peridex -) 15 ml MM BID [facility] Last Admin: 10/06/16 09:22 Dose: 15 ml Dexamethasone Sodium Phosphate (Decadron Injection -) 4 mg IVPUSH DAILY [facility] Stop: 10/07/16 11:00 Last Admin: 10/06/16 09:22 Dose: 4 mg Digoxin (Lanoxin -) 0.125 mg PO [facility] Last Admin: 10/05/16 21:02 Dose: 0.125 mg Propofol (Diprivan -) 100 mls @ 2.77 mls/hr IVPUSH TITR [facility]; 5 MCG/KG/MIN PRN Reason: Protocol Last Admin: 10/06/16 13:27 Dose: Not Given Levetiracetam (Keppra Injection -) 500 mg IVPB BID [facility] Last Admin: 10/06/16 09:22 Dose: 500 mg Metoprolol Tartrate (Lopressor Injection -) 5 mg IVPUSH Q4H PRN PRN Reason: HYPERTENSION Last Admin: 10/04/16 17:45 Dose: 5 mg Metoprolol Tartrate (Lopressor -) 100 mg NGT Q6HPO [facility] Last Admin: 10/06/16 13:00 Dose: 100 mg Ranitidine HCl (Zantac Oral Solution -) 150 mg PO DAILY [facility] Last Admin: 10/06/16 09:22 Dose: 150 mg Tamsulosin HCl (Flomax -) 0.4 mg PO DAILY@0830 [facility] Last Admin: 10/06/16 08:12 Dose: 0.4 mg - Objective Vital Signs: Vital Signs Temperature 99.5 F 10/06/16 14:00 Pulse Rate 112 H 10/06/16 14:00 Respiratory Rate 19 10/06/16 14:29 Blood Pressure 131/88 10/06/16 14:00 O2 Sat by Pulse Oximetry (%) 100 10/06/16 08:00 Constitutional: Yes: Well Nourished, No Distress Eyes: Yes: Conjunctiva Clear HENT: Yes: Normocephalic Neck: Yes: Supple, Trachea Midline Cardiovascular: Yes: Tachycardia, Pulse Irregular Respiratory: Yes: Mechanically Ventilated Gastrointestinal: Yes: Normal Bowel Sounds, Soft ...Rectal Exam: Yes: Erythema Edema: Yes Edema: LLE: Trace, RLE: Trace Peripheral Pulses WNL: Yes Labs: CBC, BMP 10/06/16 05:20 10/06/16 05:20 INR, PTT INR 1.34 (0.82-1.09) H 10/06/16 05:20 Fibrinogen 592.0 mg/dL (238-498) H 10/06/16 05:20 Problem List - Problems (1) Atrial fibrillation Assessment/Plan: continue to hold all antiplatelet and AC medications. Prognosis is very poor. There are no cardiac contraindications to surgery for PEG/Gtube. continue Digoxin PO. Titrate metoprolol as tolerated by bp and HR. RVR in atrial fibrillation is not the overall determinant of his prognosis. I have discussed this with his . Code(s): I48.91 - UNSPECIFIED ATRIAL FIBRILLATION Qualifiers: Atrial fibrillation type: persistent Qualified Code(s): I48.1 - Persistent atrial fibrillation
[2016-10-06] MEDS: CHLORHEXIDINE GLUCONATE 4% CLEANSER FOR DECOLONIZATION TP SCH (21:30)
[2016-10-06] MEDS: DIGOXIN 0.125 MG TABLET (FP) PO SCH (21:30)
[2016-10-06] MEDS: ATORVASTATIN CA 10 MG TABLET (FP) PO SCH (21:30)
[2016-10-07] MEDS: METOPROLOL TARTRATE 50 MG TABLET (FP) NGT SCH ×5 (00:03→23:26)
[2016-10-07 06:20] LABS: BASOPHIL 0.1 % (0-2.0); MCH 30.6 pg (25.7-33.7); MCHC 32.9 g/dl (32.0-35.9); MEAN CELL VOLUME 93.1 fl (80-96); MEAN PLT VOLUME 10.4 fl (7.5-11.1); NEUTROPHILS 91.9 % (42.8-82.8); PLATELET COUNT 176 K/MM3 (134-434); RDW 14.3 % (11.9-15.9); WHITE BLOOD COUNT 15.5 K/mm3 (4.0-10.0)
[2016-10-07 06:33] LABS: INR 1.38 (0.82-1.09); PROTHROMBIN TIME (PATIENT) 15.3 SEC (9.98-11.88)
[2016-10-07 06:45] LABS: CALCIUM 8.2 mg/dL (8.5-10.1)
[2016-10-07 06:59] LABS: BILIRUBIN,DIRECT 1.8 mg/dL (0.0-0.2); COCKROFT - GAULT 113.11; CREATININE 0.6 mg/dL (0.7-1.3); DIGOXIN LEVEL 0.7646 ng/ml (0.8-2.0); TOT PROT 5.7 g/dl (6.4-8.2)
--- NOTE | 2016-10-07 07:40 | PN ---
Physical Exam: SUBJECTIVE: Patient seen and examined lethargic, easily arousable but does not stay alert. follows simple commands to squeeze hands, move toes and open eyes. s/p trach placement on 10/04. OBJECTIVE: Vital Signs Period Temp Pulse Resp BP Sys/Obrien Pulse Ox Last 24 Hr 99.4 F-100.9 F 104-137 17- 128-151/71-96 100-100 EYES: sluggish perrla, sclera anicteric, conjunctiva clear. ENT: oropharynx with ET and OG tube, dry mucous membranes. abrasion over nostril healing with minimal ecchymosis. NECK: Trachea midline, thick neck with trach in place - no surrounding erythema /discharge LUNGS: diffuse coarse breath sounds b/l with anterior auscultation, quiet at bases HEART: afib, S1, S2 without murmur, rub or gallop. ABDOMEN: Soft, nondistended, normoactive bowel sounds EXTREMITIES: 2+ radial and DP pulses b/l, warm, well-perfused, trace edema. abrasion below right knee with dried blood, no discharge, swelling on medial left knee with blue-yellow discoloration. right 5th digit with suturing in place - no surrounding erythema/discharge. Neuro: 3/5 strength on right hand wire bender hand, wiggles toes on RLE, flexion on handgrip on left 1/5 strength(stronger than friday's examination), no movement of left LE. facial symmetry. Laboratory Results - last 24 hr 10/06/16 10/07/16 10/07/16 07:35 05:20 05:20 WBC 15.5 H RBC 3.58 L Hgb 11.0 L Hct 33.3 L MCV 93.1 MCHC 32.9 RDW 14.3 Plt Count 176 MPV 10.4 Neutrophils % 91.9 H Lymphocytes % 2.9 L Monocytes % 5.1 Eosinophils % 0.0 D Basophils % 0.1 D INR 1.38 H Puncture Site Right radial ABG pH 7.49 H ABG pCO2 at Pt Temp 40.8 ABG pO2 at Pt Temp 167.0 H* D ABG HCO3 30.5 H ABG O2 Sat (Measured) 99.7 H* ABG O2 Content 15.5 ABG Base Excess 7.1 H Prosper Test Positive O2 Delivery Device Mec.vent Oxygen Flow Rate 50% Vent Mode A/c Vent Rate 14 Mechanical Rate Esprit PEEP 5.0 Pressure Support Vent 450 Sodium Potassium Chloride Carbon Dioxide Anion Gap BUN Creatinine Random Glucose Calcium Total Bilirubin Direct Bilirubin AST ALT Alkaline Phosphatase Total Protein Albumin Digoxin 10/07/16 05:20 WBC RBC Hgb Hct MCV MCHC RDW Plt Count MPV Neutrophils % Lymphocytes % Monocytes % Eosinophils % Basophils % INR Puncture Site ABG pH ABG pCO2 at Pt Temp ABG pO2 at Pt Temp ABG HCO3 ABG O2 Sat (Measured) ABG O2 Content ABG Base Excess Prosper Test O2 Delivery Device Oxygen Flow Rate Vent Mode Vent Rate Mechanical Rate PEEP Pressure Support Vent Sodium 146 H Potassium 4.2 Chloride 108 H Carbon Dioxide 30 Anion Gap 8 BUN 49 H Creatinine 0.6 L Random Glucose 244 H Calcium 8.2 L Total Bilirubin 3.0 H Direct Bilirubin 1.8 H AST 61 H ALT 135 H Alkaline Phosphatase 146 H D Total Protein 5.7 L Albumin 2.0 L Digoxin 0.7646 L Active Medications Generic Name Dose Route Start Last Admin Trade Name Freq PRN Reason Stop Dose Admin Acetaminophen 650 mg 09/29/16 14:27 10/06/16 08:12 Tylenol Oral Solution - PO 650 mg Q4H PRN Administration FEVER OR PAIN Atorvastatin Calcium 10 mg 09/26/16 22:00 10/06/16 21:30 Lipitor - PO 10 mg HS [facility] Administration Bacitracin 1 applic 09/24/16 23:15 10/06/16 21:30 Bacitracin - TP 1 applic BID [facility] Administration Chlorhexidine Gluconate 1 applic 09/25/16 22:00 10/06/16 21:30 Hibiclens For Decolonization - TP 1 applic HS [facility] Administration Chlorhexidine Gluconate 15 ml 09/25/16 22:00 10/06/16 21:30 Peridex - MM 15 ml BID [facility] Administration Dexamethasone Sodium Phosphate 4 mg 10/05/16 10:00 10/06/16 09:22 Decadron Injection - IVPUSH 10/07/16 11:00 4 mg DAILY [facility] Administration Digoxin 0.125 mg 09/26/16 22:00 10/06/16 21:30 Lanoxin - PO 0.125 mg HS [facility] Administration Propofol 100 mls @ 2.77 mls/hr 09/29/16 10:45 10/06/16 13:27 Diprivan - IVPUSH Not Given TITR [facility] Protocol 5 MCG/KG/MIN Levetiracetam 500 mg 09/25/16 10:00 10/06/16 21:30 Keppra Injection - IVPB 500 mg BID [facility] Administration Metoprolol Tartrate 5 mg 09/28/16 08:35 10/04/16 17:45 Lopressor Injection - IVPUSH 5 mg Q4H PRN Administration HYPERTENSION Metoprolol Tartrate 100 mg 09/30/16 03:00 10/07/16 06:03 Lopressor - NGT 100 mg Q6HPO [facility] Administration Ranitidine HCl 150 mg 09/27/16 10:00 10/06/16 09:22 Zantac Oral Solution - PO 150 mg DAILY [facility] Administration Tamsulosin HCl 0.4 mg 09/26/16 11:00 10/06/16 08:12 Flomax - PO 0.4 mg DAILY@0830 [facility] Administration ASSESSMENT/PLAN: 86 yr old man with dementia, afib on plavix and warfarin, HTN, CAD s/p stents, CHF, parkinson's disorder presents s/p mechanical fall found to have subarachnoid and subdural hemorrhage. Neurologic keppra 500mg BID IVPB for seizure prophylaxis decadron 4mg push daily - course decadron 4mg ivpush q6hr 09/25- (6 days), q8hr 09/30-10/01 (3 days), q12hr 10/02- 10/04 (3 days), daily 10/05-10/07 follows simple commands, however remains lethargic, will observe off sedation consult: Dr. Ventura Pulmonary mechanically ventilated, Fio2 40%, titrate fio2 to maintain sat >90% trach 10/04 Hemotalogical consult: Dr. Melgar Cardiovascular - afib with HTN - metoprolol tartrate 100mg q6hr OGT for rate control - digoxin .125 mg po HS - hold warfarin and plavix in setting of acute hemorrhage consult: Dr. Pierce/Dr. Fox Infectious disease leucocytosis uptrending, possible effect from steriods, continue to trend. monitor for fevers. observe off abx for now. - tylenol 650mg OGT q4h for fevers Gastrointestinal - OG tube in place for medications and feeds, will likely require PEG when trach completed. - prophylaxis with zantac daily - Jevity feeds volume based for ideal body weight: 1,200ml - transminitis continues -improving, continue to trend -- no cholethiasis or pericholecystic fluid, mild gallbladder wall thickening flomax 0.4mg po daily OGT [place] cath in place to monitor urine output Renal Uop: 750cc/24hr replete electrolytes as needed goal K>4, Mag >2 DVT scd's given acute bleed Diet: Jevity via OGT Dispo: s/p trach, patient can be monitored on Telemetry. Visit type - Emergency Visit Emergency Visit: No - New Patient This patient is new to me today: No - Critical Care Critical Care patient: Yes Total Critical Care Time (in minutes): 39 Critical Care Statement: The care of this patient involved high complexity decision making to prevent further life threatening deterioration of the patient 's condition and/or to evalute & treat vital organ system(s) failure or risk of failure.
[2016-10-07 07:42] LABS: ARTERIAL BLOOD GAS BASE EXCESS 6.1 meq/l (-2-2); ARTERIAL BLOOD GAS HCO3 29.7 meq/L (22-26); ARTERIAL BLOOD GAS pH 7.49 (7.35-7.45)
[2016-10-07 07:43] LABS: ALLENS TEST POSITIVE; ART PUNCT SITE RIGHT RADIAL; LPM/O2% 50; MECH. VENT. YES; PT. ON O2? YES; TYPE OF O2 MECH VENT; VENT RATE 14; VT/PRESS 450
[2016-10-07] MEDS ORDERED: PT OWN MED DRAWER 7, Y5N ONE (09:25)
[2016-10-07] MEDS: levETIRAcetam 500 MG/5 ML INJECTION VIAL IVPB SCH ×2 (09:34→21:10)
[2016-10-07] MEDS: CHLORHEXIDINE GLUCONATE 0.12% 15ML CUP MM SCH (09:34)
[2016-10-07] MEDS: TAMSULOSIN HCL 0.4 MG CAP.ER.24H (FP) PO SCH (09:34)
[2016-10-07] MEDS: DEXAMETHASONE SOD PHOSPHATE 4 MG/1 ML VIAL IVPUSH SCH (09:34)
[2016-10-07] MEDS: RANITIDINE HCL 150 MG/10 ML UNIT-DOSE CUP PO SCH (09:34)
[2016-10-07] MEDS: PROPOFOL 100 ML IVPUSH SCH (09:54)
[2016-10-07] MEDS: BACITRACIN 30 GM TUBE TOPICAL OINTMENT TP SCH ×2 (09:54→21:10)
--- NOTE | 2016-10-07 11:44 | PN ---
Teaching Attending Note Name of Resident: Jesse Hamm ATTENDING PHYSICIAN STATEMENT I saw and evaluated the patient. I reviewed the resident's note and discussed the case with the resident. I agree with the resident's findings and plan as documented. SUBJECTIVE: Patient seen and examined in the ICU. Opens eyes to voice commands. No gross change in overall exam. Rapid AFib noted. AC Mode of Vent. Low grade temp. Intake & Output 10/04/16 10/05/16 10/06/16 10/07/16 23:59 23:59 23:59 23:59 Intake Total 1040 1550 2000 840 Output Total 1580 600 750 300 Balance -565 201 7988 540 Weight 204 lb 9.423 oz 200 lb 13.458 oz 203 lb 8 oz 199 lb 8 oz Last Vital Signs Temp Pulse Resp BP Pulse Ox 99.6 F 119 H 23 167/89 100 10/07/16 06:00 10/07/16 08:00 10/07/16 09:00 10/07/16 08:00 10/07/16 09:00 Active Medications Acetaminophen (Tylenol Oral Solution -) 650 mg PO Q4H PRN PRN Reason: FEVER OR PAIN Last Admin: 10/06/16 08:12 Dose: 650 mg Atorvastatin Calcium (Lipitor -) 10 mg PO HS [facility] Last Admin: 10/06/16 21:30 Dose: 10 mg Bacitracin (Bacitracin -) 1 applic TP BID [facility] Last Admin: 10/07/16 09:54 Dose: 1 applic Chlorhexidine Gluconate (Hibiclens For Decolonization -) 1 applic TP HS [facility] Last Admin: 10/06/16 21:30 Dose: 1 applic Chlorhexidine Gluconate (Peridex -) 15 ml MM BID [facility] Last Admin: 10/07/16 09:34 Dose: 15 ml Digoxin (Lanoxin -) 0.125 mg PO HS [facility] Last Admin: 10/06/16 21:30 Dose: 0.125 mg Propofol (Diprivan -) 100 mls @ 2.77 mls/hr IVPUSH TITR [facility]; 5 MCG/KG/MIN PRN Reason: Protocol Last Admin: 10/07/16 09:54 Dose: Not Given Levetiracetam (Keppra Injection -) 500 mg IVPB BID [facility] Last Admin: 10/07/16 09:34 Dose: 500 mg Metoprolol Tartrate (Lopressor Injection -) 5 mg IVPUSH Q4H PRN PRN Reason: HYPERTENSION Last Admin: 10/04/16 17:45 Dose: 5 mg Metoprolol Tartrate (Lopressor -) 100 mg NGT Q6HPO [facility] Last Admin: 10/07/16 06:03 Dose: 100 mg Ranitidine HCl (Zantac Oral Solution -) 150 mg PO DAILY [facility] Last Admin: 10/07/16 09:34 Dose: 150 mg Tamsulosin HCl (Flomax -) 0.4 mg PO DAILY@0830 [facility] Last Admin: 10/07/16 09:34 Dose: 0.4 mg Gen: Trached, Awakens to voice Heart: tachycardic, irregular Lung: scattered rhonchi Abd: soft, nontender Ext: (+) edema Laboratory Results - last 24 hr 10/07/16 10/07/16 10/07/16 05:20 05:20 05:20 WBC 15.5 H RBC 3.58 L Hgb 11.0 L Hct 33.3 L MCV 93.1 MCHC 32.9 RDW 14.3 Plt Count 176 MPV 10.4 Neutrophils % 91.9 H Lymphocytes % 2.9 L Monocytes % 5.1 Eosinophils % 0.0 D Basophils % 0.1 D INR 1.38 H Puncture Site ABG pH ABG pCO2 at Pt Temp ABG pO2 at Pt Temp ABG HCO3 ABG O2 Sat (Measured) ABG O2 Content ABG Base Excess Prosper Test O2 Delivery Device Oxygen Flow Rate Vent Mode Vent Rate Mechanical Rate PEEP Pressure Support Vent Sodium 146 H Potassium 4.2 Chloride 108 H Carbon Dioxide 30 Anion Gap 8 BUN 49 H Creatinine 0.6 L Random Glucose 244 H Calcium 8.2 L Total Bilirubin 3.0 H Direct Bilirubin 1.8 H AST 61 H ALT 135 H Alkaline Phosphatase 146 H D Total Protein 5.7 L Albumin 2.0 L Digoxin 0.7646 L 10/07/16 07:40 WBC RBC Hgb Hct MCV MCHC RDW Plt Count MPV Neutrophils % Lymphocytes % Monocytes % Eosinophils % Basophils % INR Puncture Site Right radial ABG pH 7.49 H ABG pCO2 at Pt Temp 39.7 ABG pO2 at Pt Temp 128.0 H D ABG HCO3 29.7 H ABG O2 Sat (Measured) 99.0 H ABG O2 Content 14.5 L ABG Base Excess 6.1 H Prosper Test Positive O2 Delivery Device Mech vent Oxygen Flow Rate 50 Vent Mode A/c Vent Rate 14 Mechanical Rate Yes PEEP 5.0 Pressure Support Vent 450 Sodium Potassium Chloride Carbon Dioxide Anion Gap BUN Creatinine Random Glucose Calcium Total Bilirubin Direct Bilirubin AST ALT Alkaline Phosphatase Total Protein Albumin Digoxin ASSESSMENT AND PLAN: Acute Hypoxic Respiratory Failure s/p Fall Traumatic Subdural Hematoma/Subarachnoid Hemorrhage Atrial Fibrillation on anticoagulation Dysfunctional Platelets from Plavix HTN Dementia Likely Aspiration Pneumonia Elevated LFTs -> etiology to be determined - AEDs per Neuro - May need to add another rate control agent - Monitor off ABX - DVT/GI prophylaxis - Vent settings adjusted - Will need PEG - Vent floor Dr Mena Critical care time spent in reviewing chart, evaluating patient and formulating plan 35 min
[2016-10-07] MEDS: ACETAMINOPHEN 650 MG/20.3 ML ORAL SOLUTION (CUPS) PO PRN (12:53)
--- NOTE | 2016-10-07 15:19 | PN ---
Progress Note, Physician Chief Complaint: arousable. s/p tracheostomy. History of Present Illness: This is an 86 year old male with a pmhx of htn, afib on coumadin, CAD s/p stents at [facility] in 2010, hld, and chronic systolic CHF with LVEF 30% in 2014 who presented to ER after a mechanical fall found to have subdural hemorrhage on coumadin and intubated for airway protection. Sedation removed this morning, he is more alert, minimally moving left arm. He is following commands. Underwent Tracheostomy 10/04/16. Also needs PEG. Needs hypotonic fluids as well. Asked to eval for cardiac suitability. - Current Medication List Current Medications: Active Medications Acetaminophen (Tylenol Oral Solution -) 650 mg PO Q4H PRN PRN Reason: FEVER OR PAIN Last Admin: 10/07/16 12:53 Dose: 650 mg Atorvastatin Calcium (Lipitor -) 10 mg PO HS [facility] Last Admin: 10/06/16 21:30 Dose: 10 mg Bacitracin (Bacitracin -) 1 applic TP BID [facility] Last Admin: 10/07/16 09:54 Dose: 1 applic Chlorhexidine Gluconate (Hibiclens For Decolonization -) 1 applic TP HS [facility] Last Admin: 10/06/16 21:30 Dose: 1 applic Chlorhexidine Gluconate (Peridex -) 15 ml MM BID [facility] Last Admin: 10/07/16 09:34 Dose: 15 ml Digoxin (Lanoxin -) 0.125 mg PO HS [facility] Last Admin: 10/06/16 21:30 Dose: 0.125 mg Propofol (Diprivan -) 100 mls @ 2.77 mls/hr IVPUSH TITR [facility]; 5 MCG/KG/MIN PRN Reason: Protocol Last Admin: 10/07/16 09:54 Dose: Not Given Levetiracetam (Keppra Injection -) 500 mg IVPB BID [facility] Last Admin: 10/07/16 09:34 Dose: 500 mg Metoprolol Tartrate (Lopressor Injection -) 5 mg IVPUSH Q4H PRN PRN Reason: HYPERTENSION Last Admin: 10/04/16 17:45 Dose: 5 mg Metoprolol Tartrate (Lopressor -) 100 mg NGT Q6HPO [facility] Last Admin: 10/07/16 11:40 Dose: 100 mg Ranitidine HCl (Zantac Oral Solution -) 150 mg PO DAILY [facility] Last Admin: 10/07/16 09:34 Dose: 150 mg Tamsulosin HCl (Flomax -) 0.4 mg PO DAILY@0830 [facility] Last Admin: 10/07/16 09:34 Dose: 0.4 mg - Objective Vital Signs: Vital Signs Temperature 100.6 F H 10/07/16 12:00 Pulse Rate 110 H 10/07/16 12:00 Respiratory Rate 21 10/07/16 14:03 Blood Pressure 127/75 10/07/16 12:00 O2 Sat by Pulse Oximetry (%) 100 10/07/16 13:35 Constitutional: Yes: No Distress, Calm HENT: Yes: Normocephalic Neck: Yes: Supple, Trachea Midline Cardiovascular: Yes: Tachycardia, Pulse Irregular Respiratory: Yes: Mechanically Ventilated Gastrointestinal: Yes: Normal Bowel Sounds, Soft Extremities: Yes: Erythema Edema: No Peripheral Pulses WNL: Yes Labs: CBC, BMP 10/07/16 05:20 10/07/16 05:20 INR, PTT INR 1.38 (0.82-1.09) H 10/07/16 05:20 Fibrinogen 592.0 mg/dL (238-498) H 10/06/16 05:20 Problem List - Problems (1) Atrial fibrillation Assessment/Plan: his cardiac status is stable for hypotonic fluids. continue to hold all antiplatelet and AC medications. Prognosis is very poor. There are no cardiac contraindications to surgery for PEG/Gtube. continue Digoxin per OG tube. Titrate metoprolol as tolerated by bp and HR. RVR in atrial fibrillation is not the overall determinant of his prognosis. I have discussed this with his . Code(s): I48.91 - UNSPECIFIED ATRIAL FIBRILLATION Qualifiers: Atrial fibrillation type: persistent Qualified Code(s): I48.1 - Persistent atrial fibrillation
[2016-10-07] MEDS ORDERED: METOPROLOL TARTRATE 5 MG/5 ML VIAL IVPUSH PRN (20:27)
[2016-10-07] MEDS: DIGOXIN 0.125 MG TABLET (FP) PO SCH (21:10)
[2016-10-07] MEDS ORDERED: ATORVASTATIN CA 10 MG TABLET (FP) PO SCH (22:00)
--- NOTE | 2016-10-07 23:56 | PN ---
Progress Note, Physician History of Present Illness: Pt. was seen and examined in ICU, in AM. Pt. is s/p tracheostomy -tolerating it well-, off sedation. - Current Medication List Current Medications: Active Medications Acetaminophen (Tylenol Oral Solution -) 650 mg PO Q4H PRN PRN Reason: FEVER OR PAIN Atorvastatin Calcium (Lipitor -) 10 mg PO HS [facility] Last Admin: 10/07/16 21:10 Dose: 10 mg Bacitracin (Bacitracin -) 1 applic TP BID [facility] Last Admin: 10/07/16 21:10 Dose: 1 applic Digoxin (Lanoxin -) 0.125 mg PO HS [facility] Last Admin: 10/07/16 21:10 Dose: 0.125 mg Levetiracetam (Keppra Injection -) 500 mg IVPB BID [facility] Last Admin: 10/07/16 21:10 Dose: 500 mg Metoprolol Tartrate (Lopressor -) 100 mg NGT Q6HPO [facility] Last Admin: 10/07/16 23:26 Dose: 100 mg Metoprolol Tartrate (Lopressor Injection -) 5 mg IVPUSH Q4H PRN PRN Reason: HYPERTENSION Ranitidine HCl (Zantac Oral Solution -) 150 mg PO DAILY [facility] Tamsulosin HCl (Flomax -) 0.4 mg PO DAILY@0830 [facility] - Objective Vital Signs: Vital Signs Temperature 99.1 F 10/07/16 17:54 Pulse Rate 134 H 10/07/16 21:10 Respiratory Rate 20 10/07/16 23:38 Blood Pressure 147/74 10/07/16 20:00 O2 Sat by Pulse Oximetry (%) 100 10/07/16 21:00 Constitutional: Yes: No Distress, Calm Cardiovascular: Yes: Regular Rate and Rhythm, S1, S2 Respiratory: Yes: Regular, CTA Bilaterally. No: Rales Gastrointestinal: Yes: Normal Bowel Sounds, Soft Edema: No Neurological: Yes: Other (Open his eyes to voice; motor R side 4/5 ; L arm 4/5 but wekker, not moving left leg) Labs: CBC, BMP 10/07/16 05:20 10/07/16 05:20 INR, PTT INR 1.38 (0.82-1.09) H 10/07/16 05:20 Fibrinogen 592.0 mg/dL (238-498) H 10/06/16 05:20 Problem List - Problems (1) Subdural hematoma Code(s): I62.00 - NONTRAUMATIC SUBDURAL HEMORRHAGE, UNSPECIFIED (2) Supratherapeutic INR Code(s): R79.1 - ABNORMAL COAGULATION PROFILE (3) Atrial fibrillation Code(s): I48.91 - UNSPECIFIED ATRIAL FIBRILLATION Qualifiers: Atrial fibrillation type: persistent Qualified Code(s): I48.1 - Persistent atrial fibrillation (4) Accidental fall Code(s): W19.XXXA - UNSPECIFIED FALL, INITIAL ENCOUNTER Qualifiers: Encounter type: sequela Qualified Code(s): W19.XXXS - Unspecified fall, sequela (5) Nasal bone fracture Code(s): S02.2XXA - FRACTURE OF NASAL BONES, INIT ENCNTR FOR CLOSED FRACTURE Qualifiers: Encounter type: initial encounter Fracture type: closed Qualified Code(s): S02.2XXA - Fracture of nasal bones, initial encounter for closed fracture (6) Uncontrolled hypertension Code(s): I10 - ESSENTIAL (PRIMARY) HYPERTENSION (7) Abrasions of multiple sites Code(s): T14.8 - OTHER INJURY OF UNSPECIFIED BODY REGION (8) Dementia Code(s): F03.90 - UNSPECIFIED DEMENTIA WITHOUT BEHAVIORAL DISTURBANCE (9) Leukocytosis Code(s): D72.829 - ELEVATED WHITE BLOOD CELL COUNT, UNSPECIFIED (10) Hypokalemia Code(s): E87.6 - HYPOKALEMIA (11) Thrombocytopenia Code(s): D69.6 - THROMBOCYTOPENIA, UNSPECIFIED (12) Pneumonia Code(s): J18.9 - PNEUMONIA, UNSPECIFIED ORGANISM (13) Respiratory failure Code(s): J96.90 - RESPIRATORY FAILURE, UNSP, UNSP W HYPOXIA OR HYPERCAPNIA (14) Hypophosphatemia Code(s): E83.39 - OTHER DISORDERS OF PHOSPHORUS METABOLISM (15) Elevated LFTs Code(s): R94.5 - ABNORMAL RESULTS OF LIVER FUNCTION STUDIES Assessment/Plan Neuro Sx consult appreciate Neuro Consult appreciated Cardio consult appreciated. CCM consult appreciated Admitted to ICU, intubated. Hematology consult appreciated. s/p vit K, FFP, Plts Tx. ENT consult appreciated. s/p Tracheostomy placement; Likely pt. needs PEG Case was discussed with pt's ICU nurse- pt might be transfer to [facility]. AM labs. Prognosis: reserved I spoke with his ; pt.'s condition was reviewed. She is aware that he might beed a PEG. To f/u wiht Swallow evaluation. All questions were answered Time spent in managing pt's condition: over 40 minutes.
[2016-10-08] MEDS: ACETAMINOPHEN 650 MG/20.3 ML ORAL SOLUTION (CUPS) PO PRN ×2 (06:27→13:59)
[2016-10-08] MEDS: METOPROLOL TARTRATE 50 MG TABLET (FP) NGT SCH ×5 (06:27→23:10)
[2016-10-08] MEDS ORDERED: ACETAMINOPHEN 650 MG SUPP.RECT PR ONE (06:45)
[2016-10-08 08:12] LABS: BASOPHIL 0.2 % (0-2.0); MCHC 33.5 g/dl (32.0-35.9); MEAN CELL VOLUME 92.4 fl (80-96); MEAN PLT VOLUME 10.6 fl (7.5-11.1); NEUTROPHILS 92.1 % (42.8-82.8); PLATELET COUNT 167 K/MM3 (134-434); RDW 14.2 % (11.9-15.9); WHITE BLOOD COUNT 17.2 K/mm3 (4.0-10.0)
[2016-10-08] MEDS ORDERED: TAMSULOSIN HCL 0.4 MG CAP.ER.24H (FP) PO SCH (08:30)
[2016-10-08 08:43] LABS: ALBUMIN 1.9 g/dl (3.4-5.0); BILIRUBIN,DIRECT 1.9 mg/dL (0.0-0.2); BILIRUBIN,TOTAL 3.2 mg/dL (0.2-1.0); COCKROFT - GAULT 113.11; CREATININE 0.6 mg/dL (0.7-1.3); INR 1.51 (0.82-1.09); PROTHROMBIN TIME (PATIENT) 16.8 SEC (9.98-11.88); TOT PROT 5.6 g/dl (6.4-8.2)
[2016-10-08] MEDS ORDERED: RANITIDINE HCL 150 MG/10 ML UNIT-DOSE CUP PO SCH (10:00)
--- NOTE | 2016-10-08 12:02 | PN ---
Progress Note, Physician History of Present Illness: PULMONARY POORLY RESPONSIVE ON VENT SUPPORT,AC MODE - Current Medication List Current Medications: Active Medications Acetaminophen (Tylenol Oral Solution -) 650 mg PO Q4H PRN PRN Reason: FEVER OR PAIN Atorvastatin Calcium (Lipitor -) 10 mg PO [facility] Last Admin: 10/07/16 21:10 Dose: 10 mg Bacitracin (Bacitracin -) 1 applic TP BID [facility] Last Admin: 10/07/16 21:10 Dose: 1 applic Digoxin (Lanoxin -) 0.125 mg PO HS [facility] Last Admin: 10/07/16 21:10 Dose: 0.125 mg Doxazosin Mesylate (Cardura -) 4 mg NGT DAILY [facility] Levetiracetam (Keppra Injection -) 500 mg IVPB BID [facility] Last Admin: 10/07/16 21:10 Dose: 500 mg Metoprolol Tartrate (Lopressor -) 100 mg NGT Q6HPO [facility] Last Admin: 10/07/16 23:26 Dose: 100 mg Metoprolol Tartrate (Lopressor Injection -) 5 mg IVPUSH Q4H PRN PRN Reason: HYPERTENSION Ranitidine HCl (Zantac Oral Solution -) 150 mg PO DAILY [facility] - Objective Vital Signs: Vital Signs Temperature 100.4 F H 10/08/16 06:00 Pulse Rate 108 H 10/08/16 10:05 Respiratory Rate 21 10/08/16 10:05 Blood Pressure 133/80 10/08/16 06:00 O2 Sat by Pulse Oximetry (%) 98 10/08/16 10:05 Constitutional: Yes: Well Nourished, Other (POORLY RESPONSIVE) Eyes: Yes: WNL HENT: Yes: WNL Neck: Yes: Supple (TRACH) Cardiovascular: Yes: Pulse Irregular, S1, S2 Respiratory: Yes: Rhonchi (SCATTERED GLADIS RHONCHI) Gastrointestinal: Yes: Normal Bowel Sounds, Soft Extremities: Yes: WNL Edema: No Labs: CBC, BMP 10/08/16 07:00 10/08/16 07:00 INR, PTT INR 1.51 (0.82-1.09) H 10/08/16 07:00 Fibrinogen 592.0 mg/dL (238-498) H 10/06/16 05:20 Problem List - Problems (1) Atrial fibrillation Code(s): I48.91 - UNSPECIFIED ATRIAL FIBRILLATION Qualifiers: Atrial fibrillation type: persistent Qualified Code(s): I48.1 - Persistent atrial fibrillation (2) Elevated INR Code(s): R79.1 - ABNORMAL COAGULATION PROFILE (3) Elevated LFTs Code(s): R94.5 - ABNORMAL RESULTS OF LIVER FUNCTION STUDIES (4) Pneumonia Code(s): J18.9 - PNEUMONIA, UNSPECIFIED ORGANISM (5) Respiratory failure Code(s): J96.90 - RESPIRATORY FAILURE, UNSP, UNSP W HYPOXIA OR HYPERCAPNIA (6) Subdural hematoma Code(s): I62.00 - NONTRAUMATIC SUBDURAL HEMORRHAGE, UNSPECIFIED (7) Altered mental status Code(s): R41.82 - ALTERED MENTAL STATUS, UNSPECIFIED Qualifiers: Altered mental status type: disorientation Qualified Code(s): R41.0 - Disorientation, unspecified (8) Accidental fall Code(s): W19.XXXA - UNSPECIFIED FALL, INITIAL ENCOUNTER Qualifiers: Encounter type: sequela Qualified Code(s): W19.XXXS - Unspecified fall, sequela Assessment/Plan ASSESSMENT AND PLAN: Acute Hypoxic Respiratory Failure s/p Fall Traumatic Subdural Hematoma/Subarachnoid Hemorrhage Atrial Fibrillation on anticoagulation Dysfunctional Platelets from Plavix HTN Dementia Likely Aspiration Pneumonia Elevated LFTs -> etiology to be determined - AEDs per Neuro - cultures - DVT/GI prophylaxis - Vent support on ac mode - PEG - antibiotics as per ID - chest x-ray today DR YORK
--- NOTE | 2016-10-08 12:54 | CONSULT ---
Admitting History and Physical - Primary Care Physician PCP: Brian Mooney - Admission History of Present Illness: Head trauma with Left convexity SDH and traumatic SAH Baseline OMS/ Parkinson's disease with memory deficits, unstable gait. Has had [employer] x 5 years, moved from [place] to [facility]. Intubated/tracheostomy/ OG tube. Eyes closed but raises eye brows in response to "open eyes" Frequent non purposeful UE movements but seemed to have lifted UE upon command as well. History Source: Family Member, Medical Record Limitations to Obtaining History: Clinical Condition - Past Medical History Cardiovascular: Yes: CAD (with cardiac stent), CHF, HTN, Hyperlipdemia - Smoking History Smoking history: Never smoked Have you smoked in the past 12 months: No - Alcohol/Substance Use Hx Alcohol Use: No - Social History History of Recent Travel: No History - Admission Reason For Visit: SUBDURAL HEMATOMA; ABRAISIONS OF MULTIPLE SITES - Diagnostics X-ray: Report Reviewed CT Scan: Report Reviewed - General Mental Status: Lethargic Ability to Follow Directions: Poor - Hearing Hearing: Normal With Patient: No Speech Evaluation - Communication Primary Language: SINHALA Communication: Yes: Non-Communicable Oral Expression Ability: Yes: Non-Verbal, Non-Vocal - Swallow Evaluation/Bedside Assessment Current Nutritional Intake: Other (OG tube due to nasal fracture, pending decision regarding PEG.) Recommendations - Speech Evaluation, Impression/Plan Impression: Head trauma with Left convexity SDH and traumatic SAH. Baseline OMS / Parkinson's disease with memory deficits, unstable gait. OG tube due to nasal fracture, pending decision regarding PEG. Lethargic, may follow rare commands. Non verbal/vocal. Trach. Attempts to move lips at times to respond. - Dysphagia Impressions/Plan Swallowing Skills: Impaired Recommendations: Palliative Care (Pt's wishes? Prognosis for functional improvement?), Other (Prognosis regarding improved KEVIN? Functional improvement? If becomes more arousable, plan for PMV/speech/swallow tx. Baseline reported to be verbal with impaired memory.)
[2016-10-08] MEDS ORDERED: PT OWN MED DRAWER 7, Y5N ONE (13:39)
[2016-10-08] MEDS: BACITRACIN 30 GM TUBE TOPICAL OINTMENT TP SCH ×2 (13:54→23:01)
[2016-10-08] MEDS: levETIRAcetam 500 MG/5 ML INJECTION VIAL IVPB SCH ×2 (13:55→23:02)
[2016-10-08] MEDS: DOXAZOSIN MESYLATE 4 MG TABLET NGT SCH (13:57)
--- NOTE | 2016-10-08 14:27 | PN ---
Progress Note (short form) - Note Progress Note: ID consult dictated imp/reccd 86 year old man with afib on coumadin s/p trip and fall on 09/24 resulting in acute SDH, nasal fracture, right fifth PIP dislocation admitted to ICU, he is s/p intubation 09/25 and trach 10/04 he received levaquin 09/25 to 09/27 for possible pneumonia, he was on decadron until 10/07 he has elevated LFTs-sono fatty liver he has been having fevers intermittently since 10/04 he was transferred out of the ICU last night NKDA Current Medications Acetaminophen (Tylenol Oral Solution -) 650 mg PO Q4H PRN PRN Reason: FEVER OR PAIN Last Admin: 10/08/16 13:59 Dose: 650 mg Atorvastatin Calcium (Lipitor -) 10 mg PO HS [facility] Last Admin: 10/07/16 21:10 Dose: 10 mg Bacitracin (Bacitracin -) 1 applic TP BID [facility] Last Admin: 10/08/16 13:54 Dose: 1 applic Digoxin (Lanoxin -) 0.125 mg PO HS [facility] Last Admin: 10/07/16 21:10 Dose: 0.125 mg Doxazosin Mesylate (Cardura -) 4 mg NGT DAILY [facility] Last Admin: 10/08/16 13:57 Dose: 4 mg Levetiracetam (Keppra Injection -) 500 mg IVPB BID [facility] Last Admin: 10/08/16 13:55 Dose: 500 mg Metoprolol Tartrate (Lopressor -) 100 mg NGT Q6HPO [facility] Last Admin: 10/08/16 13:54 Dose: 100 mg Metoprolol Tartrate (Lopressor Injection -) 5 mg IVPUSH Q4H PRN PRN Reason: HYPERTENSION Ranitidine HCl (Zantac Oral Solution -) 150 mg PO DAILY [facility] Last Admin: 10/08/16 13:55 Dose: 150 mg fevers in this 86 year old man with respiratory failure secondary to fall and acute SDH repeat blood cultures/urine cultures/sputum cultures repeat cxray most likely aspiration pneumonia leukocytosis- may be partly decadron but this doesnot explain fevers resp failure afib Problem List - Problems (1) Fever Code(s): R50.9 - FEVER, UNSPECIFIED (2) Leukocytosis Code(s): D72.829 - ELEVATED WHITE BLOOD CELL COUNT, UNSPECIFIED (3) Respiratory failure Code(s): J96.90 - RESPIRATORY FAILURE, UNSP, UNSP W HYPOXIA OR HYPERCAPNIA (4) Subdural hematoma Code(s): I62.00 - NONTRAUMATIC SUBDURAL HEMORRHAGE, UNSPECIFIED (5) Atrial fibrillation Code(s): I48.91 - UNSPECIFIED ATRIAL FIBRILLATION Qualifiers: Atrial fibrillation type: persistent Qualified Code(s): I48.1 - Persistent atrial fibrillation
--- NOTE | 2016-10-08 14:41 | PN ---
Progress Note, Physician Chief Complaint: Vented. History of Present Illness: History of Present Illness: This is an 86 year old male with a pmhx of htn, afib on coumadin, CAD s/p stents at [facility] in 2010, hld, and chronic systolic CHF with LVEF 30% in 2014 who presented to ER after a mechanical fall found to have subdural hemorrhage on coumadin and intubated for airway protection. Sedation removed this morning, he is more alert, minimally moving left arm. He is following commands. Underwent Tracheostomy 10/04/16. Also needs PEG. Needs hypotonic fluids as well. Asked to eval for cardiac suitability. Assessment/Plan: - Current Medication List Current Medications: Active Medications Acetaminophen (Tylenol Oral Solution -) 650 mg PO Q4H PRN PRN Reason: FEVER OR PAIN Last Admin: 10/08/16 13:59 Dose: 650 mg Atorvastatin Calcium (Lipitor -) 10 mg PO HS [facility] Last Admin: 10/07/16 21:10 Dose: 10 mg Bacitracin (Bacitracin -) 1 applic TP BID [facility] Last Admin: 10/08/16 13:54 Dose: 1 applic Digoxin (Lanoxin -) 0.125 mg PO HS [facility] Last Admin: 10/07/16 21:10 Dose: 0.125 mg Doxazosin Mesylate (Cardura -) 4 mg NGT DAILY [facility] Last Admin: 10/08/16 13:57 Dose: 4 mg Levetiracetam (Keppra Injection -) 500 mg IVPB BID [facility] Last Admin: 10/08/16 13:55 Dose: 500 mg Metoprolol Tartrate (Lopressor -) 100 mg NGT Q6HPO [facility] Last Admin: 10/08/16 13:54 Dose: 100 mg Metoprolol Tartrate (Lopressor Injection -) 5 mg IVPUSH Q4H PRN PRN Reason: HYPERTENSION Ranitidine HCl (Zantac Oral Solution -) 150 mg PO DAILY [facility] Last Admin: 10/08/16 13:55 Dose: 150 mg - Objective Vital Signs: Vital Signs Temperature 100.4 F H 10/08/16 06:00 Pulse Rate 108 H 10/08/16 10:05 Respiratory Rate 21 10/08/16 10:05 Blood Pressure 133/80 10/08/16 06:00 O2 Sat by Pulse Oximetry (%) 98 10/08/16 10:05 Constitutional: Yes: Calm Eyes: Yes: WNL Cardiovascular: Yes: Pulse Irregular Respiratory: Yes: WNL Gastrointestinal: Yes: WNL Edema: No Peripheral Pulses WNL: No Labs: CBC, BMP 10/08/16 07:00 10/08/16 07:00 INR, PTT INR 1.51 (0.82-1.09) H 10/08/16 07:00 Fibrinogen 592.0 mg/dL (238-498) H 10/06/16 05:20 Problem List - Problems (1) Atrial fibrillation Assessment/Plan: continue to hold all antiplatelet and AC medications. There are no cardiac contraindications to surgery for PEG/Gtube. continue Digoxin and metoprolol per OG tube. Code(s): I48.91 - UNSPECIFIED ATRIAL FIBRILLATION Qualifiers: Atrial fibrillation type: persistent Qualified Code(s): I48.1 - Persistent atrial fibrillation
--- NOTE | 2016-10-08 15:16 | CONS ---
DATE OF CONSULTATION: 10/08/2016 INFECTIOUS DISEASE CONSULTATION REQUESTING PHYSICIAN: Dr. Mooney. HISTORY OF PRESENT ILLNESS: This is an 86-year-old man hospital day No. 14. He presented on September 24, 2016 to the emergency room after he had a trip with a fall. His past medical history is notable for atrial fibrillation. He is on Coumadin. He underwent a CAT scan of the head which showed an acute subdural. As well he had a nasal fracture and a dislocated 5th PIP joint of his right hand. He was admitted to the ICU. He was subsequently intubated in the ICU on the . He was medically managed for his subdural. He received a course of Levaquin from the to the for possible pneumonia. On the he had a tracheostomy done. He was on Decadron until the when it was stopped. He was noted to have abnormal liver tests and had a sonogram of the liver today which showed fatty liver, no ductal dilatation. He was transferred from the ICU to the floor yesterday evening. I am asked to see him today for fever. He has had intermittent fever from the until today the . His current temperature is 100.8. PAST MEDICAL HISTORY: Is notable for history of congestive heart failure. He has a history of atrial fibrillation, hypertension and hyperlipidemia. He has a history of dementia as well. ALLERGIES: No known drug allergies. MEDICATIONS AT HOME. Include Lipitor, Plavix, digoxin, Aricept, losartan, Toprol XL, Zoloft, Flomax and Coumadin. FAMILY HISTORY: Not available. SOCIAL HISTORY: He has been for 50 years. 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 They moved to the [facility] to the [facility] two years ago. Their sons live in [place]. REVIEW OF SYSTEMS: The nurse reports he has had no skin breakdown and there is no history of any diarrhea. He has no Neil catheter or central lines. The patient is unable to give any history. PHYSICAL EXAMINATION: GENERAL: He tries to open his eyes to voice. He does not follow any commands. He has some spontaneous motions of both his arms. VITAL SIGNS: T-max is 100.8 rectally, pulse is 108, blood pressure is 133/80, respiratory rate is 21, O2 saturation is 98% on 40% FiO2. HEENT: Normocephalic. He keeps his eyes closed. He will not open them. NECK: Supple. He has a tracheostomy. LUNGS: Diminished breath sounds at the bases. HEART: Regular rate and rhythm. ABDOMEN: Soft, nontender. EXTREMITIES: Without edema. SKIN: There is no skin breakdown. LABORATORY DATA: White count of 17.2, hemoglobin 10.5, platelets 167. INR is 1.5, BUN 45, creatinine 0.6, with a total bilirubin of 3.2 with AST of 41, ALT of 110 , alkaline phosphatase 144. His cultures done on admission urine, blood and sputum were all negative. Chest x-ray reveals cardiomegaly with a dense left base. Ultrasound revealed fatty liver. There is mild thickening of the gallbladder wall without stones or pericholecystic fluid and there is no ductal dilatation. IMPRESSION AND RECOMMENDATIONS: In summary this is an 86-year-old man hospital day No. 14 with fever with chronic respiratory failure secondary to a fall and acute subdural hematoma. 1. Suggest repeating blood cultures, urine cultures, and sputum culture. Would repeat a chest x-ray as well. Most likely he has aspiration pneumonia. After cultures are started would treat him empirically with Zosyn. 2. History of status post fall with acute subdural. 3. History of atrial fibrillation. 4. Abnormal LFTs being evaluated I spoke with his at the bedside at length. RONY EWING M.D. [id number] MTDD
[2016-10-08] MEDS: PIPERACILLIN/TAZOB 3.375 GM/50 ML PRE-DOCKED IVPB SCH ×2 (18:29→18:44)
[2016-10-08 19:21] LABS: URINE APPEARANCE CLEAR; URINE BILIRUBIN NEGATIVE (NEGATIVE); URINE BLOOD NEGATIVE (NEGATIVE); URINE COLOR AMBER; URINE GLUCOSE (UA) NEGATIVE (NEGATIVE); URINE KETONE NEGATIVE (NEGATIVE); URINE LEUK ESTERASE NEGATIVE (NEGATIVE); URINE NITRITE NEGATIVE (NEGATIVE); URINE PROTEIN NEGATIVE (NEGATIVE); URINE UROBILINOGEN 4.0 E.U/dl E.U./dl (0.2-1.0)
--- NOTE | 2016-10-08 19:34 | CON.GI ---
Consult Consult Specialty:: GI Referred by:: Dr. Brian Mooney Reason for Consultation:: Dysphagia and Abnl LFTs - History of Present Illness Chief Complaint: Patient on vent, non-verbal History of Present Illness: 86M admitted 09/24/16 through [facility] ER S/P fall with supratherapeutic INR, had facial bone fracture, ICH, admitted to ICU. Had trach placed. Called to evaluate for PEG. Also LFTs rising. He has been on keppra, levaquin, labetalol , cardine, amiodarone through the course of the hospitalization. He had two abdominal US one 10/05 that revealed non-visualization of the gallbladder raising ? of prior cholecystectomy while the previous one 10/03/16 revealed mild thickening of the GB wall. His WBC is rising and he is being evaluated by ID. - History Source History Provided By: Patient - Past Medical History Cardio/Vascular: Yes: CAD (with cardiac stent), CHF, HTN, Hyperlipdemia - Alcohol/Substance Use Hx Alcohol Use: No - Smoking History Smoking history: Never smoked Have you smoked in the past 12 months: No - Social History History of Recent Travel: No Home Medications - Allergies Allergies/Adverse Reactions: Allergies Allergy/AdvReac Type Severity Reaction Status Date / Time No Known Allergies Allergy Verified 09/24/16 12:05 - Home Medications Home Medications: Ambulatory Orders Atorvastatin Ca [Lipitor] 10 mg PO HS 09/24/16 Clopidogrel Bisulfate [Plavix -] 75 mg PO DAILY 09/24/16 Digoxin 125 mcg PO HS 09/24/16 Donepezil HCl [Aricept] 10 mg PO DAILY 09/24/16 Losartan Potassium 50 mg PO DAILY 09/24/16 Metoprolol Succinate [Toprol Xl] 50 mg PO BID 09/24/16 Sertraline HCl [Zoloft] 50 mg PO DAILY 09/24/16 Tamsulosin HCl [Flomax] 0.4 mg PO DAILY 09/24/16 Warfarin Na [Coumadin] 5 mg PO DAILY 09/24/16 Family Disease History - Family Disease History Family History: Unable to Obtain Other Family History: Unable to obtain Review of Systems Unable to obtain ROS, reason: Patient on Vent Physical Exam-GI Vital Signs: Vital Signs Temperature 98.6 F 10/08/16 18:00 Pulse Rate 80 10/08/16 18:00 Respiratory Rate 16 10/08/16 18:00 Blood Pressure 104/48 10/08/16 18:00 O2 Sat by Pulse Oximetry (%) 98 10/08/16 10:05 Constitutional: Yes: Calm Eyes: No: Sclera Icterus Cardiovascular: Yes: Regular Rate and Rhythm, Pulse Irregular. No: Murmur Respiratory: Yes: Diminished (at bases b/l) Gastrointestinal Inspection: No: Distention, Scars ...Auscultate: Yes: Normoactive Bowel Sounds ...Palpate: No: Hepatomegaly, Splenomegaly, Tenderness (no grimacing upon palpation) ...Percussion: No: Tympanitic Edema: No (No LE edema) Neurological: Yes: Alert, Oriented Labs: CBC, BMP 10/08/16 07:00 10/08/16 07:00 INR, PTT INR 1.51 (0.82-1.09) H 10/08/16 07:00 Fibrinogen 592.0 mg/dL (238-498) H 10/06/16 05:20 Problem List - Problems (1) Subdural hematoma Assessment/Plan: Intubated ? history of underlying dementia When patient optimized, fevers w/u complete and if it's the family's wish for Mr. Duarte to have a feeding tube, then it could be placed. OGT feeding for now Aspiration precautions Code(s): I62.00 - NONTRAUMATIC SUBDURAL HEMORRHAGE, UNSPECIFIED (2) Abnormal liver function test Assessment/Plan: Obtain CT scan of the abdomen to evaluate gallbladder and biliary tract as the plast two abdominal US have contradictory readings Minimize hepatotoxic agents Stop ranitidine Stop statin ? when keppra can be stopped D/C PRN tylenol Code(s): R79.89 - OTHER SPECIFIED ABNORMAL FINDINGS OF BLOOD CHEMISTRY
[2016-10-08] MEDS: DIGOXIN 0.125 MG TABLET (FP) PO SCH (23:09)
--- NOTE | 2016-10-08 23:40 | PN ---
Progress Note, Physician History of Present Illness: Pt. was seen on 5S, in AM. Pt. is s/p tracheostomy -tolerating it well-, off sedation. Pt is lethargic/ sleepy this AM - Current Medication List Current Medications: Active Medications Bacitracin (Bacitracin -) 1 applic TP BID [facility] Last Admin: 10/08/16 23:01 Dose: 1 applic Digoxin (Lanoxin -) 0.125 mg PO HS [facility] Last Admin: 10/08/16 23:09 Dose: 0.125 mg Doxazosin Mesylate (Cardura -) 4 mg NGT DAILY [facility] Last Admin: 10/08/16 13:57 Dose: 4 mg Levetiracetam (Keppra Injection -) 500 mg IVPB BID [facility] Last Admin: 10/08/16 23:02 Dose: 500 mg Metoprolol Tartrate (Lopressor -) 100 mg NGT Q6HPO [facility] Last Admin: 10/08/16 23:10 Dose: 100 mg Metoprolol Tartrate (Lopressor Injection -) 5 mg IVPUSH Q4H PRN PRN Reason: HYPERTENSION Pantoprazole Sodium (Protonix Packets For Oral Suspension -) 20 mg NGT DAILY [facility] Piperacillin Sod/Tazobactam Sod (Zosyn 3.375gm Ivpb (Pre-Docked)) 3.375 gm IVPB Q8H-IV [facility] PRN Reason: Protocol Last Admin: 10/08/16 18:44 Dose: 3.375 gm - Objective Vital Signs: Vital Signs Temperature 98.6 F 10/08/16 18:00 Pulse Rate 119 H 10/08/16 23:09 Respiratory Rate 20 10/08/16 22:10 Blood Pressure 104/48 10/08/16 18:00 O2 Sat by Pulse Oximetry (%) 98 10/08/16 10:05 Constitutional: Yes: No Distress, Calm Cardiovascular: Yes: Pulse Irregular, S1, S2 Respiratory: Yes: Regular, Other (coarse BS bilat.) Gastrointestinal: Yes: Normal Bowel Sounds, Soft Edema: No Labs: CBC, BMP 10/08/16 07:00 10/08/16 07:00 INR, PTT INR 1.51 (0.82-1.09) H 10/08/16 07:00 Fibrinogen 592.0 mg/dL (238-498) H 10/06/16 05:20 Problem List - Problems (1) Subdural hematoma Assessment/Plan: progression during the first 24 hours (with midline shift), now stable. Steroids IV- consider marlene. Code(s): I62.00 - NONTRAUMATIC SUBDURAL HEMORRHAGE, UNSPECIFIED (2) Supratherapeutic INR Code(s): R79.1 - ABNORMAL COAGULATION PROFILE (3) Atrial fibrillation Assessment/Plan: with RVR; BB was increased. Better HR. Code(s): I48.91 - UNSPECIFIED ATRIAL FIBRILLATION Qualifiers: Atrial fibrillation type: persistent Qualified Code(s): I48.1 - Persistent atrial fibrillation (4) Accidental fall Code(s): W19.XXXA - UNSPECIFIED FALL, INITIAL ENCOUNTER Qualifiers: Encounter type: sequela Qualified Code(s): W19.XXXS - Unspecified fall, sequela (5) Nasal bone fracture Assessment/Plan: seen by ENT- medical management Code(s): S02.2XXA - FRACTURE OF NASAL BONES, INIT ENCNTR FOR CLOSED FRACTURE Qualifiers: Encounter type: initial encounter Fracture type: closed Qualified Code(s): S02.2XXA - Fracture of nasal bones, initial encounter for closed fracture (6) Uncontrolled hypertension Code(s): I10 - ESSENTIAL (PRIMARY) HYPERTENSION (7) Abrasions of multiple sites Code(s): T14.8 - OTHER INJURY OF UNSPECIFIED BODY REGION (8) Dementia Assessment/Plan: mild to moderate at baseline. Code(s): F03.90 - UNSPECIFIED DEMENTIA WITHOUT BEHAVIORAL DISTURBANCE (9) Leukocytosis Assessment/Plan: To monitor; on Steroids Trending up Code(s): D72.829 - ELEVATED WHITE BLOOD CELL COUNT, UNSPECIFIED (10) Hypokalemia Code(s): E87.6 - HYPOKALEMIA (11) Thrombocytopenia Code(s): D69.6 - THROMBOCYTOPENIA, UNSPECIFIED (12) Pneumonia Code(s): J18.9 - PNEUMONIA, UNSPECIFIED ORGANISM (13) Respiratory failure Code(s): J96.90 - RESPIRATORY FAILURE, UNSP, UNSP W HYPOXIA OR HYPERCAPNIA (14) Hypophosphatemia Code(s): E83.39 - OTHER DISORDERS OF PHOSPHORUS METABOLISM (15) Elevated LFTs Assessment/Plan: GI consult Code(s): R94.5 - ABNORMAL RESULTS OF LIVER FUNCTION STUDIES (16) Fever Assessment/Plan: Send BCX, UA, UCX ID consult Code(s): R50.9 - FEVER, UNSPECIFIED Assessment/Plan Neuro Sx consult appreciate Neuro Consult appreciated Cardio consult appreciated. CCM consult appreciated Admitted to ICU, intubated. Hematology consult appreciated. s/p vit K, FFP, Plts Tx. ENT consult appreciated. s/p Tracheostomy placement; Likely pt. needs PEG Pt was transfered last night to [facility]. Case was discussed with pt's nurse AM labs. Prognosis: reserved Time spent in managing pt's condition: over 40 minutes.
[2016-10-09] MEDS ORDERED: ACETAMINOPHEN 650 MG/20.3 ML ORAL SOLUTION (CUPS) PO ONE (00:15)
[2016-10-09] MEDS: PIPERACILLIN/TAZOB 3.375 GM/50 ML PRE-DOCKED IVPB SCH ×3 (02:40→17:42)
[2016-10-09] MEDS: METOPROLOL TARTRATE 50 MG TABLET (FP) NGT SCH ×5 (06:13→23:16)
[2016-10-09 08:19] LABS: MCH 30.8 pg (25.7-33.7); MEAN CELL VOLUME 93.3 fl (80-96); MEAN PLT VOLUME 10.5 fl (7.5-11.1); PLATELET COUNT 149 K/MM3 (134-434); WHITE BLOOD COUNT 13.7 K/mm3 (4.0-10.0)
[2016-10-09 08:46] LABS: ALBUMIN 1.7 g/dl (3.4-5.0); ANION GAP 7 (8-16); BILIRUBIN,DIRECT 1.7 mg/dL (0.0-0.2); CALCIUM 7.5 mg/dL (8.5-10.1); CO2 29 mmol/L (21-32); COCKROFT - GAULT 84.83; CREATININE 0.8 mg/dL (0.7-1.3); GLUCOSE,RANDOM 208 mg/dL (74-106); SGOT/AST 63 U/L (15-37); SGPT/ALT 118 U/L (12-78)
[2016-10-09 09:15] LABS: ALK PHOS 143 U/L (45-117); BILIRUBIN,TOTAL 2.7 mg/dL (0.2-1.0); TOT PROT 5.5 g/dl (6.4-8.2)
--- NOTE | 2016-10-09 09:52 | PN ---
Progress Note (short form) - Note Progress Note: just returned from ct scan lethargic Vital Signs Period Temp Pulse Resp BP Sys/Obrien Pulse Ox Last 24 Hr 98.3 F-100.9 F 80-119 16-22 104-138/48-70 97-98 trach to vent cor-rrr lungs decreased bs at bases abd soft,nt ext no edema CBC, BMP 10/09/16 07:30 10/09/16 07:30 Microbiology 09/28/16 17:45 Sputum - Endotrachea Suction/Ventilator Gram Stain - Final 09/28/16 17:45 Sputum - Endotrachea Suction/Ventilator Sputum Culture - Final NORMAL RESPIRATORY ALEX 09/25/16 19:30 Blood - Peripheral Venous Blood Culture - Final NO GROWTH AFTER 5 DAYS INCUBATION 09/25/16 18:55 Blood - Peripheral Venous Blood Culture - Final NO GROWTH AFTER 5 DAYS INCUBATION 09/25/16 01:00 Urine - Urine Clean Catch Urine Culture - Final NO GROWTH OBTAINED a/p fevers in this 86 year old man with respiratory failure s/p fall and acute SDH blood cultures/urine cultures/sputum cultures ordered yesterday and pending repeat cxray unchanged most likely aspiration pneumonia-LLL leukocytosis- may be partly decadron but this doesnot explain fevers resp failure afib continue zosyn for pneumonia f/u cultures Problem List - Problems (1) Fever Code(s): R50.9 - FEVER, UNSPECIFIED (2) Leukocytosis Code(s): D72.829 - ELEVATED WHITE BLOOD CELL COUNT, UNSPECIFIED (3) Respiratory failure Code(s): J96.90 - RESPIRATORY FAILURE, UNSP, UNSP W HYPOXIA OR HYPERCAPNIA (4) Subdural hematoma Code(s): I62.00 - NONTRAUMATIC SUBDURAL HEMORRHAGE, UNSPECIFIED (5) Atrial fibrillation Code(s): I48.91 - UNSPECIFIED ATRIAL FIBRILLATION Qualifiers: Atrial fibrillation type: persistent Qualified Code(s): I48.1 - Persistent atrial fibrillation
[2016-10-09] MEDS ORDERED: DOXAZOSIN MESYLATE 2 MG TABLET (FP) PO SCH (10:00)
[2016-10-09] MEDS ORDERED: PT OWN MED DRAWER 7, Y5N ONE (10:44)
[2016-10-09] MEDS: levETIRAcetam 500 MG/5 ML INJECTION VIAL IVPB SCH ×2 (10:46→23:02)
[2016-10-09] MEDS: PANTOPRAZOLE SOD 40 MG SUSPENSION PACKET NGT SCH (10:47)
[2016-10-09] MEDS: DOXAZOSIN MESYLATE 4 MG TABLET NGT SCH (10:48)
--- NOTE | 2016-10-09 12:17 | PN ---
Progress Note, Physician History of Present Illness: Pt. was seen on 5S, in AM. Pt. is s/p tracheostomy -tolerating it well-, off sedation. Pt is lethargic/ sleepy this AM - Current Medication List Current Medications: Active Medications Bacitracin (Bacitracin -) 1 applic TP BID [facility] Last Admin: 10/08/16 23:01 Dose: 1 applic Digoxin (Lanoxin -) 0.125 mg PO HS [facility] Last Admin: 10/08/16 23:09 Dose: 0.125 mg Doxazosin Mesylate (Cardura -) 4 mg NGT DAILY [facility] Last Admin: 10/09/16 10:48 Dose: 4 mg Levetiracetam (Keppra Injection -) 500 mg IVPB BID [facility] Last Admin: 10/09/16 10:46 Dose: 500 mg Metoprolol Tartrate (Lopressor -) 100 mg NGT Q6HPO [facility] Last Admin: 10/09/16 06:13 Dose: 100 mg Metoprolol Tartrate (Lopressor Injection -) 5 mg IVPUSH Q4H PRN PRN Reason: HYPERTENSION Pantoprazole Sodium (Protonix Packets For Oral Suspension -) 20 mg NGT DAILY [facility] Last Admin: 10/09/16 10:47 Dose: 20 mg Piperacillin Sod/Tazobactam Sod (Zosyn 3.375gm Ivpb (Pre-Docked)) 3.375 gm IVPB Q8H-IV [facility]AR PRN Reason: Protocol Last Admin: 10/09/16 11:35 Dose: 3.375 gm - Objective Vital Signs: Vital Signs Temperature 98.3 F 10/09/16 06:00 Pulse Rate 91 H 10/09/16 06:00 Respiratory Rate 19 10/09/16 10:20 Blood Pressure 130/63 10/09/16 06:00 O2 Sat by Pulse Oximetry (%) 97 10/09/16 00:34 Constitutional: Yes: No Distress, Calm Cardiovascular: Yes: Regular Rate and Rhythm, S1, S2 Respiratory: Yes: Regular, Rhonchi (at bases) Gastrointestinal: Yes: Normal Bowel Sounds, Soft. No: Palpable Mass Edema: No Neurological: Yes: Lethargy Labs: CBC, BMP 10/09/16 07:30 10/09/16 07:30 INR, PTT INR 1.51 (0.82-1.09) H 10/08/16 07:00 Fibrinogen 592.0 mg/dL (238-498) H 10/06/16 05:20 Problem List - Problems (1) Subdural hematoma Code(s): I62.00 - NONTRAUMATIC SUBDURAL HEMORRHAGE, UNSPECIFIED (2) Supratherapeutic INR Code(s): R79.1 - ABNORMAL COAGULATION PROFILE (3) Atrial fibrillation Code(s): I48.91 - UNSPECIFIED ATRIAL FIBRILLATION Qualifiers: Atrial fibrillation type: persistent Qualified Code(s): I48.1 - Persistent atrial fibrillation (4) Accidental fall Code(s): W19.XXXA - UNSPECIFIED FALL, INITIAL ENCOUNTER Qualifiers: Encounter type: sequela Qualified Code(s): W19.XXXS - Unspecified fall, sequela (5) Nasal bone fracture Code(s): S02.2XXA - FRACTURE OF NASAL BONES, INIT ENCNTR FOR CLOSED FRACTURE Qualifiers: Encounter type: initial encounter Fracture type: closed Qualified Code(s): S02.2XXA - Fracture of nasal bones, initial encounter for closed fracture (6) Uncontrolled hypertension Code(s): I10 - ESSENTIAL (PRIMARY) HYPERTENSION (7) Abrasions of multiple sites Code(s): T14.8 - OTHER INJURY OF UNSPECIFIED BODY REGION (8) Dementia Code(s): F03.90 - UNSPECIFIED DEMENTIA WITHOUT BEHAVIORAL DISTURBANCE (9) Leukocytosis Assessment/Plan: Improving Code(s): D72.829 - ELEVATED WHITE BLOOD CELL COUNT, UNSPECIFIED (10) Hypokalemia Code(s): E87.6 - HYPOKALEMIA (11) Thrombocytopenia Code(s): D69.6 - THROMBOCYTOPENIA, UNSPECIFIED (12) Pneumonia Code(s): J18.9 - PNEUMONIA, UNSPECIFIED ORGANISM (13) Respiratory failure Code(s): J96.90 - RESPIRATORY FAILURE, UNSP, UNSP W HYPOXIA OR HYPERCAPNIA (14) Hypophosphatemia Code(s): E83.39 - OTHER DISORDERS OF PHOSPHORUS METABOLISM (15) Elevated LFTs Assessment/Plan: GI consult appreciated Code(s): R94.5 - ABNORMAL RESULTS OF LIVER FUNCTION STUDIES (16) Fever Assessment/Plan: To f/u BCX, UCX ID consult appreciated Code(s): R50.9 - FEVER, UNSPECIFIED Assessment/Plan Neuro Sx consult appreciate Neuro Consult appreciated- to recall for reevaluation, prognosis Cardio consult appreciated. CCM consult appreciated Admitted to ICU, intubated. Hematology consult appreciated. s/p vit K, FFP, Plts Tx. ENT consult appreciated. s/p Tracheostomy placement. Likely pt. needs PEG Pt was transfered from ICU to 5 S. GI consult appreciated. ID consult appreciated; IV abtx per ID Case was discussed with pt's nurse AM labs. Prognosis: reserved
[2016-10-09] MEDS: BACITRACIN 30 GM TUBE TOPICAL OINTMENT TP SCH ×2 (12:41→23:01)
--- NOTE | 2016-10-09 14:14 | PN ---
Progress Note, Physician Chief Complaint: Cardiology follow up Vented. No events History of Present Illness: History of Present Illness: This is an 86 year old male with a pmhx of htn, afib on coumadin, CAD s/p stents at [facility] in 2010, hld, and chronic systolic CHF with LVEF 30% in 2014 who presented to ER after a mechanical fall found to have subdural hemorrhage on coumadin and intubated for airway protection. Underwent Tracheostomy 10/04/16. - Current Medication List Current Medications: Active Medications Bacitracin (Bacitracin -) 1 applic TP BID [facility] Last Admin: 10/09/16 12:41 Dose: 1 applic Digoxin (Lanoxin -) 0.125 mg PO HS [facility] Last Admin: 10/08/16 23:09 Dose: 0.125 mg Doxazosin Mesylate (Cardura -) 4 mg NGT DAILY [facility] Last Admin: 10/09/16 10:48 Dose: 4 mg Levetiracetam (Keppra Injection -) 500 mg IVPB BID [facility] Last Admin: 10/09/16 10:46 Dose: 500 mg Metoprolol Tartrate (Lopressor -) 100 mg NGT Q6HPO [facility] Last Admin: 10/09/16 12:46 Dose: Not Given Metoprolol Tartrate (Lopressor Injection -) 5 mg IVPUSH Q4H PRN PRN Reason: HYPERTENSION Pantoprazole Sodium (Protonix Packets For Oral Suspension -) 20 mg NGT DAILY [facility] Last Admin: 10/09/16 10:47 Dose: 20 mg Piperacillin Sod/Tazobactam Sod (Zosyn 3.375gm Ivpb (Pre-Docked)) 3.375 gm IVPB Q8H-IV [facility] PRN Reason: Protocol Last Admin: 10/09/16 11:35 Dose: 3.375 gm - Objective Vital Signs: Vital Signs Temperature 98.1 F 10/09/16 08:45 Pulse Rate 54 L 10/09/16 12:00 Respiratory Rate 21 10/09/16 12:00 Blood Pressure 100/50 10/09/16 12:00 O2 Sat by Pulse Oximetry (%) 97 10/09/16 00:34 Constitutional: Yes: No Distress Eyes: Yes: WNL HENT: Yes: WNL Cardiovascular: Yes: Pulse Irregular, S1, S2 Respiratory: Yes: WNL Gastrointestinal: Yes: WNL Edema: No Peripheral Pulses WNL: No Labs: CBC, BMP 10/09/16 07:30 10/09/16 07:30 INR, PTT INR 1.51 (0.82-1.09) H 10/08/16 07:00 Fibrinogen 592.0 mg/dL (238-498) H 10/06/16 05:20 Problem List - Problems (1) Atrial fibrillation Assessment/Plan: continue to hold all antiplatelet and AC medications. HR controlled on Metoprolol and Digoxin. Has cardiomyopathy, likely ischemic. Favor addib an ACEI given LV dysfunction. Will see as needed Code(s): I48.91 - UNSPECIFIED ATRIAL FIBRILLATION Qualifiers: Atrial fibrillation type: persistent Qualified Code(s): I48.1 - Persistent atrial fibrillation
--- NOTE | 2016-10-09 14:19 | PN ---
Progress Note, WO[employer] ENGRA[employer] - Note Progress Note: Lethargic today. Selected Entries 10/06/16 10/06/16 10/06/16 02:00 06:00 08:00 Temperature 99.5 F 100.2 F H 100.4 F H 10/06/16 10/06/16 10/06/16 14:00 18:00 22:00 Temperature 99.5 F 99.4 F 100.9 F H 10/07/16 10/07/16 10/07/16 02:00 06:00 10:00 Temperature 100 F H 99.6 F 100.4 F H 10/07/16 10/07/16 10/07/16 12:00 14:00 16:00 Temperature 100.6 F H 100 F H 99 F 10/07/16 10/07/16 10/08/16 17:54 22:00 01:43 Temperature 99.1 F 99.2 F 97.2 F L 10/08/16 10/08/16 10/08/16 06:00 14:00 18:00 Temperature 100.4 F H 100.9 F H 98.6 F 10/08/16 10/08/16 10/09/16 20:00 22:00 02:00 Temperature 98.8 F 100.3 F H 99.8 F H 10/09/16 10/09/16 06:00 08:45 Temperature 98.3 F 98.1 F Laboratory Tests 10/06/16 10/07/16 10/08/16 05:20 05:20 07:00 WBC 15.7 H 15.5 H 17.2 H 10/09/16 07:30 WBC 13.7 H Case reviewed with PMD, Palliative care, pt's son. TF/d/c decisions being made.
--- NOTE | 2016-10-09 14:46 | PN ---
Progress Note, Physician History of Present Illness: pulmonary no change,poorly responsive on vent support ac mode - Current Medication List Current Medications: Active Medications Bacitracin (Bacitracin -) 1 applic TP BID [facility] Last Admin: 10/09/16 12:41 Dose: 1 applic Digoxin (Lanoxin -) 0.125 mg PO HS [facility] Last Admin: 10/08/16 23:09 Dose: 0.125 mg Doxazosin Mesylate (Cardura -) 4 mg NGT DAILY [facility] Last Admin: 10/09/16 10:48 Dose: 4 mg Levetiracetam (Keppra Injection -) 500 mg IVPB BID [facility] Last Admin: 10/09/16 10:46 Dose: 500 mg Metoprolol Tartrate (Lopressor -) 100 mg NGT Q6HPO [facility] Last Admin: 10/09/16 12:46 Dose: Not Given Metoprolol Tartrate (Lopressor Injection -) 5 mg IVPUSH Q4H PRN PRN Reason: HYPERTENSION Pantoprazole Sodium (Protonix Packets For Oral Suspension -) 20 mg NGT DAILY [facility] Last Admin: 10/09/16 10:47 Dose: 20 mg Piperacillin Sod/Tazobactam Sod (Zosyn 3.375gm Ivpb (Pre-Docked)) 3.375 gm IVPB Q8H-IV [facility] PRN Reason: Protocol Last Admin: 10/09/16 11:35 Dose: 3.375 gm - Objective Vital Signs: Vital Signs Temperature 100.2 F H 10/09/16 14:31 Pulse Rate 79 10/09/16 14:31 Respiratory Rate 20 10/09/16 14:31 Blood Pressure 133/53 10/09/16 14:31 O2 Sat by Pulse Oximetry (%) 100 10/09/16 09:00 Constitutional: Yes: Well Nourished, Other (poorly responsive) Eyes: Yes: WNL HENT: Yes: WNL Neck: Yes: Supple (trach) Cardiovascular: Yes: Regular Rate and Rhythm, S1, S2 Respiratory: Yes: Rhonchi (scattered sunshine rhonchi) Gastrointestinal: Yes: Normal Bowel Sounds, Soft Extremities: Yes: WNL Edema: No Labs: CBC, BMP 10/09/16 07:30 10/09/16 07:30 INR, PTT INR 1.51 (0.82-1.09) H 10/08/16 07:00 Fibrinogen 592.0 mg/dL (238-498) H 10/06/16 05:20 Problem List - Problems (1) Atrial fibrillation Code(s): I48.91 - UNSPECIFIED ATRIAL FIBRILLATION Qualifiers: Atrial fibrillation type: persistent Qualified Code(s): I48.1 - Persistent atrial fibrillation (2) Elevated INR Code(s): R79.1 - ABNORMAL COAGULATION PROFILE (3) Elevated LFTs Code(s): R94.5 - ABNORMAL RESULTS OF LIVER FUNCTION STUDIES (4) Pneumonia Code(s): J18.9 - PNEUMONIA, UNSPECIFIED ORGANISM (5) Respiratory failure Code(s): J96.90 - RESPIRATORY FAILURE, UNSP, UNSP W HYPOXIA OR HYPERCAPNIA (6) Subdural hematoma Code(s): I62.00 - NONTRAUMATIC SUBDURAL HEMORRHAGE, UNSPECIFIED (7) Altered mental status Code(s): R41.82 - ALTERED MENTAL STATUS, UNSPECIFIED Qualifiers: Altered mental status type: disorientation Qualified Code(s): R41.0 - Disorientation, unspecified (8) Accidental fall Code(s): W19.XXXA - UNSPECIFIED FALL, INITIAL ENCOUNTER Qualifiers: Encounter type: sequela Qualified Code(s): W19.XXXS - Unspecified fall, sequela Assessment/Plan ASSESSMENT AND PLAN: Acute Hypoxic Respiratory Failure s/p Fall Traumatic Subdural Hematoma/Subarachnoid Hemorrhage Atrial Fibrillation on anticoagulation Dysfunctional Platelets from Plavix HTN Dementia Likely Aspiration Pneumonia Elevated LFTs -> etiology to be determined - AEDs per Neuro - cultures - DVT/GI prophylaxis - Vent support on ac mode - PEG - antibiotics as per SAMANTHA YORK
[2016-10-09 16:25] LABS: SMOOTH MUSCLE AB 11 Units (0-19)
--- NOTE | 2016-10-09 21:14 | PN ---
GI Progress Note Subjective: Normal biliary tree on CT scan as well as a fecal impaction low grade fevers - Objective Vital Signs: Vital Signs Temperature 99.6 F 10/09/16 17:41 Pulse Rate 92 H 10/09/16 17:41 Respiratory Rate 19 10/09/16 18:52 Blood Pressure 123/81 10/09/16 17:41 O2 Sat by Pulse Oximetry (%) 100 10/09/16 09:00 Constitutional: Calm Cardiovascular: Yes: Regular Rate and Rhythm Respiratory: Yes: Diminished (at bases b/l) ...Auscultate: Yes: Normoactive Bowel Sounds ...Palpate: No: Tenderness (no grimacing upon palpation) ...Percussion: No: Tympanitic ...Rectal Exam: Yes: Other (Soft fecal impaction mixed with some harder stool. Manually disimpacted) Edema: No Labs: CBC, BMP 10/09/16 07:30 10/09/16 07:30 INR, PTT INR 1.51 (0.82-1.09) H 10/08/16 07:00 Fibrinogen 592.0 mg/dL (238-498) H 10/06/16 05:20 Hepatic Panel Total Bilirubin 2.7 mg/dL (0.2-1.0) H 10/09/16 07:30 Direct Bilirubin 1.7 mg/dL (0.0-0.2) H 10/09/16 07:30 AST 63 U/L (15-37) H D 10/09/16 07:30 ALT 118 U/L (12-78) H 10/09/16 07:30 Alkaline Phosphatase 143 U/L (45-117) H 10/09/16 07:30 Albumin 1.7 g/dl (3.4-5.0) L 10/09/16 07:30 Laboratory Tests 10/07/16 10/08/16 19:00 07:00 Hepatitis A Ab Total Positive Hep Bs Antigen Negative Hep Bs Antibody Non reactive Hep B Core Total Ab Negative Hepatitis C Antibody <0.1 Laboratory Tests 10/08/16 07:00 Smooth Musc &[employer] Intrp 11 Problem List - Problems (1) Subdural hematoma Assessment/Plan: PEG if this is the wish of family and when patient medically optimized / leukocytosis / fevers resolve Code(s): I62.00 - NONTRAUMATIC SUBDURAL HEMORRHAGE, UNSPECIFIED (2) Abnormal liver function test Assessment/Plan: Minimize hepatotoxic agents Stopped ranitidine Stopped statin ? when keppra can be stopped Monitor liver chemistries Code(s): R79.89 - OTHER SPECIFIED ABNORMAL FINDINGS OF BLOOD CHEMISTRY (3) Fecal impaction in rectum Assessment/Plan: manually disimpacted added miralax 17g BID Code(s): K56.41 - FECAL IMPACTION
[2016-10-09] MEDS: DIGOXIN 0.125 MG TABLET (FP) PO SCH (23:02)
[2016-10-09] MEDS: POLYETHYLENE GLYCOL 3350 119 GM BTL NGT SCH (23:03)
[2016-10-10 00:07] LABS: HEP B SURFACE AB Non Reactive (.)
[2016-10-10] MEDS: PIPERACILLIN/TAZOB 3.375 GM/50 ML PRE-DOCKED IVPB SCH ×3 (02:10→18:42)
[2016-10-10] MEDS: METOPROLOL TARTRATE 50 MG TABLET (FP) NGT SCH ×3 (06:30→18:43)
[2016-10-10 08:43] LABS: ALBUMIN 1.7 g/dl (3.4-5.0); BILIRUBIN,DIRECT 1.8 mg/dL (0.0-0.2); BILIRUBIN,TOTAL 2.7 mg/dL (0.2-1.0); TOT PROT 5.6 g/dl (6.4-8.2)
[2016-10-10 08:46] LABS: ALBUMIN 1.7 g/dl (3.4-5.0); ALK PHOS 166 U/L (45-117); ANION GAP 9 (8-16); BILIRUBIN,TOTAL 2.6 mg/dL (0.2-1.0); CALCIUM 7.6 mg/dL (8.5-10.1); CO2 30 mmol/L (21-32); CREATININE 0.9 mg/dL (0.7-1.3); GLUCOSE,RANDOM 247 mg/dL (74-106); SGOT/AST 82 U/L (15-37); SGPT/ALT 135 U/L (12-78); TOT PROT 5.5 g/dl (6.4-8.2)
--- NOTE | 2016-10-10 08:56 | PN ---
Progress Note (short form) - Note Progress Note: NEUROLOGY FOLLOW-UP: Events reviewed. Patient examined. Last CT of head was 09/27 and showed significant Left convexity and subtemporal subdural hematoma with L>R mass shift. Last seen by NS 10/01. Now afebrile, on antibiotics with dropping WBC. Urine sterile yesterday. Exam: s/p Tracheostomy. On Vent. NEURO: No response to name Semi/purposeful mov't of Right arm to sternal pressure. Shallow spontaneous respirations. PE3mm RRLA. No response to visual threat. Full EOM's to doll's head. Withdraw Right arm and leg to pinch. Flacid Left Hemiplegia. Brisk R BJ. Areflexic Left arm and both legs. Right Babinski. IMP: Severe, B/L Cerebral Dysfunction. (Curiously) R>L Suggesting possible (Uncal) herniation syndrome? SUGGEST: Update CT of head (C-). Continue supportive care. Continue keppra for now but can switch to Elixor (500 mg via NGT q 12 hrs). Thank you very much, Adarsh Ventura MD
[2016-10-10] MEDS: levETIRAcetam 500 MG/5 ML INJECTION VIAL IVPB SCH ×2 (10:20→21:06)
[2016-10-10] MEDS: POLYETHYLENE GLYCOL 3350 119 GM BTL NGT SCH ×2 (10:21→21:08)
[2016-10-10] MEDS: BACITRACIN 30 GM TUBE TOPICAL OINTMENT TP SCH ×2 (10:32→21:06)
--- NOTE | 2016-10-10 11:01 | PN ---
Progress Note (short form) - Note Progress Note: AC Mode of vent. No documented acute events overnight. Opens eyes to voice commands/tactile stimuli. Intake & Output 10/07/16 10/08/16 10/09/16 10/10/16 23:59 23:59 23:59 23:59 Intake Total 2070 600 1840 890 Output Total 1060 1400 Balance 1010 600 440 890 Weight 199 lb 8 oz 194 lb 3 oz Last Vital Signs Temp Pulse Resp BP Pulse Ox 101.1 F H 78 20 124/70 97 10/10/16 06:41 10/10/16 06:41 10/10/16 06:41 10/10/16 06:41 10/09/16 23:38 Active Medications Bacitracin (Bacitracin -) 1 applic TP BID [facility] Last Admin: 10/10/16 10:32 Dose: 1 applic Digoxin (Lanoxin -) 0.125 mg PO HS [facility] Last Admin: 10/09/16 23:02 Dose: 0.125 mg Doxazosin Mesylate (Cardura -) 4 mg NGT DAILY [facility] Last Admin: 10/09/16 10:48 Dose: 4 mg Levetiracetam (Keppra Injection -) 500 mg IVPB BID [facility] Last Admin: 10/10/16 10:20 Dose: 500 mg Metoprolol Tartrate (Lopressor -) 100 mg NGT Q6HPO [facility] Last Admin: 10/10/16 06:30 Dose: 100 mg Metoprolol Tartrate (Lopressor Injection -) 5 mg IVPUSH Q4H PRN PRN Reason: HYPERTENSION Pantoprazole Sodium (Protonix Packets For Oral Suspension -) 20 mg NGT DAILY [facility] Last Admin: 10/09/16 10:47 Dose: 20 mg Piperacillin Sod/Tazobactam Sod (Zosyn 3.375gm Ivpb (Pre-Docked)) 3.375 gm IVPB Q8H-IV [facility] PRN Reason: Protocol Last Admin: 10/10/16 10:20 Dose: 3.375 gm Polyethylene Glycol (Miralax (For Daily Use) -) 17 gm NGT BID [facility] Last Admin: 10/10/16 10:21 Dose: 17 grams Gen: Trached, Vented Heart: irregular Lung: scattered rhonchi Abd: soft, nontender Ext: (+) edema Laboratory Results - last 24 hr 10/07/16 10/08/16 10/10/16 19:00 07:00 06:05 Sodium 145 Potassium 3.8 Chloride 106 Carbon Dioxide 30 Anion Gap 9 BUN 52 H Creatinine 0.9 Creat Clearance w eGFR > 60 Random Glucose 247 H Calcium 7.6 L Total Bilirubin 2.6 H Direct Bilirubin AST 82 H D ALT 135 H Alkaline Phosphatase 166 H Total Protein 5.5 L Albumin 1.7 L Smooth [facility]c &NURS[employer] NURSE Intrp 11 Hep A IgM Ab Confirm Negative Hepatitis A Ab Total Positive H Hep Bs Antigen Negative Hep Bs Antibody Non reactive Hep B Core Total Ab Negative Hepatitis C Antibody <0.1 10/10/16 06:05 Sodium Cancelled Potassium Cancelled Chloride Cancelled Carbon Dioxide Cancelled Anion Gap Cancelled BUN Cancelled Creatinine Cancelled Creat Clearance w eGFR Random Glucose Cancelled Calcium Cancelled Total Bilirubin 2.7 H Direct Bilirubin 1.8 H AST 83 H ALT 134 H Alkaline Phosphatase 163 H Total Protein 5.6 L Albumin 1.7 L Smooth [facility]c &NURSERY NURSE Intrp Hep A IgM Ab Confirm Hepatitis A Ab Total Hep Bs Antigen Hep Bs Antibody Hep B Core Total Ab Hepatitis C Antibody ASSESSMENT AND PLAN: Acute Hypoxic Respiratory Failure s/p Fall Traumatic Subdural Hematoma/Subarachnoid Hemorrhage Atrial Fibrillation on anticoagulation Dysfunctional Platelets from Plavix HTN Dementia Likely Aspiration Pneumonia Elevated LFTs -> etiology to be determined - AEDs per Neuro - ABX per ID - DVT/GI prophylaxis - Maintain Vent settings - Enteral feeds Dr Mena
[2016-10-10] MEDS: DOXAZOSIN MESYLATE 4 MG TABLET NGT SCH (12:01)
--- NOTE | 2016-10-10 12:18 | PN ---
Progress Note, Physician History of Present Illness: Lethargic on ventilator Remains febrile Blood c/s prelim no growth Sputum c/s pending - Current Medication List Current Medications: Active Medications Bacitracin (Bacitracin -) 1 applic TP BID [facility] Last Admin: 10/10/16 10:32 Dose: 1 applic Digoxin (Lanoxin -) 0.125 mg PO HS [facility] Last Admin: 10/09/16 23:02 Dose: 0.125 mg Doxazosin Mesylate (Cardura -) 4 mg NGT DAILY [facility] Last Admin: 10/10/16 12:01 Dose: 4 mg Levetiracetam (Keppra Injection -) 500 mg IVPB BID [facility] Last Admin: 10/10/16 10:20 Dose: 500 mg Metoprolol Tartrate (Lopressor -) 100 mg NGT Q6HPO [facility] Last Admin: 10/10/16 12:01 Dose: 100 mg Metoprolol Tartrate (Lopressor Injection -) 5 mg IVPUSH Q4H PRN PRN Reason: HYPERTENSION Pantoprazole Sodium (Protonix Packets For Oral Suspension -) 20 mg NGT DAILY [facility] Last Admin: 10/09/16 10:47 Dose: 20 mg Piperacillin Sod/Tazobactam Sod (Zosyn 3.375gm Ivpb (Pre-Docked)) 3.375 gm IVPB Q8H-IV [facility] PRN Reason: Protocol Last Admin: 10/10/16 10:20 Dose: 3.375 gm Polyethylene Glycol (Miralax (For Daily Use) -) 17 gm NGT BID [facility] Last Admin: 10/10/16 10:21 Dose: 17 grams - Objective Vital Signs: Vital Signs Temperature 101.1 F H 10/10/16 06:41 Pulse Rate 78 10/10/16 06:41 Respiratory Rate 25 H 10/10/16 11:33 Blood Pressure 124/70 10/10/16 06:41 O2 Sat by Pulse Oximetry (%) 97 10/09/16 23:38 Constitutional: Yes: No Distress Neck: Yes: Other (S/P trach) Cardiovascular: Yes: Regular Rate and Rhythm, S1, S2 Respiratory: Yes: Diminished Gastrointestinal: Yes: Normal Bowel Sounds, Soft. No: Tenderness Edema: LLE: 1+, RLE: 1+ Labs: CBC, BMP 10/09/16 07:30 10/10/16 06:05 INR, PTT INR 1.51 (0.82-1.09) H 10/08/16 07:00 Fibrinogen 592.0 mg/dL (238-498) H 10/06/16 05:20 Assessment/Plan LLL pneumonia Respiratory failure Fever/ leukocytosis Await cultures Continue empiric zosyn
[2016-10-10 16:34] LABS: INR 1.54 (0.82-1.09); PROTHROMBIN TIME (PATIENT) 17.1 SEC (9.98-11.88)
--- NOTE | 2016-10-10 16:59 | PN ---
Progress Note (short form) - Note Progress Note: NEUROSURGERY Asked by Dr Mooney to evaluate F/U head CT findings Trach'd by report Tmax 101.1, BP stable, tachycardic WBC 13.7 trending down, Hgb 11.4 Recent cultures all negative Head CT: Large L [id number] subacute-chronic SDH with medial tentorial component and 17 mm shift L to R; multiple cerebellar B hypodensities c/w infarcts Pt remains as poor medical/GA risks/age as outlined earlier/previously, antonio now (possibly even worse) with CT evidence of new B cerebellar infarcts and ongoing febrile episodes If is willing to accept renato-operative as a possible/likely outcome, surgical decompression/drainage could be considered. She has not been willing to do so in the past.
[2016-10-10] MEDS: PANTOPRAZOLE SOD 40 MG SUSPENSION PACKET NGT SCH (18:47)
[2016-10-10] MEDS ORDERED: PHYTONADIONE 10 MG/1 ML AMP SQ SCH (19:00)
--- NOTE | 2016-10-10 19:45 | PN ---
Progress Note, Physician History of Present Illness: Pt. was seen and examined on 5S Pt. is s/p tracheostomy -tolerating it well-, off sedation. Febrile, lethargic - Current Medication List Current Medications: Active Medications Bacitracin (Bacitracin -) 1 applic TP BID [facility] Last Admin: 10/10/16 10:32 Dose: 1 applic Digoxin (Lanoxin -) 0.125 mg PO HS [facility] Last Admin: 10/09/16 23:02 Dose: 0.125 mg Doxazosin Mesylate (Cardura -) 4 mg NGT DAILY [facility] Last Admin: 10/10/16 12:01 Dose: 4 mg Levetiracetam (Keppra Injection -) 500 mg IVPB BID [facility] Last Admin: 10/10/16 10:20 Dose: 500 mg Metoprolol Tartrate (Lopressor -) 100 mg NGT Q6HPO [facility] Last Admin: 10/10/16 18:43 Dose: 100 mg Metoprolol Tartrate (Lopressor Injection -) 5 mg IVPUSH Q4H PRN PRN Reason: HYPERTENSION Pantoprazole Sodium (Protonix Packets For Oral Suspension -) 20 mg NGT DAILY [facility] Last Admin: 10/10/16 18:47 Dose: 20 mg Phytonadione (Aqua Mephyton Injection -) 5 mg SQ DAILY [facility] Stop: 10/12/16 10:01 Piperacillin Sod/Tazobactam Sod (Zosyn 3.375gm Ivpb (Pre-Docked)) 3.375 gm IVPB Q8H-IV [facility] PRN Reason: Protocol Last Admin: 10/10/16 18:42 Dose: 3.375 gm Polyethylene Glycol (Miralax (For Daily Use) -) 17 gm NGT BID [facility] Last Admin: 10/10/16 10:21 Dose: 17 grams - Objective Vital Signs: Vital Signs Temperature 100.4 F H 10/10/16 15:00 Pulse Rate 111 H 10/10/16 15:00 Respiratory Rate 20 10/10/16 18:15 Blood Pressure 118/61 10/10/16 15:00 O2 Sat by Pulse Oximetry (%) 99 10/10/16 09:00 Constitutional: Yes: No Distress, Calm Cardiovascular: Yes: Pulse Irregular, S1, S2 Respiratory: Yes: Regular, CTA Bilaterally, Other (coarse BS at bases) Gastrointestinal: Yes: Normal Bowel Sounds, Soft. No: Palpable Mass Edema: No Neurological: Yes: Lethargy, Other Labs: CBC, BMP 10/09/16 07:30 10/10/16 06:05 INR, PTT INR 1.54 (0.82-1.09) H 10/10/16 15:51 Fibrinogen 592.0 mg/dL (238-498) H 10/06/16 05:20 - ....Imaging Cat Scan: Report Reviewed Problem List - Problems (1) Subdural hematoma Assessment/Plan: Progression of left SDH with right midline deviation, new bilateral cerebbelar infarcts (seems to be lacunar in origin), intraventricular hemorrhage. Head CT findings were reviewed with Neurology, NeuroSx, Heme. Pt.'s was called, not available Code(s): I62.00 - NONTRAUMATIC SUBDURAL HEMORRHAGE, UNSPECIFIED (2) Supratherapeutic INR Code(s): R79.1 - ABNORMAL COAGULATION PROFILE (3) Atrial fibrillation Assessment/Plan: with RVR; BB was increased. Better HR. Pt is off Coumadin, secondary to SDH and intraventricular bleed. Code(s): I48.91 - UNSPECIFIED ATRIAL FIBRILLATION Qualifiers: Atrial fibrillation type: persistent Qualified Code(s): I48.1 - Persistent atrial fibrillation (4) Accidental fall Code(s): W19.XXXA - UNSPECIFIED FALL, INITIAL ENCOUNTER Qualifiers: Encounter type: sequela Qualified Code(s): W19.XXXS - Unspecified fall, sequela (5) Nasal bone fracture Assessment/Plan: seen by ENT- medical management Code(s): S02.2XXA - FRACTURE OF NASAL BONES, INIT ENCNTR FOR CLOSED FRACTURE Qualifiers: Encounter type: initial encounter Fracture type: closed Qualified Code(s): S02.2XXA - Fracture of nasal bones, initial encounter for closed fracture (6) Uncontrolled hypertension Code(s): I10 - ESSENTIAL (PRIMARY) HYPERTENSION (7) Abrasions of multiple sites Code(s): T14.8 - OTHER INJURY OF UNSPECIFIED BODY REGION (8) Dementia Code(s): F03.90 - UNSPECIFIED DEMENTIA WITHOUT BEHAVIORAL DISTURBANCE (9) Leukocytosis Assessment/Plan: To monitor; off Steroids;. Pt with LLL PNA Code(s): D72.829 - ELEVATED WHITE BLOOD CELL COUNT, UNSPECIFIED (10) Hypokalemia Code(s): E87.6 - HYPOKALEMIA (11) Thrombocytopenia Code(s): D69.6 - THROMBOCYTOPENIA, UNSPECIFIED (12) Pneumonia Assessment/Plan: Pt. now with LLL PNA, on IV abtx Code(s): J18.9 - PNEUMONIA, UNSPECIFIED ORGANISM (13) Respiratory failure Assessment/Plan: s/p intubation Code(s): J96.90 - RESPIRATORY FAILURE, UNSP, UNSP W HYPOXIA OR HYPERCAPNIA (14) Hypophosphatemia Code(s): E83.39 - OTHER DISORDERS OF PHOSPHORUS METABOLISM (15) Elevated LFTs Assessment/Plan: GI consult appreciated Code(s): R94.5 - ABNORMAL RESULTS OF LIVER FUNCTION STUDIES (16) Fever Assessment/Plan: ID consult appreciated. Pt. on IV abtx. Code(s): R50.9 - FEVER, UNSPECIFIED Assessment/Plan Neuro Sx consult appreciate Neuro Consult appreciated Cardio consult appreciated. CCM consult appreciated Admitted to ICU, intubated. Hematology consult appreciated, case was d/w Dr. Melgar (she would reevaluate pt.). s/p vit K, FFP, Plts Tx. ENT consult appreciated. s/p Tracheostomy placement; Likely pt. needs PEG Case was discussed with pt's nurse. AM labs. Prognosis: reserved. Pt.'s son ( Armin) called my office and his father condition was reviewed, all questions were answered); pt.s gave me permission to talk with either son about pt.'s condition. I called pt.s' , left message. Time spent in managing pt's condition: over 35 minutes.
[2016-10-10] MEDS: PHYTONADIONE 10 MG/1 ML AMP SQ SCH (21:06)
[2016-10-10] MEDS: DIGOXIN 0.125 MG TABLET (FP) PO SCH (21:07)
[2016-10-10 21:10] LABS: INR 1.56 (0.82-1.09)
[2016-10-10 21:13] LABS: ACTIVATED PTT 25.8 SECONDS (26.9-34.4)
[2016-10-10 21:40] LABS: FIBRINOGEN > 652.0 mg/dL (238-498)
--- NOTE | 2016-10-10 23:18 | PN ---
Progress Note (short form) - Note Progress Note: Parient seen and examined s/p trach nonresponsive low grade fevers, tachycardic Cor: RSR, No murmurs, No gallops Lungs: Clear to P&A Abd: Soft, Normal bowel sounds, No organomegaly Ext:No significant edema Abnormal Lab Results 10/10/16 10/10/16 10/10/16 06:05 06:05 15:51 WBC RBC Hgb Hct Plt Count INR 1.54 H PTT (Actin FS) Fibrinogen Sodium Chloride BUN 52 H Random Glucose 247 H Calcium 7.6 L Total Bilirubin 2.6 H 2.7 H Direct Bilirubin 1.8 H AST 82 H D 83 H ALT 135 H 134 H Alkaline Phosphatase 166 H 163 H Total Protein 5.5 L 5.6 L Albumin 1.7 L 1.7 L 10/10/16 10/11/16 10/11/16 19:42 06:00 06:00 WBC 13.4 H RBC 2.66 L Hgb 8.3 L D Hct 24.9 L Plt Count 131 L INR 1.56 H 1.74 H PTT (Actin FS) 25.8 L Fibrinogen > 652.0 H Sodium Chloride BUN Random Glucose Calcium Total Bilirubin Direct Bilirubin AST ALT Alkaline Phosphatase Total Protein Albumin 10/11/16 06:00 WBC RBC Hgb Hct Plt Count INR PTT (Actin FS) Fibrinogen Sodium 149 H Chloride 108 H BUN Random Glucose Calcium Total Bilirubin Direct Bilirubin AST ALT Alkaline Phosphatase Total Protein Albumin Active Medications Generic Name Dose Route Start Last Admin Trade Name Freq PRN Reason Stop Dose Admin Bacitracin 1 applic 10/07/16 22:00 10/10/16 21:06 Bacitracin - TP 1 applic BID [facility] Administration Digoxin 0.125 mg 10/07/16 22:00 10/10/16 21:07 Lanoxin - PO 0.125 mg HS [facility] Administration Doxazosin Mesylate 4 mg 10/08/16 12:00 10/10/16 12:01 Cardura - NGT 4 mg DAILY [facility] Administration Levetiracetam 500 mg 10/07/16 22:00 10/10/16 21:06 Keppra Injection - IVPB 500 mg BID [facility] Administration Metoprolol Tartrate 100 mg 10/08/16 00:00 10/11/16 06:25 Lopressor - NGT Not Given Q6HPO [facility] Metoprolol Tartrate 5 mg 10/07/16 20:27 Lopressor Injection - IVPUSH Q4H PRN HYPERTENSION Pantoprazole Sodium 20 mg 10/09/16 10:00 10/10/16 18:47 Protonix Packets For Oral Suspension - NGT 20 mg DAILY [facility] Administration Phytonadione 5 mg 10/10/16 19:30 10/10/16 21:06 Aqua Mephyton Injection - SQ 10/12/16 10:01 5 mg DAILY [facility] Administration Piperacillin Sod/Tazobactam Sod 3.375 gm 10/08/16 14:45 10/11/16 02:29 Zosyn 3.375gm Ivpb (Pre-Docked) IVPB 3.375 gm Q8H-IV [facility] Administration Protocol Polyethylene Glycol 17 gm 10/09/16 22:00 10/10/16 21:08 Miralax (For Daily Use) - NGT 17 grams BID [facility] Administration A/P 86 y/o patient with dementia, b/l acute subdural hematoma s/p FFP/platelets Last irvin of plavix --09/24--expect it to be off s/p trach now CT showing infarcts, bleed also febrile and possibly septic platelets [id number], PTT-nl INR 1.5 suspect ogoing sepsis/vit. K deficiency as cause of INR1.5 Vit. K Very poor prognsis given infarcts, bleed, no improvement in neurostatus ongoing discusssions with faml regarding goals of care
[2016-10-11] MEDS: METOPROLOL TARTRATE 50 MG TABLET (FP) NGT SCH ×5 (00:49→23:04)
[2016-10-11] MEDS: PIPERACILLIN/TAZOB 3.375 GM/50 ML PRE-DOCKED IVPB SCH ×2 (02:29→11:15)
[2016-10-11 07:17] LABS: MCH 31.1 pg (25.7-33.7); MCHC 33.2 g/dl (32.0-35.9); MEAN CELL VOLUME 93.7 fl (80-96); MEAN PLT VOLUME 10.3 fl (7.5-11.1); PLATELET COUNT 131 K/MM3 (134-434); WHITE BLOOD COUNT 13.4 K/mm3 (4.0-10.0)
[2016-10-11 07:34] LABS: INR 1.74 (0.82-1.09); PROTHROMBIN TIME (PATIENT) 19.4 SEC (9.98-11.88)
--- NOTE | 2016-10-11 07:44 | PN ---
Progress Note (short form) - Note Progress Note: NEUROSURGERY Trach'd on vent OGT in place Tmax 100.8, BP stable, tachycardic PE: Trach'd and not responsive R pupil 7 mm and L pupil 5 mm minimally reactive; no significant movement to painful stimuli Blood culture 5-31- negative to date WBC 13.4; Hgb 8,[address]: Large L [id number] subacute-chronic SDH with medial tentorial component and 17 mm shift L to R; multiple cerebellar B hypodensities c/w infarcts Prognosis very poor given CT worsening (both subdural and B cerebellar infarcts) Pt remains high riss for any neurosurgical intervention secondary to poor medical/GA risks/age as outlined earlier/previously, now additionally with CT evidence of new B cerebellar infarcts and ongoing febrile episodes Care communicated with Dr. Mooney
[2016-10-11 09:08] LABS: ALBUMIN 1.5 g/dl (3.4-5.0); CALCIUM 7.2 mg/dL (8.5-10.1); COCKROFT - GAULT 55.05; CREATININE 1.2 mg/dL (0.7-1.3); TOT PROT 5.4 g/dl (6.4-8.2)
[2016-10-11] MEDS ORDERED: SODIUM CHLORIDE 500 ML IV ONE (09:30)
--- NOTE | 2016-10-11 10:13 | PN ---
Progress Note, Physician History of Present Illness: Pt. was seen and examined on 5S Pt. is s/p tracheostomy -tolerating it well-, off sedation. Febrile, lethargic, hypotensive this AM. - Current Medication List Current Medications: Active Medications Bacitracin (Bacitracin -) 1 applic TP BID [facility] Last Admin: 10/10/16 21:06 Dose: 1 applic Digoxin (Lanoxin -) 0.125 mg PO HS [facility] Last Admin: 10/10/16 21:07 Dose: 0.125 mg Doxazosin Mesylate (Cardura -) 4 mg NGT DAILY [facility] Last Admin: 10/10/16 12:01 Dose: 4 mg Sodium Chloride (Normal Saline -) 500 mls @ 500 mls/hr IV ONCE ONE Stop: 10/11/16 10:29 Last Admin: 10/11/16 09:49 Dose: 500 mls/hr Levetiracetam (Keppra Injection -) 500 mg IVPB BID [facility] Last Admin: 10/10/16 21:06 Dose: 500 mg Metoprolol Tartrate (Lopressor -) 100 mg NGT Q6HPO [facility] Last Admin: 10/11/16 06:25 Dose: Not Given Metoprolol Tartrate (Lopressor Injection -) 5 mg IVPUSH Q4H PRN PRN Reason: HYPERTENSION Pantoprazole Sodium (Protonix Packets For Oral Suspension -) 20 mg NGT DAILY [facility] Last Admin: 10/10/16 18:47 Dose: 20 mg Phytonadione (Aqua Mephyton Injection -) 5 mg SQ DAILY [facility] Stop: 10/12/16 10:01 Last Admin: 10/10/16 21:06 Dose: 5 mg Piperacillin Sod/Tazobactam Sod (Zosyn 3.375gm Ivpb (Pre-Docked)) 3.375 gm IVPB Q8H-IV [facility] PRN Reason: Protocol Last Admin: 10/11/16 02:29 Dose: 3.375 gm Polyethylene Glycol (Miralax (For Daily Use) -) 17 gm NGT BID [facility] Last Admin: 10/10/16 21:08 Dose: 17 grams - Objective Vital Signs: Vital Signs Temperature 100.1 F H 10/11/16 06:34 Pulse Rate 96 H 10/11/16 06:34 Respiratory Rate 16 10/11/16 06:34 Blood Pressure 88/60 10/11/16 06:34 O2 Sat by Pulse Oximetry (%) 99 10/10/16 21:00 Constitutional: Yes: No Distress, Calm Cardiovascular: Yes: Pulse Irregular, S1, S2 Respiratory: Yes: Regular, Other (coarse BS troughout lung sauer) Gastrointestinal: Yes: Normal Bowel Sounds, Soft. 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 Head CT findings were reviewed with pt.'s . Code(s): I62.00 - NONTRAUMATIC SUBDURAL HEMORRHAGE, UNSPECIFIED (2) Supratherapeutic INR Code(s): R79.1 - ABNORMAL COAGULATION PROFILE (3) Atrial fibrillation Assessment/Plan: with RVR; BB was increased. Better HR. Pt is off Coumadin, secondary to SDH and intraventricular bleed. Code(s): I48.91 - UNSPECIFIED ATRIAL FIBRILLATION Qualifiers: Atrial fibrillation type: persistent Qualified Code(s): I48.1 - Persistent atrial fibrillation (4) Accidental fall Code(s): W19.XXXA - UNSPECIFIED FALL, INITIAL ENCOUNTER Qualifiers: Encounter type: sequela Qualified Code(s): W19.XXXS - Unspecified fall, sequela (5) Nasal bone fracture Assessment/Plan: seen by ENT- medical management Code(s): S02.2XXA - FRACTURE OF NASAL BONES, INIT ENCNTR FOR CLOSED FRACTURE Qualifiers: Encounter type: initial encounter Fracture type: closed Qualified Code(s): S02.2XXA - Fracture of nasal bones, initial encounter for closed fracture (6) Uncontrolled hypertension Code(s): I10 - ESSENTIAL (PRIMARY) HYPERTENSION (7) Abrasions of multiple sites Code(s): T14.8 - OTHER INJURY OF UNSPECIFIED BODY REGION (8) Dementia Code(s): F03.90 - UNSPECIFIED DEMENTIA WITHOUT BEHAVIORAL DISTURBANCE (9) Leukocytosis Code(s): D72.829 - ELEVATED WHITE BLOOD CELL COUNT, UNSPECIFIED (10) Hypokalemia Code(s): E87.6 - HYPOKALEMIA (11) Thrombocytopenia Code(s): D69.6 - THROMBOCYTOPENIA, UNSPECIFIED (12) Pneumonia Code(s): J18.9 - PNEUMONIA, UNSPECIFIED ORGANISM (13) Respiratory failure Assessment/Plan: s/p intubation, s/p tracheostomy. Code(s): J96.90 - RESPIRATORY FAILURE, UNSP, UNSP W HYPOXIA OR HYPERCAPNIA (14) Hypophosphatemia Code(s): E83.39 - OTHER DISORDERS OF PHOSPHORUS METABOLISM (15) Elevated LFTs Assessment/Plan: GI consult appreciated Code(s): R94.5 - ABNORMAL RESULTS OF LIVER FUNCTION STUDIES (16) Fever Assessment/Plan: ID consult appreciated. Pt. on IV abtx. Code(s): R50.9 - FEVER, UNSPECIFIED (17) Hypotension Assessment/Plan: COuld be secondary to infection, worsening SDH and midline shift. Metoprolol was held in AM; it might to be readjusted to give NS. Code(s): I95.9 - HYPOTENSION, UNSPECIFIED Assessment/Plan Neuro Sx consult appreciate Neuro Consult appreciated Cardio consult appreciated. CCM consult appreciated Admitted to ICU, intubated. Hematology consult appreciated, case was d/w Dr. Melgar (she would reevaluate pt.). s/p vit K, FFP, Plts Tx. ENT consult appreciated. s/p Tracheostomy placement; Likely pt. needs PEG Case was discussed with pt's nurse. I called and d/w pt.'s new CT scan findings, NeuroSx reevaluation (known to and sons from prior discussion with Dr. Ernst that risk of surgery outweights the possible benefits of surgery- and they decline any possible surgical intervention); she is aware about worsening prognosis; all questions were answered. Pt.'s asker me for a second Neurology opinion. Pt.'s gave permission to any physician involved in her care to talk with either son about pt.'s condition. Ad Duarte (son) phone # ([phone]) was provided as an backup contact. I reminded to Mrs. Duarte to bring in HCP/ Living Will is available. AM labs. Prognosis: grim. Time spent in managing pt's condition: over 40 minutes.
[2016-10-11] MEDS ORDERED: PT OWN MED DRAWER 7, Y5N ONE (11:10)
[2016-10-11] MEDS: PHYTONADIONE 10 MG/1 ML AMP SQ SCH (11:14)
[2016-10-11] MEDS: PANTOPRAZOLE SOD 40 MG SUSPENSION PACKET NGT SCH (11:15)
[2016-10-11] MEDS: POLYETHYLENE GLYCOL 3350 119 GM BTL NGT SCH ×2 (11:15→22:39)
[2016-10-11] MEDS: levETIRAcetam 500 MG/5 ML INJECTION VIAL IVPB SCH ×2 (11:15→22:38)
[2016-10-11] MEDS: BACITRACIN 30 GM TUBE TOPICAL OINTMENT TP SCH ×2 (11:16→22:38)
[2016-10-11] MEDS: DOXAZOSIN MESYLATE 4 MG TABLET NGT SCH (11:16)
--- NOTE | 2016-10-11 11:40 | PN ---
Progress Note (short form) - Note Progress Note: Neurology 86yo RH man, with HTN, Chol, ASHD, S/P Stents, A Fib and dementia. Seen by Dr. Ventura as initial consult on 09/25/[address] Ernst, [facility] , deemed no surgical intervention for Left convexity subdural hematoma (acute), small left tentorial and infratemporal subarachnoid blood. Repeat CT's have shown interval development and patient has been followed by Dr. Ventura. He remains intubated, remains on vent. Family wanted second opinion with recent new CT showing L temp SDH with 17mm L to R shift. Spoke to son on phone today and answered his questions. He seemed to understand case now and we discussed continued high risk of surgical intervention and likely poor prognosis. Active Medications Bacitracin (Bacitracin -) 1 applic TP BID [facility] Last Admin: 10/11/16 11:16 Dose: 1 applic Digoxin (Lanoxin -) 0.125 mg PO HS [facility] Last Admin: 10/10/16 21:07 Dose: 0.125 mg Doxazosin Mesylate (Cardura -) 4 mg NGT DAILY [facility] Last Admin: 10/11/16 11:16 Dose: 4 mg Levetiracetam (Keppra Injection -) 500 mg IVPB BID [facility] Last Admin: 10/11/16 11:15 Dose: 500 mg Metoprolol Tartrate (Lopressor -) 100 mg NGT Q6HPO [facility] Last Admin: 10/11/16 06:25 Dose: Not Given Metoprolol Tartrate (Lopressor Injection -) 5 mg IVPUSH Q4H PRN PRN Reason: HYPERTENSION Pantoprazole Sodium (Protonix Packets For Oral Suspension -) 20 mg NGT DAILY [facility] Last Admin: 10/11/16 11:15 Dose: 20 mg Phytonadione (Aqua Mephyton Injection -) 5 mg SQ DAILY [facility] Stop: 10/12/16 10:01 Last Admin: 10/11/16 11:14 Dose: 5 mg Piperacillin Sod/Tazobactam Sod (Zosyn 3.375gm Ivpb (Pre-Docked)) 3.375 gm IVPB Q8H-IV [facility] PRN Reason: Protocol Last Admin: 10/11/16 11:15 Dose: 3.375 gm Polyethylene Glycol (Miralax (For Daily Use) -) 17 gm NGT BID [facility] Last Admin: 10/11/16 11:15 Dose: 17 grams Vital Signs Period Temp Pulse Resp BP Sys/Obrien Pulse Ox Last 24 Hr 99.1 F-100.8 F 96-136 14-20 88-133/52-90 99-99 Intubated but not sedated RRR Decrease breath sounds Abdomen soft Lethargic but arousable. PERRLA, Full roving EOM's. Full sauer to threat. No facial asymmetry. Course, rhythmic, rest tremors. + cogwheel. Right Babinski. CBCD WBC 13.4 K/mm3 (4.0-10.0) H 10/11/16 06:00 RBC 2.66 M/mm3 (4.00-5.60) L 10/11/16 06:00 Hgb 8.3 GM/dL (11.7-16.9) L D 10/11/16 06:00 Hct 24.9 % (35.4-49) L 10/11/16 06:00 MCV 93.7 fl (80-96) 10/11/16 06:00 MCHC 33.2 g/dl (32.0-35.9) 10/11/16 06:00 RDW 14.0 % (11.9-15.9) 10/11/16 06:00 Plt Count 131 K/MM3 (134-434) L 10/11/16 06:00 MPV 10.3 fl (7.5-11.1) 10/11/16 06:00 CMP Sodium 149 mmol/L (136-145) H 10/11/16 06:00 Potassium 4.2 mmol/L (3.5-5.1) 10/11/16 06:00 Chloride 108 mmol/L (98-107) H 10/11/16 06:00 Carbon Dioxide 29 mmol/L (21-32) 10/11/16 06:00 Anion Gap 12 (8-16) 10/11/16 06:00 BUN 50 mg/dL (7-18) H 10/11/16 06:00 Creatinine 1.2 mg/dL (0.7-1.3) D 10/11/16 06:00 Creat Clearance w eGFR 57.41 (>60) 10/11/16 06:00 Calcium 7.2 mg/dL (8.5-10.1) L 10/11/16 06:00 Total Bilirubin 3.0 mg/dL (0.2-1.0) H 10/11/16 06:00 AST 84 U/L (15-37) H 10/11/16 06:00 ALT 131 U/L (12-78) H 10/11/16 06:00 Alkaline Phosphatase 149 U/L (45-117) H 10/11/16 06:00 Total Protein 5.4 g/dl (6.4-8.2) L 10/11/16 06:00 Albumin 1.5 g/dl (3.4-5.0) L 10/11/16 06:00 86yo RH man, with HTN, Chol, ASHD, S/P Stents, A Fib and dementia. Seen by Dr. Ventura as initial consult on 09/25/[address] Ernst, [facility] , deemed no surgical intervention for small Left convexity subdural hematoma ( acute), small left tentorial and infratemporal subarachnoid blood. Repeat CT's have shown very small changes and slight interval development but have been relatively the same size. He remains intubated, not sedated, starting to wake up , remains on vent but overbreathing. Spoke to son at bedside and answered his questions. Patient has been getting ongoing plt transfusions due to CT showing blood. Continue Keppra for seizure prevention Remains intubated and on mechanical vent Monitor airway Reviewed repeat CT Long conversation with son Dr. Gilmore on this weekend if urgent questions
[2016-10-11] MEDS ORDERED: SODIUM CHLORIDE 1,000 ML IV ONE (12:10)
--- NOTE | 2016-10-11 13:10 | PN ---
Progress Note (short form) - Note Progress Note: PULMONARY POORLY RESPONSIVE ON VENT CHART REVIEWED DISCUSSIONS ON PALLIATIVE TREATMENT ON-GOING WILL CONTINUE CURRENT SUPPORTIVE VENT MANAGEMENT PROGNOSIS IS POOR R FADUMO JIMENEZ
--- NOTE | 2016-10-11 14:37 | PN ---
Progress Note, Physician History of Present Illness: Not responsive Low grade temps Hypotensive CXR shows increased infiltrate +/- effusion L lung field CT shows increased SDH - Current Medication List Current Medications: Active Medications Bacitracin (Bacitracin -) 1 applic TP BID [facility] Last Admin: 10/11/16 11:16 Dose: 1 applic Digoxin (Lanoxin -) 0.125 mg PO HS [facility] Last Admin: 10/10/16 21:07 Dose: 0.125 mg Doxazosin Mesylate (Cardura -) 4 mg NGT DAILY [facility] Last Admin: 10/11/16 11:16 Dose: 4 mg Levetiracetam (Keppra Injection -) 500 mg IVPB BID [facility] Last Admin: 10/11/16 11:15 Dose: 500 mg Metoprolol Tartrate (Lopressor -) 100 mg NGT Q6HPO [facility] Last Admin: 10/11/16 11:48 Dose: Not Given Metoprolol Tartrate (Lopressor Injection -) 5 mg IVPUSH Q4H PRN PRN Reason: HYPERTENSION Pantoprazole Sodium (Protonix Packets For Oral Suspension -) 20 mg NGT DAILY [facility] Last Admin: 10/11/16 11:15 Dose: 20 mg Phytonadione (Aqua Mephyton Injection -) 5 mg SQ DAILY [facility] Stop: 10/12/16 10:01 Last Admin: 10/11/16 11:14 Dose: 5 mg Piperacillin Sod/Tazobactam Sod (Zosyn 3.375gm Ivpb (Pre-Docked)) 3.375 gm IVPB Q8H-IV [facility] PRN Reason: Protocol Last Admin: 10/11/16 11:15 Dose: 3.375 gm Polyethylene Glycol (Miralax (For Daily Use) -) 17 gm NGT BID [facility] Last Admin: 10/11/16 11:15 Dose: 17 grams - Objective Vital Signs: Vital Signs Temperature 99.9 F H 10/11/16 11:58 Pulse Rate 104 H 10/11/16 11:58 Respiratory Rate 14 10/11/16 14:16 Blood Pressure 78/54 10/11/16 11:58 O2 Sat by Pulse Oximetry (%) 95 10/11/16 09:00 Constitutional: Yes: No Distress Eyes: Yes: Conjunctiva Clear Cardiovascular: Yes: Regular Rate and Rhythm, S1, S2 Respiratory: Yes: Diminished Gastrointestinal: Yes: Normal Bowel Sounds, Soft. No: Tenderness Edema: Yes Labs: CBC, BMP 10/11/16 06:00 10/11/16 06:00 INR, PTT INR 1.74 (0.82-1.09) H 10/11/16 06:00 Fibrinogen > 652.0 mg/dL (238-498) H 10/10/16 19:42 Assessment/Plan LLL pneumonia Respiratory failure Fever/ leukocytosis Hypotension, possible secondary to sepsis SDH Repeat blood cultures Continue empiric zosyn + vanco x 1 Prognosis guarded
[2016-10-11] MEDS: SODIUM CHLORIDE 1,000 ML IV SCH ×2 (14:51→22:39)
--- NOTE | 2016-10-11 15:56 | PN ---
Progress Note (short form) - Note Progress Note: Asked to re-evaluate and comment in the patients's current condition. CT Head yesterday revealed new bilateral cerebellar infarcts with a large Left fronto-parietal subacute/chronic SDH with a 17mm right shift. Patient was seen by Neurosurgery this AM and I agree that he is not an appropriate surgical candidate, especially given his overall medical condition. All cultures are negative and I suspect that his decompensation is due to progression of his neurological condition as evidenced by his deteriorating neurologic exam. At this time, ICU care would not benefit the patient's overall outcome or survival. His calculated SAPS II and DEERING II scores predict an exceedingly high mortality rate. Given his overall condition, new non-operable neurologic findings, and anticipated high ICU mortality, the best course of action is comfort/supportive care. Family discussions are ongoing for [facility]. I have had conversations with the patients's in the past unfortunately she has been unable to fully comprehend the severity of his illness. Dr Mena
[2016-10-11] MEDS ORDERED: VANCOMYCIN 1 GRAM (PRE-DOCKED) 250 ML IVPB ONE (16:00)
[2016-10-11] MEDS: PIPERACILLIN/TAZOB 3.375 GM 50 ML IVPB SCH (17:47)
[2016-10-11] MEDS: DIGOXIN 0.125 MG TABLET (FP) PO SCH (22:45)
[2016-10-12] MEDS: PIPERACILLIN/TAZOB 3.375 GM 50 ML IVPB SCH (01:54)
[2016-10-12] MEDS ORDERED: SODIUM CHLORIDE 1,000 ML IV ONE ×3 (04:00→09:15)
[2016-10-12] MEDS: METOPROLOL TARTRATE 50 MG TABLET (FP) NGT SCH (05:35)
[2016-10-12 07:31] VITALS: TEMP 96.8
[2016-10-12 08:33] LABS: MCH 30.7 pg (25.7-33.7); MCHC 31.7 g/dl (32.0-35.9); MEAN CELL VOLUME 96.9 fl (80-96); MEAN PLT VOLUME 10.2 fl (7.5-11.1); PLATELET COUNT 105 K/MM3 (134-434); RDW 14.8 % (11.9-15.9); WHITE BLOOD COUNT 13.6 K/mm3 (4.0-10.0)
[2016-10-12 08:54] LABS: ALBUMIN 1.4 g/dl (3.4-5.0); CALCIUM 7.1 mg/dL (8.5-10.1)
[2016-10-12 08:56] LABS: BILIRUBIN,TOTAL 2.1 mg/dL (0.2-1.0); COCKROFT - GAULT 38.85; CREATININE 1.7 mg/dL (0.7-1.3); TOT PROT 4.9 g/dl (6.4-8.2)
[2016-10-12 09:36] LABS: INR 1.53 (0.82-1.09)
[2016-10-12 09:41] VITALS: BP 52/26; PULSE 64
[2016-10-12] MEDS: PHYTONADIONE 10 MG/1 ML AMP SQ SCH (10:40)
--- NOTE | 2016-10-12 10:49 | HOSP ---
Subjective - Review of Symptoms Subjective: Notified by RN that she is unable to obtain vitals on the patient pt is hooked to vent. pt is unresponsive. pupils fixed and dilated. no cardiac tones can be appreciated. no pulse appreciated on doppler pronounced at 1040 call placed out to PMD Physical Examination Vital Signs: Vital Signs Temperature 96.8 F L 10/12/16 07:30 Pulse Rate 64 10/12/16 08:30 Respiratory Rate 14 10/12/16 10:16 Blood Pressure 52/26 10/12/16 08:30 O2 Sat by Pulse Oximetry (%) 96 10/11/16 09:00 Labs: CBC, BMP 10/12/16 07:00 10/12/16 07:00
== END 2016-10-12 10:40 | disposition expired | DRG 4 ==
LOC: JER 11:53 → JERBED 17:52 → JICU 22:58 → J5S 10-07 22:41
PROVIDERS: ADMIT Specialist; ATTEND Specialist
PROC: 30233L1 Transfusion of Nonautologous Fresh Plasma into Peripheral Vein, Percutaneous Approach (ICD-10-PCS; 2016-09-24)
PROC: 30233K1 Transfusion of Nonautologous Frozen Plasma into Peripheral Vein, Percutaneous Approach (ICD-10-PCS; 2016-09-24)
PROC: 5A1955Z Respiratory Ventilation, Greater than 96 Consecutive Hours (ICD-10-PCS; 2016-09-25)
PROC: 0BH17EZ Insertion of Endotracheal Airway into Trachea, Via Natural or Artificial Opening (ICD-10-PCS; 2016-09-25)
PROC: 0DH67UZ Insertion of Feeding Device into Stomach, Via Natural or Artificial Opening (ICD-10-PCS; 2016-09-25)
PROC: 3E0G76Z Introduction of Nutritional Substance into Upper GI, Via Natural or Artificial Opening (ICD-10-PCS; 2016-09-25)
PROC: 30233R1 Transfusion of Nonautologous Platelets into Peripheral Vein, Percutaneous Approach (ICD-10-PCS; 2016-09-25)
PROC: 0BJ08ZZ Inspection of Tracheobronchial Tree, Via Natural or Artificial Opening Endoscopic (ICD-10-PCS; 2016-10-04)
PROC: 0B113F4 Bypass Trachea to Cutaneous with Tracheostomy Device, Percutaneous Approach (ICD-10-PCS; principal; 2016-10-04 16:30)
DX: S06.5X0A Traumatic subdural hemorrhage without loss of consciousness, initial encounter (principal); J96.01 Acute respiratory failure with hypoxia; J69.0 Pneumonitis due to inhalation of food and vomit; A41.9 Sepsis, unspecified organism; I50.22 Chronic systolic (congestive) heart failure; I48.1 Persistent atrial fibrillation; S01.511A Laceration without foreign body of lip, initial encounter; S80.211A Abrasion, right knee, initial encounter; S02.2XXA Fracture of nasal bones, initial encounter for closed fracture; S63.289A Dislocation of proximal interphalangeal joint of unspecified finger, initial encounter; I11.0 Hypertensive heart disease with heart failure; G20 Parkinson's disease; F02.80 Dementia in other diseases classified elsewhere, unspecified severity, without behavioral disturbance, psychotic disturbance, mood disturbance, and anxiety; Z79.01 Long term (current) use of anticoagulants; I25.10 Atherosclerotic heart disease of native coronary artery without angina pectoris; Y99.8 Other external cause status; D69.6 Thrombocytopenia, unspecified; K56.41 Fecal impaction; K76.0 Fatty (change of) liver, not elsewhere classified; E87.6 Hypokalemia; R89.1 Abnormal level of hormones in specimens from other organs, systems and tissues; E83.39 Other disorders of phosphorus metabolism; E78.00 Pure hypercholesterolemia, unspecified; W01.198A Fall on same level from slipping, tripping and stumbling with subsequent striking against other object, initial encounter; Y93.89 Activity, other specified; Y92.89 Other specified places as the place of occurrence of the external cause
CPT/HCPCS: 31500; 36415; 36430; 36600; 70450-TC; 70486-TC; 71010-TC; 73140-TC-RT; 73560-TC-RT; 73590-TC-RT; 74000-TC; 74176-TC; 76705-TC; 80048; 80053; 80076; 80162; 81003; 82550; 82803; 83516; 83735; 84100; 84484; 85025; 85027; 85032; 85384; 85610; 85730; 86704; 86706; 86708; 86803; 86850; 86900; 86901; 87040; 87070; 87086; 87205; 87340; 93005; 93010; 94002; 94640; 99284-25; C1894; P9017; P9034; P9038; Q9967